=== PATIENT | female | born 1960 | race Caucasian/White ===

== ENCOUNTER 2019-10-16 06:01 | Inpatient (IN) | payer OTHER, BC ==
[2019-10-16] VITALS (15 sets, daily range): BP systolic 83–130; BP diastolic 44–88
[~2019-10-16] VITALS: Ht 162.6 cm; Wt 136.1 kg
--- OUTSIDE RECORDS SUMMARY | 2019-10-16 06:09 | XMS REPORT ---
[facility] Address Unknown Phone Unavailable Care Team Providers Care Cream Dumper Name Role Phone COLTON ROSS Unavailable Unavailable Corrie ROGEL Unavailable Unavailable Castillo JONES Unavailable Unavailable Payers Payer Name Policy Type Policy Number Effective Date Expiration Date Problems This patient has no known problems. Allergies, Adverse Reactions, Alerts Allergy Name Allergy Type Status Severity Reaction(s) Onset Date Inactive Date Treating Clinician Comments cyclosporine DA Active U 2018-04-14 00:00:00 fentanyl DA Active U 2018-01-25 00:00:00 gabapentin DA Active U 2018-01-25 00:00:00 mycophenolate mofetil DA Active U 2018-01-25 00:00:00 levofloxacin DA Active U 2018-01-25 00:00:00 Medications This patient has no known medications. Results Test Description Test Time Test Comments Text Results Atomic Results Result Comments GLUBED 2019-10-02 11:52:00 GLUBED (test code=GLUBED) 174 mg/dL 74-106 Performed by certified grinding machine operator portable at [facility] [id number] 11:52:00* Test Item Value Reference Range Comments GLUBED (test code=GLUBED) 218 mg/dL 74-106 Performed by certified grinding machine operator portable at [facility] [id number] 17:21:00 RUN DATE: 09/20/19 [facility] PAGE 1 RUN TIME: 1722 Specimen Inqui ry RUN USER: INTERFACE PATIENT: MARIZOL VARNER ACCT #: [id number] LOC: [facility] U #: [id number] AGE/SX: 59/F ROOM: [facility] RE09/14/19REG DR: Genaro Verma MD : 58 BED: A DIS: 09/18/19 STATUS: DIS IN TLOC: SPEC #: [id number] RECD: 09/18/19 STATUS: JERZY REQ #: [id number] OLIVER: 09/16/19- SUBM DR: Rohit Viveros MD ENTERED: 09/18/19 SP TYPE: SKIN OTHR DR: Shefali Claudia radha or Family Physician Johnie Hernández MD, David N MD Merszei, Justin David MD Nassif, George M MD Pham,Leilani Moreno MD, MDORDERED: GROSS COPIES TO: No Primary or Family Physician Johnie Stovall MD [address] [facility] [place] [address] Rohit Viveros MD [address] [place] [address] [place] [address] [facility], [address] [place] [address] Yahir Hunter MD [address] [facility] [address] [place] [address] Gemini Lerma MD [address] [place] [id number] Leilani Moran MD [address] [place] [address] MARKERS: INTRADEPARTMENTAL CONSULT CONTINUED ON NEXT PAGE RUN DATE: 09/20/19 [facility] PAGE 2 RUN TIME: 1722 Specimen Inquiry RUN USER: INTER FACE SPEC #: [id number] PATIENT: MARIZOL VARNER #[id number] (Con tinued) PROCEDURES: GROSS (09/20/19-1411) TISSUES: SKIN, N OS - LEFT FOREARM CLINICAL HISTORY COLLECTION DATE: 09/16/19 SEV ERE SEPSIS, INFECTED SKIN LESIONS COMMENT Multiple levels of the t issue are examined. These show a predominately superficial perivascular dermat itis. Focal erosion of the epidermal surface is noted. Discrete bulla/blister formation is not appreciated. Interpretation is somewhat limited as some deg enerative change has occurred. Necrotic keratinocytes typical of erythema mult iforme are not seen. No viral inclusions or granulomas are identified. The fi ndings are non-specific but a drug eruption is not excluded. Correlation is ne mayteary. Intradepartmental consultation: DMW. FINAL DIAGNOSIS Sk in, left forearm, excisional biopsy: SUPERFICIAL PERIVASCULAR DERMATITI S, see comment EPITHELIAL HYPERPLASIA, MILD HYPERKERATOSIS AND FOCAL EPID ERMAL EROSION NO VASCULITIS PRESENT NEGATIVE FOR MALIGNANCY RRB/rohini D [id number] MACROSCOPIC The specimen is received in mejia ine labeled with the patient's name, and medical record number. It consists o f an ellipse of light menon to menon-red skin measuring 2.0 x 1.0 x 0.3 cm. The s pecimen is not oriented. The surgical margin is inked black. The tissue is s ectioned and entirely submitted in a single cassette. GROSS PERFORMED AT [facility] [address] [place] [address] (P)[phone] CONTINUED ON NEXT PAGE RUN DATE: 09/20/19 [facility] PAGE 3 RUN TIME: 172 Specimen Inquiry RUN USER: INTERFACE SPEC #: [id number] PATIENT: MARIZOL VARNER #[id number] (Continued)------ ------ MICROSCOPIC The tissue was entirely submitted for histologi c evaluation. The specimen was received in saline, without fixation and degen erative type change is present. The sections show skin with an area of centra l surface erosion. Mild hyperkeratosis and hyperplasia are present around the eroded area. A mixed inflammatory infiltrate is present in the upper and mid dermis. The inflammatory infiltrate consists predominately of lymphocytes and scattered neutrophils with few plasma cells. Increased numbers of eosinophils are not identified. The inflammatory infiltrate is predominately perivascular in location. No true vasculitis is present. Large confluent areas of i nflammation and necrosis are not seen. Necrotic epithelial cells are not note d. All of the stains, including any controls performed, stain appropriately. MICROSCOPIC PERFORMED AT [facility] [address] [place] [address] [phone])[phone] PERFO ING SITE Diagnosis performed at: [facility] [address] [facility] [place], [place] [address] Signed SIGNATURE ON FILE Asif Scott MD 09/20/19 7381 END OF REPORT AB HEPATITIS B SURFACE 2019-09-19 09:10:00* Test Item Value Reference Range Comments AB HEPATITIS B SURFACE (test code=HBSAB) Non Reactive () Non Reactive: Inconsistent with immunity, less than 10 mIU/mL Reactive: Consistent with immunity, greater than 9.9 mIU/mLPerformed At: [facility] [id number] Blas MD Ph:[phone] HEPATITIS B CORE ANTIBODY,[id number] 07:13:00* Test Item Value Reference Range Comments HEPATITIS B CORE ANTIBODY,TOT (test code=HBCAB) Negative Negative Performed At: [facility] [id number] Blas MD Ph:[phone] [id number] 08:48:00* Test Item Value Reference Range Comments GLUBED (test code=GLUBED) 260 mg/dL 74-106 Performed by certified grinding machine operator portable at [facility] - XR CHEST 1 [id number] 05:28:00 FAX: Tom Castillo [phone] [place]: St: [facility] FAX: Genaro Vidal MD [phone] Name: MARIZOL VARNER [facility] : 1960 Age/S: 59/F [address] [facility] Unit #: [id number] Loc: [address] [place] [address] Phys: Tom Castillo Acct: [id number] Dis Date: Status: ADM IN PHONE #: [phone] Exam Date: 09/18/2019 0431 FAX #: [phone] Reason: updated pulm view. EXAMS: CPT CODE: [id number] XR CHEST 1 V 76796 EXAM: XR Chest 1 View INDICATION: updated pulm view. LOCATION CODE: R 16 COMPARISON: Chest radiograph dated 09/17/2019 TECHNIQUE: Frontal view of the chest was obtained. FINDINGS: Tracheostomy is in unchanged placement. Right basilar subsegmental atelectasis is increased from prior. There is unchanged pulmonary vascular congestion. There is no pleural effusion or pneumothorax. The cardiomediastinal silhouette is unchanged. No acute osseous abnormality is identified. IMPRESSION: Inc reased right basilar subsegmental atelectasis, otherwise unchanged radio graph. at 0528 Reported and signed by: Clara Ugalde M.D. CC: Tom Castillo; Genaro Verma MD Technologist: TAMARA ORTIZ, RT(R) Trnscrd Date/Time/By: 09/18/2019 (527) : By: [email or web address] Orig Print D/T: S: 09/18/2019 (0568) PAGE 1 Signed Report B-TYPE NATRIURETIC [id number] 04:36:00* Test Item Value Reference Range Comments B-TYPE NATRIURETIC PEPTIDE (test code=BNP) 696.61 pgram/mL 0-100 CBC W/MANUAL [id number] 04:33:00* Test Item Value Reference Range Comments WHITE BLOOD CELL (test code=WBC) 18.8 K/mm3 4.5-12.5 RED BLOOD CELL (test code=RBC) 3.27 mill/mm3 3.7-5.2 HEMOGLOBIN (test code=HGB) 9.3 gram/dL 11.5-15.5 HEMATOCRIT (test code=HCT) 31.3 % 36.0-46.0 MEAN CELL VOLUME (test code=MCV) 95.7 fL 80-98 MEAN CELL HGB (test code=MCH) 28.4 picogram 27.0-33.0 MEAN CELL HGB CONCETRATION (test code=MCHC) 29.7 gram/dL 33.0-36.0 RED CELL DISTRIBUTION WIDTH (test code=RDW) 16.3 % 11.6-16.2 RED CELL DISTRIBUTION WIDTH SD (test code=RDW-SD) 57.4 fL 37.0-51.0 PLATELET COUNT (test code=PLT) 276 K/mm3 150-450 MEAN PLATELET VOLUME (test code=MPV) 11.2 fL 6.7-11.0 IMMATURE GRANULOCYTE % (test code=IG%) 16.7 % 0.0-5.0 "The appearance of immature granulocytes (myelocytes,pro-myelocytes, meta-myelocytes) in the peripheral blood ofnon- individuals can indicate a response toinfection, inflammation, or other stimulus to the bonemarrow" NUCLEATED RBC % (test code=NRBC%) 0.2 % 0-0 NEUTROPHIL # (test code=NT#) 13.51 K/mm3 1.8-7.7 IMMATURE GRANULOCYTE # (test code=IG#) 3.13 x10 3/uL 0-0.03 LYMPHOCYTE # (test code=LY#) 1.02 K/mm3 1.0-5.0 MONOCYTE # (test code=MO#) 0.91 K/mm3 0-0.8 EOSINOPHIL # (test code=EO#) 0.06 K/mm3 0.0-0.5 BASOPHIL # (test code=BA#) 0.12 K/mm3 0.0-0.2 NUCLEATED RBC # (test code=NRBC#) 0.04 K/mm3 0.0-0.1 MANUAL DIFF REQUIRED (test code=MDIFF) YES STAIN ACCEPTABILITY (test code=STN ACCEPTABLE) STAIN ACCEPTABLE TOTAL CELLS COUNTED (test code=TCC) 115 #CELLS SEGMENTED NEUTROPHILS (test code=SEG) 81.7 % 39-69 BAND NEUTROPHIL (test code=BAND) 6.1 % 0-10 LYMPHOCYTE (test code=LYMPH) 6.1 % 25-55 REACTIVE LYMPH (test code=RELYMPH) 0 % MONOCYTE (test code=MON) 4.3 % 0-10 EOSINOPHIL (test code=EOS) 0 % 0.0-5.0 BASOPHIL (test code=BASO) 0.9 % 0-1.0 METAMYELOCYTE (test code=META) 0 % 0-0 MYELOCYTE (test code=MYELO) 0.9 % 0.0-0.0 PROMYELOCYTE (test code=PROM) 0 % 0-0 POLYCHROMASIA (test code=POLC) 1+ TOXIC GRANULATION (test code=TOX) 1+ PLATELET ESTIMATE (test code=PLTEST) ADEQUATE PLATELET MORPHOLOGY (test code=PLTMORPH) NORMAL IMMATURE FORMS (test code=IMMAT) 0 % 0-0 COMPREHENSIVE METABOLIC [id number] 04:30:00* Test Item Value Reference Range Comments SODIUM (test code=NA) 131 mmol/L 136-145 POTASSIUM (test code=K) 5.7 mmol/L 3.5-5.1 CHLORIDE (test code=CL) 93.0 mmol/L 98-107 CARBON DIOXIDE (test code=CO2) 21.0 mmol/L 21-32 ANION GAP (test code=GAP) 22.7 10-20 GLUCOSE (test code=GLU) 371 mg/dL 74-106 BLOOD UREA NITROGEN (test code=BUN) 103 mg/dL 7-18 GLOMERULAR FILTRATION RATE (test code=GFR) 4 mL/min >=60 Estimated GFR by using Modified MDRD formula.Chronic kidney disease is defined as either kidney damageor GFR <60 mL/min/1.73 m2 for >3 months. CREATININE (test code=CREAT) 9.30 mg/dL 0.55-1.02 Note change in reference range due to change in reagent. BUN/CREATININE RATIO (test code=BUN/CREA) 11.1 10-20 TOTAL PROTEIN (test code=PROT) 8.9 gram/dL 6.4-8.2 ALBUMIN (test code=ALB) 3.3 g/dL 3.4-5.0 GLOBULIN (test code=GLOB) 5.6 gram/dL 2.7-4.2 ALBUMIN/GLOBULIN RATIO (test code=A/G) 0.6 0.75-1.50 CALCIUM (test code=CA) 9.0 mg/dL 8.5-10.1 BILIRUBIN TOTAL (test code=BILT) 0.30 mg/dL 0.0-1.0 SGOT/AST (test code=AST) 17 IUnit/L 15-37 SGPT/ALT (test code=ALT) 48 IUnit/L 12-78 ALKALINE PHOSPHATASE TOTAL (test code=ALKP) 85 IUnit/L 45-117 Note change in reference range due to change in reagent. [id number] 04:30:00* Test Item Value Reference Range Comments MAGNESIUM (test code=MAG) 2.4 mg/dL 1.8-2.4 COMPREHENSIVE METABOLIC [id number] 04:15:00* Test Item Value Reference Range Comments SODIUM (test code=NA) 131 mmol/L 136-145 POTASSIUM (test code=K) 5.7 mmol/L 3.5-5.1 CHLORIDE (test code=CL) 93.0 mmol/L 98-107 CARBON DIOXIDE (test code=CO2) mmol/L 21-32 ANION GAP (test code=GAP) 10-20 GLUCOSE (test code=GLU) mg/dL 74-106 BLOOD UREA NITROGEN (test code=BUN) mg/dL 7-18 GLOMERULAR FILTRATION RATE (test code=GFR) mL/min >=60 CREATININE (test code=CREAT) mg/dL 0.55-1.02 BUN/CREATININE RATIO (test code=BUN/CREA) 10-20 TOTAL PROTEIN (test code=PROT) gram/dL 6.4-8.2 ALBUMIN (test code=ALB) g/dL 3.4-5.0 GLOBULIN (test code=GLOB) gram/dL 2.7-4.2 ALBUMIN/GLOBULIN RATIO (test code=A/G) 0.75-1.50 CALCIUM (test code=CA) mg/dL 8.5-10.1 BILIRUBIN TOTAL (test code=BILT) mg/dL 0.0-1.0 SGOT/AST (test code=AST) IUnit/L 15-37 SGPT/ALT (test code=ALT) IUnit/L 12-78 ALKALINE PHOSPHATASE TOTAL (test code=ALKP) IUnit/L 45-117 [id number] 04:15:00* Test Item Value Reference Range Comments MAGNESIUM (test code=MAG) mg/dL 1.8-2.4 CBC W/MANUAL [id number] 04:01:00* Test Item Value Reference Range Comments WHITE BLOOD CELL (test code=WBC) 18.8 K/mm3 4.5-12.5 RED BLOOD CELL (test code=RBC) 3.27 mill/mm3 3.7-5.2 HEMOGLOBIN (test code=HGB) 9.3 gram/dL 11.5-15.5 HEMATOCRIT (test code=HCT) 31.3 % 36.0-46.0 MEAN CELL VOLUME (test code=MCV) 95.7 fL 80-98 MEAN CELL HGB (test code=MCH) 28.4 picogram 27.0-33.0 MEAN CELL HGB CONCETRATION (test code=MCHC) 29.7 gram/dL 33.0-36.0 RED CELL DISTRIBUTION WIDTH (test code=RDW) 16.3 % 11.6-16.2 RED CELL DISTRIBUTION WIDTH SD (test code=RDW-SD) 57.4 fL 37.0-51.0 PLATELET COUNT (test code=PLT) 276 K/mm3 150-450 MEAN PLATELET VOLUME (test code=MPV) 11.2 fL 6.7-11.0 IMMATURE GRANULOCYTE % (test code=IG%) 16.7 % 0.0-5.0 "The appearance of immature granulocytes (myelocytes,pro-myelocytes, meta-myelocytes) in the peripheral blood ofnon- individuals can indicate a response toinfection, inflammation, or other stimulus to the bonemarrow" NUCLEATED RBC % (test code=NRBC%) 0.2 % 0-0 NEUTROPHIL # (test code=NT#) 13.51 K/mm3 1.8-7.7 IMMATURE GRANULOCYTE # (test code=IG#) 3.13 x10 3/uL 0-0.03 LYMPHOCYTE # (test code=LY#) 1.02 K/mm3 1.0-5.0 MONOCYTE # (test code=MO#) 0.91 K/mm3 0-0.8 EOSINOPHIL # (test code=EO#) 0.06 K/mm3 0.0-0.5 BASOPHIL # (test code=BA#) 0.12 K/mm3 0.0-0.2 NUCLEATED RBC # (test code=NRBC#) 0.04 K/mm3 0.0-0.1 MANUAL DIFF REQUIRED (test code=MDIFF) YES STAIN ACCEPTABILITY (test code=STN ACCEPTABLE) TOTAL CELLS COUNTED (test code=TCC) #CELLS SEGMENTED NEUTROPHILS (test code=SEG) % 39-69 LYMPHOCYTE (test code=LYMPH) % 25-55 MONOCYTE (test code=MON) % 0-10 MORPHOLOGY COMMENT (test code=MOC) PLATELET ESTIMATE (test code=PLTEST) PLATELET MORPHOLOGY (test code=PLTMORPH) CBC W/MANUAL [id number] 03:58:00* Test Item Value Reference Range Comments WHITE BLOOD CELL (test code=WBC) 18.8 K/mm3 4.5-12.5 RED BLOOD CELL (test code=RBC) 3.27 mill/mm3 3.7-5.2 HEMOGLOBIN (test code=HGB) 9.3 gram/dL 11.5-15.5 HEMATOCRIT (test code=HCT) 31.3 % 36.0-46.0 MEAN CELL VOLUME (test code=MCV) 95.7 fL 80-98 MEAN CELL HGB (test code=MCH) 28.4 picogram 27.0-33.0 MEAN CELL HGB CONCETRATION (test code=MCHC) 29.7 gram/dL 33.0-36.0 RED CELL DISTRIBUTION WIDTH (test code=RDW) 16.3 % 11.6-16.2 RED CELL DISTRIBUTION WIDTH SD (test code=RDW-SD) 57.4 fL 37.0-51.0 PLATELET COUNT (test code=PLT) 276 K/mm3 150-450 MEAN PLATELET VOLUME (test code=MPV) 11.2 fL 6.7-11.0 IMMATURE GRANULOCYTE % (test code=IG%) 16.7 % 0.0-5.0 "The appearance of immature granulocytes (myelocytes,pro-myelocytes, meta-myelocytes) in the peripheral blood ofnon- individuals can indicate a response toinfection, inflammation, or other stimulus to the bonemarrow" NUCLEATED RBC % (test code=NRBC%) 0.2 % 0-0 NEUTROPHIL # (test code=NT#) 13.51 K/mm3 1.8-7.7 IMMATURE GRANULOCYTE # (test code=IG#) 3.13 x10 3/uL 0-0.03 LYMPHOCYTE # (test code=LY#) 1.02 K/mm3 1.0-5.0 MONOCYTE # (test code=MO#) 0.91 K/mm3 0-0.8 EOSINOPHIL # (test code=EO#) 0.06 K/mm3 0.0-0.5 BASOPHIL # (test code=BA#) 0.12 K/mm3 0.0-0.2 NUCLEATED RBC # (test code=NRBC#) 0.04 K/mm3 0.0-0.1 MANUAL DIFF REQUIRED (test code=MDIFF) YES STAIN ACCEPTABILITY (test code=STN ACCEPTABLE) TOTAL CELLS COUNTED (test code=TCC) #CELLS SEGMENTED NEUTROPHILS (test code=SEG) % 39-69 LYMPHOCYTE (test code=LYMPH) % 25-55 MONOCYTE (test code=MON) % 0-10 EOSINOPHIL (test code=EOS) % 0.0-5.0 CABOT RINGS (test code=CAB) MORPHOLOGY COMMENT (test code=MOC) PLATELET ESTIMATE (test code=PLTEST) PLATELET MORPHOLOGY (test code=PLTMORPH) CBC W/MANUAL [id number] 03:58:00* Test Item Value Reference Range Comments WHITE BLOOD CELL (test code=WBC) 18.8 K/mm3 4.5-12.5 RED BLOOD CELL (test code=RBC) 3.27 mill/mm3 3.7-5.2 HEMOGLOBIN (test code=HGB) 9.3 gram/dL 11.5-15.5 HEMATOCRIT (test code=HCT) 31.3 % 36.0-46.0 MEAN CELL VOLUME (test code=MCV) 95.7 fL 80-98 MEAN CELL HGB (test code=MCH) 28.4 picogram 27.0-33.0 MEAN CELL HGB CONCETRATION (test code=MCHC) 29.7 gram/dL 33.0-36.0 RED CELL DISTRIBUTION WIDTH (test code=RDW) 16.3 % 11.6-16.2 RED CELL DISTRIBUTION WIDTH SD (test code=RDW-SD) 57.4 fL 37.0-51.0 PLATELET COUNT (test code=PLT) 276 K/mm3 150-450 MEAN PLATELET VOLUME (test code=MPV) 11.2 fL 6.7-11.0 IMMATURE GRANULOCYTE % (test code=IG%) 16.7 % 0.0-5.0 "The appearance of immature granulocytes (myelocytes,pro-myelocytes, meta-myelocytes) in the peripheral blood ofnon- individuals can indicate a response toinfection, inflammation, or other stimulus to the bonemarrow" NUCLEATED RBC % (test code=NRBC%) 0.2 % 0-0 NEUTROPHIL # (test code=NT#) 13.51 K/mm3 1.8-7.7 IMMATURE GRANULOCYTE # (test code=IG#) 3.13 x10 3/uL 0-0.03 LYMPHOCYTE # (test code=LY#) 1.02 K/mm3 1.0-5.0 MONOCYTE # (test code=MO#) 0.91 K/mm3 0-0.8 EOSINOPHIL # (test code=EO#) 0.06 K/mm3 0.0-0.5 BASOPHIL # (test code=BA#) 0.12 K/mm3 0.0-0.2 NUCLEATED RBC # (test code=NRBC#) 0.04 K/mm3 0.0-0.1 MANUAL DIFF REQUIRED (test code=MDIFF) YES STAIN ACCEPTABILITY (test code=STN ACCEPTABLE) TOTAL CELLS COUNTED (test code=TCC) #CELLS SEGMENTED NEUTROPHILS (test code=SEG) % 39-69 LYMPHOCYTE (test code=LYMPH) % 25-55 MONOCYTE (test code=MON) % 0-10 EOSINOPHIL (test code=EOS) % 0.0-5.0 CABOT RINGS (test code=CAB) MORPHOLOGY COMMENT (test code=MOC) PLATELET ESTIMATE (test code=PLTEST) PLATELET MORPHOLOGY (test code=PLTMORPH) CBC W/MANUAL [id number] 03:58:00* Test Item Value Reference Range Comments WHITE BLOOD CELL (test code=WBC) 18.8 K/mm3 4.5-12.5 RED BLOOD CELL (test code=RBC) 3.27 mill/mm3 3.7-5.2 HEMOGLOBIN (test code=HGB) 9.3 gram/dL 11.5-15.5 HEMATOCRIT (test code=HCT) 31.3 % 36.0-46.0 MEAN CELL VOLUME (test code=MCV) 95.7 fL 80-98 MEAN CELL HGB (test code=MCH) 28.4 picogram 27.0-33.0 MEAN CELL HGB CONCETRATION (test code=MCHC) 29.7 gram/dL 33.0-36.0 RED CELL DISTRIBUTION WIDTH (test code=RDW) 16.3 % 11.6-16.2 RED CELL DISTRIBUTION WIDTH SD (test code=RDW-SD) 57.4 fL 37.0-51.0 PLATELET COUNT (test code=PLT) 276 K/mm3 150-450 MEAN PLATELET VOLUME (test code=MPV) 11.2 fL 6.7-11.0 IMMATURE GRANULOCYTE % (test code=IG%) 16.7 % 0.0-5.0 "The appearance of immature granulocytes (myelocytes,pro-myelocytes, meta-myelocytes) in the peripheral blood ofnon- individuals can indicate a response toinfection, inflammation, or other stimulus to the bonemarrow" NUCLEATED RBC % (test code=NRBC%) 0.2 % 0-0 NEUTROPHIL # (test code=NT#) 13.51 K/mm3 1.8-7.7 IMMATURE GRANULOCYTE # (test code=IG#) 3.13 x10 3/uL 0-0.03 LYMPHOCYTE # (test code=LY#) 1.02 K/mm3 1.0-5.0 MONOCYTE # (test code=MO#) 0.91 K/mm3 0-0.8 EOSINOPHIL # (test code=EO#) 0.06 K/mm3 0.0-0.5 BASOPHIL # (test code=BA#) 0.12 K/mm3 0.0-0.2 NUCLEATED RBC # (test code=NRBC#) 0.04 K/mm3 0.0-0.1 MANUAL DIFF REQUIRED (test code=MDIFF) YES STAIN ACCEPTABILITY (test code=STN ACCEPTABLE) TOTAL CELLS COUNTED (test code=TCC) #CELLS SEGMENTED NEUTROPHILS (test code=SEG) % 39-69 LYMPHOCYTE (test code=LYMPH) % 25-55 MONOCYTE (test code=MON) % 0-10 EOSINOPHIL (test code=EOS) % 0.0-5.0 MORPHOLOGY COMMENT (test code=MOC) PLATELET ESTIMATE (test code=PLTEST) PLATELET MORPHOLOGY (test code=PLTMORPH) CBC W/MANUAL [id number] 03:58:00* Test Item Value Reference Range Comments WHITE BLOOD CELL (test code=WBC) 18.8 K/mm3 4.5-12.5 RED BLOOD CELL (test code=RBC) 3.27 mill/mm3 3.7-5.2 HEMOGLOBIN (test code=HGB) 9.3 gram/dL 11.5-15.5 HEMATOCRIT (test code=HCT) 31.3 % 36.0-46.0 MEAN CELL VOLUME (test code=MCV) 95.7 fL 80-98 MEAN CELL HGB (test code=MCH) 28.4 picogram 27.0-33.0 MEAN CELL HGB CONCETRATION (test code=MCHC) 29.7 gram/dL 33.0-36.0 RED CELL DISTRIBUTION WIDTH (test code=RDW) 16.3 % 11.6-16.2 RED CELL DISTRIBUTION WIDTH SD (test code=RDW-SD) 57.4 fL 37.0-51.0 PLATELET COUNT (test code=PLT) 276 K/mm3 150-450 MEAN PLATELET VOLUME (test code=MPV) 11.2 fL 6.7-11.0 IMMATURE GRANULOCYTE % (test code=IG%) 16.7 % 0.0-5.0 "The appearance of immature granulocytes (myelocytes,pro-myelocytes, meta-myelocytes) in the peripheral blood ofnon- individuals can indicate a response toinfection, inflammation, or other stimulus to the bonemarrow" NUCLEATED RBC % (test code=NRBC%) 0.2 % 0-0 NEUTROPHIL # (test code=NT#) 13.51 K/mm3 1.8-7.7 IMMATURE GRANULOCYTE # (test code=IG#) 3.13 x10 3/uL 0-0.03 LYMPHOCYTE # (test code=LY#) 1.02 K/mm3 1.0-5.0 MONOCYTE # (test code=MO#) 0.91 K/mm3 0-0.8 EOSINOPHIL # (test code=EO#) 0.06 K/mm3 0.0-0.5 BASOPHIL # (test code=BA#) 0.12 K/mm3 0.0-0.2 NUCLEATED RBC # (test code=NRBC#) 0.04 K/mm3 0.0-0.1 MANUAL DIFF REQUIRED (test code=MDIFF) YES STAIN ACCEPTABILITY (test code=STN ACCEPTABLE) TOTAL CELLS COUNTED (test code=TCC) #CELLS SEGMENTED NEUTROPHILS (test code=SEG) % 39-69 LYMPHOCYTE (test code=LYMPH) % 25-55 MONOCYTE (test code=MON) % 0-10 EOSINOPHIL (test code=EOS) % 0.0-5.0 CABOT RINGS (test code=CAB) MORPHOLOGY COMMENT (test code=MOC) PLATELET ESTIMATE (test code=PLTEST) PLATELET MORPHOLOGY (test code=PLTMORPH) [id number] 16:15:00* Test Item Value Reference Range Comments GLUBED (test code=GLUBED) 299 mg/dL 74-106 Performed by certified grinding machine operator portable at [facility] [id number] 11:33:00* Test Item Value Reference Range Comments GLUBED (test code=GLUBED) 228 mg/dL 74-106 Performed by certified grinding machine operator portable at [facility] [id number] 08:51:00* Test Item Value Reference Range Comments GLUBED (test code=GLUBED) 237 mg/dL 74-106 Performed by certified grinding machine operator portable at [facility] - XR CHEST 1 [id number] 04:55:00 FAX: Genaro Vidal MD [phone] [place]: St: [facility] FAX: Seun Maya MD [phone] Name: MARIZOL VARNER [facility] : 1960 Age/S: 59/F [address] [facility] Unit #: [id number] Loc: V.[address] [place] [id number] Phys: Seun Nunez MD Acct: [id number] Dis Date: Status: ADM IN PHONE #: [phone] Exam Date: 09/17/2019 0423 FAX #: [phone] Reason: bibasilar GNR pneumonia with tracheostomy EXAMS: CPT CODE: [id number] XR CHEST 1 V 37571 EXAM: XR Chest 1 View INDICATION: bibasilar GNR pneumonia with tracheostomy LOCATION CODE: R 16 COMPARISON: Chest radiograph dated 09/16/2019 TECHNIQUE: Frontal view of the chest was obtained. FINDINGS: Tracheostomy is in unchanged placement. Bibasilar lung opacities appear decreased from prior. There is no pleural effusion or pneumothorax. The cardiomediastinal silhouette is unchanged. No acute osseous abnormality is identified. IMPRESSION: Decrease in bibasilar lung opacities likely reflecting improving pneumonia. at 0455 Reported and signed by: Clara Ugalde M.D. CC: Genaro Verma MD; Seun Nunez MD Technologist: Mandeep Reina RT(R); ELSIE DA SILVA RT(R) Trnscrd Date/Time/By: 09/17/2019 (0455) : By: [email or web address] Orig Print D/T: S: 09/17/2019 (0458) PAGE 1 Signed Report B-TYPE NATRIURETIC [id number] 04:21:00* Test Item Value Reference Range Comments B-TYPE NATRIURETIC PEPTIDE (test code=BNP) 754.74 pgram/mL 0-100 CBC W/MANUAL [id number] 01:28:00* Test Item Value Reference Range Comments WHITE BLOOD CELL (test code=WBC) 21.2 K/mm3 4.5-12.5 RED BLOOD CELL (test code=RBC) 2.83 mill/mm3 3.7-5.2 HEMOGLOBIN (test code=HGB) 8.3 gram/dL 11.5-15.5 HEMATOCRIT (test code=HCT) 27.2 % 36.0-46.0 MEAN CELL VOLUME (test code=MCV) 96.1 fL 80-98 MEAN CELL HGB (test code=MCH) 29.3 picogram 27.0-33.0 MEAN CELL HGB CONCETRATION (test code=MCHC) 30.5 gram/dL 33.0-36.0 RED CELL DISTRIBUTION WIDTH (test code=RDW) 16.1 % 11.6-16.2 RED CELL DISTRIBUTION WIDTH SD (test code=RDW-SD) 56.4 fL 37.0-51.0 PLATELET COUNT (test code=PLT) 233 K/mm3 150-450 MEAN PLATELET VOLUME (test code=MPV) 11.2 fL 6.7-11.0 IMMATURE GRANULOCYTE % (test code=IG%) 9.1 % 0.0-5.0 "The appearance of immature granulocytes (myelocytes,pro-myelocytes, meta-myelocytes) in the peripheral blood ofnon- individuals can indicate a response toinfection, inflammation, or other stimulus to the bonemarrow" NUCLEATED RBC % (test code=NRBC%) 0.2 % 0-0 NEUTROPHIL # (test code=NT#) 16.38 K/mm3 1.8-7.7 IMMATURE GRANULOCYTE # (test code=IG#) 1.93 x10 3/uL 0-0.03 LYMPHOCYTE # (test code=LY#) 1.17 K/mm3 1.0-5.0 MONOCYTE # (test code=MO#) 1.50 K/mm3 0-0.8 EOSINOPHIL # (test code=EO#) 0.09 K/mm3 0.0-0.5 BASOPHIL # (test code=BA#) 0.12 K/mm3 0.0-0.2 NUCLEATED RBC # (test code=NRBC#) 0.04 K/mm3 0.0-0.1 MANUAL DIFF REQUIRED (test code=MDIFF) YES STAIN ACCEPTABILITY (test code=STN ACCEPTABLE) STAIN ACCEPTABLE TOTAL CELLS COUNTED (test code=TCC) 115 #CELLS SEGMENTED NEUTROPHILS (test code=SEG) 86.9 % 39-69 BAND NEUTROPHIL (test code=BAND) 1.7 % 0-10 LYMPHOCYTE (test code=LYMPH) 6.1 % 25-55 REACTIVE LYMPH (test code=RELYMPH) 0 % MONOCYTE (test code=MON) 3.5 % 0-10 EOSINOPHIL (test code=EOS) 0.9 % 0.0-5.0 BASOPHIL (test code=BASO) 0.9 % 0-1.0 METAMYELOCYTE (test code=META) 0 % 0-0 MYELOCYTE (test code=MYELO) 0 % 0.0-0.0 PROMYELOCYTE (test code=PROM) 0 % 0-0 POLYCHROMASIA (test code=POLC) 1+ ANISOCYTOSIS (test code=ANISO) 1+ MICROCYTOSIS (test code=MICR) 1+ PLATELET ESTIMATE (test code=PLTEST) ADEQUATE PLATELET MORPHOLOGY (test code=PLTMORPH) NORMAL IMMATURE FORMS (test code=IMMAT) 0 % 0-0 COMPREHENSIVE METABOLIC [id number] 01:20:00* Test Item Value Reference Range Comments SODIUM (test code=NA) 135 mmol/L 136-145 POTASSIUM (test code=K) 4.9 mmol/L 3.5-5.1 CHLORIDE (test code=CL) 97.0 mmol/L 98-107 CARBON DIOXIDE (test code=CO2) 24.0 mmol/L 21-32 ANION GAP (test code=GAP) 18.9 10-20 GLUCOSE (test code=GLU) 251 mg/dL 74-106 BLOOD UREA NITROGEN (test code=BUN) 68 mg/dL 7-18 RESULT VERIFIED BY REPEAT ANALYSIS GLOMERULAR FILTRATION RATE (test code=GFR) 6 mL/min >=60 Estimated GFR by using Modified MDRD formula.Chronic kidney disease is defined as either kidney damageor GFR <60 mL/min/1.73 m2 for >3 months. CREATININE (test code=CREAT) 7.30 mg/dL 0.55-1.02 Note change in reference range due to change in reagent. BUN/CREATININE RATIO (test code=BUN/CREA) 9.3 10-20 TOTAL PROTEIN (test code=PROT) 8.2 gram/dL 6.4-8.2 ALBUMIN (test code=ALB) 3.0 g/dL 3.4-5.0 GLOBULIN (test code=GLOB) 5.2 gram/dL 2.7-4.2 ALBUMIN/GLOBULIN RATIO (test code=A/G) 0.6 0.75-1.50 CALCIUM (test code=CA) 8.8 mg/dL 8.5-10.1 BILIRUBIN TOTAL (test code=BILT) 0.30 mg/dL 0.0-1.0 SGOT/AST (test code=AST) 24 IUnit/L 15-37 SGPT/ALT (test code=ALT) 51 IUnit/L 12-78 ALKALINE PHOSPHATASE TOTAL (test code=ALKP) 82 IUnit/L 45-117 Note change in reference range due to change in reagent. [id number] 01:20:00* Test Item Value Reference Range Comments MAGNESIUM (test code=MAG) 2.1 mg/dL 1.8-2.4 COMPREHENSIVE METABOLIC [id number] 01:05:00* Test Item Value Reference Range Comments SODIUM (test code=NA) 135 mmol/L 136-145 POTASSIUM (test code=K) 4.9 mmol/L 3.5-5.1 CHLORIDE (test code=CL) 97.0 mmol/L 98-107 CARBON DIOXIDE (test code=CO2) mmol/L 21-32 ANION GAP (test code=GAP) 10-20 GLUCOSE (test code=GLU) mg/dL 74-106 BLOOD UREA NITROGEN (test code=BUN) mg/dL 7-18 GLOMERULAR FILTRATION RATE (test code=GFR) mL/min >=60 CREATININE (test code=CREAT) mg/dL 0.55-1.02 BUN/CREATININE RATIO (test code=BUN/CREA) 10-20 TOTAL PROTEIN (test code=PROT) gram/dL 6.4-8.2 ALBUMIN (test code=ALB) g/dL 3.4-5.0 GLOBULIN (test code=GLOB) gram/dL 2.7-4.2 ALBUMIN/GLOBULIN RATIO (test code=A/G) 0.75-1.50 CALCIUM (test code=CA) mg/dL 8.5-10.1 BILIRUBIN TOTAL (test code=BILT) mg/dL 0.0-1.0 SGOT/AST (test code=AST) IUnit/L 15-37 SGPT/ALT (test code=ALT) IUnit/L 12-78 ALKALINE PHOSPHATASE TOTAL (test code=ALKP) IUnit/L 45-117 [id number] 01:05:00* Test Item Value Reference Range Comments MAGNESIUM (test code=MAG) mg/dL 1.8-2.4 CBC W/MANUAL [id number] 01:04:00* Test Item Value Reference Range Comments WHITE BLOOD CELL (test code=WBC) 21.2 K/mm3 4.5-12.5 RED BLOOD CELL (test code=RBC) 2.83 mill/mm3 3.7-5.2 HEMOGLOBIN (test code=HGB) 8.3 gram/dL 11.5-15.5 HEMATOCRIT (test code=HCT) 27.2 % 36.0-46.0 MEAN CELL VOLUME (test code=MCV) 96.1 fL 80-98 MEAN CELL HGB (test code=MCH) 29.3 picogram 27.0-33.0 MEAN CELL HGB CONCETRATION (test code=MCHC) 30.5 gram/dL 33.0-36.0 RED CELL DISTRIBUTION WIDTH (test code=RDW) 16.1 % 11.6-16.2 RED CELL DISTRIBUTION WIDTH SD (test code=RDW-SD) 56.4 fL 37.0-51.0 PLATELET COUNT (test code=PLT) 233 K/mm3 150-450 MEAN PLATELET VOLUME (test code=MPV) 11.2 fL 6.7-11.0 IMMATURE GRANULOCYTE % (test code=IG%) 9.1 % 0.0-5.0 "The appearance of immature granulocytes (myelocytes,pro-myelocytes, meta-myelocytes) in the peripheral blood ofnon- individuals can indicate a response toinfection, inflammation, or other stimulus to the bonemarrow" NUCLEATED RBC % (test code=NRBC%) 0.2 % 0-0 NEUTROPHIL # (test code=NT#) 16.38 K/mm3 1.8-7.7 IMMATURE GRANULOCYTE # (test code=IG#) 1.93 x10 3/uL 0-0.03 LYMPHOCYTE # (test code=LY#) 1.17 K/mm3 1.0-5.0 MONOCYTE # (test code=MO#) 1.50 K/mm3 0-0.8 EOSINOPHIL # (test code=EO#) 0.09 K/mm3 0.0-0.5 BASOPHIL # (test code=BA#) 0.12 K/mm3 0.0-0.2 NUCLEATED RBC # (test code=NRBC#) 0.04 K/mm3 0.0-0.1 MANUAL DIFF REQUIRED (test code=MDIFF) YES STAIN ACCEPTABILITY (test code=STN ACCEPTABLE) TOTAL CELLS COUNTED (test code=TCC) #CELLS SEGMENTED NEUTROPHILS (test code=SEG) % 39-69 LYMPHOCYTE (test code=LYMPH) % 25-55 MONOCYTE (test code=MON) % 0-10 EOSINOPHIL (test code=EOS) % 0.0-5.0 CABOT RINGS (test code=CAB) MORPHOLOGY COMMENT (test code=MOC) PLATELET ESTIMATE (test code=PLTEST) PLATELET MORPHOLOGY (test code=PLTMORPH) CBC W/MANUAL [id number] 01:04:00* Test Item Value Reference Range Comments WHITE BLOOD CELL (test code=WBC) 21.2 K/mm3 4.5-12.5 RED BLOOD CELL (test code=RBC) 2.83 mill/mm3 3.7-5.2 HEMOGLOBIN (test code=HGB) 8.3 gram/dL 11.5-15.5 HEMATOCRIT (test code=HCT) 27.2 % 36.0-46.0 MEAN CELL VOLUME (test code=MCV) 96.1 fL 80-98 MEAN CELL HGB (test code=MCH) 29.3 picogram 27.0-33.0 MEAN CELL HGB CONCETRATION (test code=MCHC) 30.5 gram/dL 33.0-36.0 RED CELL DISTRIBUTION WIDTH (test code=RDW) 16.1 % 11.6-16.2 RED CELL DISTRIBUTION WIDTH SD (test code=RDW-SD) 56.4 fL 37.0-51.0 PLATELET COUNT (test code=PLT) 233 K/mm3 150-450 MEAN PLATELET VOLUME (test code=MPV) 11.2 fL 6.7-11.0 IMMATURE GRANULOCYTE % (test code=IG%) 9.1 % 0.0-5.0 "The appearance of immature granulocytes (myelocytes,pro-myelocytes, meta-myelocytes) in the peripheral blood ofnon- individuals can indicate a response toinfection, inflammation, or other stimulus to the bonemarrow" NUCLEATED RBC % (test code=NRBC%) 0.2 % 0-0 NEUTROPHIL # (test code=NT#) 16.38 K/mm3 1.8-7.7 IMMATURE GRANULOCYTE # (test code=IG#) 1.93 x10 3/uL 0-0.03 LYMPHOCYTE # (test code=LY#) 1.17 K/mm3 1.0-5.0 MONOCYTE # (test code=MO#) 1.50 K/mm3 0-0.8 EOSINOPHIL # (test code=EO#) 0.09 K/mm3 0.0-0.5 BASOPHIL # (test code=BA#) 0.12 K/mm3 0.0-0.2 NUCLEATED RBC # (test code=NRBC#) 0.04 K/mm3 0.0-0.1 MANUAL DIFF REQUIRED (test code=MDIFF) YES STAIN ACCEPTABILITY (test code=STN ACCEPTABLE) TOTAL CELLS COUNTED (test code=TCC) #CELLS SEGMENTED NEUTROPHILS (test code=SEG) % 39-69 LYMPHOCYTE (test code=LYMPH) % 25-55 MONOCYTE (test code=MON) % 0-10 EOSINOPHIL (test code=EOS) % 0.0-5.0 MORPHOLOGY COMMENT (test code=MOC) PLATELET ESTIMATE (test code=PLTEST) PLATELET MORPHOLOGY (test code=PLTMORPH) CBC W/MANUAL [id number] 01:04:00* Test Item Value Reference Range Comments WHITE BLOOD CELL (test code=WBC) 21.2 K/mm3 4.5-12.5 RED BLOOD CELL (test code=RBC) 2.83 mill/mm3 3.7-5.2 HEMOGLOBIN (test code=HGB) 8.3 gram/dL 11.5-15.5 HEMATOCRIT (test code=HCT) 27.2 % 36.0-46.0 MEAN CELL VOLUME (test code=MCV) 96.1 fL 80-98 MEAN CELL HGB (test code=MCH) 29.3 picogram 27.0-33.0 MEAN CELL HGB CONCETRATION (test code=MCHC) 30.5 gram/dL 33.0-36.0 RED CELL DISTRIBUTION WIDTH (test code=RDW) 16.1 % 11.6-16.2 RED CELL DISTRIBUTION WIDTH SD (test code=RDW-SD) 56.4 fL 37.0-51.0 PLATELET COUNT (test code=PLT) 233 K/mm3 150-450 MEAN PLATELET VOLUME (test code=MPV) 11.2 fL 6.7-11.0 IMMATURE GRANULOCYTE % (test code=IG%) 9.1 % 0.0-5.0 "The appearance of immature granulocytes (myelocytes,pro-myelocytes, meta-myelocytes) in the peripheral blood ofnon- individuals can indicate a response toinfection, inflammation, or other stimulus to the bonemarrow" NUCLEATED RBC % (test code=NRBC%) 0.2 % 0-0 NEUTROPHIL # (test code=NT#) 16.38 K/mm3 1.8-7.7 IMMATURE GRANULOCYTE # (test code=IG#) 1.93 x10 3/uL 0-0.03 LYMPHOCYTE # (test code=LY#) 1.17 K/mm3 1.0-5.0 MONOCYTE # (test code=MO#) 1.50 K/mm3 0-0.8 EOSINOPHIL # (test code=EO#) 0.09 K/mm3 0.0-0.5 BASOPHIL # (test code=BA#) 0.12 K/mm3 0.0-0.2 NUCLEATED RBC # (test code=NRBC#) 0.04 K/mm3 0.0-0.1 MANUAL DIFF REQUIRED (test code=MDIFF) YES STAIN ACCEPTABILITY (test code=STN ACCEPTABLE) TOTAL CELLS COUNTED (test code=TCC) #CELLS SEGMENTED NEUTROPHILS (test code=SEG) % 39-69 LYMPHOCYTE (test code=LYMPH) % 25-55 MONOCYTE (test code=MON) % 0-10 MORPHOLOGY COMMENT (test code=MOC) PLATELET ESTIMATE (test code=PLTEST) PLATELET MORPHOLOGY (test code=PLTMORPH) CBC W/MANUAL [id number] 01:03:00* Test Item Value Reference Range Comments WHITE BLOOD CELL (test code=WBC) 21.2 K/mm3 4.5-12.5 RED BLOOD CELL (test code=RBC) 2.83 mill/mm3 3.7-5.2 HEMOGLOBIN (test code=HGB) 8.3 gram/dL 11.5-15.5 HEMATOCRIT (test code=HCT) 27.2 % 36.0-46.0 MEAN CELL VOLUME (test code=MCV) 96.1 fL 80-98 MEAN CELL HGB (test code=MCH) 29.3 picogram 27.0-33.0 MEAN CELL HGB CONCETRATION (test code=MCHC) 30.5 gram/dL 33.0-36.0 RED CELL DISTRIBUTION WIDTH (test code=RDW) 16.1 % 11.6-16.2 RED CELL DISTRIBUTION WIDTH SD (test code=RDW-SD) 56.4 fL 37.0-51.0 PLATELET COUNT (test code=PLT) 233 K/mm3 150-450 MEAN PLATELET VOLUME (test code=MPV) 11.2 fL 6.7-11.0 IMMATURE GRANULOCYTE % (test code=IG%) 9.1 % 0.0-5.0 "The appearance of immature granulocytes (myelocytes,pro-myelocytes, meta-myelocytes) in the peripheral blood ofnon- individuals can indicate a response toinfection, inflammation, or other stimulus to the bonemarrow" NUCLEATED RBC % (test code=NRBC%) 0.2 % 0-0 NEUTROPHIL # (test code=NT#) 16.38 K/mm3 1.8-7.7 IMMATURE GRANULOCYTE # (test code=IG#) 1.93 x10 3/uL 0-0.03 LYMPHOCYTE # (test code=LY#) 1.17 K/mm3 1.0-5.0 MONOCYTE # (test code=MO#) 1.50 K/mm3 0-0.8 EOSINOPHIL # (test code=EO#) 0.09 K/mm3 0.0-0.5 BASOPHIL # (test code=BA#) 0.12 K/mm3 0.0-0.2 NUCLEATED RBC # (test code=NRBC#) 0.04 K/mm3 0.0-0.1 MANUAL DIFF REQUIRED (test code=MDIFF) YES STAIN ACCEPTABILITY (test code=STN ACCEPTABLE) TOTAL CELLS COUNTED (test code=TCC) #CELLS SEGMENTED NEUTROPHILS (test code=SEG) % 39-69 LYMPHOCYTE (test code=LYMPH) % 25-55 MONOCYTE (test code=MON) % 0-10 EOSINOPHIL (test code=EOS) % 0.0-5.0 CABOT RINGS (test code=CAB) MORPHOLOGY COMMENT (test code=MOC) PLATELET ESTIMATE (test code=PLTEST) PLATELET MORPHOLOGY (test code=PLTMORPH) CBC W/MANUAL [id number] 01:03:00* Test Item Value Reference Range Comments WHITE BLOOD CELL (test code=WBC) 21.2 K/mm3 4.5-12.5 RED BLOOD CELL (test code=RBC) 2.83 mill/mm3 3.7-5.2 HEMOGLOBIN (test code=HGB) 8.3 gram/dL 11.5-15.5 HEMATOCRIT (test code=HCT) 27.2 % 36.0-46.0 MEAN CELL VOLUME (test code=MCV) 96.1 fL 80-98 MEAN CELL HGB (test code=MCH) 29.3 picogram 27.0-33.0 MEAN CELL HGB CONCETRATION (test code=MCHC) 30.5 gram/dL 33.0-36.0 RED CELL DISTRIBUTION WIDTH (test code=RDW) 16.1 % 11.6-16.2 RED CELL DISTRIBUTION WIDTH SD (test code=RDW-SD) 56.4 fL 37.0-51.0 PLATELET COUNT (test code=PLT) 233 K/mm3 150-450 MEAN PLATELET VOLUME (test code=MPV) 11.2 fL 6.7-11.0 IMMATURE GRANULOCYTE % (test code=IG%) 9.1 % 0.0-5.0 "The appearance of immature granulocytes (myelocytes,pro-myelocytes, meta-myelocytes) in the peripheral blood ofnon- individuals can indicate a response toinfection, inflammation, or other stimulus to the bonemarrow" NUCLEATED RBC % (test code=NRBC%) 0.2 % 0-0 NEUTROPHIL # (test code=NT#) 16.38 K/mm3 1.8-7.7 IMMATURE GRANULOCYTE # (test code=IG#) 1.93 x10 3/uL 0-0.03 LYMPHOCYTE # (test code=LY#) 1.17 K/mm3 1.0-5.0 MONOCYTE # (test code=MO#) 1.50 K/mm3 0-0.8 EOSINOPHIL # (test code=EO#) 0.09 K/mm3 0.0-0.5 BASOPHIL # (test code=BA#) 0.12 K/mm3 0.0-0.2 NUCLEATED RBC # (test code=NRBC#) 0.04 K/mm3 0.0-0.1 MANUAL DIFF REQUIRED (test code=MDIFF) YES STAIN ACCEPTABILITY (test code=STN ACCEPTABLE) TOTAL CELLS COUNTED (test code=TCC) #CELLS SEGMENTED NEUTROPHILS (test code=SEG) % 39-69 LYMPHOCYTE (test code=LYMPH) % 25-55 MONOCYTE (test code=MON) % 0-10 EOSINOPHIL (test code=EOS) % 0.0-5.0 CABOT RINGS (test code=CAB) MORPHOLOGY COMMENT (test code=MOC) PLATELET ESTIMATE (test code=PLTEST) PLATELET MORPHOLOGY (test code=PLTMORPH) [id number] 16:57:00* Test Item Value Reference Range Comments GLUBED (test code=GLUBED) 263 mg/dL 74-106 Performed by certified grinding machine operator portable at [facility] [id number] 13:22:00* Test Item Value Reference Range Comments GLUBED (test code=GLUBED) 204 mg/dL 74-106 Performed by certified grinding machine operator portable at [facility] [id number] 11:49:00* Test Item Value Reference Range Comments GLUBED (test code=GLUBED) 211 mg/dL 74-106 Performed by certified grinding machine operator portable at [facility] [id number] 08:54:00* Test Item Value Reference Range Comments GLUBED (test code=GLUBED) 231 mg/dL 74-106 Performed by certified grinding machine operator portable at [facility] AB THYROID [id number] 08:10:00* Test Item Value Reference Range Comments AB THYROID PEROXIDASE (test code=THYPAB) 12 IU/mL 0-34 Performed At: [facility] [id number] Roland Blas MD Ph:[phone] BASIC METABOLIC [id number] 03:05:00* Test Item Value Reference Range Comments SODIUM (test code=NA) 134 mmol/L 136-145 POTASSIUM (test code=K) 4.6 mmol/L 3.5-5.1 CHLORIDE (test code=CL) 97.0 mmol/L 98-107 CARBON DIOXIDE (test code=CO2) 26.0 mmol/L 21-32 ANION GAP (test code=GAP) 15.6 10-20 GLUCOSE (test code=GLU) 319 mg/dL 74-106 BLOOD UREA NITROGEN (test code=BUN) 38 mg/dL 7-18 RESULT VERIFIED BY REPEAT ANALYSIS GLOMERULAR FILTRATION RATE (test code=GFR) 7 mL/min >=60 Estimated GFR by using Modified MDRD formula.Chronic kidney disease is defined as either kidney damageor GFR <60 mL/min/1.73 m2 for >3 months. CREATININE (test code=CREAT) 5.80 mg/dL 0.55-1.02 Note change in reference range due to change in reagent. BUN/CREATININE RATIO (test code=BUN/CREA) 6.6 10-20 CALCIUM (test code=CA) 9.4 mg/dL 8.5-10.1 [id number] 02:56:00* Test Item Value Reference Range Comments MAGNESIUM (test code=MAG) 1.9 mg/dL 1.8-2.4 CBC W/O [id number] 02:37:00* Test Item Value Reference Range Comments WHITE BLOOD CELL (test code=WBC) 21.6 K/mm3 4.5-12.5 RED BLOOD CELL (test code=RBC) 2.76 mill/mm3 3.7-5.2 HEMOGLOBIN (test code=HGB) 8.1 gram/dL 11.5-15.5 HEMATOCRIT (test code=HCT) 27.0 % 36.0-46.0 MEAN CELL VOLUME (test code=MCV) 97.8 fL 80-98 MEAN CELL HGB (test code=MCH) 29.3 picogram 27.0-33.0 MEAN CELL HGB CONCETRATION (test code=MCHC) 30.0 gram/dL 33.0-36.0 RED CELL DISTRIBUTION WIDTH (test code=RDW) 16.2 % 11.6-16.2 PLATELET COUNT (test code=PLT) 239 K/mm3 150-450 MEAN PLATELET VOLUME (test code=MPV) 10.8 fL 6.7-11.0 - XR CHEST 1 [id number] 01:18:00 FAX: Tom Castillo [phone] [place]: St: ADM FAX: Genaro Vidal MD [phone] Name: GARDENIAMARIZOL Lisy [facility] : 1960 Age/S: 59/F [address] [facility] Unit #: [id number] Loc: V.[address] [address] Phys: Tom Castillo Acct: [id number] Dis Date: Status: ADM IN PHONE #: [phone] Exam Date: 09/16/201956 FAX #: [phone] Reason: updated pulm view. EXAMS: CPT CODE: [id number] XR CHEST 1 V 28239 LOCATION: Q15 HISTORY: 59-year-old female, history of severe sepsis, follow- up examination. COMMENT: A frontal chest radiograph was obtained at the bedside at 12:35 a.m., and compared to study of September 14, 2019, obtained at 9:19 a.m. Left ventricular cardiac enlargement is unchanged. Patchy bibasilar atelectasis is also unchanged. The upper lung zones are clear. The skeleton and soft tissues are unchanged. Again seen is a tracheostomy tube. cardiac monitor leads are present. Vascular stents are again seen in the left axilla. IMPRESSION: There is no significant change in the chest. Please see above for details. Electronically Signed by Joaquin Gomez M.D. on at 0118 Reported and signed by: Charlie Gomez M.D. CC: Tom Castillo; Genaro Verma MD Technologist: Mandeep Reina RT(R); ELSIE DA SILVA RT(R) Trnscrd Date/Time/By: 09/16/2019 (0118) : By: [email or web address] Orig Print D/T : S: 09/16/2019 (0121) PAGE 1 Sig nabeel Report [id number] 21:52:00* Test Item Value Reference Range Comments GLUBED (test code=GLUBED) 276 mg/dL 74-106 Performed by certified grinding machine operator portable at [facility] CBC W/MANUAL [id number] 21:02:00* Test Item Value Reference Range Comments WHITE BLOOD CELL (test code=WBC) 23.6 K/mm3 4.5-12.5 RED BLOOD CELL (test code=RBC) 3.03 mill/mm3 3.7-5.2 HEMOGLOBIN (test code=HGB) 8.8 gram/dL 11.5-15.5 HEMATOCRIT (test code=HCT) 29.1 % 36.0-46.0 MEAN CELL VOLUME (test code=MCV) 96.0 fL 80-98 MEAN CELL HGB (test code=MCH) 29.0 picogram 27.0-33.0 MEAN CELL HGB CONCETRATION (test code=MCHC) 30.2 gram/dL 33.0-36.0 RED CELL DISTRIBUTION WIDTH (test code=RDW) 16.2 % 11.6-16.2 RED CELL DISTRIBUTION WIDTH SD (test code=RDW-SD) 57.0 fL 37.0-51.0 PLATELET COUNT (test code=PLT) 219 K/mm3 150-450 RESULT VERIFIED BY REPEAT ANALYSIS MEAN PLATELET VOLUME (test code=MPV) 11.2 fL 6.7-11.0 IMMATURE GRANULOCYTE % (test code=IG%) 8.9 % 0.0-5.0 "The appearance of immature granulocytes (myelocytes,pro-myelocytes, meta-myelocytes) in the peripheral blood ofnon- individuals can indicate a response toinfection, inflammation, or other stimulus to the bonemarrow" NUCLEATED RBC % (test code=NRBC%) 0.1 % 0-0 NEUTROPHIL # (test code=NT#) 18.78 K/mm3 1.8-7.7 IMMATURE GRANULOCYTE # (test code=IG#) 2.11 x10 3/uL 0-0.03 LYMPHOCYTE # (test code=LY#) 0.82 K/mm3 1.0-5.0 MONOCYTE # (test code=MO#) 1.70 K/mm3 0-0.8 EOSINOPHIL # (test code=EO#) 0.03 K/mm3 0.0-0.5 BASOPHIL # (test code=BA#) 0.15 K/mm3 0.0-0.2 NUCLEATED RBC # (test code=NRBC#) 0.02 K/mm3 0.0-0.1 MANUAL DIFF REQUIRED (test code=MDIFF) YES STAIN ACCEPTABILITY (test code=STN ACCEPTABLE) STAIN ACCEPTABLE TOTAL CELLS COUNTED (test code=TCC) 114 #CELLS SEGMENTED NEUTROPHILS (test code=SEG) 84.2 % 39-69 BAND NEUTROPHIL (test code=BAND) 3.5 % 0-10 LYMPHOCYTE (test code=LYMPH) 1.7 % 25-55 REACTIVE LYMPH (test code=RELYMPH) 0 % MONOCYTE (test code=MON) 7.9 % 0-10 EOSINOPHIL (test code=EOS) 0 % 0.0-5.0 BASOPHIL (test code=BASO) 0 % 0-1.0 METAMYELOCYTE (test code=META) 0.9 % 0-0 MYELOCYTE (test code=MYELO) 1.8 % 0.0-0.0 PROMYELOCYTE (test code=PROM) 0 % 0-0 POLYCHROMASIA (test code=POLC) 1+ ANISOCYTOSIS (test code=ANISO) 1+ PLATELET ESTIMATE (test code=PLTEST) ADEQUATE PLATELET MORPHOLOGY (test code=PLTMORPH) NORMAL IMMATURE FORMS (test code=IMMAT) 0 % 0-0 BASIC METABOLIC [id number] 20:16:00* Test Item Value Reference Range Comments SODIUM (test code=NA) 135 mmol/L 136-145 POTASSIUM (test code=K) 3.8 mmol/L 3.5-5.1 CHLORIDE (test code=CL) 95.0 mmol/L 98-107 CARBON DIOXIDE (test code=CO2) 29.0 mmol/L 21-32 ANION GAP (test code=GAP) 14.8 10-20 GLUCOSE (test code=GLU) 275 mg/dL 74-106 BLOOD UREA NITROGEN (test code=BUN) 30 mg/dL 7-18 GLOMERULAR FILTRATION RATE (test code=GFR) 9 mL/min >=60 Estimated GFR by using Modified MDRD formula.Chronic kidney disease is defined as either kidney damageor GFR <60 mL/min/1.73 m2 for >3 months. CREATININE (test code=CREAT) 4.70 mg/dL 0.55-1.02 Note change in reference range due to change in reagent. BUN/CREATININE RATIO (test code=BUN/CREA) 6.4 10-20 CALCIUM (test code=CA) 9.9 mg/dL 8.5-10.1 [id number] 20:16:00* Test Item Value Reference Range Comments PHOSPHORUS (test code=PHOS) 2.4 mg/dL 2.5-4.9 [id number] 20:16:00* Test Item Value Reference Range Comments MAGNESIUM (test code=MAG) 1.8 mg/dL 1.8-2.4 CALCIUM [id number] 20:16:00* Test Item Value Reference Range Comments CALCIUM IONIZED (test code=MICHAEL) 1.30 mmol/L 1.12-1.32 BASIC METABOLIC [id number] 20:02:00* Test Item Value Reference Range Comments SODIUM (test code=NA) 135 mmol/L 136-145 POTASSIUM (test code=K) 3.8 mmol/L 3.5-5.1 CHLORIDE (test code=CL) 95.0 mmol/L 98-107 CARBON DIOXIDE (test code=CO2) 29.0 mmol/L 21-32 ANION GAP (test code=GAP) 14.8 10-20 GLUCOSE (test code=GLU) 275 mg/dL 74-106 BLOOD UREA NITROGEN (test code=BUN) 30 mg/dL 7-18 GLOMERULAR FILTRATION RATE (test code=GFR) 9 mL/min >=60 Estimated GFR by using Modified MDRD formula.Chronic kidney disease is defined as either kidney damageor GFR <60 mL/min/1.73 m2 for >3 months. CREATININE (test code=CREAT) 4.70 mg/dL 0.55-1.02 Note change in reference range due to change in reagent. BUN/CREATININE RATIO (test code=BUN/CREA) 6.4 10-20 CALCIUM (test code=CA) 9.9 mg/dL 8.5-10.1 [id number] 20:02:00* Test Item Value Reference Range Comments PHOSPHORUS (test code=PHOS) 2.4 mg/dL 2.5-4.9 [id number] 20:02:00* Test Item Value Reference Range Comments MAGNESIUM (test code=MAG) 1.8 mg/dL 1.8-2.4 CALCIUM [id number] 20:02:00* Test Item Value Reference Range Comments CALCIUM IONIZED (test code=MICHAEL) mmol/L 1.12-1.32 BASIC METABOLIC [id number] 20:01:00* Test Item Value Reference Range Comments SODIUM (test code=NA) 135 mmol/L 136-145 POTASSIUM (test code=K) 3.8 mmol/L 3.5-5.1 CHLORIDE (test code=CL) 95.0 mmol/L 98-107 CARBON DIOXIDE (test code=CO2) mmol/L 21-32 ANION GAP (test code=GAP) 10-20 GLUCOSE (test code=GLU) mg/dL 74-106 BLOOD UREA NITROGEN (test code=BUN) mg/dL 7-18 GLOMERULAR FILTRATION RATE (test code=GFR) mL/min >=60 CREATININE (test code=CREAT) mg/dL 0.55-1.02 BUN/CREATININE RATIO (test code=BUN/CREA) 10-20 CALCIUM (test code=CA) mg/dL 8.5-10.1 [id number] 20:01:00* Test Item Value Reference Range Comments PHOSPHORUS (test code=PHOS) mg/dL 2.5-4.9 [id number] 20:01:00* Test Item Value Reference Range Comments MAGNESIUM (test code=MAG) mg/dL 1.8-2.4 CALCIUM [id number] 20:01:00* Test Item Value Reference Range Comments CALCIUM IONIZED (test code=MICHAEL) mmol/L 1.12-1.32 CBC W/MANUAL [id number] 19:59:00* Test Item Value Reference Range Comments WHITE BLOOD CELL (test code=WBC) 23.6 K/mm3 4.5-12.5 RED BLOOD CELL (test code=RBC) 3.03 mill/mm3 3.7-5.2 HEMOGLOBIN (test code=HGB) 8.8 gram/dL 11.5-15.5 HEMATOCRIT (test code=HCT) 29.1 % 36.0-46.0 MEAN CELL VOLUME (test code=MCV) 96.0 fL 80-98 MEAN CELL HGB (test code=MCH) 29.0 picogram 27.0-33.0 MEAN CELL HGB CONCETRATION (test code=MCHC) 30.2 gram/dL 33.0-36.0 RED CELL DISTRIBUTION WIDTH (test code=RDW) 16.2 % 11.6-16.2 RED CELL DISTRIBUTION WIDTH SD (test code=RDW-SD) 57.0 fL 37.0-51.0 PLATELET COUNT (test code=PLT) 219 K/mm3 150-450 RESULT VERIFIED BY REPEAT ANALYSIS MEAN PLATELET VOLUME (test code=MPV) 11.2 fL 6.7-11.0 IMMATURE GRANULOCYTE % (test code=IG%) 8.9 % 0.0-5.0 "The appearance of immature granulocytes (myelocytes,pro-myelocytes, meta-myelocytes) in the peripheral blood ofnon- individuals can indicate a response toinfection, inflammation, or other stimulus to the bonemarrow" NUCLEATED RBC % (test code=NRBC%) 0.1 % 0-0 NEUTROPHIL # (test code=NT#) 18.78 K/mm3 1.8-7.7 IMMATURE GRANULOCYTE # (test code=IG#) 2.11 x10 3/uL 0-0.03 LYMPHOCYTE # (test code=LY#) 0.82 K/mm3 1.0-5.0 MONOCYTE # (test code=MO#) 1.70 K/mm3 0-0.8 EOSINOPHIL # (test code=EO#) 0.03 K/mm3 0.0-0.5 BASOPHIL # (test code=BA#) 0.15 K/mm3 0.0-0.2 NUCLEATED RBC # (test code=NRBC#) 0.02 K/mm3 0.0-0.1 MANUAL DIFF REQUIRED (test code=MDIFF) YES STAIN ACCEPTABILITY (test code=STN ACCEPTABLE) TOTAL CELLS COUNTED (test code=TCC) #CELLS SEGMENTED NEUTROPHILS (test code=SEG) % 39-69 LYMPHOCYTE (test code=LYMPH) % 25-55 MONOCYTE (test code=MON) % 0-10 EOSINOPHIL (test code=EOS) % 0.0-5.0 CABOT RINGS (test code=CAB) MORPHOLOGY COMMENT (test code=MOC) PLATELET ESTIMATE (test code=PLTEST) PLATELET MORPHOLOGY (test code=PLTMORPH) CBC W/MANUAL [id number] 19:59:00* Test Item Value Reference Range Comments WHITE BLOOD CELL (test code=WBC) 23.6 K/mm3 4.5-12.5 RED BLOOD CELL (test code=RBC) 3.03 mill/mm3 3.7-5.2 HEMOGLOBIN (test code=HGB) 8.8 gram/dL 11.5-15.5 HEMATOCRIT (test code=HCT) 29.1 % 36.0-46.0 MEAN CELL VOLUME (test code=MCV) 96.0 fL 80-98 MEAN CELL HGB (test code=MCH) 29.0 picogram 27.0-33.0 MEAN CELL HGB CONCETRATION (test code=MCHC) 30.2 gram/dL 33.0-36.0 RED CELL DISTRIBUTION WIDTH (test code=RDW) 16.2 % 11.6-16.2 RED CELL DISTRIBUTION WIDTH SD (test code=RDW-SD) 57.0 fL 37.0-51.0 PLATELET COUNT (test code=PLT) 219 K/mm3 150-450 RESULT VERIFIED BY REPEAT ANALYSIS MEAN PLATELET VOLUME (test code=MPV) 11.2 fL 6.7-11.0 IMMATURE GRANULOCYTE % (test code=IG%) 8.9 % 0.0-5.0 "The appearance of immature granulocytes (myelocytes,pro-myelocytes, meta-myelocytes) in the peripheral blood ofnon- individuals can indicate a response toinfection, inflammation, or other stimulus to the bonemarrow" NUCLEATED RBC % (test code=NRBC%) 0.1 % 0-0 NEUTROPHIL # (test code=NT#) 18.78 K/mm3 1.8-7.7 IMMATURE GRANULOCYTE # (test code=IG#) 2.11 x10 3/uL 0-0.03 LYMPHOCYTE # (test code=LY#) 0.82 K/mm3 1.0-5.0 MONOCYTE # (test code=MO#) 1.70 K/mm3 0-0.8 EOSINOPHIL # (test code=EO#) 0.03 K/mm3 0.0-0.5 BASOPHIL # (test code=BA#) 0.15 K/mm3 0.0-0.2 NUCLEATED RBC # (test code=NRBC#) 0.02 K/mm3 0.0-0.1 MANUAL DIFF REQUIRED (test code=MDIFF) YES STAIN ACCEPTABILITY (test code=STN ACCEPTABLE) TOTAL CELLS COUNTED (test code=TCC) #CELLS SEGMENTED NEUTROPHILS (test code=SEG) % 39-69 LYMPHOCYTE (test code=LYMPH) % 25-55 MONOCYTE (test code=MON) % 0-10 EOSINOPHIL (test code=EOS) % 0.0-5.0 MORPHOLOGY COMMENT (test code=MOC) PLATELET ESTIMATE (test code=PLTEST) PLATELET MORPHOLOGY (test code=PLTMORPH) CBC W/MANUAL [id number] 19:59:00* Test Item Value Reference Range Comments WHITE BLOOD CELL (test code=WBC) 23.6 K/mm3 4.5-12.5 RED BLOOD CELL (test code=RBC) 3.03 mill/mm3 3.7-5.2 HEMOGLOBIN (test code=HGB) 8.8 gram/dL 11.5-15.5 HEMATOCRIT (test code=HCT) 29.1 % 36.0-46.0 MEAN CELL VOLUME (test code=MCV) 96.0 fL 80-98 MEAN CELL HGB (test code=MCH) 29.0 picogram 27.0-33.0 MEAN CELL HGB CONCETRATION (test code=MCHC) 30.2 gram/dL 33.0-36.0 RED CELL DISTRIBUTION WIDTH (test code=RDW) 16.2 % 11.6-16.2 RED CELL DISTRIBUTION WIDTH SD (test code=RDW-SD) 57.0 fL 37.0-51.0 PLATELET COUNT (test code=PLT) 219 K/mm3 150-450 RESULT VERIFIED BY REPEAT ANALYSIS MEAN PLATELET VOLUME (test code=MPV) 11.2 fL 6.7-11.0 IMMATURE GRANULOCYTE % (test code=IG%) 8.9 % 0.0-5.0 "The appearance of immature granulocytes (myelocytes,pro-myelocytes, meta-myelocytes) in the peripheral blood ofnon- individuals can indicate a response toinfection, inflammation, or other stimulus to the bonemarrow" NUCLEATED RBC % (test code=NRBC%) 0.1 % 0-0 NEUTROPHIL # (test code=NT#) 18.78 K/mm3 1.8-7.7 IMMATURE GRANULOCYTE # (test code=IG#) 2.11 x10 3/uL 0-0.03 LYMPHOCYTE # (test code=LY#) 0.82 K/mm3 1.0-5.0 MONOCYTE # (test code=MO#) 1.70 K/mm3 0-0.8 EOSINOPHIL # (test code=EO#) 0.03 K/mm3 0.0-0.5 BASOPHIL # (test code=BA#) 0.15 K/mm3 0.0-0.2 NUCLEATED RBC # (test code=NRBC#) 0.02 K/mm3 0.0-0.1 MANUAL DIFF REQUIRED (test code=MDIFF) YES STAIN ACCEPTABILITY (test code=STN ACCEPTABLE) TOTAL CELLS COUNTED (test code=TCC) #CELLS SEGMENTED NEUTROPHILS (test code=SEG) % 39-69 LYMPHOCYTE (test code=LYMPH) % 25-55 MONOCYTE (test code=MON) % 0-10 MORPHOLOGY COMMENT (test code=MOC) PLATELET ESTIMATE (test code=PLTEST) PLATELET MORPHOLOGY (test code=PLTMORPH) CBC W/MANUAL [id number] 19:58:00* Test Item Value Reference Range Comments WHITE BLOOD CELL (test code=WBC) 23.6 K/mm3 4.5-12.5 RED BLOOD CELL (test code=RBC) 3.03 mill/mm3 3.7-5.2 HEMOGLOBIN (test code=HGB) 8.8 gram/dL 11.5-15.5 HEMATOCRIT (test code=HCT) 29.1 % 36.0-46.0 MEAN CELL VOLUME (test code=MCV) 96.0 fL 80-98 MEAN CELL HGB (test code=MCH) 29.0 picogram 27.0-33.0 MEAN CELL HGB CONCETRATION (test code=MCHC) 30.2 gram/dL 33.0-36.0 RED CELL DISTRIBUTION WIDTH (test code=RDW) 16.2 % 11.6-16.2 RED CELL DISTRIBUTION WIDTH SD (test code=RDW-SD) 57.0 fL 37.0-51.0 PLATELET COUNT (test code=PLT) 219 K/mm3 150-450 RESULT VERIFIED BY REPEAT ANALYSIS MEAN PLATELET VOLUME (test code=MPV) 11.2 fL 6.7-11.0 IMMATURE GRANULOCYTE % (test code=IG%) 8.9 % 0.0-5.0 "The appearance of immature granulocytes (myelocytes,pro-myelocytes, meta-myelocytes) in the peripheral blood ofnon- individuals can indicate a response toinfection, inflammation, or other stimulus to the bonemarrow" NUCLEATED RBC % (test code=NRBC%) 0.1 % 0-0 NEUTROPHIL # (test code=NT#) 18.78 K/mm3 1.8-7.7 IMMATURE GRANULOCYTE # (test code=IG#) 2.11 x10 3/uL 0-0.03 LYMPHOCYTE # (test code=LY#) 0.82 K/mm3 1.0-5.0 MONOCYTE # (test code=MO#) 1.70 K/mm3 0-0.8 EOSINOPHIL # (test code=EO#) 0.03 K/mm3 0.0-0.5 BASOPHIL # (test code=BA#) 0.15 K/mm3 0.0-0.2 NUCLEATED RBC # (test code=NRBC#) 0.02 K/mm3 0.0-0.1 MANUAL DIFF REQUIRED (test code=MDIFF) YES STAIN ACCEPTABILITY (test code=STN ACCEPTABLE) TOTAL CELLS COUNTED (test code=TCC) #CELLS SEGMENTED NEUTROPHILS (test code=SEG) % 39-69 LYMPHOCYTE (test code=LYMPH) % 25-55 MONOCYTE (test code=MON) % 0-10 EOSINOPHIL (test code=EOS) % 0.0-5.0 CABOT RINGS (test code=CAB) MORPHOLOGY COMMENT (test code=MOC) PLATELET ESTIMATE (test code=PLTEST) PLATELET MORPHOLOGY (test code=PLTMORPH) CBC W/MANUAL [id number] 19:58:00* Test Item Value Reference Range Comments WHITE BLOOD CELL (test code=WBC) 23.6 K/mm3 4.5-12.5 RED BLOOD CELL (test code=RBC) 3.03 mill/mm3 3.7-5.2 HEMOGLOBIN (test code=HGB) 8.8 gram/dL 11.5-15.5 HEMATOCRIT (test code=HCT) 29.1 % 36.0-46.0 MEAN CELL VOLUME (test code=MCV) 96.0 fL 80-98 MEAN CELL HGB (test code=MCH) 29.0 picogram 27.0-33.0 MEAN CELL HGB CONCETRATION (test code=MCHC) 30.2 gram/dL 33.0-36.0 RED CELL DISTRIBUTION WIDTH (test code=RDW) 16.2 % 11.6-16.2 RED CELL DISTRIBUTION WIDTH SD (test code=RDW-SD) 57.0 fL 37.0-51.0 PLATELET COUNT (test code=PLT) 219 K/mm3 150-450 RESULT VERIFIED BY REPEAT ANALYSIS MEAN PLATELET VOLUME (test code=MPV) 11.2 fL 6.7-11.0 IMMATURE GRANULOCYTE % (test code=IG%) 8.9 % 0.0-5.0 "The appearance of immature granulocytes (myelocytes,pro-myelocytes, meta-myelocytes) in the peripheral blood ofnon- individuals can indicate a response toinfection, inflammation, or other stimulus to the bonemarrow" NUCLEATED RBC % (test code=NRBC%) 0.1 % 0-0 NEUTROPHIL # (test code=NT#) 18.78 K/mm3 1.8-7.7 IMMATURE GRANULOCYTE # (test code=IG#) 2.11 x10 3/uL 0-0.03 LYMPHOCYTE # (test code=LY#) 0.82 K/mm3 1.0-5.0 MONOCYTE # (test code=MO#) 1.70 K/mm3 0-0.8 EOSINOPHIL # (test code=EO#) 0.03 K/mm3 0.0-0.5 BASOPHIL # (test code=BA#) 0.15 K/mm3 0.0-0.2 NUCLEATED RBC # (test code=NRBC#) 0.02 K/mm3 0.0-0.1 MANUAL DIFF REQUIRED (test code=MDIFF) YES STAIN ACCEPTABILITY (test code=STN ACCEPTABLE) TOTAL CELLS COUNTED (test code=TCC) #CELLS SEGMENTED NEUTROPHILS (test code=SEG) % 39-69 LYMPHOCYTE (test code=LYMPH) % 25-55 MONOCYTE (test code=MON) % 0-10 EOSINOPHIL (test code=EOS) % 0.0-5.0 CABOT RINGS (test code=CAB) MORPHOLOGY COMMENT (test code=MOC) PLATELET ESTIMATE (test code=PLTEST) PLATELET MORPHOLOGY (test code=PLTMORPH) [id number] 17:17:00* Test Item Value Reference Range Comments GLUBED (test code=GLUBED) 314 mg/dL 74-106 Performed by certified grinding machine operator portable at [facility] [id number] 17:15:00* Test Item Value Reference Range Comments GLUBED (test code=GLUBED) 258 mg/dL 74-106 Performed by certified grinding machine operator portable at [facility] AG HEPAT B [id number] 15:57:00* Test Item Value Reference Range Comments AG HEPAT B SURF (test code=HBSAG) Nonreactive Index Nonreactive PT WAS A HARD STICK NOTIFIED NURSE TROY [id number] V.LAB.09/15/19 0920 T4 [id number] 15:33:00* Test Item Value Reference Range Comments T4 FREE (test code=T4F) 0.62 ng/dL 0.76-1.46 THYROID STIMULATING [id number] 15:33:00* Test Item Value Reference Range Comments THYROID STIMULATING HORMONE (test code=TSH) 11.100 uIU/mL 0.36-3.74 TSH REFERENCE RANGES: EUTHYROID: 0.35 - 4.3 mIU/mL HYPO : > 5.5 mIU/mL HYPER : < 0.35 mIU/mL [id number] 15:13:00* Test Item Value Reference Range Comments GLYCOSYLATED HEMOGLOBIN (HA1C) (test code=GLYHGB) 7.8 % HbA1 SUGGESTED DIAGNOSIS: HbA1C (%) Diabetic >6.4Prediabetes 5.7 - 6.4Normal <5.7 ESTIMATED AVERAGE GLUCOSE (test code=EAG) 177 MG/DL [id number] 13:09:00* Test Item Value Reference Range Comments GLUBED (test code=GLUBED) 305 mg/dL 74-106 Performed by certified grinding machine operator portable at [facility] ARTERIAL BLOOD [id number] 10:42:00* Test Item Value Reference Range Comments ARTERIAL BLOOD GAS PH (test code=PHA) 7.28 7.35-7.45 ARTERIAL BLOOD GAS PCO2 (test code=PCO2A) 51.5 mm Hg 35-45 ARTERIAL BLOOD GAS PO2 (test code=PO2A) 88.9 mmHg 80-100 BICARBONATE TOTAL HCO3 (test code=HCO3) 23.8 mmol/L 23.0-27.0 BASE EXCESS (test code=CHAU) -3.0 mmol/L -3.0-5.0 Results called to and read back by Mika 10:41 - 09/15/2019; by Kaila ABG O2 SATURATION (test code=SATA) 95.8 % 90.0-98.0 ABG TYPE (test code=TYPEA) Arterial FIO2 (test code=FIO2A) 40.0 ABG L/M (test code=L/M) 10.00 L/MIN ABG SITE (test code=SITEA) Lt RADIAL ARTERY MODIFIED ALLENS (test code=MODALL) Yes CHECK PERFORMED HEMATOCRIT (test code=HCT/ABG) 27 % 35-47 TOTAL HGB (test code=THB) 9.3 gram/dL 11.5-15.5 HGB O2 SAT (test code=HBOSAT) 95.0 % 94.00-98.00 CARBOXYHEMOGLOBIN (test code=HOHGBT) 0.7 %totalHg 0.5-1.5 METHEMOGLOBIN (test code=METHGB) 0.1 % 0.0-1.50 O2 CONTENT (test code=O2CT) 12.6 % vol 18.0-22.0 [id number] 06:22:00* Test Item Value Reference Range Comments GLUBED (test code=GLUBED) 251 mg/dL 74-106 Performed by certified grinding machine operator portable at [facility] - CTA [id number] 05:59:00 Name: MARIZOL VARNER [facility] : 1960 Age/S: 59 / F [address] Unit #: [id number] Loc: [place] [address] Phys: Haider Garcia MD Acct: [id number] Dis Date: Status: ADM IN PHONE #: [phone] Exam Date: 09/15/2019514 FAX #: [phone] Reason: sob EXAMS: CPT CODE: [id number] CTA CHEST 51764 EXAM: CTA CHEST WITH CONTRAST - PULMONARY EMBOLISM STUDY INDICATION: sob LOCATION: R 16 COMPARISON: None available TECHNIQUE: Volumetric CT acquisition of the chest, during pulmonary arterial phase, after 100 mL Isovue intravenous contrast. Axial, sagittal, coronal, and oblique MIP reconstructions are created at the acquisition workstation. This exam was performed according to our departmental dose-optimization program, which includes automated exposure control, adjustment of the mA and/or kV according to patient size and/or use of iterative reconstruction technique. FINDINGS: Lines and Tubes: Tracheostomy is in place within the trachea. Lower Neck: Dense calcification is seen in the left thyroid lobe. Pulmonary Vasculature: Evaluation is limited due to quantum mottle artifact. No pulmonary embolism is identified to the lobar level. The pulmonary trunk measures 4.0 cm. Heart: Atherosclerotic calcifications are seen in the coronary arteries. The heart is normal in size. There is no pericardial effusion. Lymph Nodes: No hilar, mediastinal, axillary or internal mammary lymphadenopathy. Lungs: There are multifocal consolidation seen primarily through the lung bases. Lung apices are clear. Pleura: No pleural effusion or pneumothorax. Upper abdomen: Unremarkable. Bones and Soft Tissues: Unremarkable. IMPRESSION: Limited evaluation due to quantum mottle artifact. No pulmonary embolism identified to the lobar level. PAGE 1 Signed Report (CONTINUED) Name: MARIZOL VARNER [facility] : 1960 Age/S: 59 / F [address] [facility] Unit #: [id number] Loc: [place] [address] Phys: Haider Garcia MD Acct: [id number] Dis Date: Status: ADM IN PHONE #: [phone] Exam Date: 09/15/2019514 FAX #: [phone] Reason: sob EXAMS: CPT CODE: [id number] CTA CHEST 65354 <Continued> Multifocal consolidations seen in the lung bases concerning for multifocal pneumonia. at 0559 Reported and signed by: Clara Ugalde M.D. CC: Haider Garcia MD Technologist:DONNA ELKINS; [facility] CTDI: DLP: Trnscb Date/Time: 09/15/2019 (0559) [email or web address] Orig Print D/T: S: 09/15/2019 (0602) PAGE 2 Signed Report [id number] 20:30:00 * Test Item Value Reference Range Comments GLUBED (test code=GLUBED) 291 mg/dL 74-106 Performed by certified grinding machine operator portable at [facility] [id number] 16:16:00* Test Item Value Reference Range Comments GLUBED (test code=GLUBED) 200 mg/dL 74-106 Performed by certified grinding machine operator portable at [facility] LACTIC [id number] 12:49:00* Test Item Value Reference Range Comments LACTIC ACID (test code=LACT) 2.3 mmol/L 0.4-1.9 Results called to [id number] by TEODOROWJC 09/14/19 1248Critical results verified and read back by Nurse? Y PROTHROMBIN [id number] 11:12:00* Test Item Value Reference Range Comments PROTHROMBIN TIME PATIENT (test code=PTP) 13.0 seconds 9.0-14.0 INTERNATIONAL NORMAL RATIO (test code=INR) 1.1 0.8-1.2 The therapeutic range for oral anticoagulant therapy formost indications is an international normalized ratio (INR)of between 2.0 and 3.0. The recommended therapeutic INRrange for various clinical situations is listed below: Clinical Situation INR range Pulmonary e mbolism treatment (2.0-3.0)Venous thrombosis treatmentVenous thrombosis prophylaxis (high risk surgery)Prevention of systemic embolism from: Acute myocardial infarction Valvular heart disease Atrial fibrillation Mechanical prosthetic heart valves (2.5-3.5) REPLACES CG25 (CLOTTED); TEODOROCCD 09/14/19 1016THROMBOPLASTIN TIME PARTIAL 2019-09-14 11:12:00* Test Item Value Reference Range Comments THROMBOPLASTIN TIME PARTIAL (test code=PTT) 33.9 seconds 25.0-36.5 REPLACES CG25 (CLOTTED); V.LAB.CCD 09/14/19 [id number] 11:00:00* Test Item Value Reference Range Comments GLUBED (test code=GLUBED) 283 mg/dL 74-106 Performed by certified grinding machine operator portable at [facility] LACTIC [id number] 10:40:00* Test Item Value Reference Range Comments LACTIC ACID (test code=LACT) 2.0 mmol/L 0.4-1.[address] GARCIA by VYuniorLABYuniorKA 09/14/19 1039Critical results verified and read back by Nurse? Y TSH REFLEX TO [id number] 10:19:00* Test Item Value Reference Range Comments TSH REFLEX TO FT4 (test code=TSHREFLEX) 32.1 0.4-5.5 BASIC METABOLIC [id number] 10:06:00* Test Item Value Reference Range Comments SODIUM (test code=NA) 136 mmol/L 136-145 POTASSIUM (test code=K) 5.1 mmol/L 3.5-5.1 CHLORIDE (test code=CL) 99.0 mmol/L 98-107 CARBON DIOXIDE (test code=CO2) 27.0 mmol/L 21-32 ANION GAP (test code=GAP) 15.1 10-20 GLUCOSE (test code=GLU) 213 mg/dL 74-106 BLOOD UREA NITROGEN (test code=BUN) 33 mg/dL 7-18 GLOMERULAR FILTRATION RATE (test code=GFR) 7 mL/min >=60 Estimated GFR by using Modified MDRD formula.Chronic kidney disease is defined as either kidney damageor GFR <60 mL/min/1.73 m2 for >3 months. CREATININE (test code=CREAT) 6.50 mg/dL 0.55-1.02 Note change in reference range due to change in reagent. BUN/CREATININE RATIO (test code=BUN/CREA) 5.1 10-20 CALCIUM (test code=CA) 9.9 mg/dL 8.5-10.1 HEPATIC FUNCTION [id number] 10:06:00* Test Item Value Reference Range Comments TOTAL PROTEIN (test code=PROT) 7.8 gram/dL 6.4-8.2 ALBUMIN (test code=ALB) 3.5 g/dL 3.4-5.0 GLOBULIN (test code=GLOB) 4.3 gram/dL 2.7-4.2 ALBUMIN/GLOBULIN RATIO (test code=A/G) 0.8 0.75-1.50 BILIRUBIN TOTAL (test code=BILT) 0.50 mg/dL 0.0-1.0 BILIRUBIN DIRECT (test code=BILD) 0.10 mg/dL 0.0-0.20 SGOT/AST (test code=AST) 26 IUnit/L 15-37 SGPT/ALT (test code=ALT) 33 IUnit/L 12-78 ALKALINE PHOSPHATASE TOTAL (test code=ALKP) 94 IUnit/L 45-117 Note change in reference range due to change in reagent. - XR CHEST 1 [id number] 10:04:00 FAX: Haider Garcia MD [phone] [place]: B St: REG Name: MARIZOL HSIEH [facility] : [birth year] Age/S: 59/F [address] [facility] Unit #: [id number] Loc: [place] [address] Phys: Haider Garcia MD Acct: [id number] Dis Date: Status: REG ER PHONE #: [phone] Exam Date: 09/14/2019919 FAX #: [phone] Reason: Shortness of Breath EXAMS: CPT CODE: [id number] XR CHEST 1 V 12173 REASON FOR EXAM: Shortness of Breath Exam Order Date: 09/14/2019 9:00 AM Ordering M.DYunior: Haider Garcia MD PROCEDURE: - XR CHEST 1 V COMPARISON: None FINDINGS: Lung volumes are diminished and there are atelectatic changes in the bilateral lung bases. The upper lungs are clear. Tracheostomy appliance is in place. Cardiomedi astinal silhouette is normal in size for technique. The mediastinal contou rs are within normal limits. Skeletal structures appear to be with in normal limits. Incompletely visualized vascular stent graft is present in the left axilla. The visualized upper abdomen is within normal limits. IMPRESSION: Low lung volumes with bibasi lar subsegmental atelectasis. Location: [facility] Electr onically Signed by Farhad Jha MD on 09/14/2019 at 1004 Reported and signed by: Farhad Jha MD CC: Haider Garcia MD Technologist: RT JILLIAN([place]) Trnilrd Date/Time/By: 09/14/2019 (1004) : By: [email or web address] Orig Print D/T: S: 09/14/2019 (1007) PAGE 1 Signed Report - XR WRIST 3 + V LT 2019-09-14 10:03:00 FAX: Haider Garcia MD [phone] [place]: St: REG Name: MARIZOL HSIEH [facility] : [birth year] Age/S: 59/F [address] [facility] Unit #: [id number] Loc: [place] [address] Phys: Haider Garcia MD Acct: [id number] Dis Date: Status: REG ER PHONE #: [phone] Exam Date: 09/14/2019 09 FAX #: [phone] Reason: arm redness EXAMS: CPT CODE: [id number] XR WRIST 3 + V LT [id number] REASON FOR EXAM: arm rednes EXAM ORDER DATE: 09/14/2019 9:01 AM Ordering M.DYunior: Haider pritchett MD PROCEDURE: - XR FOREARM 2 VIEWS LT, - XR WRIST 3 + V L T Comparison:None FINDINGS: No evide nce of fracture. The joint spaces are maintained and the arcs of Gilula are intact. The carpal and metacarpal bones are unremarkable. Th ere is normal alignment of the radiocarpal joint space. Th e visualized bones of the hand are within normal limits. There is swelling of the soft tissues along the dorsal aspect of the forearm and wrist and hand. There are also vascular calcifications in the forearm. IMPRESSION: Soft tissue swelling in the visualized left upper extremi ty but no underlying bony abnormality. Location: [facility] at 1003 Reported and signed by: Farhad Jha MD CC: Haider Garcia MD Technologist: RT JILLIAN([place]) Trnscrd Date/Time/By: 09/14/2019 (1003) : By: Efrain .RR31 Orig Print D/T: S: 09/14/2019 (2597) PAGE 1 Signed Report - XR FOREARM 2 VIEWS [id number] 10:03:00 FAX: Haider Garcia MD [phone] [place]: St: REG Name: Bentley SULEMANMARIZOL Lisy [facility] : [birth year] Age/S: 59/F [address] [facility] Unit #: [id number] Loc: [place] [address] Phys: Haider Garcia MD Acct: [id number] Dis Date: Status: REG ER PHONE #: [phone] Exam Date: 09/14/2019929 FAX #: [phone] Reason: arm rednes EXAMS: CPT CODE: [id number] XR [place]EARM [address] [place] [address] REASON FOR EXAM: arm rednes EXAM ORDER DATE: 09/14/2019 9:01 AM Ordering M.Alia: Haider pritchett MD PROCEDURE: - XR FOREARM 2 VIEWS LT, - XR WRIST 3 + V L T Comparison:None FINDINGS: No evide nce of fracture. The joint spaces are maintained and the arcs of Gilula are intact. The carpal and metacarpal bones are unremarkable. Th ere is normal alignment of the radiocarpal joint space. Th e visualized bones of the hand are within normal limits. There is swelling of the soft tissues along the dorsal aspect of the forearm and wrist and hand. There are also vascular calcifications in the forearm. IMPRESSION: Soft tissue swelling in the visualized left upper extremi ty but no underlying bony abnormality. Location: [facility] at 1003 Reported and signed by: Farhad Jha MD CC: Haider Garcia MD Technologist: RT JILLIAN(R) Trnscrd Date/Time/By: 09/14/2019 (1003) : By: Efrain [email or web address] Orig Print D/T: S: 09/14/2019 (1006) PAGE 1 Signed Report B-TYPE NATRIURETIC [id number] 10:01:00* Test Item Value Reference Range Comments B-TYPE NATRIURETIC PEPTIDE (test code=BNP) 778.09 pgram/mL 0-100 LACTIC [id number] 10:00:00* Test Item Value Reference Range Comments LACTIC ACID (test code=LACT) 2.1 mmol/L 0.4-1.9 Results called to [id number] by JHON 09/14/19 1000Critical results verified and read back by Nurse? Y BASIC METABOLIC [id number] 09:58:00* Test Item Value Reference Range Comments SODIUM (test code=NA) 136 mmol/L 136-145 POTASSIUM (test code=K) 5.1 mmol/L 3.5-5.1 CHLORIDE (test code=CL) 99.0 mmol/L 98-107 CARBON DIOXIDE (test code=CO2) mmol/L 21-32 ANION GAP (test code=GAP) 10-20 GLUCOSE (test code=GLU) mg/dL 74-106 BLOOD UREA NITROGEN (test code=BUN) mg/dL 7-18 GLOMERULAR FILTRATION RATE (test code=GFR) mL/min >=60 CREATININE (test code=CREAT) mg/dL 0.55-1.02 BUN/CREATININE RATIO (test code=BUN/CREA) 10-20 CALCIUM (test code=CA) mg/dL 8.5-10.1 HEPATIC FUNCTION [id number] 09:58:00* Test Item Value Reference Range Comments TOTAL PROTEIN (test code=PROT) gram/dL 6.4-8.2 ALBUMIN (test code=ALB) g/dL 3.4-5.0 GLOBULIN (test code=GLOB) gram/dL 2.7-4.2 ALBUMIN/GLOBULIN RATIO (test code=A/G) 0.75-1.50 BILIRUBIN TOTAL (test code=BILT) mg/dL 0.0-1.0 BILIRUBIN DIRECT (test code=BILD) mg/dL 0.0-0.20 SGOT/AST (test code=AST) IUnit/L 15-37 SGPT/ALT (test code=ALT) IUnit/L 12-78 ALKALINE PHOSPHATASE TOTAL (test code=ALKP) IUnit/L 45-117 [id number] 09:57:00* Test Item Value Reference Range Comments TROPONIN-I (test code=TROPI) <0.015 ng/mL 0-0.045 CBC W/O [id number] 09:27:00* Test Item Value Reference Range Comments WHITE BLOOD CELL (test code=WBC) 15.2 K/mm3 4.5-12.5 RED BLOOD CELL (test code=RBC) 3.19 mill/mm3 3.7-5.2 HEMOGLOBIN (test code=HGB) 9.3 gram/dL 11.5-15.5 HEMATOCRIT (test code=HCT) 30.6 % 36.0-46.0 MEAN CELL VOLUME (test code=MCV) 95.9 fL 80-98 MEAN CELL HGB (test code=MCH) 29.2 picogram 27.0-33.0 MEAN CELL HGB CONCETRATION (test code=MCHC) 30.4 gram/dL 33.0-36.0 RED CELL DISTRIBUTION WIDTH (test code=RDW) 16.1 % 11.6-16.2 PLATELET COUNT (test code=PLT) 167 K/mm3 150-450 MEAN PLATELET VOLUME (test code=MPV) 11.7 fL 6.7-11.0 POCT-GLUCOSE [id number] 12:45:00* Test Item Value Reference Range Comments POC-GLUCOSE METER (BEAKER) (test mtwa=5970) 146 mg/dL 70-110 TESTED AT [address] [address] BASIC METABOLIC [id number] 07:27:00* Test Item Value Reference Range Comments SODIUM (BEAKER) (test fnqq=312) 132 meq/L 136-145 POTASSIUM (BEAKER) (test kydq=357) 4.4 meq/L 3.5-5.1 CHLORIDE (BEAKER) (test rcty=285) 96 meq/L 98-107 CO2 (BEAKER) (test dljk=819) 22 meq/L 22-29 BLOOD UREA NITROGEN (BEAKER) (test towr=875) 52 mg/dL 7-21 CREATININE (BEAKER) (test ttsu=052) 8.25 mg/dL 0.57-1.25 GLUCOSE RANDOM (BEAKER) (test yxct=381) 101 mg/dL 70-105 CALCIUM (BEAKER) (test rica=865) 8.8 mg/dL 8.4-10.2 EGFR (BEAKER) (test xkoz=8480) 5 mL/min/1.73 sq m ESTIMATED GFR IS NOT ACCURATE CREATININE CLEARANCE IN PREDICTING GLOMERULAR FILTRATION RATE. ESTIMATED GFR IS NOT APPLICABLE FOR DIALYSIS PATIENTS. POCT-GLUCOSE [id number] 20:56:00* Test Item Value Reference Range Comments POC-GLUCOSE METER (BEAKER) (test vguz=8533) 167 mg/dL 70-110 TESTED AT [address] [address] POCT-GLUCOSE [id number] 18:55:00* Test Item Value Reference Range Comments POC-GLUCOSE METER (BEAKER) (test sxkz=0205) 114 mg/dL 70-110 TESTED AT [address] [address] POCT-GLUCOSE [id number] 13:04:00* Test Item Value Reference Range Comments POC-GLUCOSE METER (BEAKER) (test zqfh=7181) 138 mg/dL 70-110 TESTED AT [address] [address] POCT-GLUCOSE [id number] 07:34:00* Test Item Value Reference Range Comments POC-GLUCOSE METER (BEAKER) (test wpko=9043) 126 mg/dL 70-110 TESTED AT [place] [address] [id number] 05:41:00* Test Item Value Reference Range Comments PHOSPHORUS (BEAKER) (test exjs=094) 5.1 mg/dL 2.3-4.7 POCT-GLUCOSE [id number] 21:37:00* Test Item Value Reference Range Comments POC-GLUCOSE METER (BEAKER) (test hfpv=5974) 145 mg/dL 70-110 TESTED AT [place] [id number] POCT-GLUCOSE [id number] 18:11:00* Test Item Value Reference Range Comments POC-GLUCOSE METER (BEAKER) (test jqwv=4930) 159 mg/dL 70-110 TESTED AT [place] [id number] POCT-GLUCOSE [id number] 16:15:00* Test Item Value Reference Range Comments POC-GLUCOSE METER (BEAKER) (test sjaq=8016) 229 mg/dL 70-110 TESTED AT [address] [address] POCT-GLUCOSE [id number] 12:13:00* Test Item Value Reference Range Comments POC-GLUCOSE METER (BEAKER) (test mgoc=8891) 144 mg/dL 70-110 TESTED AT [address] [address] POCT-GLUCOSE [id number] 08:55:00* Test Item Value Reference Range Comments POC-GLUCOSE METER (BEAKER) (test qgym=4676) 116 mg/dL 70-110 TESTED AT [place] [id number] BASIC METABOLIC [id number] 06:54:00* Test Item Value Reference Range Comments SODIUM (BEAKER) (test emfi=307) 122 meq/L 136-145 POTASSIUM (BEAKER) (test jidy=554) 5.1 meq/L 3.5-5.1 CHLORIDE (BEAKER) (test buht=912) 90 meq/L 98-107 CO2 (BEAKER) (test glbc=654) 18 meq/L 22-29 BLOOD UREA NITROGEN (BEAKER) (test uptp=992) 62 mg/dL 7-21 CREATININE (BEAKER) (test cgtx=586) 9.24 mg/dL 0.57-1.25 GLUCOSE RANDOM (BEAKER) (test nxkz=621) 84 mg/dL 70-105 CALCIUM (BEAKER) (test ucee=577) 8.9 mg/dL 8.4-10.2 EGFR (BEAKER) (test knyl=0226) 4 mL/min/1.73 sq m ESTIMATED GFR IS NOT ACCURATE CREATININE CLEARANCE IN PREDICTING GLOMERULAR FILTRATION RATE. ESTIMATED GFR IS NOT APPLICABLE FOR DIALYSIS PATIENTS. POCT-GLUCOSE [id number] 21:09:00* Test Item Value Reference Range Comments POC-GLUCOSE METER (BEAKER) (test peex=6294) 151 mg/dL 70-110 TESTED AT [address] [address] POCT-GLUCOSE [id number] 17:03:00* Test Item Value Reference Range Comments POC-GLUCOSE METER (BEAKER) (test mhss=1196) 139 mg/dL 70-110 TESTED AT [address] [address] POCT-GLUCOSE [id number] 12:18:00* Test Item Value Reference Range Comments POC-GLUCOSE METER (BEAKER) (test hmdj=9123) 134 mg/dL 70-110 TESTED AT [address] [address] POCT-GLUCOSE [id number] 07:29:00* Test Item Value Reference Range Comments POC-GLUCOSE METER (BEAKER) (test jnli=2686) 124 mg/dL 70-110 TESTED AT [address] [address] BASIC METABOLIC [id number] 05:59:00* Test Item Value Reference Range Comments SODIUM (BEAKER) (test tcet=053) 127 meq/L 136-145 POTASSIUM (BEAKER) (test txkt=660) 4.4 meq/L 3.5-5.1 CHLORIDE (BEAKER) (test vnls=421) 93 meq/L 98-107 CO2 (BEAKER) (test rwde=807) 23 meq/L 22-29 BLOOD UREA NITROGEN (BEAKER) (test cfwk=078) 41 mg/dL 7-21 CREATININE (BEAKER) (test dpod=602) 7.85 mg/dL 0.57-1.25 GLUCOSE RANDOM (BEAKER) (test fibx=816) 87 mg/dL 70-105 CALCIUM (BEAKER) (test wgvg=211) 8.9 mg/dL 8.4-10.2 EGFR (BEAKER) (test xfpu=4095) 5 mL/min/1.73 sq m ESTIMATED GFR IS NOT ACCURATE CREATININE CLEARANCE IN PREDICTING GLOMERULAR FILTRATION RATE. ESTIMATED GFR IS NOT APPLICABLE FOR DIALYSIS PATIENTS. CBC W/PLT COUNT & AUTO [id number] 05:57:00* Test Item Value Reference Range Comments WHITE BLOOD CELL COUNT (BEAKER) (test ibzg=819) 8.5 K/ L 4.0-10.0 RED BLOOD CELL COUNT (BEAKER) (test vwyj=359) 2.68 M/ L 4.00-5.00 HEMOGLOBIN (BEAKER) (test whgp=813) 8.7 GM/DL 12.0-15.0 HEMATOCRIT (BEAKER) (test bmfz=594) 26.3 % 36.0-45.0 MEAN CORPUSCULAR VOLUME (BEAKER) (test hvmc=328) 98.2 fL 82.0-99.0 MEAN CORPUSCULAR HEMOGLOBIN (BEAKER) (test zzsy=570) 32.3 pg 27.0-33.0 MEAN CORPUSCULAR HEMOGLOBIN CONC (BEAKER) (test uhsl=536) 32.9 GM/DL 32.0-36.0 RED CELL DISTRIBUTION WIDTH (BEAKER) (test tsyp=741) 15.5 % 10.3-14.2 PLATELET COUNT (BEAKER) (test jbvs=925) 254 K/CU MM 150-430 MEAN PLATELET VOLUME (BEAKER) (test qhgi=459) 7.5 fL 6.5-10.5 NUCLEATED RED BLOOD CELLS (BEAKER) (test hcyt=822) 0 /100 WBC 0-0 NEUTROPHILS RELATIVE PERCENT (BEAKER) (test lemb=091) 59 % LYMPHOCYTES RELATIVE PERCENT (BEAKER) (test ualx=287) 28 % MONOCYTES RELATIVE PERCENT (BEAKER) (test bbql=308) 10 % EOSINOPHILS RELATIVE PERCENT (BEAKER) (test hkmy=448) 3 % BASOPHILS RELATIVE PERCENT (BEAKER) (test ssdr=388) 1 % NEUTROPHILS ABSOLUTE COUNT (BEAKER) (test uvpd=434) 5.00 K/ L 1.80-8.00 LYMPHOCYTES ABSOLUTE COUNT (BEAKER) (test nspj=571) 2.38 K/ L 1.48-4.50 MONOCYTES ABSOLUTE COUNT (BEAKER) (test tbdh=303) 0.86 K/ L 0.00-1.30 EOSINOPHILS ABSOLUTE COUNT (BEAKER) (test zosr=242) 0.21 K/ L 0.00-0.50 BASOPHILS ABSOLUTE COUNT (BEAKER) (test mvug=758) 0.08 K/ L 0.00-0.20 0.00BLOOD [id number] 00:00:00* Test Item Value Reference Range Comments CULTURE (BEAKER) (test mzng=3655) No growth in 5 days POCT-GLUCOSE [id number] 21:22:00* Test Item Value Reference Range Comments POC-GLUCOSE METER (BEAKER) (test kifm=7160) 119 mg/dL 70-110 TESTED AT [place] [id number] POCT-GLUCOSE [id number] 17:14:00* Test Item Value Reference Range Comments POC-GLUCOSE METER (BEAKER) (test oitx=8016) 123 mg/dL 70-110 TESTED AT [place] [address] POCT-GLUCOSE [id number] 13:22:00* Test Item Value Reference Range Comments POC-GLUCOSE METER (BEAKER) (test qyqj=5109) 125 mg/dL 70-110 TESTED AT [place] [address] BLOOD [id number] 11:00:00* Test Item Value Reference Range Comments CULTURE (BEAKER) (test gpyc=3104) No growth in 5 days POCT-GLUCOSE [id number] 08:35:00* Test Item Value Reference Range Comments POC-GLUCOSE METER (BEAKER) (test pgrv=1225) 122 mg/dL 70-110 TESTED AT [address] [address] BASIC METABOLIC [id number] 06:49:00* Test Item Value Reference Range Comments SODIUM (BEAKER) (test vvdk=571) 128 meq/L 136-145 POTASSIUM (BEAKER) (test eygl=860) 4.2 meq/L 3.5-5.1 CHLORIDE (BEAKER) (test tnrq=080) 95 meq/L 98-107 CO2 (BEAKER) (test fnqy=969) 22 meq/L 22-29 BLOOD UREA NITROGEN (BEAKER) (test osmw=893) 27 mg/dL 7-21 CREATININE (BEAKER) (test rxtu=885) 6.21 mg/dL 0.57-1.25 GLUCOSE RANDOM (BEAKER) (test uwod=254) 103 mg/dL 70-105 CALCIUM (BEAKER) (test irij=684) 8.7 mg/dL 8.4-10.2 EGFR (BEAKER) (test gabj=0698) 7 mL/min/1.73 sq m ESTIMATED GFR IS NOT ACCURATE CREATININE CLEARANCE IN PREDICTING GLOMERULAR FILTRATION RATE. ESTIMATED GFR IS NOT APPLICABLE FOR DIALYSIS PATIENTS. CBC W/PLT COUNT & AUTO [id number] 06:27:00* Test Item Value Reference Range Comments WHITE BLOOD CELL COUNT (BEAKER) (test zchz=207) 8.4 K/ L 4.0-10.0 RED BLOOD CELL COUNT (BEAKER) (test pyiz=508) 2.62 M/ L 4.00-5.00 HEMOGLOBIN (BEAKER) (test nfza=512) 8.5 GM/DL 12.0-15.0 HEMATOCRIT (BEAKER) (test hzlb=702) 25.5 % 36.0-45.0 MEAN CORPUSCULAR VOLUME (BEAKER) (test qtlw=238) 97.5 fL 82.0-99.0 MEAN CORPUSCULAR HEMOGLOBIN (BEAKER) (test nars=215) 32.5 pg 27.0-33.0 MEAN CORPUSCULAR HEMOGLOBIN CONC (BEAKER) (test glgm=628) 33.3 GM/DL 32.0-36.0 RED CELL DISTRIBUTION WIDTH (BEAKER) (test puce=835) 15.7 % 10.3-14.2 PLATELET COUNT (BEAKER) (test pasm=031) 230 K/CU MM 150-430 MEAN PLATELET VOLUME (BEAKER) (test oirq=451) 7.3 fL 6.5-10.5 NUCLEATED RED BLOOD CELLS (BEAKER) (test asmo=409) 0 /100 WBC 0-0 NEUTROPHILS RELATIVE PERCENT (BEAKER) (test gggg=593) 64 % LYMPHOCYTES RELATIVE PERCENT (BEAKER) (test whek=041) 22 % MONOCYTES RELATIVE PERCENT (BEAKER) (test kven=249) 11 % EOSINOPHILS RELATIVE PERCENT (BEAKER) (test pchh=180) 3 % BASOPHILS RELATIVE PERCENT (BEAKER) (test wolp=597) 1 % NEUTROPHILS ABSOLUTE COUNT (BEAKER) (test huht=080) 5.36 K/ L 1.80-8.00 LYMPHOCYTES ABSOLUTE COUNT (BEAKER) (test fhts=762) 1.83 K/ L 1.48-4.50 MONOCYTES ABSOLUTE COUNT (BEAKER) (test adbi=954) 0.94 K/ L 0.00-1.30 EOSINOPHILS ABSOLUTE COUNT (BEAKER) (test yzgz=669) 0.22 K/ L 0.00-0.50 BASOPHILS ABSOLUTE COUNT (BEAKER) (test smhn=603) 0.10 K/ L 0.00-0.20 0.00POCT-GLUCOSE [id number] 21:25:00* Test Item Value Reference Range Comments POC-GLUCOSE METER (BEAKER) (test ywem=4654) 143 mg/dL 70-110 TESTED AT [place] [id number] POCT-GLUCOSE [id number] 17:39:00* Test Item Value Reference Range Comments POC-GLUCOSE METER (BEAKER) (test umeg=3513) 138 mg/dL 70-110 TESTED AT [address] [address] POCT-GLUCOSE [id number] 12:34:00* Test Item Value Reference Range Comments POC-GLUCOSE METER (BEAKER) (test oozo=7101) 155 mg/dL 70-110 TESTED AT [address] [address] POCT-GLUCOSE [id number] 08:41:00* Test Item Value Reference Range Comments POC-GLUCOSE METER (BEAKER) (test fgzs=7057) 128 mg/dL 70-110 TESTED AT [address] [address] BASIC METABOLIC [id number] 06:46:00* Test Item Value Reference Range Comments SODIUM (BEAKER) (test mfkx=030) 127 meq/L 136-145 POTASSIUM (BEAKER) (test jfao=040) 4.4 meq/L 3.5-5.1 CHLORIDE (BEAKER) (test muxv=485) 93 meq/L 98-107 CO2 (BEAKER) (test zpxh=934) 21 meq/L 22-29 BLOOD UREA NITROGEN (BEAKER) (test ndvo=384) 38 mg/dL 7-21 CREATININE (BEAKER) (test ndie=132) 8.17 mg/dL 0.57-1.25 GLUCOSE RANDOM (BEAKER) (test zftl=173) 103 mg/dL 70-105 CALCIUM (BEAKER) (test whty=822) 9.2 mg/dL 8.4-10.2 EGFR (BEAKER) (test cqkg=1172) 5 mL/min/1.73 sq m ESTIMATED GFR IS NOT ACCURATE CREATININE CLEARANCE IN PREDICTING GLOMERULAR FILTRATION RATE. ESTIMATED GFR IS NOT APPLICABLE FOR DIALYSIS PATIENTS. CBC W/PLT COUNT & AUTO [id number] 06:44:00* Test Item Value Reference Range Comments WHITE BLOOD CELL COUNT (BEAKER) (test xjem=246) 9.1 K/ L 4.0-10.0 RED BLOOD CELL COUNT (BEAKER) (test stwa=968) 2.73 M/ L 4.00-5.00 HEMOGLOBIN (BEAKER) (test uhsx=606) 8.9 GM/DL 12.0-15.0 HEMATOCRIT (BEAKER) (test opph=689) 26.6 % 36.0-45.0 MEAN CORPUSCULAR VOLUME (BEAKER) (test vykc=363) 97.6 fL 82.0-99.0 MEAN CORPUSCULAR HEMOGLOBIN (BEAKER) (test jkaq=051) 32.7 pg 27.0-33.0 MEAN CORPUSCULAR HEMOGLOBIN CONC (BEAKER) (test okvg=289) 33.5 GM/DL 32.0-36.0 RED CELL DISTRIBUTION WIDTH (BEAKER) (test ygsd=072) 15.7 % 10.3-14.2 PLATELET COUNT (BEAKER) (test wwpr=888) 241 K/CU MM 150-430 MEAN PLATELET VOLUME (BEAKER) (test befg=810) 7.2 fL 6.5-10.5 NUCLEATED RED BLOOD CELLS (BEAKER) (test exgc=129) 0 /100 WBC 0-0 NEUTROPHILS RELATIVE PERCENT (BEAKER) (test lsxj=785) 60 % LYMPHOCYTES RELATIVE PERCENT (BEAKER) (test vixb=266) 27 % MONOCYTES RELATIVE PERCENT (BEAKER) (test bily=190) 10 % EOSINOPHILS RELATIVE PERCENT (BEAKER) (test ieaj=376) 3 % BASOPHILS RELATIVE PERCENT (BEAKER) (test qbjt=212) 1 % NEUTROPHILS ABSOLUTE COUNT (BEAKER) (test pglo=524) 5.42 K/ L 1.80-8.00 LYMPHOCYTES ABSOLUTE COUNT (BEAKER) (test pztc=988) 2.41 K/ L 1.48-4.50 MONOCYTES ABSOLUTE COUNT (BEAKER) (test rqai=486) 0.93 K/ L 0.00-1.30 EOSINOPHILS ABSOLUTE COUNT (BEAKER) (test uzaf=789) 0.27 K/ L 0.00-0.50 BASOPHILS ABSOLUTE COUNT (BEAKER) (test omez=157) 0.08 K/ L 0.00-0.20 0.00POCT-GLUCOSE [id number] 20:32:00* Test Item Value Reference Range Comments POC-GLUCOSE METER (BEAKER) (test ithc=9680) 125 mg/dL 70-110 TESTED AT [address] [address] POCT-GLUCOSE [id number] 17:42:00* Test Item Value Reference Range Comments POC-GLUCOSE METER (AKER) (test bxtd=8308) 113 mg/dL 70-110 TESTED AT [address] [address] POCT-GLUCOSE [id number] 12:59:00* Test Item Value Reference Range Comments POC-GLUCOSE METER (AKER) (test svdz=1075) 121 mg/dL 70-110 TESTED AT [address] [address] SURGICALLY OBTAINED CULTURE + GRAM [id number] 12:16:00* Test Item Value Reference Range Comments CULTURE (BEAKER) (test gtzj=1513) ENTEROCOCCUS SPECIES <1+ Enterococcus species Ampicillin (test code=26) Ciprofloxacin (test code=7) Clindamycin (test code=10) Daptomycin (test code=59) Erythromycin (test code=4) Gentamicin (test code=18) Gentamicin High Level Synergy (test dhzs=182) Levofloxacin (test code=22) Linezolid (test code=40) Moxifloxacin (test code=36) Nitrofurantoin (test code=23) Oxacillin (test code=14) Rifampin (test code=43) Streptomycin High Level Synergy (test wuke=343) Tetracycline (test code=2) Tigecycline (test ptvz=651) Trimethoprim + Sulfamethoxazole (test code=47) Vancomycin (test code=13) CULTURE (BEAKER) (test mysb=2194) 1+ Diphtheroid CULTURE (BEAKER) (test yhbg=7232) COAGULASE NEGATIVE STAPHYLOCOCCUS <1+ Coagulase negative Staphylococcus Ampicillin (test code=26) Ciprofloxacin (test code=73) Clindamycin (test code=10) Daptomycin (test thil=406) Erythromycin (test code=4) Gentamicin (test njpt=717) Gentamicin High Level Synergy (test svhl=8180) Levofloxacin (test code=22) Linezolid (test code=40) Moxifloxacin (test fgay=716) Nitrofurantoin (test code=23) Oxacillin (test code=14) Rifampin (test code=43) Streptomycin High Level Synergy (test hyql=6023) Tetracycline (test code=2) Tigecycline (test oege=0711) Trimethoprim + Sulfamethoxazole (test code=47) Vancomycin (test code=13) GRAM STAIN RESULT (BEAKER) (test hvgk=3414) <1+ WBCs GRAM STAIN RESULT (BEAKER) (test pwqw=585740) No organisms seen [id number] 11:47:00* Test Item Value Reference Range Comments SODIUM (BEAKER) (test uxov=068) 127 meq/L 136-145 POCT-GLUCOSE [id number] 10:13:00* Test Item Value Reference Range Comments POC-GLUCOSE METER (BEAKER) (test pfyz=0692) 106 mg/dL 70-110 TESTED AT [facility] [address] [place] [address] BLOOD [id number] 09:49:00* Test Item Value Reference Range Comments CULTURE (BEAKER) (test yajq=6034) From Anaerobic Bottle Only Coagulase negative Staphylococcus GRAM STAIN RESULT (AKER) (test tjsw=3241) From anaerobic bottle only: gram positive cocci in clusters METHICILLIN-RESISTANT STAPH. SPECIES DETECTED(Coagulase Negative Staphylococcus species.)First line therapy: vancomycinStaphylococcus aureus NOT DETECTED MecA D ETECTEDPossible contamination.The likelihood of pathogenicity is increased if th e organism is observed in multiple blood cultures obtained from separate venipun ctures. Tested at [facility] using the [employer] BCID Panel ([employer] | [place], [place]). This test has been FDA Approved and verification was performed prior to clinical use. Reference Range: Not Detected BASIC METABOLIC [id number] 06:55:00* Test Item Value Reference Range Comments SODIUM (BEAKER) (test rzzj=026) 128 meq/L 136-145 POTASSIUM (BEAKER) (test zhdg=461) 4.4 meq/L 3.5-5.1 CHLORIDE (BEAKER) (test ujxd=688) 96 meq/L 98-107 CO2 (BEAKER) (test tpjt=586) 21 meq/L 22-29 BLOOD UREA NITROGEN (BEAKER) (test gwzb=773) 26 mg/dL 7-21 CREATININE (BEAKER) (test kvmm=666) 6.36 mg/dL 0.57-1.25 GLUCOSE RANDOM (BEAKER) (test iple=318) 89 mg/dL 70-105 CALCIUM (BEAKER) (test vakf=233) 8.9 mg/dL 8.4-10.2 EGFR (BEAKER) (test jzlt=5061) 7 mL/min/1.73 sq m ESTIMATED GFR IS NOT ACCURATE CREATININE CLEARANCE IN PREDICTING GLOMERULAR FILTRATION RATE. ESTIMATED GFR IS NOT APPLICABLE FOR DIALYSIS PATIENTS. CBC W/PLT COUNT & AUTO [id number] 06:28:00* Test Item Value Reference Range Comments WHITE BLOOD CELL COUNT (BEAKER) (test rxzx=687) 8.5 K/ L 4.0-10.0 RED BLOOD CELL COUNT (BEAKER) (test pdda=764) 3.03 M/ L 4.00-5.00 HEMOGLOBIN (BEAKER) (test gfku=448) 9.7 GM/DL 12.0-15.0 HEMATOCRIT (BEAKER) (test lhqx=867) 30.0 % 36.0-45.0 MEAN CORPUSCULAR VOLUME (BEAKER) (test ixnv=020) 99.0 fL 82.0-99.0 MEAN CORPUSCULAR HEMOGLOBIN (BEAKER) (test yxnw=536) 32.1 pg 27.0-33.0 MEAN CORPUSCULAR HEMOGLOBIN CONC (BEAKER) (test ukla=469) 32.4 GM/DL 32.0-36.0 RED CELL DISTRIBUTION WIDTH (BEAKER) (test udde=722) 15.8 % 10.3-14.2 PLATELET COUNT (BEAKER) (test wfht=236) 212 K/CU MM 150-430 MEAN PLATELET VOLUME (BEAKER) (test uuhd=000) 7.2 fL 6.5-10.5 NUCLEATED RED BLOOD CELLS (BEAKER) (test fuly=295) 0 /100 WBC 0-0 NEUTROPHILS RELATIVE PERCENT (BEAKER) (test ldme=635) 66 % LYMPHOCYTES RELATIVE PERCENT (BEAKER) (test lvti=192) 22 % MONOCYTES RELATIVE PERCENT (BEAKER) (test rqwa=585) 9 % EOSINOPHILS RELATIVE PERCENT (BEAKER) (test gees=970) 2 % BASOPHILS RELATIVE PERCENT (BEAKER) (test tmxg=827) 1 % NEUTROPHILS ABSOLUTE COUNT (BEAKER) (test abgs=861) 5.56 K/ L 1.80-8.00 LYMPHOCYTES ABSOLUTE COUNT (BEAKER) (test dthk=747) 1.90 K/ L 1.48-4.50 MONOCYTES ABSOLUTE COUNT (BEAKER) (test enlu=609) 0.73 K/ L 0.00-1.30 EOSINOPHILS ABSOLUTE COUNT (BEAKER) (test jqng=169) 0.19 K/ L 0.00-0.50 BASOPHILS ABSOLUTE COUNT (BEAKER) (test xutq=906) 0.10 K/ L 0.00-0.20 0.00BLOOD [id number] 06:00:00* Test Item Value Reference Range Comments CULTURE (BEAKER) (test aufc=5831) No growth in 5 days MISCELLANEOUS LAB [id number] 21:54:00* Test Item Value Reference Range Comments SCAN RESULT (test olpd=2795499) METHICILLIN-RESISTANT STAPH. SPECIES DETECTED (Coagulase Negative Staphylococcus species.) First line therapy: vancomycin Staphylococcus aureus NOT DETECTED MecA DETECTED Possible contamination.The likelihood of pathogenicity is increased if the organism is observed in multiple blood cultures obtained from separate selene ipunctures. Tested at [facility] using the [employer] BCID [employer] ([employer] | [place], [place]). This test has been FDA Approved and verification was performed prior to clinical use. Reference Range: Not Detec tedPOCT-GLUCOSE [id number] 20:29:00* Test Item Value Reference Range Comments POC-GLUCOSE METER (BEAKER) (test rela=8695) 137 mg/dL 70-110 TESTED AT [facility] [address] [facility] [address] POCT-GLUCOSE [id number] 17:06:00* Test Item Value Reference Range Comments POC-GLUCOSE METER (BEAKER) (test nrhs=5239) 130 mg/dL 70-110 TESTED AT [facility] [address] [facility] [address] POCT-GLUCOSE [id number] 11:38:00* Test Item Value Reference Range Comments POC-GLUCOSE METER (BEAKER) (test ifam=1588) 138 mg/dL 70-110 TESTED AT [facility] [address] [facility] [address] WOUND CULTURE + GRAM [id number] 10:08:00* Test Item Value Reference Range Comments CULTURE (BEAKER) (test tfwo=1449) PROTEUS MIRABILIS 2+ Proteus mirabilis Amikacin (test code=1) Ampicillin + Sulbactam (test code=6) Aztreonam (test code=32) Cefazolin (test code=9) Cefepime (test code=51) Cefoxitin (test code=68) Ceftazidime (test code=27) Ceftriaxone (test code=52) Ertapenem (test code=38) Gentamicin (test code=18) Levofloxacin (test code=22) Meropenem (test code=34) Nitrofurantoin (test code=23) Piperacillin + Tazobactam (test code=29) Tetracycline (test code=2) Tigecycline (test cgoe=886) Tobramycin (test code=25) Trimethoprim + Sulfamethoxazole (test code=47) CULTURE (BEAKER) (test aurn=5389) ENTEROCOCCUS SPECIES 4+ Enterococcus species Ampicillin (test code=26) Ciprofloxacin (test code=7) Clindamycin (test code=10) Daptomycin (test code=59) Erythromycin (test code=4) Gentamicin (test code=18) Gentamicin High Level Synergy (test mrqj=285) Levofloxacin (test code=22) Linezolid (test code=40) Moxifloxacin (test code=36) Nitrofurantoin (test hwfu=671) Oxacillin (test code=14) Rifampin (test code=43) Streptomycin High Level Synergy (test uede=043) Tetracycline (test code=2) Tigecycline (test ertv=5406) Trimethoprim + Sulfamethoxazole (test code=47) Vancomycin (test code=13) GRAM STAIN RESULT (BEAKER) (test vtqa=5529) 4+ WBCs GRAM STAIN RESULT (BEAKER) (test gbge=746275) <1+ gram negative rods GRAM STAIN RESULT (BEAKER) (test npxu=593247) 1+ gram positive rods GRAM STAIN RESULT (BEAKER) (test nmap=115319) 4+ gram positive cocci in pairs and clusters 4+ Skin gonzález<1+ Enteric organisms of greater than 2 types including Pseudomonas species No further workupPOCT-GLUCOSE [id number] 07:29:00* Test Item Value Reference Range Comments POC-GLUCOSE METER (BEAKER) (test apkz=2021) 108 mg/dL 70-110 TESTED AT [facility] [address] [facility] [address] [id number] 05:03:00* Test Item Value Reference Range Comments PHOSPHORUS (BEAKER) (test pmbe=912) 8.1 mg/dL 2.3-4.7 CBC W/PLT COUNT & AUTO [id number] 05:03:00* Test Item Value Reference Range Comments WHITE BLOOD CELL COUNT (BEAKER) (test mwhp=117) 10.0 K/ L 4.0-10.0 RED BLOOD CELL COUNT (BEAKER) (test mycr=709) 2.77 M/ L 4.00-5.00 HEMOGLOBIN (BEAKER) (test rxow=166) 9.1 GM/DL 12.0-15.0 HEMATOCRIT (BEAKER) (test ytvj=998) 27.5 % 36.0-45.0 MEAN CORPUSCULAR VOLUME (BEAKER) (test zqgl=973) 99.1 fL 82.0-99.0 MEAN CORPUSCULAR HEMOGLOBIN (BEAKER) (test ofkn=092) 32.8 pg 27.0-33.0 MEAN CORPUSCULAR HEMOGLOBIN CONC (BEAKER) (test htvn=904) 33.1 GM/DL 32.0-36.0 RED CELL DISTRIBUTION WIDTH (BEAKER) (test kkix=131) 15.9 % 10.3-14.2 PLATELET COUNT (BEAKER) (test jhbe=087) 226 K/CU MM 150-430 MEAN PLATELET VOLUME (BEAKER) (test zgmy=425) 7.0 fL 6.5-10.5 NUCLEATED RED BLOOD CELLS (BEAKER) (test oosd=332) 0 /100 WBC 0-0 NEUTROPHILS RELATIVE PERCENT (BEAKER) (test gumw=154) 60 % LYMPHOCYTES RELATIVE PERCENT (BEAKER) (test eiuh=001) 27 % MONOCYTES RELATIVE PERCENT (BEAKER) (test hnke=056) 10 % EOSINOPHILS RELATIVE PERCENT (BEAKER) (test hsal=241) 3 % BASOPHILS RELATIVE PERCENT (BEAKER) (test lvjv=417) 1 % NEUTROPHILS ABSOLUTE COUNT (BEAKER) (test qquo=729) 6.01 K/ L 1.80-8.00 LYMPHOCYTES ABSOLUTE COUNT (BEAKER) (test kxwi=362) 2.68 K/ L 1.48-4.50 MONOCYTES ABSOLUTE COUNT (BEAKER) (test ychp=738) 0.97 K/ L 0.00-1.30 EOSINOPHILS ABSOLUTE COUNT (BEAKER) (test malt=986) 0.27 K/ L 0.00-0.50 BASOPHILS ABSOLUTE COUNT (BEAKER) (test nxes=126) 0.08 K/ L 0.00-0.20 0.00BASIC METABOLIC [id number] 05:03:00* Test Item Value Reference Range Comments SODIUM (BEAKER) (test fxeo=099) 132 meq/L 136-145 POTASSIUM (BEAKER) (test layd=593) 4.3 meq/L 3.5-5.1 CHLORIDE (BEAKER) (test fbgl=515) 95 meq/L 98-107 CO2 (BEAKER) (test ribd=910) 23 meq/L 22-29 BLOOD UREA NITROGEN (BEAKER) (test cgxo=649) 37 mg/dL 7-21 CREATININE (BEAKER) (test axcm=981) 8.14 mg/dL 0.57-1.25 GLUCOSE RANDOM (BEAKER) (test ifhq=957) 102 mg/dL 70-105 CALCIUM (BEAKER) (test gipf=584) 8.9 mg/dL 8.4-10.2 EGFR (BEAKER) (test qhln=4183) 5 mL/min/1.73 sq m ESTIMATED GFR IS NOT ACCURATE CREATININE CLEARANCE IN PREDICTING GLOMERULAR FILTRATION RATE. ESTIMATED GFR IS NOT APPLICABLE FOR DIALYSIS PATIENTS. POCT-GLUCOSE [id number] 21:18:00* Test Item Value Reference Range Comments POC-GLUCOSE METER (BEAKER) (test blbu=9558) 161 mg/dL 70-110 TESTED AT [facility] [address] [facility] [id number] POCT-GLUCOSE [id number] 16:48:00* Test Item Value Reference Range Comments POC-GLUCOSE METER (BEAKER) (test imsw=6334) 138 mg/dL 70-110 TESTED AT [facility] [address] [facility] [address] POCT-GLUCOSE [id number] 11:45:00* Test Item Value Reference Range Comments POC-GLUCOSE METER (BEAKER) (test awro=3174) 153 mg/dL 70-110 TESTED AT [address] [address] POCT-GLUCOSE [id number] 07:34:00* Test Item Value Reference Range Comments POC-GLUCOSE METER (BEAKER) (test pxyn=3407) 133 mg/dL 70-110 TESTED AT [address] [address] CBC W/PLT COUNT & AUTO [id number] 06:16:00* Test Item Value Reference Range Comments WHITE BLOOD CELL COUNT (BEAKER) (test xxct=956) 10.0 K/ L 4.0-10.0 RED BLOOD CELL COUNT (BEAKER) (test tnnm=777) 2.92 M/ L 4.00-5.00 HEMOGLOBIN (BEAKER) (test sfvt=080) 9.3 GM/DL 12.0-15.0 HEMATOCRIT (BEAKER) (test pfbw=942) 28.8 % 36.0-45.0 MEAN CORPUSCULAR VOLUME (BEAKER) (test aoui=903) 98.7 fL 82.0-99.0 MEAN CORPUSCULAR HEMOGLOBIN (BEAKER) (test wdwj=650) 31.9 pg 27.0-33.0 MEAN CORPUSCULAR HEMOGLOBIN CONC (BEAKER) (test rrtz=729) 32.3 GM/DL 32.0-36.0 RED CELL DISTRIBUTION WIDTH (BEAKER) (test jmon=191) 16.3 % 10.3-14.2 PLATELET COUNT (BEAKER) (test lwys=381) 228 K/CU MM 150-430 MEAN PLATELET VOLUME (BEAKER) (test rejs=396) 7.0 fL 6.5-10.5 NUCLEATED RED BLOOD CELLS (BEAKER) (test pvks=686) 0 /100 WBC 0-0 NEUTROPHILS RELATIVE PERCENT (BEAKER) (test vwlc=229) 69 % LYMPHOCYTES RELATIVE PERCENT (BEAKER) (test aioq=973) 21 % MONOCYTES RELATIVE PERCENT (BEAKER) (test eisf=485) 9 % EOSINOPHILS RELATIVE PERCENT (BEAKER) (test nzmd=268) 1 % BASOPHILS RELATIVE PERCENT (BEAKER) (test mqqt=460) 1 % NEUTROPHILS ABSOLUTE COUNT (BEAKER) (test xvpt=358) 6.87 K/ L 1.80-8.00 LYMPHOCYTES ABSOLUTE COUNT (BEAKER) (test orju=327) 2.07 K/ L 1.48-4.50 MONOCYTES ABSOLUTE COUNT (BEAKER) (test qttk=198) 0.92 K/ L 0.00-1.30 EOSINOPHILS ABSOLUTE COUNT (BEAKER) (test itmr=582) 0.10 K/ L 0.00-0.50 BASOPHILS ABSOLUTE COUNT (BEAKER) (test dwmh=450) 0.06 K/ L 0.00-0.20 0.00BASIC METABOLIC [id number] 06:13:00* Test Item Value Reference Range Comments SODIUM (BEAKER) (test rqjh=048) 133 meq/L 136-145 POTASSIUM (BEAKER) (test hjsg=246) 3.9 meq/L 3.5-5.1 CHLORIDE (BEAKER) (test mvwl=989) 98 meq/L 98-107 CO2 (BEAKER) (test rmiw=195) 22 meq/L 22-29 BLOOD UREA NITROGEN (BEAKER) (test fset=123) 25 mg/dL 7-21 CREATININE (BEAKER) (test eapx=314) 6.36 mg/dL 0.57-1.25 GLUCOSE RANDOM (BEAKER) (test lpbg=961) 119 mg/dL 70-105 CALCIUM (BEAKER) (test shje=642) 8.9 mg/dL 8.4-10.2 EGFR (BEAKER) (test fydr=3667) 7 mL/min/1.73 sq m ESTIMATED GFR IS NOT ACCURATE CREATININE CLEARANCE IN PREDICTING GLOMERULAR FILTRATION RATE. ESTIMATED GFR IS NOT APPLICABLE FOR DIALYSIS PATIENTS. VANCOMYCIN LEVEL, [id number] 06:08:00* Test Item Value Reference Range Comments VANCOMYCIN RANDOM (BEAKER) (test axgz=574) 23.6 ug/mL Reference Range: No NormalsPOCT-GLUCOSE [id number] 23:24:00* Test Item Value Reference Range Comments POC-GLUCOSE METER (BEAKER) (test daxm=2927) 156 mg/dL 70-110 TESTED AT [facility] [address] [facility] [address] POCT-GLUCOSE [id number] 17:50:00* Test Item Value Reference Range Comments POC-GLUCOSE METER (AKER) (test flbz=1414) 137 mg/dL 70-110 TESTED AT [facility] [address] [facility] [address] SPUTUM CULTURE + GRAM [id number] 14:27:00* Test Item Value Reference Range Comments CULTURE (AKER) (test casm=9965) PSEUDOMONAS AERUGINOSA <1+ Pseudomonas aeruginosa Amikacin (test code=1) Susceptible 0-16 , Resistant <0 or >16 Ampicillin (test code=26) Ampicillin + Sulbactam (test code=6) Aztreonam (test code=32) Susceptible 0-8 , Resistant <0 or >8 Cefazolin (test code=9) Cefepime (test code=51) Susceptible 0-8 , Resistant <0 or >8 Ceftazidime (test code=27) Susceptible 0-8 , Resistant <0 or >8 Ceftriaxone (test code=52) Ciprofloxacin (test code=7) Susceptible 0-1 , Resistant <0 or >1 Doripenem (test jlub=315) Susceptible 0-2 , Resistant <0 or >2 Ertapenem (test code=38) Gentamicin (test code=18) Susceptible 0-4 , Resistant <0 or >4 Imipenem (test code=19) Susceptible 0-2 , Resistant <0 or >2 Levofloxacin (test code=22) Susceptible 0-2 , Resistant <0 or >2 Meropenem (test code=34) Susceptible 0-2 , Resistant <0 or >2 Minocycline (test code=35) Nitrofurantoin (test code=23) Piperacillin (test code=24) Susceptible 0-16 , Resistant <0 or >16 Piperacillin + Tazobactam (test code=29) Susceptible 0-16 , Resistant <0 or >16 Tetracycline (test code=2) Ticarcillin + Clavulanic Acid (test code=80) Tigecycline (test zvvv=850) Tobramycin (test code=25) Susceptible 0-4 , Resistant <0 or >4 Trimethoprim + Sulfamethoxazole (test code=47) GRAM STAIN RESULT (BEAKER) (test esbk=9521) 2+ WBCs GRAM STAIN RESULT (BEAKER) (test wzif=414980) 0-5 epithelial cells GRAM STAIN RESULT (BEAKER) (test dfhs=726530) <1+ gram negative rods <1+ Normal respiratory gonzález presentPOCT-GLUCOSE [id number] 12:25:00* Test Item Value Reference Range Comments POC-GLUCOSE METER (BEAKER) (test stjl=3590) 204 mg/dL 70-110 TESTED AT [facility] [address] [facility] [address] POCT-GLUCOSE [id number] 08:58:00* Test Item Value Reference Range Comments POC-GLUCOSE METER (BEAKER) (test pxiw=9037) 138 mg/dL 70-110 TESTED AT [facility] [address] [facility] [address] CBC W/PLT COUNT & AUTO [id number] 05:46:00* Test Item Value Reference Range Comments WHITE BLOOD CELL COUNT (BEAKER) (test rsbu=819) 13.0 K/ L 4.0-10.0 RED BLOOD CELL COUNT (BEAKER) (test schk=456) 3.06 M/ L 4.00-5.00 HEMOGLOBIN (BEAKER) (test zdbw=331) 9.8 GM/DL 12.0-15.0 HEMATOCRIT (BEAKER) (test vioo=037) 30.7 % 36.0-45.0 MEAN CORPUSCULAR VOLUME (BEAKER) (test nbcj=800) 100.0 fL 82.0-99.0 MEAN CORPUSCULAR HEMOGLOBIN (BEAKER) (test cryu=656) 32.0 pg 27.0-33.0 MEAN CORPUSCULAR HEMOGLOBIN CONC (BEAKER) (test mbac=070) 31.9 GM/DL 32.0-36.0 RED CELL DISTRIBUTION WIDTH (BEAKER) (test pkct=606) 16.4 % 10.3-14.2 PLATELET COUNT (BEAKER) (test mwhh=864) 267 K/CU MM 150-430 MEAN PLATELET VOLUME (BEAKER) (test vmjz=470) 6.7 fL 6.5-10.5 NUCLEATED RED BLOOD CELLS (BEAKER) (test qdtx=855) 0 /100 WBC 0-0 NEUTROPHILS RELATIVE PERCENT (BEAKER) (test rpkm=287) 66 % LYMPHOCYTES RELATIVE PERCENT (BEAKER) (test pdtt=219) 24 % MONOCYTES RELATIVE PERCENT (BEAKER) (test wgyk=573) 8 % EOSINOPHILS RELATIVE PERCENT (BEAKER) (test cxgj=081) 1 % BASOPHILS RELATIVE PERCENT (BEAKER) (test wdji=966) 1 % NEUTROPHILS ABSOLUTE COUNT (BEAKER) (test dkdr=996) 8.52 K/ L 1.80-8.00 LYMPHOCYTES ABSOLUTE COUNT (BEAKER) (test iezg=520) 3.14 K/ L 1.48-4.50 MONOCYTES ABSOLUTE COUNT (BEAKER) (test derk=766) 1.04 K/ L 0.00-1.30 EOSINOPHILS ABSOLUTE COUNT (BEAKER) (test vbkt=703) 0.16 K/ L 0.00-0.50 BASOPHILS ABSOLUTE COUNT (BEAKER) (test hlxw=013) 0.09 K/ L 0.00-0.20 [id number] 05:34:00* Test Item Value Reference Range Comments PHOSPHORUS (BEAKER) (test zrha=533) 8.0 mg/dL 2.3-4.7 BASIC METABOLIC [id number] 05:34:00* Test Item Value Reference Range Comments SODIUM (BEAKER) (test fuyd=760) 130 meq/L 136-145 POTASSIUM (BEAKER) (test quoa=604) 4.0 meq/L 3.5-5.1 CHLORIDE (BEAKER) (test wtvu=113) 98 meq/L 98-107 CO2 (BEAKER) (test lksx=295) 18 meq/L 22-29 BLOOD UREA NITROGEN (BEAKER) (test kokx=908) 40 mg/dL 7-21 CREATININE (BEAKER) (test ljbr=504) 7.86 mg/dL 0.57-1.25 GLUCOSE RANDOM (BEAKER) (test ihwb=840) 112 mg/dL 70-105 CALCIUM (BEAKER) (test hmtd=767) 8.9 mg/dL 8.4-10.2 EGFR (BEAKER) (test dvss=5662) 5 mL/min/1.73 sq m ESTIMATED GFR IS NOT ACCURATE CREATININE CLEARANCE IN PREDICTING GLOMERULAR FILTRATION RATE. ESTIMATED GFR IS NOT APPLICABLE FOR DIALYSIS PATIENTS. POCT-GLUCOSE [id number] 21:04:00* Test Item Value Reference Range Comments POC-GLUCOSE METER (BEAKER) (test wtyi=1614) 150 mg/dL 70-110 TESTED AT [facility] [address] [facility] [address] POCT-GLUCOSE [id number] 11:56:00* Test Item Value Reference Range Comments POC-GLUCOSE METER (BEAKER) (test waap=7536) 118 mg/dL 70-110 TESTED AT [facility] [address] [facility] [address] POCT-GLUCOSE [id number] 06:29:00* Test Item Value Reference Range Comments POC-GLUCOSE METER (BEAKER) (test fypq=1847) 109 mg/dL 70-110 TESTED AT [address] [address] BASIC METABOLIC [id number] 04:39:00* Test Item Value Reference Range Comments SODIUM (BEAKER) (test hajn=192) 135 meq/L 136-145 POTASSIUM (BEAKER) (test ckxl=890) 3.9 meq/L 3.5-5.1 CHLORIDE (BEAKER) (test xhrp=366) 102 meq/L 98-107 CO2 (BEAKER) (test yyqn=735) 21 meq/L 22-29 BLOOD UREA NITROGEN (BEAKER) (test ixkl=321) 29 mg/dL 7-21 CREATININE (BEAKER) (test ztig=338) 6.00 mg/dL 0.57-1.25 GLUCOSE RANDOM (BEAKER) (test qyjp=459) 106 mg/dL 70-105 CALCIUM (BEAKER) (test shoc=551) 8.5 mg/dL 8.4-10.2 EGFR (BEAKER) (test lzhj=8287) 7 mL/min/1.73 sq m ESTIMATED GFR IS NOT ACCURATE CREATININE CLEARANCE IN PREDICTING GLOMERULAR FILTRATION RATE. ESTIMATED GFR IS NOT APPLICABLE FOR DIALYSIS PATIENTS. CBC W/PLT COUNT & AUTO [id number] 04:36:00* Test Item Value Reference Range Comments WHITE BLOOD CELL COUNT (BEAKER) (test okql=315) 13.5 K/ L 4.0-10.0 RED BLOOD CELL COUNT (BEAKER) (test qsvr=223) 2.80 M/ L 4.00-5.00 HEMOGLOBIN (BEAKER) (test vzlw=486) 9.1 GM/DL 12.0-15.0 HEMATOCRIT (BEAKER) (test cisw=263) 28.2 % 36.0-45.0 MEAN CORPUSCULAR VOLUME (BEAKER) (test fkox=237) 100.0 fL 82.0-99.0 MEAN CORPUSCULAR HEMOGLOBIN (BEAKER) (test fgta=596) 32.4 pg 27.0-33.0 MEAN CORPUSCULAR HEMOGLOBIN CONC (BEAKER) (test wtmu=195) 32.3 GM/DL 32.0-36.0 RED CELL DISTRIBUTION WIDTH (BEAKER) (test ckdl=388) 16.4 % 10.3-14.2 PLATELET COUNT (BEAKER) (test xwka=971) 248 K/CU MM 150-430 MEAN PLATELET VOLUME (BEAKER) (test tcmw=473) 6.7 fL 6.5-10.5 NUCLEATED RED BLOOD CELLS (BEAKER) (test hyyu=189) 0 /100 WBC 0-0 NEUTROPHILS RELATIVE PERCENT (BEAKER) (test bibt=074) 73 % LYMPHOCYTES RELATIVE PERCENT (BEAKER) (test iwkn=388) 21 % MONOCYTES RELATIVE PERCENT (BEAKER) (test mgxz=085) 6 % EOSINOPHILS RELATIVE PERCENT (BEAKER) (test qgrr=466) 1 % BASOPHILS RELATIVE PERCENT (BEAKER) (test tnje=420) 1 % NEUTROPHILS ABSOLUTE COUNT (BEAKER) (test sfak=070) 9.83 K/ L 1.80-8.00 LYMPHOCYTES ABSOLUTE COUNT (BEAKER) (test opwx=617) 2.78 K/ L 1.48-4.50 MONOCYTES ABSOLUTE COUNT (BEAKER) (test fnrk=441) 0.79 K/ L 0.00-1.30 EOSINOPHILS ABSOLUTE COUNT (BEAKER) (test pwnq=544) 0.08 K/ L 0.00-0.50 BASOPHILS ABSOLUTE COUNT (BEAKER) (test qkge=501) 0.07 K/ L 0.00-0.20 0.00POCT-GLUCOSE [id number] 00:12:00* Test Item Value Reference Range Comments POC-GLUCOSE METER (BEAKER) (test vgfu=6871) 147 mg/dL 70-110 TESTED AT [address] [address] HEPATITIS B [id number] 20:48:00* Test Item Value Reference Range Comments HEPATITIS B CORE TOTAL ANTIBODY (BEAKER) (test sbyx=336) Nonreactive Nonreactive HEPATITIS B SURFACE ANTIBODY (BEAKER) (test tfnx=158) < mIU/mL <8.0 HEPATITIS B SURFACE ANTIGEN (2) (BEAKER) (test fjxl=3840) Nonreactive Nonreactive POCT-GLUCOSE [id number] 17:43:00* Test Item Value Reference Range Comments POC-GLUCOSE METER (BEAKER) (test evkx=8491) 136 mg/dL 70-110 TESTED AT [facility] [address] [facility] [address] CBC W/PLT COUNT & AUTO [id number] 14:37:00* Test Item Value Reference Range Comments WHITE BLOOD CELL COUNT (BEAKER) (test jegn=830) 23.1 K/ L 4.0-10.0 RED BLOOD CELL COUNT (BEAKER) (test besy=966) 3.02 M/ L 4.00-5.00 HEMOGLOBIN (BEAKER) (test irye=669) 9.8 GM/DL 12.0-15.0 HEMATOCRIT (BEAKER) (test tkbr=174) 30.6 % 36.0-45.0 MEAN CORPUSCULAR VOLUME (BEAKER) (test pcnk=879) 101.0 fL 82.0-99.0 MEAN CORPUSCULAR HEMOGLOBIN (BEAKER) (test hmyg=119) 32.4 pg 27.0-33.0 MEAN CORPUSCULAR HEMOGLOBIN CONC (BEAKER) (test irht=208) 32.1 GM/DL 32.0-36.0 RED CELL DISTRIBUTION WIDTH (BEAKER) (test zhma=969) 16.4 % 10.3-14.2 PLATELET COUNT (BEAKER) (test fsvn=256) 258 K/CU MM 150-430 MEAN PLATELET VOLUME (BEAKER) (test vski=207) 6.7 fL 6.5-10.5 NUCLEATED RED BLOOD CELLS (BEAKER) (test aeag=400) 1 /100 WBC 0-0 NEUTROPHILS RELATIVE PERCENT (BEAKER) (test odpe=465) 90 % LYMPHOCYTES RELATIVE PERCENT (BEAKER) (test iqfa=571) 8 % MONOCYTES RELATIVE PERCENT (BEAKER) (test wxbk=110) 1 % EOSINOPHILS RELATIVE PERCENT (BEAKER) (test xmax=569) 0 % BASOPHILS RELATIVE PERCENT (BEAKER) (test zeks=392) 0 % NEUTROPHILS ABSOLUTE COUNT (BEAKER) (test mvxx=612) 20.80 K/ L 1.80-8.00 LYMPHOCYTES ABSOLUTE COUNT (BEAKER) (test ijjy=441) 1.83 K/ L 1.48-4.50 MONOCYTES ABSOLUTE COUNT (BEAKER) (test ddpr=138) 0.30 K/ L 0.00-1.30 EOSINOPHILS ABSOLUTE COUNT (BEAKER) (test aeif=637) 0.06 K/ L 0.00-0.50 BASOPHILS ABSOLUTE COUNT (BEAKER) (test wzvc=254) 0.08 K/ L 0.00-0.20 0.000.560.000.000.630.000.000.000.00(MANUAL DIFFERENTIAL)2017-01-10 14:37:00* Test Item Value Reference Range Comments TOTAL COUNTED (BEAKER) (test rthg=2835) WBC MORPHOLOGY (BEAKER) (test ocoz=023) Normal PLT MORPHOLOGY (BEAKER) (test cnhj=057) Normal ANISOCYTOSIS (BEAKER) (test iieg=752) 2+ moderate POLYCHROMATOPHILLIC RBCS(BEAKER) (test qxlh=718) 2+ moderate BASIC METABOLIC [id number] 12:45:00* Test Item Value Reference Range Comments SODIUM (BEAKER) (test mrhb=596) 134 meq/L 136-145 POTASSIUM (BEAKER) (test iefz=688) 5.4 meq/L 3.5-5.1 Specimen moderately hemolyzed CHLORIDE (BEAKER) (test qmuj=294) 102 meq/L 98-107 CO2 (BEAKER) (test lczb=241) 18 meq/L 22-29 BLOOD UREA NITROGEN (BEAKER) (test epph=475) 37 mg/dL 7-21 CREATININE (BEAKER) (test totr=879) 6.70 mg/dL 0.57-1.25 Specimen moderately hemolyzed GLUCOSE RANDOM (BEAKER) (test seom=954) 132 mg/dL 70-105 CALCIUM (BEAKER) (test ffdj=744) 9.1 mg/dL 8.4-10.2 EGFR (BEAKER) (test ijdf=2083) 6 mL/min/1.73 sq m ESTIMATED GFR IS NOT ACCURATE CREATININE CLEARANCE IN PREDICTING GLOMERULAR FILTRATION RATE. ESTIMATED GFR IS NOT APPLICABLE FOR DIALYSIS PATIENTS. POCT-GLUCOSE [id number] 11:46:00* Test Item Value Reference Range Comments POC-GLUCOSE METER (BEAKER) (test gqub=5182) 166 mg/dL 70-110 TESTED AT [facility] [address] [facility] [address] CREATINE KINASE (CK), TOTAL AND [id number] 06:58:00* Test Item Value Reference Range Comments CREATINE KINASE TOTAL (BEAKER) (test cdly=582) 84 U/L 29-200 CREATINE KINASE-MB (BEAKER) (test xuyo=509) 3.2 ng/mL 0.0-6.6 CREATINE KINASE-MB INDEX (BEAKER) (test heoc=623) 3.8 % Effective 07/10/2014: CK-MB Reference Range ChangeNew: 0.0-6.6 Previous: 0.0- 4.9CK-MB Reference Range:<6.7 Normal6.7-10.0 Borderline>10.0 Abnormal TROPONIN [id number] 06:58:00* Test Item Value Reference Range Comments TROPONIN I (BEAKER) (test ikky=243) 0.01 ng/mL 0.00-0.03 Effective 07/10/2014: Reference Range ChangeNew: 0.00-0.03 Previous 0.00-0.15T roponin I (TnI) levels must be interpreted in the context of the presenting symp toms and the clinical findings. Elevated TnI levels indicate myocardial damage, but are not specific for ischemic heart disease. Elevated TnI levels are seen in patients with other cardiac conditions (including myocarditis and congestive he art failure), and slight TnI elevations occur in patients with other conditions, including sepsis, renal failure, acidosis, acute neurological disease, and pers istent tachyarrhythmia.POCT-GLUCOSE [id number] 06:12:00* Test Item Value Reference Range Comments POC-GLUCOSE METER (BEAKER) (test klxl=4675) 208 mg/dL 70-110 TESTED AT [facility] [address] [facility] [address] BASIC METABOLIC [id number] 04:53:00* Test Item Value Reference Range Comments SODIUM (BEAKER) (test babz=180) 129 meq/L 136-145 POTASSIUM (BEAKER) (test tmxd=062) 6.0 meq/L 3.5-5.1 Specimen slightly hemolyzed CHLORIDE (BEAKER) (test utiu=594) 99 meq/L 98-107 CO2 (BEAKER) (test vriz=578) 20 meq/L 22-29 BLOOD UREA NITROGEN (BEAKER) (test fsvv=737) 33 mg/dL 7-21 CREATININE (BEAKER) (test gztu=260) 6.21 mg/dL 0.57-1.25 Specimen slightly hemolyzed GLUCOSE RANDOM (BEAKER) (test hhrj=746) 160 mg/dL 70-105 CALCIUM (BEAKER) (test macu=394) 9.1 mg/dL 8.4-10.2 EGFR (BEAKER) (test idxh=6316) 7 mL/min/1.73 sq m ESTIMATED GFR IS NOT ACCURATE CREATININE CLEARANCE IN PREDICTING GLOMERULAR FILTRATION RATE. ESTIMATED GFR IS NOT APPLICABLE FOR DIALYSIS PATIENTS. POCT-GLUCOSE [id number] 00:47:00* Test Item Value Reference Range Comments POC-GLUCOSE METER (BEAKER) (test wyvc=1428) 179 mg/dL 70-110 TESTED AT [facility] [address] [facility] [address] CBC W/PLT COUNT & AUTO [id number] 21:26:00* Test Item Value Reference Range Comments WHITE BLOOD CELL COUNT (BEAKER) (test uspp=052) 26.2 K/ L 4.0-10.0 RED BLOOD CELL COUNT (BEAKER) (test tggp=201) 3.25 M/ L 4.00-5.00 HEMOGLOBIN (BEAKER) (test qhxn=265) 10.7 GM/DL 12.0-15.0 HEMATOCRIT (BEAKER) (test twjo=878) 33.0 % 36.0-45.0 MEAN CORPUSCULAR VOLUME (BEAKER) (test nkqu=915) 101.0 fL 82.0-99.0 MEAN CORPUSCULAR HEMOGLOBIN (BEAKER) (test czns=115) 32.8 pg 27.0-33.0 MEAN CORPUSCULAR HEMOGLOBIN CONC (BEAKER) (test llng=208) 32.4 GM/DL 32.0-36.0 RED CELL DISTRIBUTION WIDTH (BEAKER) (test hiom=880) 16.6 % 10.3-14.2 PLATELET COUNT (BEAKER) (test zxfe=697) 323 K/CU MM 150-430 MEAN PLATELET VOLUME (BEAKER) (test bxqh=864) 6.9 fL 6.5-10.5 NUCLEATED RED BLOOD CELLS (BEAKER) (test kiwd=267) 3 /100 WBC 0-0 0.000.550.000.000.600.000.000.000.00(MANUAL DIFFERENTIAL)2017-01-09 21:26:00* Test Item Value Reference Range Comments NEUTROPHILS - REL (DIFF) (BEAKER) (test pold=3368) 86 % LYMPHOCYTES - REL (DIFF) (BEAKER) (test heja=6517) 9 % MONOCYTES - REL (DIFF) (BEAKER) (test szxk=0947) 1 % EOSINOPHILS - REL (DIFF) (BEAKER) (test ktjc=9893) 1 % BASOPHILS - REL (DIFF) (BEAKER) (test zjvh=8325) 1 % MYELOCYTES-REL (DIFF) (BEAKER) (test odcd=2492) 1 % 0-0 BANDS - REL (DIFF) (BEAKER) (test ujil=6328) 1 % 0-10 NEUTROPHILS - ABS (DIFF) (BEAKER) (test qjxt=4959) 22.53 K/ L 1.80-8.00 LYMPHOCYTES - ABS (DIFF) (BEAKER) (test iqen=7939) 2.36 K/ L 1.48-4.50 MONOCYTES - ABS (DIFF) (BEAKER) (test ebqy=1754) 0.26 K/ L 0.00-1.30 EOSINOPHILS - ABS (DIFF) (BEAKER) (test sldw=5887) 0.26 K/ L 0.00-0.50 BASOPHILS - ABS (DIFF) (BEAKER) (test gqpn=9277) 0.26 K/ L 0.00-0.20 BANDS-ABS (DIFF) (BEAKER) (test detg=2257) 0.3 K/ L 0.0-0.8 MYELOCYTES-ABS (DIFF) (BEAKER) (test emgh=6847) 0.26 K/ L 0.00-0.00 TOTAL COUNTED (BEAKER) (test lrtw=0354) 100 BANDS + SEGMENTED NEUTROPHILS (BEAKER) (test jwyi=9104) 22.79 MANUAL NRBC PER 100 CELLS (BEAKER) (test aolr=9268) 1 /100 WBC 0-0 WBC MORPHOLOGY (BEAKER) (test jitf=064) Normal PLT MORPHOLOGY (BEAKER) (test nkes=440) Normal ANISOCYTOSIS (BEAKER) (test dhii=582) 1+ few POLYCHROMATOPHILLIC RBCS(BEAKER) (test fikb=085) 1+ few PROTHROMBIN TIME/[id number] 20:50:00* Test Item Value Reference Range Comments PROTIME (BEAKER) (test muyb=108) 16.8 seconds 11.7-14.7 INR (BEAKER) (test gcnp=312) 1.4 <=5.9 RECOMMENDED COUMADIN/WARFARIN INR THERAPY RANGESSTANDARD DOSE: 2.0 - 3.0 Inclu cassie: PROPHYLAXIS for venous thrombosis, systemic embolization; TREATMENT for selene ous thrombosis and/or pulmonary embolus.HIGH RISK: Target INR is 2.5-3.5 for pat ients with mechanical heart valves.BASIC METABOLIC [id number] 20:30:00* Test Item Value Reference Range Comments SODIUM (BEAKER) (test rsiz=376) 130 meq/L 136-145 POTASSIUM (BEAKER) (test fdoy=099) 5.5 meq/L 3.5-5.1 CHLORIDE (BEAKER) (test udvf=451) 98 meq/L 98-107 CO2 (BEAKER) (test vchl=150) 19 meq/L 22-29 BLOOD UREA NITROGEN (BEAKER) (test xqyl=360) 29 mg/dL 7-21 CREATININE (BEAKER) (test uusi=884) 5.58 mg/dL 0.57-1.25 GLUCOSE RANDOM (BEAKER) (test hzpf=036) 184 mg/dL 70-105 CALCIUM (BEAKER) (test yfkb=311) 9.4 mg/dL 8.4-10.2 EGFR (BEAKER) (test ytgs=2539) 8 mL/min/1.73 sq m ESTIMATED GFR IS NOT ACCURATE CREATININE CLEARANCE IN PREDICTING GLOMERULAR FILTRATION RATE. ESTIMATED GFR IS NOT APPLICABLE FOR DIALYSIS PATIENTS. HEPATIC FUNCTION [id number] 20:24:00* Test Item Value Reference Range Comments TOTAL PROTEIN (BEAKER) (test xgww=714) 7.9 gm/dL 6.0-8.3 ALBUMIN (BEAKER) (test tmrm=4716) 4.1 g/dL 3.5-5.0 BILIRUBIN TOTAL (BEAKER) (test extv=746) 0.4 mg/dL 0.2-1.2 BILIRUBIN DIRECT (BEAKER) (test wynx=548) 0.1 mg/dL 0.1-0.5 ALKALINE PHOSPHATASE (BEAKER) (test gjkv=787) 87 U/L 40-150 AST (SGOT) (BEAKER) (test pcdu=968) 11 U/L 5-34 ALT (SGPT) (BEAKER) (test hosi=001) 11 U/L 6-55 BLOOD GAS, [id number] 19:58:00* Test Item Value Reference Range Comments PH ARTERIAL (BEAKER) (test bvbg=456) 7.29 7.35-7.45 PCO2 ARTERIAL (BEAKER) (test xbkd=551) 50 mmHg 35-45 PO2 ARTERIAL (BEAKER) (test eztx=151) 99 mmHg 80-90 O2 SATURATION ARTERIAL (BEAKER) (test fmhb=968) 96.6 % 96.0-97.0 HCO3 ARTERIAL (BEAKER) (test tick=143) 24 mmol/L 21-29 BASE EXCESS ARTERIAL (BEAKER) (test fpai=512) -3.1 mmol/L -2.0-3.0 PATIENT TEMPERATURE (BEAKER) (test qmfy=2730) 37.5 C FIO2 (BEAKER) (test fxjc=9761) 50.0 % POCT-GLUCOSE [id number] 18:41:00* Test Item Value Reference Range Comments POC-GLUCOSE METER (BEAKER) (test dlcs=3994) 190 mg/dL 70-110 TESTED AT [facility] [address] [facility] [address] CBC WITH AUTO [id number] 12:35:00* Test Item Value Reference Range Comments WBC (test code=WBC) 22.1 k/ul 4.8-10.8 RBC (test code=RBC) 3.51 Millions/ul 4.20-5.40 Hemoglobin (test code=HGB) 10.7 gm/dl 12.0-14.0 Hematocrit (test code=HCT) 34.4 % 37.0-47.0 MCV (test code=MCV) 98.2 fL 81.0-99.0 MCH (test code=MCH) 30.5 pg 27.0-31.0 MCHC (test code=MCHC) 31.1 gm/dl 33.0-37.0 RDW (test code=RDWVC) 18.4 % 11.5-14.5 Platelet (test code=PLT) 288 10\\S\\3/ul 130-400 MPV (test code=MPV) 8.0 fL 7.4-10.4 NE% (test code=NE) 85.1 % 42.0-75.0 LY% (test code=LY) 10.1 % 13.0-42.0 MO% (test code=MO) 3.4 % 4.0-14.0 EO% (test code=EO) 1.2 % 1.0-3.0 BA% (test code=BA) 0.2 % 1.0-3.0 NRBC, Auto (test code=NRBC_AUTO) 0 Neutrophils (test code=NEUTR) 89 % 42-75 The value no value originally released by on ############### was changed to 89 by [id number] on 01/09/2017 12:35 Lymphocytes (test code=LYMPH) 8 % 13-42 The value no value originally released by on ############### was changed to 8 by [id number] on 01/09/2017 12:35 Monocytes (test code=MONOS) 2 % 4-14 The value no value originally released by on ############### was changed to 2 by [id number] on 01/09/2017 12:35 Eosinophils (test code=EOS) 1 % 1-3 The value no value originally released by on ############### was changed to 1 by [id number] on 01/09/2017 12:35 er [id number] 12:11:00* Test Item Value Reference Range Comments Glucose (test code=GLU) 153 mg/dl 75-110 BUN (test code=BUN) 23.0 mg/dl 6.0-17.0 Creatinine (test code=CREA) 4.4 mg/dl 0.4-1.2 Sodium (test code=NA) 140 mmol/l 137-145 Potassium (test code=K) 4.3 mmol/l 3.5-5.0 Chloride (test code=CL) 99 mmol/l 98-107 CO2 (test code=CO2) 24 mmol/l 22-30 Calcium (test code=CALC) 8.3 mg/dl 8.4-10.2 T Protein (test code=TP) 8.2 gm/dl 5.1-8.7 Albumin (test code=ALB) 4.5 gm/dl 3.5-4.6 A/G Ratio (test code=AGRAT) 1.2 % 1.1-2.2 AST (SGOT) (test code=AST) 27 U/L 11-36 ALT (SGPT) (test code=ALT) 21 U/L 11-40 Alkaline Phos (test code=ALKP) 107 U/L 47-114 Total Bilirubin (test code=TBIL) 0.5 mg/dl 0.2-1.2 Globulin (test code=GLOBU) 3.7 gm/dl 2.3-3.5 Calcium, Corrected (test code=CALCCORR) 7.9 mg/dl 8.4-10.2 Various formulas exist for corrected serum calcium results, each yielding different values. This corrected result was based on the formula: Corrected Calcium=SerumCalcium + [0.8 * ( 4 - SerumAlbumin)] EGFR if (test code=EGFRAA) 13 mL/min/1.73m\\S\\2 EGFR if Non- (test code=EGFRNA) 11 mL/min/1.73m\\S\\2 Estimated Glomerular Filtration Rate (eGFR) Reference Intervals Decision Points for 18 years and older and average body mass: >=60 Does not exclude kidney disease. 30 - 59 Suggests moderate chronic kidney disease and indicates the need for further investigation including assessment of proteinuria and cardiovascular factors. < 30 Usually indicates a need for referral for assessment and management of chronic kidney failure. er [id number] CULTURE, [id number] 07:42:00* Test Item Value Reference Range Comments AFB SPECIMEN PROCESSING (test [id number]=572883) Concentration ACID FAST SMEAR (test gvul=846710) Negative ACID FAST CULTURE (test iiqp=940409) Negative No acid fast bacilli isolated after 6 weeks. LEFT LUNG WASHINGCULTURE, [id number] 13:55:00 ONLY ORDER THIS CULTURE IF THIS IS A SURGICA L SPECIMEN Specimen: AbscessCollected: 12/08/2016 20:10 Status: Final Last Updated: 12/16/2016 13:55 (1) ONLY ORDER THIS CULTURE IF THIS IS A SURGICA L SPECIMEN Culture Result (Final) (Final) No Anaerobes Isolated [id number] 08:44:00 * Test Item Value Reference Range Comments Glucose (test code=GLU) 273 mg/dl 75-110 BUN (test code=BUN) 73.0 mg/dl 6.0-17.0 Creatinine (test code=CREA) 8.7 mg/dl 0.4-1.2 Sodium (test code=NA) 131 mmol/l 137-145 Potassium (test code=K) 4.5 mmol/l 3.5-5.0 Chloride (test code=CL) 91 mmol/l 98-107 CO2 (test code=CO2) 24 mmol/l 22-30 Calcium (test code=CALC) 8.9 mg/dl 8.4-10.2 EGFR if (test code=EGFRAA) 6 mL/min/1.73m\\S\\2 EGFR if Non- (test code=EGFRNA) 5 mL/min/1.73m\\S\\2 Estimated Glomerular Filtration Rate (eGFR) Reference Intervals Decision Points for 18 years and older and average body mass: >=60 Does not exclude kidney disease. 30 - 59 Suggests moderate chronic kidney disease and indicates the need for further investigation including assessment of proteinuria and cardiovascular factors. < 30 Usually indicates a need for referral for assessment and management of chronic kidney failure. with dialysisCBC WITH AUTO [id number] 08:41:00* Test Item Value Reference Range Comments WBC (test code=WBC) 16.5 k/ul 4.8-10.8 RBC (test code=RBC) 2.80 Millions/ul 4.20-5.40 Hemoglobin (test code=HGB) 8.9 gm/dl 12.0-14.0 Hematocrit (test code=HCT) 27.9 % 37.0-47.0 MCV (test code=MCV) 99.5 fL 81.0-99.0 MCH (test code=MCH) 31.5 pg 27.0-31.0 MCHC (test code=MCHC) 31.7 gm/dl 33.0-37.0 RDW (test code=RDWVC) 16.9 % 11.5-14.5 Platelet (test code=PLT) 428 10\\S\\3/ul 130-400 MPV (test code=MPV) 7.0 fL 7.4-10.4 NE% (test code=NE) 83.0 % 42.0-75.0 LY% (test code=LY) 14.2 % 13.0-42.0 MO% (test code=MO) 2.6 % 4.0-14.0 EO% (test code=EO) 0.1 % 1.0-3.0 BA% (test code=BA) 0.1 % 1.0-3.0 NRBC, Auto (test code=NRBC_AUTO) 0 with dialysisCULTURE, [id number] 07:07:00Specimen: BloodCollected: 12/08/2016 14:50 Status: Final Last Updated: 12/14/2016 07:06 Culture Result (Final) (Final) No Growth After 5 Days CULTURE, BLOOD 2016-12-14 07:07:00To start 15mins after 1st cultureSpecimen: BloodCollected: 12/08/2016 14:35 Status: Final Last Updated: 12/14/2016 07:06 (1) To start 15mins after 1st culture Culture Result (Final) (Final) No Growth After 5 Days [id number] 05:35:00* Test Item Value Reference Range Comments Glucose (test code=GLU) 240 mg/dl 75-110 BUN (test code=BUN) 54.0 mg/dl 6.0-17.0 Creatinine (test code=CREA) 6.8 mg/dl 0.4-1.2 Sodium (test code=NA) 133 mmol/l 137-145 Potassium (test code=K) 4.6 mmol/l 3.5-5.0 Chloride (test code=CL) 93 mmol/l 98-107 CO2 (test code=CO2) 26 mmol/l 22-30 Calcium (test code=CALC) 8.9 mg/dl 8.4-10.2 T Protein (test code=TP) 6.8 gm/dl 5.1-8.7 Albumin (test code=ALB) 3.6 gm/dl 3.5-4.6 A/G Ratio (test code=AGRAT) 1.1 % 1.1-2.2 AST (SGOT) (test code=AST) 63 U/L 11-36 ALT (SGPT) (test code=ALT) 31 U/L 11-40 Alkaline Phos (test code=ALKP) 56 U/L 47-114 Total Bilirubin (test code=TBIL) 0.5 mg/dl 0.2-1.2 Globulin (test code=GLOBU) 3.2 gm/dl 2.3-3.5 Calcium, Corrected (test code=CALCCORR) 9.2 mg/dl 8.4-10.2 Various formulas exist for corrected serum calcium results, each yielding different values. This corrected result was based on the formula: Corrected Calcium=SerumCalcium + [0.8 * ( 4 - SerumAlbumin)] EGFR if (test code=EGFRAA) 8 mL/min/1.73m\\S\\2 EGFR if Non- (test code=EGFRNA) 7 mL/min/1.73m\\S\\2 Estimated Glomerular Filtration Rate (eGFR) Reference Intervals Decision Points for 18 years and older and average body mass: >=60 Does not exclude kidney disease. 30 - 59 Suggests moderate chronic kidney disease and indicates the need for further investigation including assessment of proteinuria and cardiovascular factors. < 30 Usually indicates a need for referral for assessment and management of chronic kidney failure. CBC WITH AUTO [id number] 05:31:00* Test Item Value Reference Range Comments WBC (test code=WBC) 14.4 k/ul 4.8-10.8 RBC (test code=RBC) 2.72 Millions/ul 4.20-5.40 Hemoglobin (test code=HGB) 8.6 gm/dl 12.0-14.0 Hematocrit (test code=HCT) 27.0 % 37.0-47.0 MCV (test code=MCV) 99.2 fL 81.0-99.0 MCH (test code=MCH) 31.4 pg 27.0-31.0 MCHC (test code=MCHC) 31.7 gm/dl 33.0-37.0 RDW (test code=RDWVC) 16.9 % 11.5-14.5 Platelet (test code=PLT) 389 10\\S\\3/ul 130-400 MPV (test code=MPV) 7.2 fL 7.4-10.4 NE% (test code=NE) 85.9 % 42.0-75.0 LY% (test code=LY) 11.3 % 13.0-42.0 MO% (test code=MO) 2.0 % 4.0-14.0 EO% (test code=EO) 0.3 % 1.0-3.0 BA% (test code=BA) 0.5 % 1.0-3.0 NRBC, Auto (test code=NRBC_AUTO) 0 [id number] 05:32:00* Test Item Value Reference Range Comments Glucose (test code=GLU) 232 mg/dl 75-110 BUN (test code=BUN) 38.0 mg/dl 6.0-17.0 Creatinine (test code=CREA) 5.1 mg/dl 0.4-1.2 Sodium (test code=NA) 136 mmol/l 137-145 Potassium (test code=K) 3.9 mmol/l 3.5-5.0 Chloride (test code=CL) 98 mmol/l 98-107 CO2 (test code=CO2) 28 mmol/l 22-30 Calcium (test code=CALC) 9.1 mg/dl 8.4-10.2 EGFR if (test code=EGFRAA) 11 mL/min/1.73m\\S\\2 EGFR if Non- (test code=EGFRNA) 9 mL/min/1.73m\\S\\2 Estimated Glomerular Filtration Rate (eGFR) Reference Intervals Decision Points for 18 years and older and average body mass: >=60 Does not exclude kidney disease. 30 - 59 Suggests moderate chronic kidney disease and indicates the need for further investigation including assessment of proteinuria and cardiovascular factors. < 30 Usually indicates a need for referral for assessment and management of chronic kidney failure. CBC WITH AUTO [id number] 05:02:00* Test Item Value Reference Range Comments WBC (test code=WBC) 12.1 k/ul 4.8-10.8 RBC (test code=RBC) 2.62 Millions/ul 4.20-5.40 Hemoglobin (test code=HGB) 8.3 gm/dl 12.0-14.0 Hematocrit (test code=HCT) 25.9 % 37.0-47.0 MCV (test code=MCV) 98.8 fL 81.0-99.0 MCH (test code=MCH) 31.6 pg 27.0-31.0 MCHC (test code=MCHC) 32.0 gm/dl 33.0-37.0 RDW (test code=RDWVC) 16.6 % 11.5-14.5 Platelet (test code=PLT) 356 10\\S\\3/ul 130-400 MPV (test code=MPV) 7.2 fL 7.4-10.4 NE% (test code=NE) 83.9 % 42.0-75.0 LY% (test code=LY) 12.3 % 13.0-42.0 MO% (test code=MO) 2.8 % 4.0-14.0 EO% (test code=EO) 0.3 % 1.0-3.0 BA% (test code=BA) 0.7 % 1.0-3.0 NRBC, Auto (test code=NRBC_AUTO) 0 CBC WITH AUTO [id number] 07:05:00* Test Item Value Reference Range Comments WBC (test code=WBC) 16.3 k/ul 4.8-10.8 RBC (test code=RBC) 2.66 Millions/ul 4.20-5.40 Hemoglobin (test code=HGB) 8.5 gm/dl 12.0-14.0 Hematocrit (test code=HCT) 26.6 % 37.0-47.0 MCV (test code=MCV) 99.9 fL 81.0-99.0 MCH (test code=MCH) 31.9 pg 27.0-31.0 MCHC (test code=MCHC) 31.9 gm/dl 33.0-37.0 RDW (test code=RDWVC) 16.6 % 11.5-14.5 Platelet (test code=PLT) 348 10\\S\\3/ul 130-400 MPV (test code=MPV) 7.6 fL 7.4-10.4 NE% (test code=NE) 86.8 % 42.0-75.0 LY% (test code=LY) 10.1 % 13.0-42.0 MO% (test code=MO) 2.4 % 4.0-14.0 EO% (test code=EO) 0.5 % 1.0-3.0 BA% (test code=BA) 0.2 % 1.0-3.0 NRBC, Auto (test code=NRBC_AUTO) 0 Neutrophils (test code=NEUTR) 88 % 42-75 The value no value originally released by on ############### was changed to 88 by [id number] on 12/12/2016 07:05 Lymphocytes (test code=LYMPH) 10 % 13-42 The value no value originally released by on ############### was changed to 10 by [id number] on 12/12/2016 07:05 Monocytes (test code=MONOS) 2 % 4-14 The value no value originally released by on ############### was changed to 2 by [id number] on 12/12/2016 07:05 CBC AUTO diffCULTURE, [id number] 06:22:00right buttockSpecimen: AbscessCollected: 12/08/2016 20:10 Status: Final Last Updated: 12/12/2016 06:21 (1) right buttock Culture Result (Final) (Final) Many Staphylococcus aureus Isolate (Final) (C) (Final) Methicillin Resistant Staphylococcus aureus Ciprofloxacin >=8 R Clindamycin 0.25 S Erythromycin >=8 R Gentamicin <=0.5 S Levofloxacin >=8 R Linezolid 2 S Moxifloxacin 2 S Oxacillin >=4 R Rifampicin <=0.5 S Tetracycline <=1 S Tigecycline <=0.12 S Trimeth/Sulfa <=10 S Vancomycin <=0.5 S Cefoxitin Sc (+/-) Positive + D Test (+/-) Negative - [id number] 06:08:00* Test Item Value Reference Range Comments Glucose (test code=GLU) 200 mg/dl 75-110 BUN (test code=BUN) 50.0 mg/dl 6.0-17.0 Creatinine (test code=CREA) 7.1 mg/dl 0.4-1.2 Sodium (test code=NA) 138 mmol/l 137-145 Potassium (test code=K) 4.5 mmol/l 3.5-5.0 Chloride (test code=CL) 97 mmol/l 98-107 CO2 (test code=CO2) 24 mmol/l 22-30 Calcium (test code=CALC) 8.8 mg/dl 8.4-10.2 T Protein (test code=TP) 6.8 gm/dl 5.1-8.7 Albumin (test code=ALB) 3.7 gm/dl 3.5-4.6 A/G Ratio (test code=AGRAT) 1.2 % 1.1-2.2 AST (SGOT) (test code=AST) 69 U/L 11-36 ALT (SGPT) (test code=ALT) 30 U/L 11-40 Alkaline Phos (test code=ALKP) 66 U/L 47-114 Total Bilirubin (test code=TBIL) 0.6 mg/dl 0.2-1.2 Globulin (test code=GLOBU) 3.1 gm/dl 2.3-3.5 Calcium, Corrected (test code=CALCCORR) 9.0 mg/dl 8.4-10.2 Various formulas exist for corrected serum calcium results, each yielding different values. This corrected result was based on the formula: Corrected Calcium=SerumCalcium + [0.8 * ( 4 - SerumAlbumin)] EGFR if (test code=EGFRAA) 8 mL/min/1.73m\\S\\2 EGFR if Non- (test code=EGFRNA) 6 mL/min/1.73m\\S\\2 Estimated Glomerular Filtration Rate (eGFR) Reference Intervals Decision Points for 18 years and older and average body mass: >=60 Does not exclude kidney disease. 30 - 59 Suggests moderate chronic kidney disease and indicates the need for further investigation including assessment of proteinuria and cardiovascular factors. < 30 Usually indicates a need for referral for assessment and management of chronic kidney failure. [id number] 06:39:00* Test Item Value Reference Range Comments Glucose (test code=GLU) 162 mg/dl 75-110 BUN (test code=BUN) 33.0 mg/dl 6.0-17.0 Creatinine (test code=CREA) 5.5 mg/dl 0.4-1.2 Sodium (test code=NA) 141 mmol/l 137-145 Potassium (test code=K) 4.4 mmol/l 3.5-5.0 Chloride (test code=CL) 100 mmol/l 98-107 CO2 (test code=CO2) 26 mmol/l 22-30 Calcium (test code=CALC) 9.3 mg/dl 8.4-10.2 T Protein (test code=TP) 7.0 gm/dl 5.1-8.7 Albumin (test code=ALB) 3.7 gm/dl 3.5-4.6 A/G Ratio (test code=AGRAT) 1.1 % 1.1-2.2 AST (SGOT) (test code=AST) 29 U/L 11-36 ALT (SGPT) (test code=ALT) 34 U/L 11-40 Alkaline Phos (test code=ALKP) 67 U/L 47-114 Total Bilirubin (test code=TBIL) 0.5 mg/dl 0.2-1.2 Globulin (test code=GLOBU) 3.3 gm/dl 2.3-3.5 Calcium, Corrected (test code=CALCCORR) 9.5 mg/dl 8.4-10.2 Various formulas exist for corrected serum calcium results, each yielding different values. This corrected result was based on the formula: Corrected Calcium=SerumCalcium + [0.8 * ( 4 - SerumAlbumin)] EGFR if (test code=EGFRAA) 10 mL/min/1.73m\\S\\2 EGFR if Non- (test code=EGFRNA) 8 mL/min/1.73m\\S\\2 Estimated Glomerular Filtration Rate (eGFR) Reference Intervals Decision Points for 18 years and older and average body mass: >=60 Does not exclude kidney disease. 30 - 59 Suggests moderate chronic kidney disease and indicates the need for further investigation including assessment of proteinuria and cardiovascular factors. < 30 Usually indicates a need for referral for assessment and management of chronic kidney failure. CBC WITH AUTO [id number] 06:35:00* Test Item Value Reference Range Comments WBC (test code=WBC) 16.6 k/ul 4.8-10.8 RBC (test code=RBC) 2.61 Millions/ul 4.20-5.40 Hemoglobin (test code=HGB) 8.3 gm/dl 12.0-14.0 Hematocrit (test code=HCT) 26.2 % 37.0-47.0 MCV (test code=MCV) 100.4 fL 81.0-99.0 MCH (test code=MCH) 31.9 pg 27.0-31.0 MCHC (test code=MCHC) 31.8 gm/dl 33.0-37.0 RDW (test code=RDWVC) 15.0 % 11.5-14.5 Platelet (test code=PLT) 323 10\\S\\3/ul 130-400 MPV (test code=MPV) 7.7 fL 7.4-10.4 NE% (test code=NE) 84.3 % 42.0-75.0 LY% (test code=LY) 10.8 % 13.0-42.0 MO% (test code=MO) 4.4 % 4.0-14.0 EO% (test code=EO) 0.2 % 1.0-3.0 BA% (test code=BA) 0.3 % 1.0-3.0 CBC AUTO [id number] 06:36:00* Test Item Value Reference Range Comments Glucose (test code=GLU) 163 mg/dl 75-110 BUN (test code=BUN) 52.0 mg/dl 6.0-17.0 Creatinine (test code=CREA) 7.8 mg/dl 0.4-1.2 Sodium (test code=NA) 133 mmol/l 137-145 Potassium (test code=K) 6.2 mmol/l 3.5-5.0 Chloride (test code=CL) 96 mmol/l 98-107 CO2 (test code=CO2) 23 mmol/l 22-30 Calcium (test code=CALC) 8.8 mg/dl 8.4-10.2 T Protein (test code=TP) 6.9 gm/dl 5.1-8.7 Albumin (test code=ALB) 3.4 gm/dl 3.5-4.6 A/G Ratio (test code=AGRAT) 1.0 % 1.1-2.2 AST (SGOT) (test code=AST) 49 U/L 11-36 ALT (SGPT) (test code=ALT) 32 U/L 11-40 Alkaline Phos (test code=ALKP) 65 U/L 47-114 Total Bilirubin (test code=TBIL) 0.4 mg/dl 0.2-1.2 Globulin (test code=GLOBU) 3.5 gm/dl 2.3-3.5 Calcium, Corrected (test code=CALCCORR) 9.3 mg/dl 8.4-10.2 Various formulas exist for corrected serum calcium results, each yielding different values. This corrected result was based on the formula: Corrected Calcium=SerumCalcium + [0.8 * ( 4 - SerumAlbumin)] EGFR if (test code=EGFRAA) 7 mL/min/1.73m\\S\\2 EGFR if Non- (test code=EGFRNA) 6 mL/min/1.73m\\S\\2 Estimated Glomerular Filtration Rate (eGFR) Reference Intervals Decision Points for 18 years and older and average body mass: >=60 Does not exclude kidney disease. 30 - 59 Suggests moderate chronic kidney disease and indicates the need for further investigation including assessment of proteinuria and cardiovascular factors. < 30 Usually indicates a need for referral for assessment and management of chronic kidney failure. Critical [facility] by [id number] on 12/10/2016 06:36 AM. Re sults were read [facility]. CBC WITH AUTO [id number] 06:22:00* Test Item Value Reference Range Comments WBC (test code=WBC) 13.3 k/ul 4.8-10.8 RBC (test code=RBC) 2.55 Millions/ul 4.20-5.40 Hemoglobin (test code=HGB) 8.1 gm/dl 12.0-14.0 Hematocrit (test code=HCT) 25.2 % 37.0-47.0 MCV (test code=MCV) 98.6 fL 81.0-99.0 MCH (test code=MCH) 31.8 pg 27.0-31.0 MCHC (test code=MCHC) 32.3 gm/dl 33.0-37.0 RDW (test code=RDWVC) 15.6 % 11.5-14.5 Platelet (test code=PLT) 266 10\\S\\3/ul 130-400 MPV (test code=MPV) 7.1 fL 7.4-10.4 NE% (test code=NE) 85.3 % 42.0-75.0 LY% (test code=LY) 9.8 % 13.0-42.0 MO% (test code=MO) 4.5 % 4.0-14.0 EO% (test code=EO) 0.2 % 1.0-3.0 BA% (test code=BA) 0.2 % 1.0-3.0 CBC AUTO [id number] 17:54:00* Test Item Value Reference Range Comments Potassium (test code=K) 5.9 mmol/l 3.5-5.0 collect at 4 pm [id number] 12:56:00* Test Item Value Reference Range Comments pH (ABG) (test code=BGPH) 7.232 7.350-7.450 pCO2(T) (test code=BGPCO2(T)) 57.6 mm Hg 35.0-45.0 pO2(T) (test code=BGPO2(T)) 66.9 mm Hg 80.0-100.0 sO2 (test code=BGSO2) 90.6 % 90.0-99.0 Na+ (test code=BGCNA+) 133.2 mmol/l 135.0-148.0 K+ (test code=BGCK+) 4.77 mmol/l 3.50-4.50 Ca2+ (test code=BGCCA2+) 1.200 mmol/l 1.120-1.320 Cl- (test code=BGCCL-) 95 mmol/l 98-107 tHb (test code=BGCTHB) 8.6 gm/dl 11.5-17.4 O2Hb (test code=AXCX0XR) 88.7 % 95.0-99.0 COHb (test code=BGFCOHB) <2.8 % 0.5-2.5 MetHB (test code=BGMETHB) <1.3 % 0.4-1.5 Gluc (test code=BGCGLU) 158.0 mg/dl 60.0-110.0 Lac (test code=BGCLAC) <1.6 mmol/l 1.0-1.7 Barometric Pressure (test code=BGBARO) 762.0 mm Hg 450.0-1000.0 BE(act) (test code=BGBEACT) -4 mmol/l HCO3 (test code=BGHCO3) 21 meq/L 22-26 ctCO2(B) (test code=BGCTCO2(B)) 23 mmol/l Patient Temp C (test code=BGTEMP) 37 degrees C FIO2 (fO2(I) (test code=BGFIO2) 0.24 % Drawn By (test code=BGDRAWNBY) RAJ MIGUEL Collection Date (test code=BGDTCOL) 12/09/2016 Collection Time (test code=BGCTM) 12:50 Sample Site (test code=BGSAMPLESITE) R Radial Sample Type (test code=BGSAMPLETYPE) Arterial Allens Test (test code=BGALLEN) Acceptable Notified By (test code=BGNOTIFIEDBY) RAJ MIGUEL Notified Whom (test code=BGNOTIFIEDWHOM) NURSE Date Notified (test code=BGDTNOTIFIED) 12/09/2016 Time Notified (test code=BGTMNOTIFIED) 12:54 O2 Device (test code=[id number]) Nasal Cannula L/M (test code=BGL/M) 1.0 Instrument ID (test code=BGINSTRID) [id number] Comments (test code=BGCOMMENTS) PLACED BACK ON BIPAP, NO DISTRESS @ THIS TIME Reported By (test code=BGREPORTEDBY) RAJ MIGUEL CBC WITH AUTO [id number] 06:51:00* Test Item Value Reference Range Comments WBC (test code=WBC) 14.4 k/ul 4.8-10.8 RBC (test code=RBC) 2.73 Millions/ul 4.20-5.40 Hemoglobin (test code=HGB) 8.5 gm/dl 12.0-14.0 Hematocrit (test code=HCT) 26.9 % 37.0-47.0 MCV (test code=MCV) 98.4 fL 81.0-99.0 MCH (test code=MCH) 31.1 pg 27.0-31.0 MCHC (test code=MCHC) 31.6 gm/dl 33.0-37.0 RDW (test code=RDWVC) 15.2 % 11.5-14.5 Platelet (test code=PLT) 278 10\\S\\3/ul 130-400 MPV (test code=MPV) 7.8 fL 7.4-10.4 NE% (test code=NE) 63.9 % 42.0-75.0 LY% (test code=LY) 19.5 % 13.0-42.0 MO% (test code=MO) 10.7 % 4.0-14.0 EO% (test code=EO) 4.8 % 1.0-3.0 BA% (test code=BA) 1.1 % 1.0-3.0 [id number] 06:31:00* Test Item Value Reference Range Comments pH (ABG) (test code=BGPH) 7.274 7.350-7.450 pCO2(T) (test code=BGPCO2(T)) 55.7 mm Hg 35.0-45.0 pO2(T) (test code=BGPO2(T)) 81.5 mm Hg 80.0-100.0 sO2 (test code=BGSO2) 97.3 % 90.0-99.0 Na+ (test code=BGCNA+) 133.1 mmol/l 135.0-148.0 K+ (test code=BGCK+) 4.74 mmol/l 3.50-4.50 Ca2+ (test code=BGCCA2+) 1.200 mmol/l 1.120-1.320 Cl- (test code=BGCCL-) 95 mmol/l 98-107 tHb (test code=BGCTHB) 8.2 gm/dl 11.5-17.4 O2Hb (test code=MLLN1RY) >95.0 % 95.0-99.0 COHb (test code=BGFCOHB) <2.8 % 0.5-2.5 MetHB (test code=BGMETHB) <1.3 % 0.4-1.5 Gluc (test code=BGCGLU) 86.0 mg/dl 60.0-110.0 Lac (test code=BGCLAC) <1.6 mmol/l 1.0-1.7 Barometric Pressure (test code=BGBARO) 761.9 mm Hg 450.0-1000.0 BE(act) (test code=BGBEACT) -2 mmol/l HCO3 (test code=BGHCO3) 23 meq/L 22-26 ctCO2(B) (test code=BGCTCO2(B)) 25 mmol/l FIO2 (fO2(I) (test code=BGFIO2) 0.30 % Drawn By (test code=BGDRAWNBY) JAMAL PIMENTEL Collection Date (test code=BGDTCOL) 12/09/2016 Collection Time (test code=BGCTM) 06:30 Sample Site (test code=BGSAMPLESITE) R Radial Sample Type (test code=BGSAMPLETYPE) Arterial Allens Test (test code=BGALLEN) Acceptable Notified By (test code=BGNOTIFIEDBY) JAMAL PIMENTEL Notified Whom (test code=BGNOTIFIEDWHOM) QUINCY RN Date Notified (test code=BGDTNOTIFIED) 12/09/2016 Time Notified (test code=BGTMNOTIFIED) 06:30 O2 Device (test code=[id number]) BIPAP Set Rate (test code=BGSETRATE) 10 Instrument ID (test code=BGINSTRID) [id number] Reported By (test code=BGREPORTEDBY) JAMAL PIMENTEL [id number] 06:21:00* Test Item Value Reference Range Comments Glucose (test code=GLU) 77 mg/dl 75-110 BUN (test code=BUN) 38.0 mg/dl 6.0-17.0 Creatinine (test code=CREA) 5.7 mg/dl 0.4-1.2 Sodium (test code=NA) 138 mmol/l 137-145 Potassium (test code=K) 5.3 mmol/l 3.5-5.0 Chloride (test code=CL) 99 mmol/l 98-107 CO2 (test code=CO2) 26 mmol/l 22-30 Calcium (test code=CALC) 8.9 mg/dl 8.4-10.2 T Protein (test code=TP) 7.4 gm/dl 5.1-8.7 Albumin (test code=ALB) 3.9 gm/dl 3.5-4.6 A/G Ratio (test code=AGRAT) 1.1 % 1.1-2.2 AST (SGOT) (test code=AST) 64 U/L 11-36 ALT (SGPT) (test code=ALT) 30 U/L 11-40 Alkaline Phos (test code=ALKP) 87 U/L 47-114 Total Bilirubin (test code=TBIL) 0.5 mg/dl 0.2-1.2 Globulin (test code=GLOBU) 3.5 gm/dl 2.3-3.5 Calcium, Corrected (test code=CALCCORR) 9.0 mg/dl 8.4-10.2 Various formulas exist for corrected serum calcium results, each yielding different values. This corrected result was based on the formula: Corrected Calcium=SerumCalcium + [0.8 * ( 4 - SerumAlbumin)] EGFR if (test code=EGFRAA) 10 mL/min/1.73m\\S\\2 EGFR if Non- (test code=EGFRNA) 8 mL/min/1.73m\\S\\2 Estimated Glomerular Filtration Rate (eGFR) Reference Intervals Decision Points for 18 years and older and average body mass: >=60 Does not exclude kidney disease. 30 - 59 Suggests moderate chronic kidney disease and indicates the need for further investigation including assessment of proteinuria and cardiovascular factors. < 30 Usually indicates a need for referral for assessment and management of chronic kidney failure. [id number] 17:17:00* Test Item Value Reference Range Comments pH (ABG) (test code=BGPH) 7.332 7.350-7.450 pCO2(T) (test code=BGPCO2(T)) 49.6 mm Hg 35.0-45.0 pO2(T) (test code=BGPO2(T)) 89.7 mm Hg 80.0-100.0 sO2 (test code=BGSO2) 97.4 % 90.0-99.0 Na+ (test code=BGCNA+) 132.6 mmol/l 135.0-148.0 K+ (test code=BGCK+) 5.08 mmol/l 3.50-4.50 Ca2+ (test code=BGCCA2+) 1.160 mmol/l 1.120-1.320 Cl- (test code=BGCCL-) 94 mmol/l 98-107 tHb (test code=BGCTHB) 8.2 gm/dl 11.5-17.4 O2Hb (test code=KPUB8VF) >95.0 % 95.0-99.0 COHb (test code=BGFCOHB) <2.8 % 0.5-2.5 MetHB (test code=BGMETHB) <1.3 % 0.4-1.5 Gluc (test code=BGCGLU) 90.0 mg/dl 60.0-110.0 Lac (test code=BGCLAC) <1.6 mmol/l 1.0-1.7 Barometric Pressure (test code=BGBARO) 761.3 mm Hg 450.0-1000.0 BE(act) (test code=BGBEACT) 0 mmol/l HCO3 (test code=BGHCO3) 24 meq/L 22-26 ctCO2(B) (test code=BGCTCO2(B)) 25 mmol/l FIO2 (fO2(I) (test code=BGFIO2) 0.36 % Drawn By (test code=BGDRAWNBY) Marizol Yee Collection Date (test code=BGDTCOL) 12/08/2016 Collection Time (test code=BGCTM) 17:14 Sample Site (test code=BGSAMPLESITE) L Radial Sample Type (test code=BGSAMPLETYPE) Arterial Allens Test (test code=BGALLEN) Acceptable Notified By (test code=BGNOTIFIEDBY) Marizol Yee Date Notified (test code=BGDTNOTIFIED) 12/08/2016 Time Notified (test code=BGTMNOTIFIED) 17:16 O2 Device (test code=[id number]) Nasal Cannula L/M (test code=BGL/M) 4.0 Instrument ID (test code=BGINSTRID) [id number] Reported By (test code=BGREPORTEDBY) Marizol Yee URINALYSIS WITH [id number] 16:34:00* Test Item Value Reference Range Comments Color (test code=UCOLR) YELLOW Clarity (test code=UCLAR) CLEAR Glucose (test code=UGLUC) NEGATIVE NEGATIVE Bilirubin (test code=UBILI) NEGATIVE NEGATIVE Ketones (test code=UKET) NEGATIVE NEGATIVE Specific [place] (test code=USPGR) 1.015 1.005-1.030 Blood (test code=UBLD) NEGATIVE NEGATIVE PH (test code=UPH) 5.5 4.5-8.0 Protein (test code=UPROT) 30 NEGATIVE Urobilinogen (test code=U UROB) 0.2 >0.2 Nitrite (test code=UNITR) NEGATIVE NEGATIVE Leukocyte Esterase (test code=ULEUK) TRACE NEGATIVE WBC (test code=WBCUR) 5-10 0-5 RBC (test code=RBCUR) None Seen 0-5 Epithial Cells (test code=U EPI) 0-5 0-10 Mucous (test code=UMUC) None Seen None Seen Bacteria (test code=UBACT) Trace None Seen,Trace Crystals Urine (test code=URCRYS) None Seen None Seen Urine Casts (test code=UR CAST) None Seen None Seen Urine Misc (test code=UR MISC) None Seen None Seen ED RAPID [id number] 13:47:00* Test Item Value Reference Range Comments CKMB (BIOSITE) (test code=BIOCKMB) 3.0 ng/ml 0.0-2.5 TROPONIN-I (BIOSITE) (test code=BIOTROP) <0.050 ng/ml 0.000-0.050 MYOGLOBIN (BIOSITE) (test code=BIOMYO) 221.0 ng/ml 0.0-170.0 SERIAL INSTRUMENT NUMBER (test code=SERIAL) [id number] 12:49:00* Test Item Value Reference Range Comments Glucose (test code=GLU) 159 mg/dl 75-110 BUN (test code=BUN) 27.0 mg/dl 6.0-17.0 Creatinine (test code=CREA) 4.1 mg/dl 0.4-1.2 Sodium (test code=NA) 135 mmol/l 137-145 Potassium (test code=K) 4.8 mmol/l 3.5-5.0 Chloride (test code=CL) 98 mmol/l 98-107 CO2 (test code=CO2) 23 mmol/l 22-30 Calcium (test code=CALC) 9.1 mg/dl 8.4-10.2 EGFR if (test code=EGFRAA) 14 mL/min/1.73m\\S\\2 EGFR if Non- (test code=EGFRNA) 12 mL/min/1.73m\\S\\2 Estimated Glomerular Filtration Rate (eGFR) Reference Intervals Decision Points for 18 years and older and average body mass: >=60 Does not exclude kidney disease. 30 - 59 Suggests moderate chronic kidney disease and indicates the need for further investigation including assessment of proteinuria and cardiovascular factors. < 30 Usually indicates a need for referral for assessment and management of chronic kidney failure. [id number] 12:47:00* Test Item Value Reference Range Comments CPK (test code=CPK) 28 U/L 30-135 ED RAPID [id number] 12:36:00* Test Item Value Reference Range Comments B-PEPTIDE (BIOSITE) (test code=BIOBNP) 732.0 pg/ml 0.0-100.0 SERIAL INSTRUMENT NUMBER (test code=SERIAL) [id number] ED RAPID [id number] 12:34:00* Test Item Value Reference Range Comments CKMB (BIOSITE) (test code=BIOCKMB) 2.6 ng/ml 0.0-2.5 TROPONIN-I (BIOSITE) (test code=BIOTROP) <0.050 ng/ml 0.000-0.050 MYOGLOBIN (BIOSITE) (test code=BIOMYO) 186.0 ng/ml 0.0-170.0 SERIAL INSTRUMENT NUMBER (test code=SERIAL) [id number] PT AND [id number] 12:34:00* Test Item Value Reference Range Comments Protime (test code=PT) 9.9 seconds 9.0-11.9 INR (test code=INR) 1.0 0.9-1.1 INR results are intended ONLY to monitor Oral Anticoagulant therapy in stablized patients. The INR Therapeutic Range is 2.0 - 3.0 Patients with a mechanical heart, the INR Range is 2.5 - 3.5 CBC (HEMOGRAM ONLY)2016-12-08 12:23:00* Test Item Value Reference Range Comments WBC (test code=WBC) 16.5 k/ul 4.8-10.8 RBC (test code=RBC) 2.72 Millions/ul 4.20-5.40 Hemoglobin (test code=HGB) 8.6 gm/dl 12.0-14.0 Hematocrit (test code=HCT) 27.1 % 37.0-47.0 MCV (test code=MCV) 99.4 fL 81.0-99.0 MCH (test code=MCH) 31.5 pg 27.0-31.0 MCHC (test code=MCHC) 31.7 gm/dl 33.0-37.0 RDW (test code=RDWVC) 16.5 % 11.5-14.5 Platelet (test code=PLT) 256 10\\S\\3/ul 130-400 MPV (test code=MPV) 7.0 fL 7.4-10.4 THIS IS A HEMOGRAM ONLYFUNGAL CULTURE, [id number] 07:45:00* Test Item Value Reference Range Comments FUNGUS (MYCOLOGY) CULTURE (test otqu=954522) Final report RESULT 1 (test yidb=[id number]) Comment No yeast or mold isolated after 4 weeks. LEFT LUNG WASHING PERFORMED AT: [facility] [id number] [employer]ARLY CHILDHO[employer] WORKER: Lg Hatfield MD PHONE: [phone] DIFF MOLECULAR IN [id number] 14:41:00* Test Item Value Reference Range Comments C difficile Assay (test code=CDIFF) Negative Negative CBC (HEMOGRAM ONLY)2016-11-06 07:53:00* Test Item Value Reference Range Comments WBC (test code=WBC) 15.1 k/ul 4.8-10.8 RBC (test code=RBC) 2.56 Millions/ul 4.20-5.40 Hemoglobin (test code=HGB) 8.2 gm/dl 12.0-14.0 Hematocrit (test code=HCT) 25.8 % 37.0-47.0 MCV (test code=MCV) 100.9 fL 81.0-99.0 MCH (test code=MCH) 32.1 pg 27.0-31.0 MCHC (test code=MCHC) 31.8 gm/dl 33.0-37.0 RDW (test code=RDWVC) 15.4 % 11.5-14.5 Platelet (test code=PLT) 194 10\\S\\3/ul 130-400 MPV (test code=MPV) 9.5 fL 7.4-10.4 [id number] 07:42:00* Test Item Value Reference Range Comments Glucose (test code=GLU) 205 mg/dl 75-110 BUN (test code=BUN) 72.0 mg/dl 6.0-17.0 Creatinine (test code=CREA) 8.2 mg/dl 0.4-1.2 Sodium (test code=NA) 133 mmol/l 137-145 Potassium (test code=K) 4.1 mmol/l 3.5-5.0 Chloride (test code=CL) 94 mmol/l 98-107 CO2 (test code=CO2) 25 mmol/l 22-30 Calcium (test code=CALC) 9.0 mg/dl 8.4-10.2 EGFR if (test code=EGFRAA) 6 mL/min/1.73m\\S\\2 EGFR if Non- (test code=EGFRNA) 5 mL/min/1.73m\\S\\2 Estimated Glomerular Filtration Rate (eGFR) Reference Intervals Decision Points for 18 years and older and average body mass: >=60 Does not exclude kidney disease. 30 - 59 Suggests moderate chronic kidney disease and indicates the need for further investigation including assessment of proteinuria and cardiovascular factors. < 30 Usually indicates a need for referral for assessment and management of chronic kidney failure. [id number] 08:43:00* Test Item Value Reference Range Comments Glucose (test code=GLU) 302 mg/dl 75-110 BUN (test code=BUN) 106.0 mg/dl 6.0-17.0 Creatinine (test code=CREA) 9.3 mg/dl 0.4-1.2 Sodium (test code=NA) 133 mmol/l 137-145 Potassium (test code=K) 4.9 mmol/l 3.5-5.0 Chloride (test code=CL) 93 mmol/l 98-107 CO2 (test code=CO2) 23 mmol/l 22-30 Calcium (test code=CALC) 9.2 mg/dl 8.4-10.2 EGFR if (test code=EGFRAA) 6 mL/min/1.73m\\S\\2 EGFR if Non- (test code=EGFRNA) 5 mL/min/1.73m\\S\\2 Estimated Glomerular Filtration Rate (eGFR) Reference Intervals Decision Points for 18 years and older and average body mass: >=60 Does not exclude kidney disease. 30 - 59 Suggests moderate chronic kidney disease and indicates the need for further investigation including assessment of proteinuria and cardiovascular factors. < 30 Usually indicates a need for referral for assessment and management of chronic kidney failure. CBC WITH AUTO [id number] 08:36:00* Test Item Value Reference Range Comments WBC (test code=WBC) 17.6 k/ul 4.8-10.8 RBC (test code=RBC) 2.68 Millions/ul 4.20-5.40 Hemoglobin (test code=HGB) 8.6 gm/dl 12.0-14.0 Hematocrit (test code=HCT) 27.2 % 37.0-47.0 MCV (test code=MCV) 101.3 fL 81.0-99.0 MCH (test code=MCH) 32.2 pg 27.0-31.0 MCHC (test code=MCHC) 31.8 gm/dl 33.0-37.0 RDW (test code=RDWVC) 15.6 % 11.5-14.5 Platelet (test code=PLT) 194 10\\S\\3/ul 130-400 MPV (test code=MPV) 8.9 fL 7.4-10.4 NE% (test code=NE) 87.0 % 42.0-75.0 LY% (test code=LY) 7.4 % 13.0-42.0 MO% (test code=MO) 4.4 % 4.0-14.0 EO% (test code=EO) 1.0 % 1.0-3.0 BA% (test code=BA) 0.2 % 1.0-3.0 NRBC, Auto (test code=NRBC_AUTO) 0 with dialysisCBC WITH AUTO [id number] 10:20:00* Test Item Value Reference Range Comments WBC (test code=WBC) 19.6 k/ul 4.8-10.8 RBC (test code=RBC) 2.89 Millions/ul 4.20-5.40 Hemoglobin (test code=HGB) 9.4 gm/dl 12.0-14.0 Hematocrit (test code=HCT) 29.6 % 37.0-47.0 MCV (test code=MCV) 102.5 fL 81.0-99.0 MCH (test code=MCH) 32.5 pg 27.0-31.0 MCHC (test code=MCHC) 31.7 gm/dl 33.0-37.0 RDW (test code=RDWVC) 15.6 % 11.5-14.5 Platelet (test code=PLT) 195 10\\S\\3/ul 130-400 MPV (test code=MPV) 10.2 fL 7.4-10.4 NE% (test code=NE) 86.2 % 42.0-75.0 LY% (test code=LY) 8.7 % 13.0-42.0 MO% (test code=MO) 4.4 % 4.0-14.0 EO% (test code=EO) 0.6 % 1.0-3.0 BA% (test code=BA) 0.1 % 1.0-3.0 NRBC, Auto (test code=NRBC_AUTO) 0 TSH (Ultra Sensitive)2016-11-02 09:11:00* Test Item Value Reference Range Comments TSH (test code=TSH) 38.80 mIU/L 0.47-4.68 [id number] 08:40:00* Test Item Value Reference Range Comments Glucose (test code=GLU) 217 mg/dl 75-110 BUN (test code=BUN) 121.0 mg/dl 6.0-17.0 Creatinine (test code=CREA) 9.1 mg/dl 0.4-1.2 Sodium (test code=NA) 132 mmol/l 137-145 Potassium (test code=K) 5.4 mmol/l 3.5-5.0 Chloride (test code=CL) 77 mmol/l 98-107 CO2 (test code=CO2) 24 mmol/l 22-30 Calcium (test code=CALC) 9.3 mg/dl 8.4-10.2 T Protein (test code=TP) 7.2 gm/dl 5.1-8.7 Albumin (test code=ALB) 3.5 gm/dl 3.5-4.6 A/G Ratio (test code=AGRAT) 0.9 % 1.1-2.2 AST (SGOT) (test code=AST) 13 U/L 11-36 ALT (SGPT) (test code=ALT) 60 U/L 11-40 Alkaline Phos (test code=ALKP) 72 U/L 47-114 Total Bilirubin (test code=TBIL) 1.1 mg/dl 0.2-1.2 Globulin (test code=GLOBU) 3.7 gm/dl 2.3-3.5 Calcium, Corrected (test code=CALCCORR) 9.7 mg/dl 8.4-10.2 Various formulas exist for corrected serum calcium results, each yielding different values. This corrected result was based on the formula: Corrected Calcium=SerumCalcium + [0.8 * ( 4 - SerumAlbumin)] EGFR if (test code=EGFRAA) 6 mL/min/1.73m\\S\\2 EGFR if Non- (test code=EGFRNA) 5 mL/min/1.73m\\S\\2 Estimated Glomerular Filtration Rate (eGFR) Reference Intervals Decision Points for 18 years and older and average body mass: >=60 Does not exclude kidney disease. 30 - 59 Suggests moderate chronic kidney disease and indicates the need for further investigation including assessment of proteinuria and cardiovascular factors. < 30 Usually indicates a need for referral for assessment and management of chronic kidney failure. CBC WITH AUTO [id number] 08:04:00* Test Item Value Reference Range Comments WBC (test code=WBC) 16.3 k/ul 4.8-10.8 RBC (test code=RBC) 2.82 Millions/ul 4.20-5.40 Hemoglobin (test code=HGB) 9.2 gm/dl 12.0-14.0 Hematocrit (test code=HCT) 28.3 % 37.0-47.0 MCV (test code=MCV) 100.3 fL 81.0-99.0 MCH (test code=MCH) 32.6 pg 27.0-31.0 MCHC (test code=MCHC) 32.5 gm/dl 33.0-37.0 RDW (test code=RDWVC) 15.4 % 11.5-14.5 Platelet (test code=PLT) 227 10\\S\\3/ul 130-400 MPV (test code=MPV) 8.7 fL 7.4-10.4 NE% (test code=NE) 75.0 % 42.0-75.0 LY% (test code=LY) 16.3 % 13.0-42.0 MO% (test code=MO) 7.5 % 4.0-14.0 EO% (test code=EO) 0.4 % 1.0-3.0 BA% (test code=BA) 0.8 % 1.0-3.0 NRBC, Auto (test code=NRBC_AUTO) 0 CULTURE, [id number] 07:13:00Specimen: BloodCollected: 10/27/2016 13:14 Status: Final Last Updated: 11/02/2016 07:12 Culture Result (Final) (Final) No Growth After 5 Days CULTURE, [id number] 07:13:00To start 15mins after 1st cultureSpecimen: BloodCollected: 10/27/2016 13:14 Status: Final Last Updated: 11/02/2016 07:12 (1) To start 15mins after 1st culture Culture Result (Final) (Final) No Growth After 5 Days CKMB 2016-11-02 00:00:00* Test Item Value Reference Range Comments CKMB (test code=CKMB) 1.14 ng/ml 0.00-2.37 TROPONIN-I [id number] 00:00:00* Test Item Value Reference Range Comments Troponin-I (test code=TROP) <0.012 ng/ml 0.000-0.034 The 99th Percentile URL is 0.034 ng/mL. The Joint Society of Cardiology/[place] [employer] (ESC/ACC) and the National Academy of Clinical Biochemistry Standards of Laboratory Practices (NACB) recommends that the diagnosis of AMI includes the presence of clinical history suggestive of Acute Coronary Syndrome (ACS) and a maximum concentration of cardiac troponin exceeding the 99th percentile of a normal reference population [upper reference limit (URL)] on at least one occasion during the first 24 hours after the clinical event. MYOGLOBIN, [id number] 00:00:00* Test Item Value Reference Range Comments Myoglobin (test code=JEAN CLAUDE) 153.9 ng/ml 0.0-61.5 Critical values were called to Marizol lafleur by [id number] on 11/01/2016 23:59 PM. Result s were read back by Marizol lafleur. [id number] 19:10:00* Test Item Value Reference Range Comments Glucose (test code=GLU) 358 mg/dl 75-110 BUN (test code=BUN) 119.0 mg/dl 6.0-17.0 Creatinine (test code=CREA) 7.7 mg/dl 0.4-1.2 Sodium (test code=NA) 133 mmol/l 137-145 Potassium (test code=K) 5.3 mmol/l 3.5-5.0 Chloride (test code=CL) 75 mmol/l 98-107 CO2 (test code=CO2) 25 mmol/l 22-30 Calcium (test code=CALC) 9.5 mg/dl 8.4-10.2 EGFR if (test code=EGFRAA) 7 mL/min/1.73m\\S\\2 EGFR if Non- (test code=EGFRNA) 6 mL/min/1.73m\\S\\2 Estimated Glomerular Filtration Rate (eGFR) Reference Intervals Decision Points for 18 years and older and average body mass: >=60 Does not exclude kidney disease. 30 - 59 Suggests moderate chronic kidney disease and indicates the need for further investigation including assessment of proteinuria and cardiovascular factors. < 30 Usually indicates a need for referral for assessment and management of chronic kidney failure. TROPONIN-I [id number] 18:01:00* Test Item Value Reference Range Comments Troponin-I (test code=TROP) <0.012 ng/ml 0.000-0.034 The 99th Percentile URL is 0.034 ng/mL. The Joint Society of Cardiology/[place] [employer] (ESC/ACC) and the National Academy of Clinical Biochemistry Standards of Laboratory Practices (NACB) recommends that the diagnosis of AMI includes the presence of clinical history suggestive of Acute Coronary Syndrome (ACS) and a maximum concentration of cardiac troponin exceeding the 99th percentile of a normal reference population [upper reference limit (URL)] on at least one occasion during the first 24 hours after the clinical event. [id number] 18:01:00* Test Item Value Reference Range Comments CKMB (test code=CKMB) 1.11 ng/ml 0.00-2.37 MYOGLOBIN, [id number] 18:01:00* Test Item Value Reference Range Comments Myoglobin (test code=JEAN CLAUDE) 157.3 ng/ml 0.0-61.5 Critical values were called to LORI. Lafleur by [id number] on 11/01/2016 18:00 PM. Result s were read back by LORI. Lafleur. [id number] 17:38:00* Test Item Value Reference Range Comments CPK (test code=CPK) 26 U/L 30-135 [id number] 18:09:00* Test Item Value Reference Range Comments pH (ABG) (test code=BGPH) 7.369 7.350-7.450 pCO2(T) (test code=BGPCO2(T)) 54.4 mm Hg 35.0-45.0 pO2(T) (test code=BGPO2(T)) 74.1 mm Hg 80.0-100.0 sO2 (test code=BGSO2) 94.1 % 90.0-99.0 Na+ (test code=BGCNA+) 136.4 mmol/l 135.0-148.0 K+ (test code=BGCK+) 3.86 mmol/l 3.50-4.50 Ca2+ (test code=BGCCA2+) 1.190 mmol/l 1.120-1.320 Cl- (test code=BGCCL-) 93 mmol/l 98-107 tHb (test code=BGCTHB) 9.3 gm/dl 11.5-17.4 O2Hb (test code=MTCO3TB) 92.8 % 95.0-99.0 COHb (test code=BGFCOHB) <2.8 % 0.5-2.5 MetHB (test code=BGMETHB) <1.3 % 0.4-1.5 Gluc (test code=BGCGLU) 198.0 mg/dl 60.0-110.0 Lac (test code=BGCLAC) <1.6 mmol/l 1.0-1.7 Barometric Pressure (test code=BGBARO) 762.0 mm Hg 450.0-1000.0 BE(act) (test code=BGBEACT) 5 mmol/l HCO3 (test code=BGHCO3) 28 meq/L 22-26 ctCO2(B) (test code=BGCTCO2(B)) 29 mmol/l FIO2 (fO2(I) (test code=BGFIO2) 0.60 % Drawn By (test code=BGDRAWDAWSON) DAVID SOFIA Collection Date (test code=BGDTCOL) 10/30/2016 Collection Time (test code=BGCTM) 18:06 Sample Site (test code=BGSAMPLESITE) R Radial Sample Type (test code=BGSAMPLETYPE) Arterial Allens Test (test code=BGALLEN) Acceptable Notified By (test code=BGNOTIFIEDBY) DAVID SOFIA Notified Whom (test code=BGNOTIFIEDWHOM) DR GRANT Date Notified (test code=BGDTNOTIFIED) 10/30/2016 Time Notified (test code=BGTMNOTIFIED) 18:07 O2 Device (test code=[id number]) Aerosol Mask Instrument ID (test code=BGINSTRID) [id number] Reported By (test code=BGREPORTEDBY) DAVID SOFIA [id number] 15:19:00* Test Item Value Reference Range Comments pH (ABG) (test code=BGPH) 7.422 7.350-7.450 pCO2(T) (test code=BGPCO2(T)) 46.4 mm Hg 35.0-45.0 pO2(T) (test code=BGPO2(T)) 57.1 mm Hg 80.0-100.0 sO2 (test code=BGSO2) 88.1 % 90.0-99.0 Na+ (test code=BGCNA+) 136.1 mmol/l 135.0-148.0 K+ (test code=BGCK+) 3.86 mmol/l 3.50-4.50 Ca2+ (test code=BGCCA2+) 1.180 mmol/l 1.120-1.320 Cl- (test code=BGCCL-) 93 mmol/l 98-107 tHb (test code=BGCTHB) 9.6 gm/dl 11.5-17.4 O2Hb (test code=USYY3YS) 86.7 % 95.0-99.0 COHb (test code=BGFCOHB) <2.8 % 0.5-2.5 MetHB (test code=BGMETHB) <1.3 % 0.4-1.5 Gluc (test code=BGCGLU) 218.0 mg/dl 60.0-110.0 Lac (test code=BGCLAC) <1.6 mmol/l 1.0-1.7 Barometric Pressure (test code=BGBARO) 761.5 mm Hg 450.0-1000.0 BE(act) (test code=BGBEACT) 5 mmol/l HCO3 (test code=BGHCO3) 28 meq/L 22-26 ctCO2(B) (test code=BGCTCO2(B)) 28 mmol/l FIO2 (fO2(I) (test code=BGFIO2) 0.40 % Drawn By (test code=BGDRAWNBY) DAVID SOFIA Collection Date (test code=BGDTCOL) 10/30/2016 Collection Time (test code=BGCTM) 15:16 Sample Site (test code=BGSAMPLESITE) R Radial Sample Type (test code=BGSAMPLETYPE) Arterial Allens Test (test code=BGALLEN) Acceptable Notified By (test code=BGNOTIFIEDBY) DAVID SOFIA Notified Whom (test code=BGNOTIFIEDWHOM) DR BERGER Date Notified (test code=BGDTNOTIFIED) 10/30/2016 Time Notified (test code=BGTMNOTIFIED) 15:17 O2 Device (test code=[id number]) Ventilator VentMode (test code=BGVENT) CPAP PEEP (test code=BGPEEP/CPAP) 5.0 PS (Pressure Support) (test code=BGPS) 5.0 Instrument ID (test code=BGINSTRID) [id number] Reported By (test code=BGREPORTEDBY) DAVID SOFIA [id number] 13:59:00* Test Item Value Reference Range Comments pH (ABG) (test code=BGPH) 7.448 7.350-7.450 pCO2(T) (test code=BGPCO2(T)) 43.3 mm Hg 35.0-45.0 pO2(T) (test code=BGPO2(T)) 57.1 mm Hg 80.0-100.0 sO2 (test code=BGSO2) 89.0 % 90.0-99.0 Na+ (test code=BGCNA+) 136.8 mmol/l 135.0-148.0 K+ (test code=BGCK+) 3.77 mmol/l 3.50-4.50 Ca2+ (test code=BGCCA2+) 1.180 mmol/l 1.120-1.320 Cl- (test code=BGCCL-) 93 mmol/l 98-107 tHb (test code=BGCTHB) 9.6 gm/dl 11.5-17.4 O2Hb (test code=NWEI6YB) 87.7 % 95.0-99.0 COHb (test code=BGFCOHB) <2.8 % 0.5-2.5 MetHB (test code=BGMETHB) <1.3 % 0.4-1.5 Gluc (test code=BGCGLU) 213.0 mg/dl 60.0-110.0 Lac (test code=BGCLAC) <1.6 mmol/l 1.0-1.7 Barometric Pressure (test code=BGBARO) 762.3 mm Hg 450.0-1000.0 BE(act) (test code=BGBEACT) 5 mmol/l HCO3 (test code=BGHCO3) 28 meq/L 22-26 ctCO2(B) (test code=BGCTCO2(B)) 27 mmol/l FIO2 (fO2(I) (test code=BGFIO2) 0.40 % Drawn By (test code=BGDRAWNBY) DAVID SOFIA Collection Date (test code=BGDTCOL) 10/30/2016 Collection Time (test code=BGCTM) 13:57 Sample Site (test code=BGSAMPLESITE) R Radial Sample Type (test code=BGSAMPLETYPE) Arterial Allens Test (test code=BGALLEN) Acceptable Notified By (test code=BGNOTIFIEDBY) DAVID SOFIA Notified Whom (test code=BGNOTIFIEDWHOM) DR BERGER Date Notified (test code=BGDTNOTIFIED) 10/30/2016 Time Notified (test code=BGTMNOTIFIED) 13:58 O2 Device (test code=[id number]) Ventilator VentMode (test code=BGVENT) CPAP PEEP (test code=BGPEEP/CPAP) 5.0 PS (Pressure Support) (test code=BGPS) 10.0 Instrument ID (test code=BGINSTRID) [id number] Reported By (test code=BGREPORTEDBY) DAVID SOFIA CULTURE, [id number] 07:51:00LEFT LUNG WASHINGSpecimen: Bronchial WashingCollected: 10/28/2016 14:14 Status: Final Last Updated: 10/30/2016 07:51 (1) LEFT LUNG WASHING Culture Result (Final) (Final) Moderate Mixed Normal Oral González Isolated No Pathogens Isolated CBC WITH MANUAL DIFF 2016-10-30 07:07:00* Test Item Value Reference Range Comments WBC (test code=WBC) 22.4 k/ul 4.8-10.8 RBC (test code=RBC) 2.83 Millions/ul 4.20-5.40 Hemoglobin (test code=HGB) 9.4 gm/dl 12.0-14.0 Hematocrit (test code=HCT) 28.2 % 37.0-47.0 MCV (test code=MCV) 99.6 fL 81.0-99.0 MCH (test code=MCH) 33.0 pg 27.0-31.0 MCHC (test code=MCHC) 33.2 gm/dl 33.0-37.0 RDW (test code=RDWVC) 14.9 % 11.5-14.5 Platelet (test code=PLT) 215 10\\S\\3/ul 130-400 MPV (test code=MPV) 9.9 fL 7.4-10.4 Neutrophils (test code=NEUTR) 90 % 42-75 Bands (test code=BANDM) 3 % 0-2 Lymphocytes (test code=LYMPH) 2 % 13-42 Monocytes (test code=MONOS) 5 % 4-14 RBC Morphology (test code=RBCMOR) Anisocytosis WBC Morphology (test code=WBCMOR) Hypersegmented Neutrophils Platelet Morphology (test code=PLTMORPH) Giant platelets CBC MANUAL [id number] 05:26:00* Test Item Value Reference Range Comments Glucose (test code=GLU) 250 mg/dl 75-110 BUN (test code=BUN) 89.0 mg/dl 6.0-17.0 Creatinine (test code=CREA) 6.9 mg/dl 0.4-1.2 Sodium (test code=NA) 134 mmol/l 137-145 Potassium (test code=K) 5.6 mmol/l 3.5-5.0 Chloride (test code=CL) 81 mmol/l 98-107 CO2 (test code=CO2) 23 mmol/l 22-30 Calcium (test code=CALC) 9.6 mg/dl 8.4-10.2 EGFR if (test code=EGFRAA) 8 mL/min/1.73m\\S\\2 EGFR if Non- (test code=EGFRNA) 7 mL/min/1.73m\\S\\2 Estimated Glomerular Filtration Rate (eGFR) Reference Intervals Decision Points for 18 years and older and average body mass: >=60 Does not exclude kidney disease. 30 - 59 Suggests moderate chronic kidney disease and indicates the need for further investigation including assessment of proteinuria and cardiovascular factors. < 30 Usually indicates a need for referral for assessment and management of chronic kidney failure. [id number] 05:26:00* Test Item Value Reference Range Comments Magnesium (test code=MG) 2.6 mg/dl 1.6-2.3 GRAM [id number] 10:35:00LEFT LUNG WASHINGSpecimen: Bronchial WashingCollected: 10/28/2016 14:14 Status: Final Last Updated: 10/29/2016 10:35 (1) LEFT LUNG WASHING Gram Stain (Final) (Final) Many Polymorphonucleated leucocytes Very Few Mixed Bacterial González CBC WITH MANUAL [id number] 07:47:00* Test Item Value Reference Range Comments WBC (test code=WBC) 23.8 k/ul 4.8-10.8 RBC (test code=RBC) 3.00 Millions/ul 4.20-5.40 Hemoglobin (test code=HGB) 9.8 gm/dl 12.0-14.0 Hematocrit (test code=HCT) 30.2 % 37.0-47.0 MCV (test code=MCV) 100.4 fL 81.0-99.0 MCH (test code=MCH) 32.7 pg 27.0-31.0 MCHC (test code=MCHC) 32.6 gm/dl 33.0-37.0 RDW (test code=RDWVC) 15.0 % 11.5-14.5 Platelet (test code=PLT) 199 10\\S\\3/ul 130-400 MPV (test code=MPV) 9.5 fL 7.4-10.4 Neutrophils (test code=NEUTR) 83 % 42-75 Bands (test code=BANDM) 5 % 0-2 Metamyelocytes (test code=METAS) 3 % 0-0 Lymphocytes (test code=LYMPH) 7 % 13-42 Monocytes (test code=MONOS) 2 % 4-14 RBC Morphology (test code=RBCMOR) Anisocytosis WBC Morphology (test code=WBCMOR) Hypersegmented Neutrophils [id number] 06:13:00* Test Item Value Reference Range Comments pH (ABG) (test code=BGPH) 7.430 7.350-7.450 pCO2(T) (test code=BGPCO2(T)) 40.5 mm Hg 35.0-45.0 pO2(T) (test code=BGPO2(T)) 67.3 mm Hg 80.0-100.0 sO2 (test code=BGSO2) 94.0 % 90.0-99.0 Na+ (test code=BGCNA+) 134.3 mmol/l 135.0-148.0 K+ (test code=BGCK+) 4.18 mmol/l 3.50-4.50 Ca2+ (test code=BGCCA2+) 1.140 mmol/l 1.120-1.320 Cl- (test code=BGCCL-) 92 mmol/l 98-107 tHb (test code=BGCTHB) 9.1 gm/dl 11.5-17.4 O2Hb (test code=AOPP4YJ) 92.6 % 95.0-99.0 COHb (test code=BGFCOHB) <2.8 % 0.5-2.5 MetHB (test code=BGMETHB) <1.3 % 0.4-1.5 Gluc (test code=BGCGLU) 143.0 mg/dl 60.0-110.0 Lac (test code=BGCLAC) <1.6 mmol/l 1.0-1.7 Barometric Pressure (test code=BGBARO) 764.0 mm Hg 450.0-1000.0 BE(act) (test code=BGBEACT) 2 mmol/l HCO3 (test code=BGHCO3) 26 meq/L 22-26 ctCO2(B) (test code=BGCTCO2(B)) 25 mmol/l FIO2 (fO2(I) (test code=BGFIO2) 0.45 % Drawn By (test code=BGDRAWNBY) FAREED VERMA Collection Date (test code=BGDTCOL) 10/29/2016 Collection Time (test code=BGCTM) 06:10 Sample Site (test code=BGSAMPLESITE) R Radial Sample Type (test code=BGSAMPLETYPE) Arterial Allens Test (test code=BGALLEN) Acceptable Notified By (test code=BGNOTIFIEDBY) FAREED VERMA Notified Whom (test code=BGNOTIFIEDWHOM) RN Date Notified (test code=BGDTNOTIFIED) 10/29/2016 Time Notified (test code=BGTMNOTIFIED) 06:11 O2 Device (test code=[id number]) Ventilator VentMode (test code=BGVENT) CMV/AC Vt (ABG) (test code=BGVT) 550 Set Rate (test code=BGSETRATE) 14 PEEP (test code=BGPEEP/CPAP) 5.0 Instrument ID (test code=BGINSTRID) [id number] Reported By (test code=BGREPORTEDBY) FAREED VERMA [id number] 04:42:00* Test Item Value Reference Range Comments Glucose (test code=GLU) 137 mg/dl 75-110 BUN (test code=BUN) 53.0 mg/dl 6.0-17.0 Creatinine (test code=CREA) 5.8 mg/dl 0.4-1.2 Sodium (test code=NA) 135 mmol/l 137-145 Potassium (test code=K) 4.5 mmol/l 3.5-5.0 Chloride (test code=CL) 88 mmol/l 98-107 CO2 (test code=CO2) 26 mmol/l 22-30 Calcium (test code=CALC) 9.5 mg/dl 8.4-10.2 EGFR if (test code=EGFRAA) 10 mL/min/1.73m\\S\\2 EGFR if Non- (test code=EGFRNA) 8 mL/min/1.73m\\S\\2 Estimated Glomerular Filtration Rate (eGFR) Reference Intervals Decision Points for 18 years and older and average body mass: >=60 Does not exclude kidney disease. 30 - 59 Suggests moderate chronic kidney disease and indicates the need for further investigation including assessment of proteinuria and cardiovascular factors. < 30 Usually indicates a need for referral for assessment and management of chronic kidney failure. [id number] 04:42:00* Test Item Value Reference Range Comments Magnesium (test code=MG) 2.4 mg/dl 1.6-2.3 [id number] 11:53:00* Test Item Value Reference Range Comments Glucose (test code=GLU) 115 mg/dl 75-110 BUN (test code=BUN) 107.0 mg/dl 6.0-17.0 Creatinine (test code=CREA) 9.1 mg/dl 0.4-1.2 Sodium (test code=NA) 139 mmol/l 137-145 Potassium (test code=K) 5.4 mmol/l 3.5-5.0 Chloride (test code=CL) 90 mmol/l 98-107 CO2 (test code=CO2) 22 mmol/l 22-30 Calcium (test code=CALC) 9.6 mg/dl 8.4-10.2 T Protein (test code=TP) 7.9 gm/dl 5.1-8.7 Albumin (test code=ALB) 3.9 gm/dl 3.5-4.6 A/G Ratio (test code=AGRAT) 1.0 % 1.1-2.2 AST (SGOT) (test code=AST) 26 U/L 11-36 ALT (SGPT) (test code=ALT) 41 U/L 11-40 Alkaline Phos (test code=ALKP) 76 U/L 47-114 Total Bilirubin (test code=TBIL) 1.3 mg/dl 0.2-1.2 Globulin (test code=GLOBU) 4.0 gm/dl 2.3-3.5 Calcium, Corrected (test code=CALCCORR) 9.7 mg/dl 8.4-10.2 Various formulas exist for corrected serum calcium results, each yielding different values. This corrected result was based on the formula: Corrected Calcium=SerumCalcium + [0.8 * ( 4 - SerumAlbumin)] EGFR if (test code=EGFRAA) 6 mL/min/1.73m\\S\\2 EGFR if Non- (test code=EGFRNA) 5 mL/min/1.73m\\S\\2 Estimated Glomerular Filtration Rate (eGFR) Reference Intervals Decision Points for 18 years and older and average body mass: >=60 Does not exclude kidney disease. 30 - 59 Suggests moderate chronic kidney disease and indicates the need for further investigation including assessment of proteinuria and cardiovascular factors. < 30 Usually indicates a need for referral for assessment and management of chronic kidney failure. CBC (HEMOGRAM ONLY)2016-10-28 11:38:00* Test Item Value Reference Range Comments WBC (test code=WBC) 24.6 k/ul 4.8-10.8 RBC (test code=RBC) 2.91 Millions/ul 4.20-5.40 Hemoglobin (test code=HGB) 9.6 gm/dl 12.0-14.0 Hematocrit (test code=HCT) 29.4 % 37.0-47.0 MCV (test code=MCV) 101.0 fL 81.0-99.0 MCH (test code=MCH) 32.9 pg 27.0-31.0 MCHC (test code=MCHC) 32.6 gm/dl 33.0-37.0 RDW (test code=RDWVC) 14.9 % 11.5-14.5 Platelet (test code=PLT) 222 10\\S\\3/ul 130-400 MPV (test code=MPV) 8.8 fL 7.4-10.4 [id number] 11:24:00* Test Item Value Reference Range Comments pH (ABG) (test code=BGPH) 7.302 7.350-7.450 pCO2(T) (test code=BGPCO2(T)) 45.2 mm Hg 35.0-45.0 pO2(T) (test code=BGPO2(T)) 101.9 mm Hg 80.0-100.0 sO2 (test code=BGSO2) 97.6 % 90.0-99.0 Na+ (test code=BGCNA+) 134.1 mmol/l 135.0-148.0 K+ (test code=BGCK+) 5.02 mmol/l 3.50-4.50 Ca2+ (test code=BGCCA2+) 1.160 mmol/l 1.120-1.320 Cl- (test code=BGCCL-) 92 mmol/l 98-107 tHb (test code=BGCTHB) 6.8 gm/dl 11.5-17.4 O2Hb (test code=ZLTF7VX) >95.0 % 95.0-99.0 COHb (test code=BGFCOHB) <2.8 % 0.5-2.5 MetHB (test code=BGMETHB) <1.3 % 0.4-1.5 Gluc (test code=BGCGLU) 119.0 mg/dl 60.0-110.0 Lac (test code=BGCLAC) <1.6 mmol/l 1.0-1.7 Barometric Pressure (test code=BGBARO) 767.5 mm Hg 450.0-1000.0 BE(act) (test code=BGBEACT) -4 mmol/l HCO3 (test code=BGHCO3) 21 meq/L 22-26 ctCO2(B) (test code=BGCTCO2(B)) 22 mmol/l FIO2 (fO2(I) (test code=BGFIO2) 1.00 % Drawn By (test code=BGDRAWNBY) VANI KUMAR Collection Date (test code=BGDTCOL) 10/28/2016 Collection Time (test code=BGCTM) 11:18 Sample Site (test code=BGSAMPLESITE) L Radial Sample Type (test code=BGSAMPLETYPE) Arterial Allens Test (test code=BGALLEN) Acceptable Notified By (test code=BGNOTIFIEDBY) VANI KUMAR O2 Device (test code=[id number]) Ventilator Vt (ABG) (test code=BGVT) 550 Respiratory Rate (test code=BGRR) 16 Set Rate (test code=BGSETRATE) 16 PEEP (test code=BGPEEP/CPAP) 5.0 Instrument ID (test code=BGINSTRID) [id number] Reported By (test code=BGREPORTEDBY) VANI KUMAR [id number] 12:20:00* Test Item Value Reference Range Comments pH (ABG) (test code=BGPH) 7.231 7.350-7.450 pCO2(T) (test code=BGPCO2(T)) 64.4 mm Hg 35.0-45.0 pO2(T) (test code=BGPO2(T)) 70.3 mm Hg 80.0-100.0 Na+ (test code=BGCNA+) 133.5 mmol/l 135.0-148.0 K+ (test code=BGCK+) 5.22 mmol/l 3.50-4.50 Ca2+ (test code=BGCCA2+) 1.200 mmol/l 1.120-1.320 Cl- (test code=BGCCL-) 92 mmol/l 98-107 Gluc (test code=BGCGLU) 187.0 mg/dl 60.0-110.0 Lac (test code=BGCLAC) <1.6 mmol/l 1.0-1.7 Barometric Pressure (test code=BGBARO) 763.7 mm Hg 450.0-1000.0 BE(act) (test code=BGBEACT) -3 mmol/l HCO3 (test code=BGHCO3) 22 meq/L 22-26 ctCO2(B) (test code=BGCTCO2(B)) 24 mmol/l FIO2 (fO2(I) (test code=BGFIO2) 0.60 % Drawn By (test code=BGDRAWNBY) SEJAL OSMAN Collection Date (test code=BGDTCOL) 10/27/2016 Collection Time (test code=BGCTM) 12:13 [facility] R Radial Sample Type (test code=BGSAMPLETYPE) Arterial Allens Test (test code=BGALLEN) Acceptable Notified By (test code=BGNOTIFIEDBY) SEJAL OSMAN Time Notified (test code=BGTMNOTIFIED) 12:13 O2 Device (test code=[id number]) BIPAP Vt (ABG) (test code=BGVT) 556 Respiratory Rate (test code=BGRR) 19 Set Rate (test code=BGSETRATE) 16 Instrument ID (test code=BGINSTRID) [id number] Comments (test code=BGCOMMENTS) Bipap 17,16,60% Reported By (test code=BGREPORTEDBY) SEJAL OSMAN CBC WITH MANUAL [id number] 08:38:00* Test Item Value Reference Range Comments WBC (test code=WBC) 22.2 k/ul 4.8-10.8 RBC (test code=RBC) 3.07 Millions/ul 4.20-5.40 Hemoglobin (test code=HGB) 9.9 gm/dl 12.0-14.0 Hematocrit (test code=HCT) 31.3 % 37.0-47.0 MCV (test code=MCV) 102.1 fL 81.0-99.0 MCH (test code=MCH) 32.4 pg 27.0-31.0 MCHC (test code=MCHC) 31.8 gm/dl 33.0-37.0 RDW (test code=RDWVC) 15.5 % 11.5-14.5 Platelet (test code=PLT) 196 10\\S\\3/ul 130-400 MPV (test code=MPV) 9.3 fL 7.4-10.4 Neutrophils (test code=NEUTR) 91 % 42-75 Bands (test code=BANDM) 2 % 0-2 Lymphocytes (test code=LYMPH) 3 % 13-42 Monocytes (test code=MONOS) 3 % 4-14 Eosinophils (test code=EOS) 1 % 1-3 RBC Morphology (test code=RBCMOR) Anisocytosis [id number] 06:48:00* Test Item Value Reference Range Comments Magnesium (test code=MG) 2.6 mg/dl 1.6-2.3 [id number] 06:48:00* Test Item Value Reference Range Comments Glucose (test code=GLU) 189 mg/dl 75-110 BUN (test code=BUN) 73.0 mg/dl 6.0-17.0 Creatinine (test code=CREA) 7.5 mg/dl 0.4-1.2 Sodium (test code=NA) 137 mmol/l 137-145 Potassium (test code=K) 5.1 mmol/l 3.5-5.0 Chloride (test code=CL) 81 mmol/l 98-107 CO2 (test code=CO2) 29 mmol/l 22-30 Calcium (test code=CALC) 9.3 mg/dl 8.4-10.2 EGFR if (test code=EGFRAA) 7 mL/min/1.73m\\S\\2 EGFR if Non- (test code=EGFRNA) 6 mL/min/1.73m\\S\\2 Estimated Glomerular Filtration Rate (eGFR) Reference Intervals Decision Points for 18 years and older and average body mass: >=60 Does not exclude kidney disease. 30 - 59 Suggests moderate chronic kidney disease and indicates the need for further investigation including assessment of proteinuria and cardiovascular factors. < 30 Usually indicates a need for referral for assessment and management of chronic kidney failure. HEP B SURFACE [id number] 14:32:00* Test Item Value Reference Range Comments Hep B Surface Ag (Signal Value) (test code=HBSAG.SV) 0.07 mIU/mL 0.00-1.00 HBsAg Signal Cutoff Interpretation Guide: < 1.00 Negative Specimen is presumed to be negative for HBsAg. >=1.00 and < 5.00 Reactive Specimen is reactive for HBsAg. Suggest confirmation by supplemental testing. > 5.00 Positive Specimen is positive for HBsAg. FT (test code=HBSAG) Negative (qualifier value) Negative [id number] 13:44:00* Test Item Value Reference Range Comments Magnesium (test code=MG) 3.1 mg/dl 1.6-2.3 [id number] 13:44:00* Test Item Value Reference Range Comments Glucose (test code=GLU) 218 mg/dl 75-110 BUN (test code=BUN) 122.0 mg/dl 6.0-17.0 Creatinine (test code=CREA) 10.0 mg/dl 0.4-1.2 Sodium (test code=NA) 134 mmol/l 137-145 Potassium (test code=K) 5.5 mmol/l 3.5-5.0 Chloride (test code=CL) 85 mmol/l 98-107 CO2 (test code=CO2) 26 mmol/l 22-30 Calcium (test code=CALC) 9.4 mg/dl 8.4-10.2 EGFR if (test code=EGFRAA) 5 mL/min/1.73m\\S\\2 EGFR if Non- (test code=EGFRNA) 4 mL/min/1.73m\\S\\2 Estimated Glomerular Filtration Rate (eGFR) Reference Intervals Decision Points for 18 years and older and average body mass: >=60 Does not exclude kidney disease. 30 - 59 Suggests moderate chronic kidney disease and indicates the need for further investigation including assessment of proteinuria and cardiovascular factors. < 30 Usually indicates a need for referral for assessment and management of chronic kidney failure. CBC WITH MANUAL [id number] 13:17:00* Test Item Value Reference Range Comments WBC (test code=WBC) 20.8 k/ul 4.8-10.8 RBC (test code=RBC) 2.88 Millions/ul 4.20-5.40 Hemoglobin (test code=HGB) 9.6 gm/dl 12.0-14.0 Hematocrit (test code=HCT) 29.5 % 37.0-47.0 MCV (test code=MCV) 102.3 fL 81.0-99.0 MCH (test code=MCH) 33.1 pg 27.0-31.0 MCHC (test code=MCHC) 32.4 gm/dl 33.0-37.0 RDW (test code=RDWVC) 15.4 % 11.5-14.5 Platelet (test code=PLT) 232 10\\S\\3/ul 130-400 MPV (test code=MPV) 8.8 fL 7.4-10.4 Neutrophils (test code=NEUTR) 84 % 42-75 Bands (test code=BANDM) 2 % 0-2 Metamyelocytes (test code=METAS) 5 % 0-0 Lymphocytes (test code=LYMPH) 2 % 13-42 Monocytes (test code=MONOS) 6 % 4-14 Basophils (test code=BASO) 1 % 0-1 RBC Morphology (test code=RBCMOR) Macrocytic WBC Morphology (test code=WBCMOR) Hypersegmented Neutrophils CBC MANUAL DiffCBC WITH MANUAL [id number] 07:15:00* Test Item Value Reference Range Comments WBC (test code=WBC) 17.4 k/ul 4.8-10.8 RBC (test code=RBC) 3.02 Millions/ul 4.20-5.40 Hemoglobin (test code=HGB) 9.8 gm/dl 12.0-14.0 Hematocrit (test code=HCT) 31.1 % 37.0-47.0 MCV (test code=MCV) 103.1 fL 81.0-99.0 MCH (test code=MCH) 32.4 pg 27.0-31.0 MCHC (test code=MCHC) 31.4 gm/dl 33.0-37.0 RDW (test code=RDWVC) 15.6 % 11.5-14.5 Platelet (test code=PLT) 218 10\\S\\3/ul 130-400 MPV (test code=MPV) 8.6 fL 7.4-10.4 Neutrophils (test code=NEUTR) 73 % 42-75 Lymphocytes (test code=LYMPH) 12 % 13-42 Monocytes (test code=MONOS) 12 % 4-14 Eosinophils (test code=EOS) 3 % 1-3 CBC MANUAL [id number] 05:20:00* Test Item Value Reference Range Comments Glucose (test code=GLU) 131 mg/dl 75-110 BUN (test code=BUN) 92.0 mg/dl 6.0-17.0 Creatinine (test code=CREA) 8.3 mg/dl 0.4-1.2 Sodium (test code=NA) 137 mmol/l 137-145 Potassium (test code=K) 4.9 mmol/l 3.5-5.0 Chloride (test code=CL) 82 mmol/l 98-107 CO2 (test code=CO2) 26 mmol/l 22-30 Calcium (test code=CALC) 9.0 mg/dl 8.4-10.2 T Protein (test code=TP) 7.8 gm/dl 5.1-8.7 Albumin (test code=ALB) 4.1 gm/dl 3.5-4.6 A/G Ratio (test code=AGRAT) 1.1 % 1.1-2.2 AST (SGOT) (test code=AST) 52 U/L 11-36 ALT (SGPT) (test code=ALT) 45 U/L 11-40 Alkaline Phos (test code=ALKP) 70 U/L 47-114 Total Bilirubin (test code=TBIL) 0.5 mg/dl 0.2-1.2 Globulin (test code=GLOBU) 3.7 gm/dl 2.3-3.5 Calcium, Corrected (test code=CALCCORR) 8.9 mg/dl 8.4-10.2 Various formulas exist for corrected serum calcium results, each yielding different values. This corrected result was based on the formula: Corrected Calcium=SerumCalcium + [0.8 * ( 4 - SerumAlbumin)] EGFR if (test code=EGFRAA) 6 mL/min/1.73m\\S\\2 EGFR if Non- (test code=EGFRNA) 5 mL/min/1.73m\\S\\2 Estimated Glomerular Filtration Rate (eGFR) Reference Intervals Decision Points for 18 years and older and average body mass: >=60 Does not exclude kidney disease. 30 - 59 Suggests moderate chronic kidney disease and indicates the need for further investigation including assessment of proteinuria and cardiovascular factors. < 30 Usually indicates a need for referral for assessment and management of chronic kidney failure. [id number] 05:20:00* Test Item Value Reference Range Comments Magnesium (test code=MG) 2.7 mg/dl 1.6-2.3 [id number] 08:42:00* Test Item Value Reference Range Comments pH (ABG) (test code=BGPH) 7.229 7.350-7.450 pCO2(T) (test code=BGPCO2(T)) 69.5 mm Hg 35.0-45.0 pO2(T) (test code=BGPO2(T)) 62.0 mm Hg 80.0-100.0 sO2 (test code=BGSO2) 89.2 % 90.0-99.0 Na+ (test code=BGCNA+) 135.2 mmol/l 135.0-148.0 K+ (test code=BGCK+) 4.21 mmol/l 3.50-4.50 Ca2+ (test code=BGCCA2+) 1.210 mmol/l 1.120-1.320 Cl- (test code=BGCCL-) 92 mmol/l 98-107 tHb (test code=BGCTHB) 10.4 gm/dl 11.5-17.4 O2Hb (test code=VBQA0QB) 87.5 % 95.0-99.0 COHb (test code=BGFCOHB) <2.8 % 0.5-2.5 MetHB (test code=BGMETHB) <1.3 % 0.4-1.5 Gluc (test code=BGCGLU) 172.0 mg/dl 60.0-110.0 Lac (test code=BGCLAC) <1.6 mmol/l 1.0-1.7 Barometric Pressure (test code=BGBARO) 771.3 mm Hg 450.0-1000.0 BE(act) (test code=BGBEACT) -1 mmol/l HCO3 (test code=BGHCO3) 24 meq/L 22-26 ctCO2(B) (test code=BGCTCO2(B)) 27 mmol/l FIO2 (fO2(I) (test code=BGFIO2) 0.40 % Drawn By (test code=BGDRAWNBY) MATTHEW MARIN Collection Date (test code=BGDTCOL) 10/24/2016 Collection Time (test code=BGCTM) 08:41 Sample Site (test code=BGSAMPLESITE) R Radial Sample Type (test code=BGSAMPLETYPE) Arterial Allens Test (test code=BGALLEN) Acceptable Notified By (test code=BGNOTIFIEDBY) MATTHEW MARIN Notified Whom (test code=BGNOTIFIEDWHOM) NURSE Date Notified (test code=BGDTNOTIFIED) 10/24/2016 Time Notified (test code=BGTMNOTIFIED) 08:41 O2 Device (test code=[id number]) Nasal Cannula L/M (test code=BGL/M) 5.0 Instrument ID (test code=BGINSTRID) [id number] Reported By (test code=BGREPORTEDBY) MATTHEW MARIN CBC WITH MANUAL [id number] 06:28:00* Test Item Value Reference Range Comments WBC (test code=WBC) 14.3 k/ul 4.8-10.8 RBC (test code=RBC) 3.07 Millions/ul 4.20-5.40 Hemoglobin (test code=HGB) 10.0 gm/dl 12.0-14.0 Hematocrit (test code=HCT) 31.4 % 37.0-47.0 MCV (test code=MCV) 102.4 fL 81.0-99.0 MCH (test code=MCH) 32.5 pg 27.0-31.0 MCHC (test code=MCHC) 31.8 gm/dl 33.0-37.0 RDW (test code=RDWVC) 15.7 % 11.5-14.5 Platelet (test code=PLT) 209 10\\S\\3/ul 130-400 MPV (test code=MPV) 8.4 fL 7.4-10.4 Neutrophils (test code=NEUTR) 73 % 42-75 Bands (test code=BANDM) 5 % 0-2 Lymphocytes (test code=LYMPH) 11 % 13-42 Atypical Lymphocyte (test code=ATPLYM) 1 % Monocytes (test code=MONOS) 8 % 4-14 Eosinophils (test code=EOS) 2 % 1-3 RBC Morphology (test code=RBCMOR) Anisocytosis Basophilic stipling Stomatocytes CBC MANUAL [id number] 06:12:00* Test Item Value Reference Range Comments Glucose (test code=GLU) 115 mg/dl 75-110 BUN (test code=BUN) 55.0 mg/dl 6.0-17.0 Creatinine (test code=CREA) 6.2 mg/dl 0.4-1.2 Sodium (test code=NA) 139 mmol/l 137-145 Potassium (test code=K) 4.4 mmol/l 3.5-5.0 Chloride (test code=CL) 92 mmol/l 98-107 CO2 (test code=CO2) 27 mmol/l 22-30 Calcium (test code=CALC) 9.2 mg/dl 8.4-10.2 T Protein (test code=TP) 7.7 gm/dl 5.1-8.7 Albumin (test code=ALB) 3.9 gm/dl 3.5-4.6 A/G Ratio (test code=AGRAT) 1.0 % 1.1-2.2 AST (SGOT) (test code=AST) 35 U/L 11-36 ALT (SGPT) (test code=ALT) 40 U/L 11-40 Alkaline Phos (test code=ALKP) 69 U/L 47-114 Total Bilirubin (test code=TBIL) 0.5 mg/dl 0.2-1.2 Globulin (test code=GLOBU) 3.8 gm/dl 2.3-3.5 Calcium, Corrected (test code=CALCCORR) 9.3 mg/dl 8.4-10.2 Various formulas exist for corrected serum calcium results, each yielding different values. This corrected result was based on the formula: Corrected Calcium=SerumCalcium + [0.8 * ( 4 - SerumAlbumin)] EGFR if (test code=EGFRAA) 9 mL/min/1.73m\\S\\2 EGFR if Non- (test code=EGFRNA) 7 mL/min/1.73m\\S\\2 Estimated Glomerular Filtration Rate (eGFR) Reference Intervals Decision Points for 18 years and older and average body mass: >=60 Does not exclude kidney disease. 30 - 59 Suggests moderate chronic kidney disease and indicates the need for further investigation including assessment of proteinuria and cardiovascular factors. < 30 Usually indicates a need for referral for assessment and management of chronic kidney failure. [id number] 06:12:00* Test Item Value Reference Range Comments Magnesium (test code=MG) 2.5 mg/dl 1.6-2.3 [id number] 11:23:00* Test Item Value Reference Range Comments Glucose (test code=GLU) 156 mg/dl 75-110 BUN (test code=BUN) 86.0 mg/dl 6.0-17.0 Creatinine (test code=CREA) 8.4 mg/dl 0.4-1.2 Sodium (test code=NA) 137 mmol/l 137-145 Potassium (test code=K) 5.1 mmol/l 3.5-5.0 Chloride (test code=CL) 93 mmol/l 98-107 CO2 (test code=CO2) 27 mmol/l 22-30 Calcium (test code=CALC) 9.2 mg/dl 8.4-10.2 T Protein (test code=TP) 8.1 gm/dl 5.1-8.7 Albumin (test code=ALB) 4.0 gm/dl 3.5-4.6 A/G Ratio (test code=AGRAT) 1.0 % 1.1-2.2 AST (SGOT) (test code=AST) 43 U/L 11-36 ALT (SGPT) (test code=ALT) 45 U/L 11-40 Alkaline Phos (test code=ALKP) 73 U/L 47-114 Total Bilirubin (test code=TBIL) 0.4 mg/dl 0.2-1.2 Globulin (test code=GLOBU) 4.1 gm/dl 2.3-3.5 Calcium, Corrected (test code=CALCCORR) 9.2 mg/dl 8.4-10.2 Various formulas exist for corrected serum calcium results, each yielding different values. This corrected result was based on the formula: Corrected Calcium=SerumCalcium + [0.8 * ( 4 - SerumAlbumin)] EGFR if (test code=EGFRAA) 6 mL/min/1.73m\\S\\2 EGFR if Non- (test code=EGFRNA) 5 mL/min/1.73m\\S\\2 Estimated Glomerular Filtration Rate (eGFR) Reference Intervals Decision Points for 18 years and older and average body mass: >=60 Does not exclude kidney disease. 30 - 59 Suggests moderate chronic kidney disease and indicates the need for further investigation including assessment of proteinuria and cardiovascular factors. < 30 Usually indicates a need for referral for assessment and management of chronic kidney failure. at [facility] WITH AUTO [id number] 11:00:00* Test Item Value Reference Range Comments WBC (test code=WBC) 18.7 k/ul 4.8-10.8 RBC (test code=RBC) 3.20 Millions/ul 4.20-5.40 Hemoglobin (test code=HGB) 10.5 gm/dl 12.0-14.0 Hematocrit (test code=HCT) 33.2 % 37.0-47.0 MCV (test code=MCV) 103.6 fL 81.0-99.0 MCH (test code=MCH) 32.7 pg 27.0-31.0 MCHC (test code=MCHC) 31.5 gm/dl 33.0-37.0 RDW (test code=RDWVC) 15.7 % 11.5-14.5 Platelet (test code=PLT) 246 10\\S\\3/ul 130-400 MPV (test code=MPV) 8.8 fL 7.4-10.4 NE% (test code=NE) 86.2 % 42.0-75.0 LY% (test code=LY) 6.1 % 13.0-42.0 MO% (test code=MO) 6.7 % 4.0-14.0 EO% (test code=EO) 1.0 % 1.0-3.0 BA% (test code=BA) 0.0 % 1.0-3.0 NRBC, Auto (test code=NRBC_AUTO) 0 at [id number] 08:51:00* Test Item Value Reference Range Comments pH (ABG) (test code=BGPH) 7.131 7.350-7.450 pCO2(T) (test code=BGPCO2(T)) 79.9 mm Hg 35.0-45.0 pO2(T) (test code=BGPO2(T)) 78.3 mm Hg 80.0-100.0 sO2 (test code=BGSO2) 92.8 % 90.0-99.0 Na+ (test code=BGCNA+) 133.4 mmol/l 135.0-148.0 K+ (test code=BGCK+) 4.56 mmol/l 3.50-4.50 Ca2+ (test code=BGCCA2+) 1.250 mmol/l 1.120-1.320 Cl- (test code=BGCCL-) 91 mmol/l 98-107 tHb (test code=BGCTHB) 10.7 gm/dl 11.5-17.4 O2Hb (test code=JCLI9ZJ) 91.1 % 95.0-99.0 COHb (test code=BGFCOHB) <2.8 % 0.5-2.5 MetHB (test code=BGMETHB) <1.3 % 0.4-1.5 Gluc (test code=BGCGLU) 162.0 mg/dl 60.0-110.0 Lac (test code=BGCLAC) <1.6 mmol/l 1.0-1.7 Barometric Pressure (test code=BGBARO) 773.2 mm Hg 450.0-1000.0 BE(act) (test code=BGBEACT) -5 mmol/l HCO3 (test code=BGHCO3) 20 meq/L 22-26 ctCO2(B) (test code=BGCTCO2(B)) 26 mmol/l FIO2 (fO2(I) (test code=BGFIO2) 0.40 % Drawn By (test code=BGDRAWNBY) FAREED MELVIN Collection Date (test code=BGDTCOL) 10/23/2016 Collection Time (test code=BGCTM) 08:45 Sample Site (test code=BGSAMPLESITE) L Radial Sample Type (test code=BGSAMPLETYPE) Arterial Allens Test (test code=BGALLEN) Acceptable Notified By (test code=BGNOTIFIEDBY) FAREED MELVIN Notified Whom (test code=BGNOTIFIEDWHOM) DR KOVACS Date Notified (test code=BGDTNOTIFIED) 10/23/2016 Time Notified (test code=BGTMNOTIFIED) 08:50 O2 Device (test code=[id number]) Nasal Cannula Instrument ID (test code=BGINSTRID) [id number] Reported By (test code=BGREPORTEDBY) FAREED MELVIN CBC WITH MANUAL [id number] 07:03:00* Test Item Value Reference Range Comments WBC (test code=WBC) 19.0 k/ul 4.8-10.8 RBC (test code=RBC) 3.21 Millions/ul 4.20-5.40 Hemoglobin (test code=HGB) 10.9 gm/dl 12.0-14.0 Hematocrit (test code=HCT) 32.7 % 37.0-47.0 MCV (test code=MCV) 101.9 fL 81.0-99.0 MCH (test code=MCH) 33.8 pg 27.0-31.0 MCHC (test code=MCHC) 33.2 gm/dl 33.0-37.0 RDW (test code=RDWVC) 14.3 % 11.5-14.5 Platelet (test code=PLT) 237 10\\S\\3/ul 130-400 MPV (test code=MPV) 8.3 fL 7.4-10.4 Neutrophils (test code=NEUTR) 84 % 42-75 Lymphocytes (test code=LYMPH) 8 % 13-42 Atypical Lymphocyte (test code=ATPLYM) 2 % Monocytes (test code=MONOS) 6 % 4-14 RBC Morphology (test code=RBCMOR) Macrocytic Anisocytosis Stomatocytes WBC Morphology (test code=WBCMOR) Hypersegmented Neutrophils CBC MANUAL [id number] 06:16:00* Test Item Value Reference Range Comments Glucose (test code=GLU) 147 mg/dl 75-110 BUN (test code=BUN) 82.0 mg/dl 6.0-17.0 Creatinine (test code=CREA) 7.9 mg/dl 0.4-1.2 Sodium (test code=NA) 137 mmol/l 137-145 Potassium (test code=K) 5.0 mmol/l 3.5-5.0 Chloride (test code=CL) 94 mmol/l 98-107 CO2 (test code=CO2) 26 mmol/l 22-30 Calcium (test code=CALC) 9.6 mg/dl 8.4-10.2 T Protein (test code=TP) 8.1 gm/dl 5.1-8.7 Albumin (test code=ALB) 4.1 gm/dl 3.5-4.6 A/G Ratio (test code=AGRAT) 1.0 % 1.1-2.2 AST (SGOT) (test code=AST) 36 U/L 11-36 ALT (SGPT) (test code=ALT) 45 U/L 11-40 Alkaline Phos (test code=ALKP) 65 U/L 47-114 Total Bilirubin (test code=TBIL) 0.6 mg/dl 0.2-1.2 Globulin (test code=GLOBU) 4.0 gm/dl 2.3-3.5 Calcium, Corrected (test code=CALCCORR) 9.5 mg/dl 8.4-10.2 Various formulas exist for corrected serum calcium results, each yielding different values. This corrected result was based on the formula: Corrected Calcium=SerumCalcium + [0.8 * ( 4 - SerumAlbumin)] EGFR if (test code=EGFRAA) 7 mL/min/1.73m\\S\\2 EGFR if Non- (test code=EGFRNA) 6 mL/min/1.73m\\S\\2 Estimated Glomerular Filtration Rate (eGFR) Reference Intervals Decision Points for 18 years and older and average body mass: >=60 Does not exclude kidney disease. 30 - 59 Suggests moderate chronic kidney disease and indicates the need for further investigation including assessment of proteinuria and cardiovascular factors. < 30 Usually indicates a need for referral for assessment and management of chronic kidney failure. [id number] 06:16:00* Test Item Value Reference Range Comments Magnesium (test code=MG) 2.9 mg/dl 1.6-2.3 [id number] 13:30:00* Test Item Value Reference Range Comments pH (ABG) (test code=BGPH) 7.228 7.350-7.450 pCO2(T) (test code=BGPCO2(T)) 72.7 mm Hg 35.0-45.0 pO2(T) (test code=BGPO2(T)) 60.7 mm Hg 80.0-100.0 sO2 (test code=BGSO2) 89.6 % 90.0-99.0 Na+ (test code=BGCNA+) 134.3 mmol/l 135.0-148.0 K+ (test code=BGCK+) 4.26 mmol/l 3.50-4.50 Ca2+ (test code=BGCCA2+) 1.260 mmol/l 1.120-1.320 Cl- (test code=BGCCL-) 88 mmol/l 98-107 tHb (test code=BGCTHB) 11.2 gm/dl 11.5-17.4 O2Hb (test code=HSDW7WI) 88.1 % 95.0-99.0 COHb (test code=BGFCOHB) <2.8 % 0.5-2.5 MetHB (test code=BGMETHB) <1.3 % 0.4-1.5 Gluc (test code=BGCGLU) 244.0 mg/dl 60.0-110.0 Lac (test code=BGCLAC) <1.6 mmol/l 1.0-1.7 Barometric Pressure (test code=BGBARO) 769.6 mm Hg 450.0-1000.0 BE(act) (test code=BGBEACT) 0 mmol/l HCO3 (test code=BGHCO3) 24 meq/L 22-26 ctCO2(B) (test code=BGCTCO2(B)) 28 mmol/l FIO2 (fO2(I) (test code=BGFIO2) 0.40 % Drawn By (test code=BGDRAWNBY) SEJAL OSMAN Collection Date (test code=BGDTCOL) 10/22/2016 Collection Time (test code=BGCTM) 13:29 Sample Site (test code=BGSAMPLESITE) R Radial Sample Type (test code=BGSAMPLETYPE) Arterial Allens Test (test code=BGALLEN) Acceptable Notified By (test code=BGNOTIFIEDBY) SEJAL OMSAN Notified Whom (test code=BGNOTIFIEDWHOM) CASE, RN Date Notified (test code=BGDTNOTIFIED) 10/22/2016 Time Notified (test code=BGTMNOTIFIED) 13:29 O2 Device (test code=[id number]) Nasal Cannula L/M (test code=BGL/M) 5.0 Instrument ID (test code=BGELAINATRID) [id number] Reported By (test code=BGREPORTEDTANIA) SEJAL OSMAN [id number] 07:50:00* Test Item Value Reference Range Comments pH (ABG) (test code=BGPH) 7.175 7.350-7.450 pCO2(T) (test code=BGPCO2(T)) 81.3 mm Hg 35.0-45.0 pO2(T) (test code=BGPO2(T)) 88.0 mm Hg 80.0-100.0 sO2 (test code=BGSO2) 95.8 % 90.0-99.0 Na+ (test code=BGCNA+) 135.1 mmol/l 135.0-148.0 K+ (test code=BGCK+) 4.23 mmol/l 3.50-4.50 Ca2+ (test code=BGCCA2+) 1.260 mmol/l 1.120-1.320 Cl- (test code=BGCCL-) 90 mmol/l 98-107 tHb (test code=BGCTHB) 11.4 gm/dl 11.5-17.4 O2Hb (test code=JBPQ9RO) 94.1 % 95.0-99.0 COHb (test code=BGFCOHB) <2.8 % 0.5-2.5 MetHB (test code=BGMETHB) <1.3 % 0.4-1.5 Gluc (test code=BGCGLU) 183.0 mg/dl 60.0-110.0 Lac (test code=BGCLAC) <1.6 mmol/l 1.0-1.7 Barometric Pressure (test code=BGBARO) 768.8 mm Hg 450.0-1000.0 BE(act) (test code=BGBEACT) -1 mmol/l HCO3 (test code=BGHCO3) 23 meq/L 22-26 ctCO2(B) (test code=BGCTCO2(B)) 28 mmol/l FIO2 (fO2(I) (test code=BGFIO2) 0.40 % Drawn By (test code=BGDRAWNBY) SEJAL OSMAN Collection Date (test code=BGDTCOL) 10/22/2016 Collection Time (test code=BGCTM) 07:48 Sample Site (test code=BGSAMPLESITE) R Radial Sample Type (test code=BGSAMPLETYPE) Arterial Allens Test (test code=BGALLEN) Acceptable Notified By (test code=BGNOTIFIEDBY) SEJAL OSMAN Notified Whom (test code=BGNOTIFIEDWHOM) CASE, RN Date Notified (test code=BGDTNOTIFIED) 10/22/2016 Time Notified (test code=BGTMNOTIFIED) 07:49 O2 Device (test code=[id number]) Nasal Cannula L/M (test code=BGL/M) 5.0 Instrument ID (test code=BGINSTRID) [id number] Reported By (test code=BGREPORTEDBY) SEJAL OSMAN CBC WITH MANUAL [id number] 07:35:00* Test Item Value Reference Range Comments WBC (test code=WBC) 20.5 k/ul 4.8-10.8 RBC (test code=RBC) 3.39 Millions/ul 4.20-5.40 Hemoglobin (test code=HGB) 11.5 gm/dl 12.0-14.0 Hematocrit (test code=HCT) 35.0 % 37.0-47.0 MCV (test code=MCV) 103.4 fL 81.0-99.0 MCH (test code=MCH) 34.0 pg 27.0-31.0 MCHC (test code=MCHC) 32.9 gm/dl 33.0-37.0 RDW (test code=RDWVC) 14.9 % 11.5-14.5 Platelet (test code=PLT) 204 10\\S\\3/ul 130-400 MPV (test code=MPV) 8.3 fL 7.4-10.4 Neutrophils (test code=NEUTR) 81 % 42-75 Bands (test code=BANDM) 1 % 0-2 Lymphocytes (test code=LYMPH) 9 % 13-42 Atypical Lymphocyte (test code=ATPLYM) 1 % Monocytes (test code=MONOS) 7 % 4-14 Eosinophils (test code=EOS) 1 % 1-3 RBC Morphology (test code=RBCMOR) Anisocytosis Macrocytic CBC MANUAL [id number] 06:40:00* Test Item Value Reference Range Comments Glucose (test code=GLU) 135 mg/dl 75-110 BUN (test code=BUN) 51.0 mg/dl 6.0-17.0 Creatinine (test code=CREA) 6.3 mg/dl 0.4-1.2 Sodium (test code=NA) 137 mmol/l 137-145 Potassium (test code=K) 4.7 mmol/l 3.5-5.0 Chloride (test code=CL) 95 mmol/l 98-107 CO2 (test code=CO2) 28 mmol/l 22-30 Calcium (test code=CALC) 9.4 mg/dl 8.4-10.2 T Protein (test code=TP) 8.1 gm/dl 5.1-8.7 Albumin (test code=ALB) 4.1 gm/dl 3.5-4.6 A/G Ratio (test code=AGRAT) 1.0 % 1.1-2.2 AST (SGOT) (test code=AST) 34 U/L 11-36 ALT (SGPT) (test code=ALT) 47 U/L 11-40 Alkaline Phos (test code=ALKP) 75 U/L 47-114 Total Bilirubin (test code=TBIL) 0.4 mg/dl 0.2-1.2 Globulin (test code=GLOBU) 4.0 gm/dl 2.3-3.5 Calcium, Corrected (test code=CALCCORR) 9.3 mg/dl 8.4-10.2 Various formulas exist for corrected serum calcium results, each yielding different values. This corrected result was based on the formula: Corrected Calcium=SerumCalcium + [0.8 * ( 4 - SerumAlbumin)] EGFR if (test code=EGFRAA) 9 mL/min/1.73m\\S\\2 EGFR if Non- (test code=EGFRNA) 7 mL/min/1.73m\\S\\2 Estimated Glomerular Filtration Rate (eGFR) Reference Intervals Decision Points for 18 years and older and average body mass: >=60 Does not exclude kidney disease. 30 - 59 Suggests moderate chronic kidney disease and indicates the need for further investigation including assessment of proteinuria and cardiovascular factors. < 30 Usually indicates a need for referral for assessment and management of chronic kidney failure. [id number] 06:40:00* Test Item Value Reference Range Comments Magnesium (test code=MG) 2.5 mg/dl 1.6-2.3 CBC (HEMOGRAM ONLY)2016-10-21 19:00:00* Test Item Value Reference Range Comments WBC (test code=WBC) 30.8 k/ul 4.8-10.8 RBC (test code=RBC) 3.73 Millions/ul 4.20-5.40 Hemoglobin (test code=HGB) 12.1 gm/dl 12.0-14.0 Hematocrit (test code=HCT) 39.2 % 37.0-47.0 MCV (test code=MCV) 105.1 fL 81.0-99.0 MCH (test code=MCH) 32.5 pg 27.0-31.0 MCHC (test code=MCHC) 30.9 gm/dl 33.0-37.0 RDW (test code=RDWVC) 15.5 % 11.5-14.5 Platelet (test code=PLT) 150 10\\S\\3/ul 130-400 MPV (test code=MPV) 9.0 fL 7.4-10.4 [id number] 08:32:00* Test Item Value Reference Range Comments Magnesium (test code=MG) 2.7 mg/dl 1.6-2.3 [id number] 08:32:00* Test Item Value Reference Range Comments Glucose (test code=GLU) 151 mg/dl 75-110 BUN (test code=BUN) 76.0 mg/dl 6.0-17.0 Creatinine (test code=CREA) 9.1 mg/dl 0.4-1.2 Sodium (test code=NA) 137 mmol/l 137-145 Potassium (test code=K) 5.0 mmol/l 3.5-5.0 Chloride (test code=CL) 92 mmol/l 98-107 CO2 (test code=CO2) 29 mmol/l 22-30 Calcium (test code=CALC) 8.9 mg/dl 8.4-10.2 T Protein (test code=TP) 7.5 gm/dl 5.1-8.7 Albumin (test code=ALB) 3.9 gm/dl 3.5-4.6 A/G Ratio (test code=AGRAT) 1.1 % 1.1-2.2 AST (SGOT) (test code=AST) 48 U/L 11-36 ALT (SGPT) (test code=ALT) 28 U/L 11-40 Alkaline Phos (test code=ALKP) 59 U/L 47-114 Total Bilirubin (test code=TBIL) 0.3 mg/dl 0.2-1.2 Globulin (test code=GLOBU) 3.6 gm/dl 2.3-3.5 Calcium, Corrected (test code=CALCCORR) 9.0 mg/dl 8.4-10.2 Various formulas exist for corrected serum calcium results, each yielding different values. This corrected result was based on the formula: Corrected Calcium=SerumCalcium + [0.8 * ( 4 - SerumAlbumin)] EGFR if (test code=EGFRAA) 6 mL/min/1.73m\\S\\2 EGFR if Non- (test code=EGFRNA) 5 mL/min/1.73m\\S\\2 Estimated Glomerular Filtration Rate (eGFR) Reference Intervals Decision Points for 18 years and older and average body mass: >=60 Does not exclude kidney disease. 30 - 59 Suggests moderate chronic kidney disease and indicates the need for further investigation including assessment of proteinuria and cardiovascular factors. < 30 Usually indicates a need for referral for assessment and management of chronic kidney failure. CBC WITH AUTO [id number] 08:29:00* Test Item Value Reference Range Comments WBC (test code=WBC) 19.6 k/ul 4.8-10.8 RBC (test code=RBC) 3.37 Millions/ul 4.20-5.40 Hemoglobin (test code=HGB) 11.1 gm/dl 12.0-14.0 Hematocrit (test code=HCT) 35.3 % 37.0-47.0 MCV (test code=MCV) 104.8 fL 81.0-99.0 MCH (test code=MCH) 33.1 pg 27.0-31.0 MCHC (test code=MCHC) 31.6 gm/dl 33.0-37.0 RDW (test code=RDWVC) 16.0 % 11.5-14.5 Platelet (test code=PLT) 189 10\\S\\3/ul 130-400 MPV (test code=MPV) 8.5 fL 7.4-10.4 NE% (test code=NE) 86.5 % 42.0-75.0 LY% (test code=LY) 7.8 % 13.0-42.0 MO% (test code=MO) 4.4 % 4.0-14.0 EO% (test code=EO) 0.7 % 1.0-3.0 BA% (test code=BA) 0.6 % 1.0-3.0 NRBC, Auto (test code=NRBC_AUTO) 0 at dialysis hook upCBC WITH MANUAL [id number] 07:44:00* Test Item Value Reference Range Comments WBC (test code=WBC) 17.4 k/ul 4.8-10.8 RBC (test code=RBC) 3.41 Millions/ul 4.20-5.40 Hemoglobin (test code=HGB) 11.4 gm/dl 12.0-14.0 Hematocrit (test code=HCT) 35.9 % 37.0-47.0 MCV (test code=MCV) 105.3 fL 81.0-99.0 MCH (test code=MCH) 33.4 pg 27.0-31.0 MCHC (test code=MCHC) 31.7 gm/dl 33.0-37.0 RDW (test code=RDWVC) 16.2 % 11.5-14.5 Platelet (test code=PLT) 146 10\\S\\3/ul 130-400 MPV (test code=MPV) 9.4 fL 7.4-10.4 Neutrophils (test code=NEUTR) 82 % 42-75 Metamyelocytes (test code=METAS) 1 % 0-0 Lymphocytes (test code=LYMPH) 14 % 13-42 Monocytes (test code=MONOS) 3 % 4-14 RBC Morphology (test code=RBCMOR) Anisocytosis Macrocytic CBC MANUAL [id number] 06:52:00* Test Item Value Reference Range Comments Magnesium (test code=MG) 2.4 mg/dl 1.6-2.3 [id number] 06:52:00* Test Item Value Reference Range Comments Glucose (test code=GLU) 94 mg/dl 75-110 BUN (test code=BUN) 49.0 mg/dl 6.0-17.0 Creatinine (test code=CREA) 7.2 mg/dl 0.4-1.2 Sodium (test code=NA) 138 mmol/l 137-145 Potassium (test code=K) 4.5 mmol/l 3.5-5.0 Chloride (test code=CL) 94 mmol/l 98-107 CO2 (test code=CO2) 28 mmol/l 22-30 Calcium (test code=CALC) 9.1 mg/dl 8.4-10.2 T Protein (test code=TP) 7.9 gm/dl 5.1-8.7 Albumin (test code=ALB) 3.9 gm/dl 3.5-4.6 A/G Ratio (test code=AGRAT) 1.0 % 1.1-2.2 AST (SGOT) (test code=AST) 34 U/L 11-36 ALT (SGPT) (test code=ALT) 33 U/L 11-40 Alkaline Phos (test code=ALKP) 52 U/L 47-114 Total Bilirubin (test code=TBIL) 0.7 mg/dl 0.2-1.2 Globulin (test code=GLOBU) 4.0 gm/dl 2.3-3.5 Calcium, Corrected (test code=CALCCORR) 9.2 mg/dl 8.4-10.2 Various formulas exist for corrected serum calcium results, each yielding different values. This corrected result was based on the formula: Corrected Calcium=SerumCalcium + [0.8 * ( 4 - SerumAlbumin)] EGFR if (test code=EGFRAA) 8 mL/min/1.73m\\S\\2 EGFR if Non- (test code=EGFRNA) 6 mL/min/1.73m\\S\\2 Estimated Glomerular Filtration Rate (eGFR) Reference Intervals Decision Points for 18 years and older and average body mass: >=60 Does not exclude kidney disease. 30 - 59 Suggests moderate chronic kidney disease and indicates the need for further investigation including assessment of proteinuria and cardiovascular factors. < 30 Usually indicates a need for referral for assessment and management of chronic kidney failure. CULTURE, [id number] 20:15:00To start 15mins after 1st cultureSpecimen: BloodCollected: 10/14/2016 08:55 Status: Final Last Updated: 10/19/2016 20:15 (1) To start 15mins after 1st culture Culture Result (Final) (Final) No Growth After 5 Days CULTURE, [id number] 20:15:00Specimen: BloodCollected: 10/14/2016 08:45 Status: Final Last Updated: 10/19/2016 20:15 Culture Result (Final) (Final) No Growth After 5 Days CBC WITH MANUAL [id number] 07:22:00* Test Item Value Reference Range Comments WBC (test code=WBC) 17.1 k/ul 4.8-10.8 RBC (test code=RBC) 3.25 Millions/ul 4.20-5.40 Hemoglobin (test code=HGB) 10.7 gm/dl 12.0-14.0 Hematocrit (test code=HCT) 33.5 % 37.0-47.0 MCV (test code=MCV) 103.2 fL 81.0-99.0 MCH (test code=MCH) 33.0 pg 27.0-31.0 MCHC (test code=MCHC) 32.0 gm/dl 33.0-37.0 RDW (test code=RDWVC) 15.8 % 11.5-14.5 Platelet (test code=PLT) 154 10\\S\\3/ul 130-400 MPV (test code=MPV) 8.9 fL 7.4-10.4 Neutrophils (test code=NEUTR) 80 % 42-75 Metamyelocytes (test code=METAS) 1 % 0-0 Lymphocytes (test code=LYMPH) 14 % 13-42 Monocytes (test code=MONOS) 5 % 4-14 RBC Morphology (test code=RBCMOR) Anisocytosis Stomatocytes 1+Basophilic stipling CBC MANUAL [id number] 06:32:00* Test Item Value Reference Range Comments Magnesium (test code=MG) 2.4 mg/dl 1.6-2.3 [id number] 06:32:00* Test Item Value Reference Range Comments Glucose (test code=GLU) 104 mg/dl 75-110 BUN (test code=BUN) 77.0 mg/dl 6.0-17.0 Creatinine (test code=CREA) 10.6 mg/dl 0.4-1.2 Sodium (test code=NA) 137 mmol/l 137-145 Potassium (test code=K) 4.1 mmol/l 3.5-5.0 Chloride (test code=CL) 90 mmol/l 98-107 CO2 (test code=CO2) 27 mmol/l 22-30 Calcium (test code=CALC) 8.9 mg/dl 8.4-10.2 T Protein (test code=TP) 7.5 gm/dl 5.1-8.7 Albumin (test code=ALB) 3.9 gm/dl 3.5-4.6 A/G Ratio (test code=AGRAT) 1.1 % 1.1-2.2 AST (SGOT) (test code=AST) 27 U/L 11-36 ALT (SGPT) (test code=ALT) 31 U/L 11-40 Alkaline Phos (test code=ALKP) 53 U/L 47-114 Total Bilirubin (test code=TBIL) 0.7 mg/dl 0.2-1.2 Globulin (test code=GLOBU) 3.6 gm/dl 2.3-3.5 Calcium, Corrected (test code=CALCCORR) 9.0 mg/dl 8.4-10.2 Various formulas exist for corrected serum calcium results, each yielding different values. This corrected result was based on the formula: Corrected Calcium=SerumCalcium + [0.8 * ( 4 - SerumAlbumin)] EGFR if (test code=EGFRAA) 5 mL/min/1.73m\\S\\2 EGFR if Non- (test code=EGFRNA) 4 mL/min/1.73m\\S\\2 Estimated Glomerular Filtration Rate (eGFR) Reference Intervals Decision Points for 18 years and older and average body mass: >=60 Does not exclude kidney disease. 30 - 59 Suggests moderate chronic kidney disease and indicates the need for further investigation including assessment of proteinuria and cardiovascular factors. < 30 Usually indicates a need for referral for assessment and management of chronic kidney failure. CBC WITH MANUAL [id number] 07:18:00* Test Item Value Reference Range Comments WBC (test code=WBC) 15.8 k/ul 4.8-10.8 RBC (test code=RBC) 3.35 Millions/ul 4.20-5.40 Hemoglobin (test code=HGB) 11.1 gm/dl 12.0-14.0 Hematocrit (test code=HCT) 34.6 % 37.0-47.0 MCV (test code=MCV) 103.4 fL 81.0-99.0 MCH (test code=MCH) 33.2 pg 27.0-31.0 MCHC (test code=MCHC) 32.1 gm/dl 33.0-37.0 RDW (test code=RDWVC) 16.0 % 11.5-14.5 Platelet (test code=PLT) 142 10\\S\\3/ul 130-400 MPV (test code=MPV) 9.0 fL 7.4-10.4 Neutrophils (test code=NEUTR) 82 % 42-75 Lymphocytes (test code=LYMPH) 13 % 13-42 Monocytes (test code=MONOS) 4 % 4-14 Eosinophils (test code=EOS) 1 % 1-3 CBC MANUAL [id number] 07:11:00* Test Item Value Reference Range Comments Magnesium (test code=MG) 2.2 mg/dl 1.6-2.3 [id number] 07:11:00* Test Item Value Reference Range Comments Glucose (test code=GLU) 139 mg/dl 75-110 BUN (test code=BUN) 55.0 mg/dl 6.0-17.0 Creatinine (test code=CREA) 9.4 mg/dl 0.4-1.2 Sodium (test code=NA) 138 mmol/l 137-145 Potassium (test code=K) 3.7 mmol/l 3.5-5.0 Chloride (test code=CL) 90 mmol/l 98-107 CO2 (test code=CO2) 29 mmol/l 22-30 Calcium (test code=CALC) 9.1 mg/dl 8.4-10.2 T Protein (test code=TP) 8.1 gm/dl 5.1-8.7 Albumin (test code=ALB) 4.2 gm/dl 3.5-4.6 A/G Ratio (test code=AGRAT) 1.1 % 1.1-2.2 AST (SGOT) (test code=AST) 31 U/L 11-36 ALT (SGPT) (test code=ALT) 41 U/L 11-40 Alkaline Phos (test code=ALKP) 56 U/L 47-114 Total Bilirubin (test code=TBIL) 0.8 mg/dl 0.2-1.2 Globulin (test code=GLOBU) 3.9 gm/dl 2.3-3.5 Calcium, Corrected (test code=CALCCORR) 8.9 mg/dl 8.4-10.2 Various formulas exist for corrected serum calcium results, each yielding different values. This corrected result was based on the formula: Corrected Calcium=SerumCalcium + [0.8 * ( 4 - SerumAlbumin)] EGFR if (test code=EGFRAA) 6 mL/min/1.73m\\S\\2 EGFR if Non- (test code=EGFRNA) 5 mL/min/1.73m\\S\\2 Estimated Glomerular Filtration Rate (eGFR) Reference Intervals Decision Points for 18 years and older and average body mass: >=60 Does not exclude kidney disease. 30 - 59 Suggests moderate chronic kidney disease and indicates the need for further investigation including assessment of proteinuria and cardiovascular factors. < 30 Usually indicates a need for referral for assessment and management of chronic kidney failure. TSH (Ultra Sensitive)2016-10-17 13:05:00* Test Item Value Reference Range Comments TSH (test code=TSH) 66.80 mIU/L 0.47-4.68 please add onCBC WITH MANUAL [id number] 07:45:00* Test Item Value Reference Range Comments WBC (test code=WBC) 19.4 k/ul 4.8-10.8 RBC (test code=RBC) 3.31 Millions/ul 4.20-5.40 Hemoglobin (test code=HGB) 10.9 gm/dl 12.0-14.0 Hematocrit (test code=HCT) 34.0 % 37.0-47.0 MCV (test code=MCV) 102.8 fL 81.0-99.0 MCH (test code=MCH) 33.0 pg 27.0-31.0 MCHC (test code=MCHC) 32.1 gm/dl 33.0-37.0 RDW (test code=RDWVC) 16.0 % 11.5-14.5 Platelet (test code=PLT) 133 10\\S\\3/ul 130-400 MPV (test code=MPV) 8.7 fL 7.4-10.4 Neutrophils (test code=NEUTR) 92 % 42-75 Lymphocytes (test code=LYMPH) 5 % 13-42 Monocytes (test code=MONOS) 3 % 4-14 CBC MANUAL [id number] 06:42:00* Test Item Value Reference Range Comments Glucose (test code=GLU) 158 mg/dl 75-110 BUN (test code=BUN) 37.0 mg/dl 6.0-17.0 Creatinine (test code=CREA) 6.9 mg/dl 0.4-1.2 Sodium (test code=NA) 138 mmol/l 137-145 Potassium (test code=K) 4.3 mmol/l 3.5-5.0 Chloride (test code=CL) 92 mmol/l 98-107 CO2 (test code=CO2) 29 mmol/l 22-30 Calcium (test code=CALC) 8.9 mg/dl 8.4-10.2 T Protein (test code=TP) 8.1 gm/dl 5.1-8.7 Albumin (test code=ALB) 4.1 gm/dl 3.5-4.6 A/G Ratio (test code=AGRAT) 1.0 % 1.1-2.2 AST (SGOT) (test code=AST) 31 U/L 11-36 ALT (SGPT) (test code=ALT) 36 U/L 11-40 Alkaline Phos (test code=ALKP) 61 U/L 47-114 Total Bilirubin (test code=TBIL) 0.8 mg/dl 0.2-1.2 Globulin (test code=GLOBU) 4.0 gm/dl 2.3-3.5 Calcium, Corrected (test code=CALCCORR) 8.8 mg/dl 8.4-10.2 Various formulas exist for corrected serum calcium results, each yielding different values. This corrected result was based on the formula: Corrected Calcium=SerumCalcium + [0.8 * ( 4 - SerumAlbumin)] EGFR if (test code=EGFRAA) 8 mL/min/1.73m\\S\\2 EGFR if Non- (test code=EGFRNA) 7 mL/min/1.73m\\S\\2 Estimated Glomerular Filtration Rate (eGFR) Reference Intervals Decision Points for 18 years and older and average body mass: >=60 Does not exclude kidney disease. 30 - 59 Suggests moderate chronic kidney disease and indicates the need for further investigation including assessment of proteinuria and cardiovascular factors. < 30 Usually indicates a need for referral for assessment and management of chronic kidney failure. [id number] 06:42:00* Test Item Value Reference Range Comments Magnesium (test code=MG) 2.2 mg/dl 1.6-2.3 [id number] 14:16:00* Test Item Value Reference Range Comments pH (ABG) (test code=BGPH) 7.417 7.350-7.450 pCO2(T) (test code=BGPCO2(T)) 40.7 mm Hg 35.0-45.0 pO2(T) (test code=BGPO2(T)) 53.8 mm Hg 80.0-100.0 sO2 (test code=BGSO2) 88.3 % 90.0-99.0 Na+ (test code=BGCNA+) 136.5 mmol/l 135.0-148.0 K+ (test code=BGCK+) 3.54 mmol/l 3.50-4.50 Ca2+ (test code=BGCCA2+) 1.080 mmol/l 1.120-1.320 Cl- (test code=BGCCL-) 94 mmol/l 98-107 tHb (test code=BGCTHB) 11.0 gm/dl 11.5-17.4 O2Hb (test code=IMIS1FG) 87.0 % 95.0-99.0 COHb (test code=BGFCOHB) <2.8 % 0.5-2.5 MetHB (test code=BGMETHB) <1.3 % 0.4-1.5 Gluc (test code=BGCGLU) 139.0 mg/dl 60.0-110.0 Lac (test code=BGCLAC) <1.6 mmol/l 1.0-1.7 Barometric Pressure (test code=BGBARO) 752.9 mm Hg 450.0-1000.0 BE(act) (test code=BGBEACT) 1 mmol/l HCO3 (test code=BGHCO3) 25 meq/L 22-26 ctCO2(B) (test code=BGCTCO2(B)) 24 mmol/l Patient Temp C (test code=BGTEMP) 37 degrees C FIO2 (fO2(I) (test code=BGFIO2) 0.45 % Drawn By (test code=BGDRAWNBY) EUGENIE HOFF Collection Date (test code=BGDTCOL) 10/16/2016 Collection Time (test code=BGCTM) 14:10 Sample Site (test code=BGSAMPLESITE) L Radial Sample Type (test code=BGSAMPLETYPE) Arterial Allens Test (test code=BGALLEN) Acceptable Notified By (test code=BGNOTIFIEDBY) EUGENIE HOFF Notified Whom (test code=BGNOTIFIEDWHOM) [facility] Date Notified (test code=BGDTNOTIFIED) 10/16/2016 Time Notified (test code=BGTMNOTIFIED) 14:14 O2 Device (test code=[id number]) Ventilator VentMode (test code=BGVENT) CPAP Vt (ABG) (test code=BGVT) 780 Respiratory Rate (test code=BGRR) 20 PEEP (test code=BGPEEP/CPAP) 5.0 PIP (test code=BGPIP) 18.0 PS (Pressure Support) (test code=BGPS) 10.0 I/E Ratio (test code=BGIERATIO) 1:3.0 Instrument ID (test code=BGINSTRID) [id number] Comments (test code=BGCOMMENTS) Sat 90% on monitor Reported By (test code=BGREPORTEDBY) EUGENIE HOFF CBC WITH MANUAL [id number] 09:03:00* Test Item Value Reference Range Comments WBC (test code=WBC) 20.5 k/ul 4.8-10.8 RBC (test code=RBC) 3.20 Millions/ul 4.20-5.40 Hemoglobin (test code=HGB) 10.6 gm/dl 12.0-14.0 Hematocrit (test code=HCT) 32.8 % 37.0-47.0 MCV (test code=MCV) 102.7 fL 81.0-99.0 MCH (test code=MCH) 33.1 pg 27.0-31.0 MCHC (test code=MCHC) 32.2 gm/dl 33.0-37.0 RDW (test code=RDWVC) 15.9 % 11.5-14.5 Platelet (test code=PLT) 163 10\\S\\3/ul 130-400 MPV (test code=MPV) 8.3 fL 7.4-10.4 Neutrophils (test code=NEUTR) 93 % 42-75 Bands (test code=BANDM) 3 % 0-2 Lymphocytes (test code=LYMPH) 1 % 13-42 Monocytes (test code=MONOS) 3 % 4-14 RBC Morphology (test code=RBCMOR) Anisocytosis Poikilocytosis Macrocytic Polychromic Platelet Morphology (test code=PLTMORPH) Giant platelets CBC MANUAL [id number] 08:53:00* Test Item Value Reference Range Comments Glucose (test code=GLU) 138 mg/dl 75-110 BUN (test code=BUN) 52.0 mg/dl 6.0-17.0 Creatinine (test code=CREA) 10.4 mg/dl 0.4-1.2 Sodium (test code=NA) 135 mmol/l 137-145 Potassium (test code=K) 5.1 mmol/l 3.5-5.0 Chloride (test code=CL) 92 mmol/l 98-107 CO2 (test code=CO2) 22 mmol/l 22-30 Calcium (test code=CALC) 8.6 mg/dl 8.4-10.2 T Protein (test code=TP) 8.0 gm/dl 5.1-8.7 Albumin (test code=ALB) 4.0 gm/dl 3.5-4.6 A/G Ratio (test code=AGRAT) 1.0 % 1.1-2.2 AST (SGOT) (test code=AST) 39 U/L 11-36 ALT (SGPT) (test code=ALT) 32 U/L 11-40 Alkaline Phos (test code=ALKP) 67 U/L 47-114 Total Bilirubin (test code=TBIL) 0.8 mg/dl 0.2-1.2 Globulin (test code=GLOBU) 4.0 gm/dl 2.3-3.5 Calcium, Corrected (test code=CALCCORR) 8.6 mg/dl 8.4-10.2 Various formulas exist for corrected serum calcium results, each yielding different values. This corrected result was based on the formula: Corrected Calcium=SerumCalcium + [0.8 * ( 4 - SerumAlbumin)] EGFR if (test code=EGFRAA) 5 mL/min/1.73m\\S\\2 EGFR if Non- (test code=EGFRNA) 4 mL/min/1.73m\\S\\2 Estimated Glomerular Filtration Rate (eGFR) Reference Intervals Decision Points for 18 years and older and average body mass: >=60 Does not exclude kidney disease. 30 - 59 Suggests moderate chronic kidney disease and indicates the need for further investigation including assessment of proteinuria and cardiovascular factors. < 30 Usually indicates a need for referral for assessment and management of chronic kidney failure. [id number] 08:53:00* Test Item Value Reference Range Comments Magnesium (test code=MG) 2.2 mg/dl 1.6-2.3 CULTURE, [id number] 07:23:00Specimen: Bronchial Alveolar Lavage- CATHCollected: 10/13/2016 22:08 Status: Final Last Updated: 10/16/2016 07:23 Culture Result (Final) (Final) Moderate Mixed Normal Oral González Isolated No Pathogens Isolated [id number] 10:07:00* Test Item Value Reference Range Comments pH (ABG) (test code=BGPH) 7.336 7.350-7.450 pCO2(T) (test code=BGPCO2(T)) 44.8 mm Hg 35.0-45.0 pO2(T) (test code=BGPO2(T)) 51.0 mm Hg 80.0-100.0 sO2 (test code=BGSO2) 84.8 % 90.0-99.0 Na+ (test code=BGCNA+) 132.9 mmol/l 135.0-148.0 K+ (test code=BGCK+) 4.27 mmol/l 3.50-4.50 Ca2+ (test code=BGCCA2+) 1.060 mmol/l 1.120-1.320 Cl- (test code=BGCCL-) 94 mmol/l 98-107 tHb (test code=BGCTHB) 10.7 gm/dl 11.5-17.4 O2Hb (test code=SXTD7SE) 83.3 % 95.0-99.0 COHb (test code=BGFCOHB) <2.8 % 0.5-2.5 MetHB (test code=BGMETHB) <1.3 % 0.4-1.5 Gluc (test code=BGCGLU) 144.0 mg/dl 60.0-110.0 Lac (test code=BGCLAC) <1.6 mmol/l 1.0-1.7 Barometric Pressure (test code=BGBARO) 754.0 mm Hg 450.0-1000.0 BE(act) (test code=BGBEACT) -3 mmol/l HCO3 (test code=BGHCO3) 22 meq/L 22-26 ctCO2(B) (test code=BGCTCO2(B)) 22 mmol/l FIO2 (fO2(I) (test code=BGFIO2) 0.45 % Drawn By (test code=BGDRAWNBY) Marizol Yee Collection Date (test code=BGDTCOL) 10/15/2016 Collection Time (test code=BGCTM) 10:02 Sample Site (test code=BGSAMPLESITE) R Radial Sample Type (test code=BGSAMPLETYPE) Arterial Allens Test (test code=BGALLEN) Acceptable Notified By (test code=BGNOTIFIEDBY) Marizol Yee Date Notified (test code=BGDTNOTIFIED) 10/15/2016 Time Notified (test code=BGTMNOTIFIED) 10:05 O2 Device (test code=[id number]) Ventilator VentMode (test code=BGVENT) CPAP PEEP (test code=BGPEEP/CPAP) 5.0 PS (Pressure Support) (test code=BGPS) 10.0 Instrument ID (test code=BGINSTRID) [id number] Reported By (test code=BGREPORTEDBY) Marizol Yee CBC WITH MANUAL [id number] 08:41:00* Test Item Value Reference Range Comments WBC (test code=WBC) 15.1 k/ul 4.8-10.8 RBC (test code=RBC) 3.23 Millions/ul 4.20-5.40 Hemoglobin (test code=HGB) 11.0 gm/dl 12.0-14.0 Hematocrit (test code=HCT) 32.9 % 37.0-47.0 MCV (test code=MCV) 101.8 fL 81.0-99.0 MCH (test code=MCH) 34.1 pg 27.0-31.0 MCHC (test code=MCHC) 33.5 gm/dl 33.0-37.0 RDW (test code=RDWVC) 15.9 % 11.5-14.5 Platelet (test code=PLT) 173 10\\S\\3/ul 130-400 MPV (test code=MPV) 8.4 fL 7.4-10.4 Neutrophils (test code=NEUTR) 86 % 42-75 Bands (test code=BANDM) 3 % 0-2 Metamyelocytes (test code=METAS) 1 % 0-0 Myelocytes (test code=MYELO) 1 % 0-0 Lymphocytes (test code=LYMPH) 6 % 13-42 Monocytes (test code=MONOS) 3 % 4-14 Nucleated RBC (test code=NRBC) 4 /100WBC 0-0 RBC Morphology (test code=RBCMOR) Anisocytosis Polychromic CBC MANUAL [id number] 06:45:00* Test Item Value Reference Range Comments Magnesium (test code=MG) 2.1 mg/dl 1.6-2.3 [id number] 06:45:00* Test Item Value Reference Range Comments Glucose (test code=GLU) 136 mg/dl 75-110 BUN (test code=BUN) 33.0 mg/dl 6.0-17.0 Creatinine (test code=CREA) 8.0 mg/dl 0.4-1.2 Sodium (test code=NA) 136 mmol/l 137-145 Potassium (test code=K) 4.6 mmol/l 3.5-5.0 Chloride (test code=CL) 94 mmol/l 98-107 CO2 (test code=CO2) 25 mmol/l 22-30 Calcium (test code=CALC) 8.6 mg/dl 8.4-10.2 T Protein (test code=TP) 7.4 gm/dl 5.1-8.7 Albumin (test code=ALB) 3.8 gm/dl 3.5-4.6 A/G Ratio (test code=AGRAT) 1.1 % 1.1-2.2 AST (SGOT) (test code=AST) 57 U/L 11-36 ALT (SGPT) (test code=ALT) 31 U/L 11-40 Alkaline Phos (test code=ALKP) 76 U/L 47-114 Total Bilirubin (test code=TBIL) 0.6 mg/dl 0.2-1.2 Globulin (test code=GLOBU) 3.6 gm/dl 2.3-3.5 Calcium, Corrected (test code=CALCCORR) 8.8 mg/dl 8.4-10.2 Various formulas exist for corrected serum calcium results, each yielding different values. This corrected result was based on the formula: Corrected Calcium=SerumCalcium + [0.8 * ( 4 - SerumAlbumin)] EGFR if (test code=EGFRAA) 7 mL/min/1.73m\\S\\2 EGFR if Non- (test code=EGFRNA) 6 mL/min/1.73m\\S\\2 Estimated Glomerular Filtration Rate (eGFR) Reference Intervals Decision Points for 18 years and older and average body mass: >=60 Does not exclude kidney disease. 30 - 59 Suggests moderate chronic kidney disease and indicates the need for further investigation including assessment of proteinuria and cardiovascular factors. < 30 Usually indicates a need for referral for assessment and management of chronic kidney failure. [id number] 06:19:00* Test Item Value Reference Range Comments pH (ABG) (test code=BGPH) 7.338 7.350-7.450 pCO2(T) (test code=BGPCO2(T)) 45.0 mm Hg 35.0-45.0 pO2(T) (test code=BGPO2(T)) 62.2 mm Hg 80.0-100.0 sO2 (test code=BGSO2) 91.5 % 90.0-99.0 Na+ (test code=BGCNA+) 132.3 mmol/l 135.0-148.0 K+ (test code=BGCK+) 4.33 mmol/l 3.50-4.50 Ca2+ (test code=BGCCA2+) 1.040 mmol/l 1.120-1.320 Cl- (test code=BGCCL-) 94 mmol/l 98-107 tHb (test code=BGCTHB) 10.9 gm/dl 11.5-17.4 O2Hb (test code=XYJA4AF) 90.0 % 95.0-99.0 COHb (test code=BGFCOHB) <2.8 % 0.5-2.5 MetHB (test code=BGMETHB) <1.3 % 0.4-1.5 Gluc (test code=BGCGLU) 137.0 mg/dl 60.0-110.0 Lac (test code=BGCLAC) <1.6 mmol/l 1.0-1.7 Barometric Pressure (test code=BGBARO) 753.2 mm Hg 450.0-1000.0 BE(act) (test code=BGBEACT) -2 mmol/l HCO3 (test code=BGHCO3) 22 meq/L 22-26 ctCO2(B) (test code=BGCTCO2(B)) 22 mmol/l FIO2 (fO2(I) (test code=BGFIO2) 0.50 % Drawn By (test code=BGDRAWNBY) FAREED MELVIN Collection Date (test code=BGDTCOL) 10/15/2016 Collection Time (test code=BGCTM) 06:10 Sample Site (test code=BGSAMPLESITE) L Radial Sample Type (test code=BGSAMPLETYPE) Arterial Allens Test (test code=BGALLEN) Acceptable Notified By (test code=BGNOTIFIEDBY) FAREED MELVIN Notified Whom (test code=BGNOTIFIEDWHOM) DR THOMPSON Date Notified (test code=BGDTNOTIFIED) 10/15/2016 Time Notified (test code=BGTMNOTIFIED) 06:17 O2 Device (test code=[id number]) Ventilator VentMode (test code=BGVENT) CMV/AC Vt (ABG) (test code=BGVT) 550 Respiratory Rate (test code=BGRR) 20 Set Rate (test code=BGSETRATE) 20 PEEP (test code=BGPEEP/CPAP) 5.0 Instrument ID (test code=BGINSTRID) [id number] Reported By (test code=BGREPORTEDBY) FAREED MELVIN [id number] 16:48:00* Test Item Value Reference Range Comments Glucose (test code=GLU) 112 mg/dl 75-110 BUN (test code=BUN) 25.0 mg/dl 6.0-17.0 Creatinine (test code=CREA) 6.5 mg/dl 0.4-1.2 Sodium (test code=NA) 134 mmol/l 137-145 Potassium (test code=K) 4.4 mmol/l 3.5-5.0 Chloride (test code=CL) 96 mmol/l 98-107 CO2 (test code=CO2) 25 mmol/l 22-30 Calcium (test code=CALC) 8.5 mg/dl 8.4-10.2 T Protein (test code=TP) 7.6 gm/dl 5.1-8.7 Albumin (test code=ALB) 4.0 gm/dl 3.5-4.6 A/G Ratio (test code=AGRAT) 1.1 % 1.1-2.2 AST (SGOT) (test code=AST) 42 U/L 11-36 ALT (SGPT) (test code=ALT) 36 U/L 11-40 Alkaline Phos (test code=ALKP) 81 U/L 47-114 Total Bilirubin (test code=TBIL) 0.7 mg/dl 0.2-1.2 Globulin (test code=GLOBU) 3.6 gm/dl 2.3-3.5 Calcium, Corrected (test code=CALCCORR) 8.5 mg/dl 8.4-10.2 Various formulas exist for corrected serum calcium results, each yielding different values. This corrected result was based on the formula: Corrected Calcium=SerumCalcium + [0.8 * ( 4 - SerumAlbumin)] EGFR if (test code=EGFRAA) 8 mL/min/1.73m\\S\\2 EGFR if Non- (test code=EGFRNA) 7 mL/min/1.73m\\S\\2 Estimated Glomerular Filtration Rate (eGFR) Reference Intervals Decision Points for 18 years and older and average body mass: >=60 Does not exclude kidney disease. 30 - 59 Suggests moderate chronic kidney disease and indicates the need for further investigation including assessment of proteinuria and cardiovascular factors. < 30 Usually indicates a need for referral for assessment and management of chronic kidney failure. TSH (Ultra Sensitive)2016-10-14 08:59:00* Test Item Value Reference Range Comments TSH (test code=TSH) 202.00 mIU/L 0.47-4.68 GLYCOSALATED [id number] 08:32:00* Test Item Value Reference Range Comments Hemoglobin A1C (test code=GLYCO) 5.45 % 4.3-6.0 Mean Plasma Glucose (test code=MPG) 117 mg/dl 90-180 WHEN TEST RESULTS FOR A1C EXCEED 14.0, THE LINEAR LIMIT OF THE INSTRUMENT, THE CALCULATED RESULT FOR THE MEAN GLUCOSE IS NOT RELIABLE. PATH COMMENT (CBC)2016-10-14 07:40:00Macrocytosis with polychromasia, fine basophilic stippling and manyNRBCs. Dr. ALVA 10/14/[id number] 07:32:00* Test Item Value Reference Range Comments Magnesium (test code=MG) 2.5 mg/dl 1.6-2.3 [id number] 07:32:00* Test Item Value Reference Range Comments Glucose (test code=GLU) 96 mg/dl 75-110 BUN (test code=BUN) 57.0 mg/dl 6.0-17.0 Creatinine (test code=CREA) 11.8 mg/dl 0.4-1.2 Sodium (test code=NA) 133 mmol/l 137-145 Potassium (test code=K) 6.8 mmol/l 3.5-5.0 Chloride (test code=CL) 95 mmol/l 98-107 CO2 (test code=CO2) 23 mmol/l 22-30 Calcium (test code=CALC) 8.2 mg/dl 8.4-10.2 EGFR if (test code=EGFRAA) 4 mL/min/1.73m\\S\\2 EGFR if Non- (test code=EGFRNA) 4 mL/min/1.73m\\S\\2 Estimated Glomerular Filtration Rate (eGFR) Reference Intervals Decision Points for 18 years and older and average body mass: >=60 Does not exclude kidney disease. 30 - 59 Suggests moderate chronic kidney disease and indicates the need for further investigation including assessment of proteinuria and cardiovascular factors. < 30 Usually indicates a need for referral for assessment and management of chronic kidney failure. Critical values were called to CRISTINO Taylor by [id number] on 10/14/2016 07:32 AM. Resul ts were read back by CRISTINO Taylor. CBC WITH AUTO [id number] 07:27:00* Test Item Value Reference Range Comments WBC (test code=WBC) 11.3 k/ul 4.8-10.8 RBC (test code=RBC) 3.25 Millions/ul 4.20-5.40 Hemoglobin (test code=HGB) 11.0 gm/dl 12.0-14.0 Hematocrit (test code=HCT) 33.8 % 37.0-47.0 MCV (test code=MCV) 103.9 fL 81.0-99.0 MCH (test code=MCH) 33.9 pg 27.0-31.0 MCHC (test code=MCHC) 32.6 gm/dl 33.0-37.0 RDW (test code=RDWVC) 15.9 % 11.5-14.5 Platelet (test code=PLT) 196 10\\S\\3/ul 130-400 MPV (test code=MPV) 8.1 fL 7.4-10.4 NE% (test code=NE) 88.3 % 42.0-75.0 LY% (test code=LY) 8.1 % 13.0-42.0 MO% (test code=MO) 3.5 % 4.0-14.0 EO% (test code=EO) 0.1 % 1.0-3.0 BA% (test code=BA) 0.0 % 1.0-3.0 NRBC, Auto (test code=NRBC_AUTO) 2 [id number] 06:55:00* Test Item Value Reference Range Comments pH (ABG) (test code=BGPH) 7.250 7.350-7.450 pCO2(T) (test code=BGPCO2(T)) 50.1 mm Hg 35.0-45.0 pO2(T) (test code=BGPO2(T)) 113.1 mm Hg 80.0-100.0 sO2 (test code=BGSO2) 97.9 % 90.0-99.0 Na+ (test code=BGCNA+) 129.7 mmol/l 135.0-148.0 K+ (test code=BGCK+) 6.39 mmol/l 3.50-4.50 Ca2+ (test code=BGCCA2+) 1.060 mmol/l 1.120-1.320 Cl- (test code=BGCCL-) 94 mmol/l 98-107 tHb (test code=BGCTHB) 11.2 gm/dl 11.5-17.4 O2Hb (test code=TKIK1NQ) >95.0 % 95.0-99.0 COHb (test code=BGFCOHB) <2.8 % 0.5-2.5 MetHB (test code=BGMETHB) <1.3 % 0.4-1.5 Gluc (test code=BGCGLU) 103.0 mg/dl 60.0-110.0 Lac (test code=BGCLAC) <1.6 mmol/l 1.0-1.7 Barometric Pressure (test code=BGBARO) 756.8 mm Hg 450.0-1000.0 BE(act) (test code=BGBEACT) -6 mmol/l HCO3 (test code=BGHCO3) 20 meq/L 22-26 ctCO2(B) (test code=BGCTCO2(B)) 20 mmol/l FIO2 (fO2(I) (test code=BGFIO2) 0.70 % Drawn By (test code=BGDRAWNBY) Geneva Jensen Collection Date (test code=BGDTCOL) 10/14/2016 Collection Time (test code=BGCTM) 06:52 Sample Site (test code=BGSAMPLESITE) L Radial Sample Type (test code=BGSAMPLETYPE) Arterial Allens Test (test code=BGALLEN) Acceptable Notified By (test code=BGNOTIFIEDBY) Geneva Jensen Notified Whom (test code=BGNOTIFIEDWHOM) doctor Date Notified (test code=BGDTNOTIFIED) 10/14/2016 Time Notified (test code=BGTMNOTIFIED) 06:52 O2 Device (test code=[id number]) Ventilator VentMode (test code=BGVENT) CMV/AC Vt (ABG) (test code=BGVT) 500 Respiratory Rate (test code=BGRR) 20 PEEP (test code=BGPEEP/CPAP) 5.0 Instrument ID (test code=BGINSTRID) [id number] Reported By (test code=BGREPORTEDBY) Geneva Jensen [id number] 21:26:00* Test Item Value Reference Range Comments pH (ABG) (test code=BGPH) 7.204 7.350-7.450 pCO2(T) (test code=BGPCO2(T)) 55.3 mm Hg 35.0-45.0 pO2(T) (test code=BGPO2(T)) 90.9 mm Hg 80.0-100.0 sO2 (test code=BGSO2) 97.0 % 90.0-99.0 Na+ (test code=BGCNA+) 129.9 mmol/l 135.0-148.0 K+ (test code=BGCK+) 5.54 mmol/l 3.50-4.50 Ca2+ (test code=BGCCA2+) 1.110 mmol/l 1.120-1.320 Cl- (test code=BGCCL-) 92 mmol/l 98-107 tHb (test code=BGCTHB) 12.7 gm/dl 11.5-17.4 O2Hb (test code=NQPN1BJ) 92.9 % 95.0-99.0 COHb (test code=BGFCOHB) 3.7 % 0.5-2.5 MetHB (test code=BGMETHB) <1.3 % 0.4-1.5 Gluc (test code=BGCGLU) 184.0 mg/dl 60.0-110.0 Lac (test code=BGCLAC) <1.6 mmol/l 1.0-1.7 Barometric Pressure (test code=BGBARO) 758.0 mm Hg 450.0-1000.0 BE(act) (test code=BGBEACT) -7 mmol/l HCO3 (test code=BGHCO3) 19 meq/L 22-26 ctCO2(B) (test code=BGCTCO2(B)) 20 mmol/l FIO2 (fO2(I) (test code=BGFIO2) 0.50 % Drawn By (test code=BGMANUEL) PETRA CHEEK Collection Date (test code=BGDTCOL) 10/13/2016 Collection Time (test code=BGCTM) 21:24 Sample Site (test code=BGSAMPLESITE) L Radial Sample Type (test code=BGSAMPLETYPE) Arterial Allens Test (test code=BGALLEN) Acceptable Notified By (test code=BGNOTIFIEDBY) PETRA CHEEK Notified Whom (test code=BGNOTIFIEDWHOM) ERP Date Notified (test code=BGDTNOTIFIED) 10/13/2016 Time Notified (test code=BGTMNOTIFIED) 21:24 O2 Device (test code=[id number]) Ventilator Vt (ABG) (test code=BGVT) 500 Set Rate (test code=BGSETRATE) 18 PEEP (test code=BGPEEP/CPAP) 5.0 Instrument ID (test code=BGINSTRID) [id number] Reported By (test code=BGREPORTEDBY) PETRA CHEEK [id number] 19:55:00* Test Item Value Reference Range Comments pH (ABG) (test code=BGPH) 6.999 7.350-7.450 pCO2(T) (test code=BGPCO2(T)) 105.7 mm Hg 35.0-45.0 pO2(T) (test code=BGPO2(T)) 73.2 mm Hg 80.0-100.0 sO2 (test code=BGSO2) 90.2 % 90.0-99.0 Na+ (test code=BGCNA+) 132.8 mmol/l 135.0-148.0 K+ (test code=BGCK+) 5.70 mmol/l 3.50-4.50 Ca2+ (test code=BGCCA2+) 1.180 mmol/l 1.120-1.320 Cl- (test code=BGCCL-) 93 mmol/l 98-107 tHb (test code=BGCTHB) 12.7 gm/dl 11.5-17.4 O2Hb (test code=NVNI6DN) 85.5 % 95.0-99.0 COHb (test code=BGFCOHB) 4.7 % 0.5-2.5 MetHB (test code=BGMETHB) <1.3 % 0.4-1.5 Gluc (test code=BGCGLU) 119.0 mg/dl 60.0-110.0 Lac (test code=BGCLAC) <1.6 mmol/l 1.0-1.7 Barometric Pressure (test code=BGBARO) 757.9 mm Hg 450.0-1000.0 BE(act) (test code=BGBEACT) -9 mmol/l HCO3 (test code=BGHCO3) 17 meq/L 22-26 ctCO2(B) (test code=BGCTCO2(B)) 25 mmol/l FIO2 (fO2(I) (test code=BGFIO2) 0.50 % Drawn By (test code=BGDRAWNBY) PETRA CHEEK Collection Date (test code=BGDTCOL) 10/13/2016 Collection Time (test code=BGCTM) 19:53 Sample Site (test code=BGSAMPLESITE) L Radial Sample Type (test code=BGSAMPLETYPE) Arterial Allens Test (test code=BGALLEN) Acceptable Notified By (test code=BGNOTIFIEDBY) PETRA CHEEK Notified Whom (test code=BGNOTIFIEDWHOM) ERP Date Notified (test code=BGDTNOTIFIED) 10/13/2016 Time Notified (test code=BGTMNOTIFIED) 19:53 O2 Device (test code=[id number]) BIPAP Instrument ID (test code=BGINSTRID) [id number] Comments (test code=BGCOMMENTS) 20,18,50% Reported By (test code=BGREPORTEDBY) PETRA CHEEK [id number] 19:46:00* Test Item Value Reference Range Comments Magnesium (test code=MG) 2.8 mg/dl 1.6-2.3 er [id number] 19:46:00* Test Item Value Reference Range Comments Glucose (test code=GLU) 133 mg/dl 75-110 BUN (test code=BUN) 50.0 mg/dl 6.0-17.0 Creatinine (test code=CREA) 11.7 mg/dl 0.4-1.2 Sodium (test code=NA) 136 mmol/l 137-145 Potassium (test code=K) 6.3 mmol/l 3.5-5.0 Chloride (test code=CL) 94 mmol/l 98-107 CO2 (test code=CO2) 24 mmol/l 22-30 Calcium (test code=CALC) 8.9 mg/dl 8.4-10.2 T Protein (test code=TP) 8.1 gm/dl 5.1-8.7 Albumin (test code=ALB) 4.4 gm/dl 3.5-4.6 A/G Ratio (test code=AGRAT) 1.2 % 1.1-2.2 AST (SGOT) (test code=AST) 38 U/L 11-36 ALT (SGPT) (test code=ALT) 38 U/L 11-40 Alkaline Phos (test code=ALKP) 81 U/L 47-114 Total Bilirubin (test code=TBIL) 0.8 mg/dl 0.2-1.2 Globulin (test code=GLOBU) 3.7 gm/dl 2.3-3.5 Calcium, Corrected (test code=CALCCORR) 8.6 mg/dl 8.4-10.2 Various formulas exist for corrected serum calcium results, each yielding different values. This corrected result was based on the formula: Corrected Calcium=SerumCalcium + [0.8 * ( 4 - SerumAlbumin)] EGFR if (test code=EGFRAA) 4 mL/min/1.73m\\S\\2 EGFR if Non- (test code=EGFRNA) 4 mL/min/1.73m\\S\\2 Estimated Glomerular Filtration Rate (eGFR) Reference Intervals Decision Points for 18 years and older and average body mass: >=60 Does not exclude kidney disease. 30 - 59 Suggests moderate chronic kidney disease and indicates the need for further investigation including assessment of proteinuria and cardiovascular factors. < 30 Usually indicates a need for referral for assessment and management of chronic kidney failure. er t-2 Critical values were called to Ramon in ER by [id number] on 10/13/2016 19:4 6 PM. Results were read back by Ramon in ER. TROPONIN-I [id number] 19:25:00* Test Item Value Reference Range Comments Troponin-I (test code=TROP) 0.015 ng/ml 0.000-0.034 The 99th Percentile URL is 0.034 ng/mL. The Joint Society of Cardiology/[place] [employer] (ESC/ACC) and the National Academy of Clinical Biochemistry Standards of Laboratory Practices (NACB) recommends that the diagnosis of AMI includes the presence of clinical history suggestive of Acute Coronary Syndrome (ACS) and a maximum concentration of cardiac troponin exceeding the 99th percentile of a normal reference population [upper reference limit (URL)] on at least one occasion during the first 24 hours after the clinical event. er t-2CBC WITH AUTO [id number] 19:23:00* Test Item Value Reference Range Comments WBC (test code=WBC) 13.5 k/ul 4.8-10.8 RBC (test code=RBC) 3.81 Millions/ul 4.20-5.40 Hemoglobin (test code=HGB) 12.8 gm/dl 12.0-14.0 Hematocrit (test code=HCT) 40.5 % 37.0-47.0 MCV (test code=MCV) 106.4 fL 81.0-99.0 MCH (test code=MCH) 33.5 pg 27.0-31.0 MCHC (test code=MCHC) 31.5 gm/dl 33.0-37.0 RDW (test code=RDWVC) 16.1 % 11.5-14.5 Platelet (test code=PLT) 196 10\\S\\3/ul 130-400 MPV (test code=MPV) 7.8 fL 7.4-10.4 NE% (test code=NE) 84.8 % 42.0-75.0 LY% (test code=LY) 10.1 % 13.0-42.0 MO% (test code=MO) 4.3 % 4.0-14.0 EO% (test code=EO) 0.7 % 1.0-3.0 BA% (test code=BA) 0.1 % 1.0-3.0 NRBC, Auto (test code=NRBC_AUTO) 4 Neutrophils (test code=NEUTR) 81 % 42-75 The value no value originally released by on ############### was changed to 81 by [id number] on 10/13/2016 19:23 Metamyelocytes (test code=METAS) 1 % 0-0 The value no value originally released by on ############### was changed to 1 by [id number] on 10/13/2016 19:23 Lymphocytes (test code=LYMPH) 8 % 13-42 The value no value originally released by on ############### was changed to 8 by [id number] on 10/13/2016 19:23 Atypical Lymphocyte (test code=ATPLYM) 4 % The value no value originally released by on ############### was changed to 4 by [id number] on 10/13/2016 19:23 Monocytes (test code=MONOS) 6 % 4-14 The value no value originally released by on ############### was changed to 6 by [id number] on 10/13/2016 19:23 Nucleated RBC (test code=NRBC) 5 /100WBC 0-0 The value no value originally released by on ############### was changed to 5 by [id number] on 10/13/2016 19:23 er [id number] 18:28:00* Test Item Value Reference Range Comments pH (ABG) (test code=BGPH) 7.051 7.350-7.450 pCO2(T) (test code=BGPCO2(T)) 91.8 mm Hg 35.0-45.0 pO2(T) (test code=BGPO2(T)) 50.3 mm Hg 80.0-100.0 sO2 (test code=BGSO2) 81.5 % 90.0-99.0 Na+ (test code=BGCNA+) 132.3 mmol/l 135.0-148.0 K+ (test code=BGCK+) 6.00 mmol/l 3.50-4.50 Ca2+ (test code=BGCCA2+) 1.210 mmol/l 1.120-1.320 Cl- (test code=BGCCL-) 93 mmol/l 98-107 tHb (test code=BGCTHB) 12.8 gm/dl 11.5-17.4 O2Hb (test code=IPYY5XH) 76.8 % 95.0-99.0 COHb (test code=BGFCOHB) 5.1 % 0.5-2.5 MetHB (test code=BGMETHB) <1.3 % 0.4-1.5 Gluc (test code=BGCGLU) 131.0 mg/dl 60.0-110.0 Lac (test code=BGCLAC) <1.6 mmol/l 1.0-1.7 Barometric Pressure (test code=BGBARO) 757.5 mm Hg 450.0-1000.0 BE(act) (test code=BGBEACT) -9 mmol/l HCO3 (test code=BGHCO3) 18 meq/L 22-26 ctCO2(B) (test code=BGCTCO2(B)) 25 mmol/l FIO2 (fO2(I) (test code=BGFIO2) 0.36 % Drawn By (test code=BGDRAWNBY) PETRA CHEEK Collection Date (test code=BGDTCOL) 10/13/2016 Collection Time (test code=BGCTM) 18:26 Sample Site (test code=BGSAMPLESITE) L Radial Sample Type (test code=BGSAMPLETYPE) Arterial Allens Test (test code=BGALLEN) Acceptable Notified By (test code=BGNOTIFIEDBY) PETRA CHEEK Notified Whom (test code=BGNOTIFIEDWHOM) ERP Date Notified (test code=BGDTNOTIFIED) 10/13/2016 Time Notified (test code=BGTMNOTIFIED) 18:26 O2 Device (test code=[id number]) Nasal Cannula Set Rate (test code=BGSETRATE) 4 Instrument ID (test code=BGINSTRID) [id number] Reported By (test code=BGREPORTEDBY) PETRA CHEEK
[2019-10-16] MEDS ORDERED: ALBUTEROL SULF 0.083% NEB SOLN 3 ML NEB ONE (06:25)
[2019-10-16] MEDS ORDERED: ALBUTEROL SULF 0.083% NEB SOLN 3 ML NEB NEB STA (06:27)
[2019-10-16 06:37] LABS: BASOPHILS # (AUTO) 0.1 (0.0-0.1); BASOPHILS % 0.5 % (0.0-1.0); EOSINOPHILS # (AUTO) 0.5 (0.0-0.4); EOSINOPHILS % 2.1 % (0.0-6.0); HEMATOCRIT 28.5 % (34.2-44.1); HEMOGLOBIN 8.5 g/dL (12.0-16.0); LYMPHOCYTES # (AUTO) 1.8 (1.0-3.2); LYMPHOCYTES % 7.9 % (18.0-39.1); MEAN CORPUSCULAR HEMOGLOBIN 29.8 pg (28-32); MEAN CORPUSCULAR HGB CONC 29.8 g/dL (31-35); MONOCYTES # (AUTO) 1.3 (0.2-0.8); MONOCYTES % 5.5 % (4.4-11.3); NEUTROPHILS # (AUTO) 18.8 (2.1-6.9); NEUTROPHILS % 80.6 % (38.7-80.0); PLATELET COUNT 190 x10e3/uL (140-360); RED BLOOD COUNT 2.85 x10e6/uL (3.6-5.1); RED CELL DISTRIBUTION WIDTH 17.3 % (11.7-14.4)
--- NOTE | 2019-10-16 06:50 | NUR ---
ER MD AND PRIMARY RN NOTIFIED AND AWARE OF CRITICAL LAB VALUE, LACTIC ACID 3.5.
[2019-10-16 06:51] LABS: INR 0.88; PARTIAL THROMBOPLASTIN TIME 34.3 seconds (23.8-35.5); PROTHROMBIN TIME 12.5 seconds (11.9-14.5)
[2019-10-16] MEDS ORDERED: CEFEPIME 2 GM/NS 0.9% 100 ML 100 ML IV STA (06:53)
[2019-10-16 06:56] LABS: ALBUMIN 3.6 g/dL (3.5-5.0); ALBUMIN/GLOBULIN RATIO 0.9 (0.8-2.0); ANION GAP 23.3 mmol/L (8-16); CALCIUM 9.7 mg/dL (8.4-10.2); CREATININE, SERUM 9.17 mg/dL (0.57-1.11)
[2019-10-16 06:58] LABS: POTASSIUM 6.3 mmol/L (3.5-5.1)
[2019-10-16] MEDS ORDERED: CALCIUM CHLORIDE 10% 1.36 MEQ/ML 10ML SYR IV STA (06:59)
[2019-10-16] MEDS ORDERED: SODIUM BICARBONATE 8.4% INJ 50 ML SYR IV STA (06:59)
[2019-10-16] MEDS ORDERED: DEXTROSE 50% SYRINGE 50 ML IV STA (06:59)
[2019-10-16] MEDS ORDERED: AZITHROMYCIN 500MG/NS 250 ML 250 ML IV STA (06:59)
[2019-10-16] MEDS ORDERED: INSULIN REGULAR, HUMAN 100 UNIT/1 ML 3ML VIAL IV ONE (07:00)
[2019-10-16] MEDS ORDERED: SODIUM CHLORIDE 0.9% 1000ML 1,000 ML IV ONE ×2 (07:00→07:15)
[2019-10-16 07:02] LABS: CREATINE KINASE MB 4.9 ng/mL (0-5.0)
[2019-10-16] MEDS ORDERED: CALCIUM GLUCONATE 10% INJ 0.465 MEQ/ML VIAL ONE (07:07)
[2019-10-16] MEDS ORDERED: DEXTROSE 50% SYRINGE 50 ML IV ONE (07:07)
[2019-10-16] MEDS ORDERED: SODIUM BICARBONATE 8.4% SYRING 50 ML ONE (07:07)
--- NOTE | 2019-10-16 07:07 | Diagnostic Imaging Report ---
EXAMINATION: CHEST SINGLE (PORTABLE) COMPARISON: None INDICATION: Tracheostomy ^SOB ^[id number] ^0625 ^Y DISCUSSION: Frontal view of the chest obtained at 0628 hours. HEART AND MEDIASTINUM: The heart is enlarged. There are calcifications of the aortic arch. Pulmonary vascular markings are prominent LINES: Tracheostomy is midline LUNGS: Diffuse hyperinflation. Retrocardiac airspace opacity. Discoid opacity in the right lung base. PLEURA: No large effusions. No pneumothorax BONES AND SOFT TISSUES: No focal osseous lesion. The soft tissues are normal. IMPRESSION: Cardiomegaly and vascular congestion. Retrocardiac airspace opacity may represent atelectasis or infiltrate. Discoid atelectasis in the right lung base. Signed by: Dr. Juan Ellis MD on 10/16/2019 7:05 AM
[2019-10-16] MEDS ORDERED: SODIUM CHLORIDE 0.9% 1000ML 1,000 ML ONE (07:08)
[2019-10-16] MEDS ORDERED: SODIUM CHLORIDE 0.9% 100 ML ONE (07:11)
[2019-10-16] MEDS ORDERED: DEXTROSE 50% SYRINGE 50 ML IV PRN (07:15)
[2019-10-16] MEDS ORDERED: AZITHROMYCIN 500MG/SOD CHL 0.9% 250ML BAG IV SCH (07:15)
[2019-10-16] MEDS: INSULIN REGULAR, HUMAN 100 UNIT/1 ML 3ML VIAL SQ SCH ×4 (07:20→21:32)
--- NOTE | 2019-10-16 07:34 | NUR ---
[facility] called to arrange dialysis for this am per md request.
[2019-10-16] MEDS ORDERED: CALCIUM CHLORIDE 13.6 MEQ in SODIUM CHLORIDE 0.9% 100 ML 100 ML IV ONE (07:35)
--- NOTE | 2019-10-16 07:47 | NUR ---
called [facility] for stat dialysis.
[2019-10-16] MEDS ORDERED: VANCOMYCIN 1GM/NS 250 ML 250 ML IV ONE ×2 (08:00→11:00)
[2019-10-16 08:04] LABS: LYMPHOCYTES % (MANUAL) 5 % (19-48); MONOCYTES % (MANUAL) 5 % (3.4-9.0); NEUTROPHILS % (MANUAL) 91 % (40-74)
[2019-10-16] MEDS ORDERED: AZITHROMYCIN 500MG/NS 250 ML 250 ML IV ONE (09:00)
--- NOTE | 2019-10-16 09:15 | NUR ---
Rec'd patient via stretcher to Room 196. Patient insists on standing and ambulating to transfer into bed. Patient ambulates well with standby assist, but saturations to low 80s and tachypneic breathing pattern, labored and distress noted.
--- NOTE | 2019-10-16 10:12 | NUR ---
Patient on hemodialysis, eyes closed, resting.
--- NOTE | 2019-10-16 10:38 | NUR ---
Dr. Ana Verma rounding in ICU made aware patient's lactic acid 2.5
[2019-10-16] MEDS ORDERED: ACETAMINOPHEN 325 MG SUPP PR PRN (11:00)
[2019-10-16] MEDS: IPRATROPIUM BROMIDE 0.02% 2.5 ML NEB NEB SCH ×2 (11:20→20:45)
[2019-10-16] MEDS: ALBUTEROL SULF 0.083% NEB SOLN 3 ML NEB NEB SCH ×3 (11:20→20:45)
--- NOTE | 2019-10-16 12:29 | Consultation ---
DATE OF CONSULTATION: Pulmonary Critical Care Consultation CHIEF COMPLAINT: Respiratory failure, leukocytosis, and end-stage renal disease. HISTORY OF PRESENT ILLNESS: The patient is a 59-year-old woman. She has a history of end-stage renal disease. She was recently at [facility] in [facility] and had respiratory failure that required a tracheostomy. She has been at [facility]. She uses a ventilator at night. She also has dialysis. Yesterday, she came to the emergency department with worsening dyspnea. She also noted some swelling in her extremities. She denied fevers. She denied chest pain or diarrhea. In the emergency department, she was found to have a leukocytosis of 23 with a BUN to creatinine ratio 43 to 9.17. The potassium was 6.3. Her lactic acid was elevated at 3.5. The patient was sent to the ICU and is on a mechanical ventilator. She also is receiving dialysis at this time. PAST SURGICAL HISTORY: 1. Status post AV graft placement. 2. Status post tracheostomy. PAST MEDICAL HISTORY: 1. Chronic respiratory failure. 2. End-stage renal disease. 3. COPD. SOCIAL HISTORY: The patient is not actively smoking. She is not actively drinking. ALLERGIES: THE PATIENT IS ALLERGIC TO LEVAQUIN AND GABAPENTIN. SHE ALSO REPORTS AN ALLERGY TO CYCLOSPORINE AND FENTANYL. FAMILY HISTORY: Family history is noncontributory. REVIEW OF SYSTEMS: There was no headache or fevers. She did not complain of phlegm production. She noted shortness of breath. She had no chest pain. She had no abdominal pain. She had no nausea or vomiting. She did have some leg edema. PHYSICAL EXAMINATION: VITAL SIGNS: The patient is afebrile. The blood pressure is 130/64 and the saturation is 95%. She is on an assist-control mode of ventilation at this time. HEENT: Shows no facial swelling or erythema. There is a tracheostomy site that looks clean. There is no drainage. CARDIAC: Reveals regular rate and rhythm with normal S1 and S2. LUNGS: Auscultation of lungs reveals clear breath sounds bilaterally. There is no wheezing. ABDOMEN: Soft and nontender. There is no rebound or guarding. EXTREMITIES: Shows no leg edema or calf tenderness. There is no cyanosis or clubbing. SKIN: Shows no rashes. NEUROLOGICAL: Shows no focal abnormalities. LABORATORY DATA: The BUN to creatinine ratio is 43 to 9.17. The potassium is 6.3 and the BUN to creatinine ratio is elevated with a creatinine of 9.17. The white blood cell count is 23.2 and the hemoglobin is 8.5. The platelet count is 190. RADIOGRAPHIC DATA: Chest x-ray shows cardiomegaly. There is a retrocardiac airspace opacity. IMPRESSION: 1. Leukocytosis and severe sepsis with unclear source. 2. Svvtf-hp-ilxbxoz respiratory failure. 3. Ckztx-lr-nsbeitm renal failure with uremia. 4. Hyperkalemia. 5. Chronic obstructive pulmonary disease. 6. Chronic anemia, unspecified. PLAN: 1. Complete dialysis. 2. Begin broad-spectrum antibiotics to cover for healthcare-acquired organisms. 3. Await culture results and repeat chest x-ray tomorrow. 4. Echocardiogram. 5. Sedation and pain control as needed. 6. SCDs for DVT prophylaxis. MD BEENA Mayes/YECENIA /[id number]
[2019-10-16] MEDS ORDERED: CEFEPIME 2 GM/NS 0.9% 100 ML 100 ML IV SCH (14:00)
[2019-10-16] MEDS ORDERED: CEFEPIME HCL 2 GM/SOD CHL 0.9% 100 ML BAG IV SCH (14:00)
[2019-10-16] MEDS: EPOETIN ALFA-EPBX 10,000 UNIT/ML VIAL SC SCH (15:28)
[2019-10-16] MEDS: VANCOMYCIN 500MG/NS 0.9% 100ML 100 ML IV SCH (15:38)
[2019-10-16 15:57] LABS: ANION GAP 19.4 mmol/L (8-16); CALCIUM 8.9 mg/dL (8.4-10.2); CREATININE, SERUM 5.17 mg/dL (0.57-1.11)
[2019-10-16 15:59] LABS: POTASSIUM 5.4 mmol/L (3.5-5.1)
[2019-10-16] MEDS: LORAZEPAM INJ 2 MG/ML VIAL IV PRN (16:18)
--- NOTE | 2019-10-16 18:20 | Diagnostic Imaging Report ---
EXAMINATION: CT scan of the chest without contrast. TECHNIQUE: Spiral CT images of the chest were performed from the lung apices to the level of the adrenal glands. No intravenous contrast was administered due to elevated creatinine. Coronal and sagittal reformatted images were obtained. COMPARISON: None. CLINICAL HISTORY:End-stage renal disease, hyperkalemia, suspect infection DISCUSSION: ABSENCE OF INTRAVENOUS CONTRAST DECREASES SENSITIVITY FOR DETECTION OF FOCAL LESIONS AND VASCULAR PATHOLOGY. Exam limited due to patient's large body habitus. LINES/TUBES: Tracheostomy tube in place.. LUNGS AND AIRWAYS: Consolidation with air bronchograms in the superior segment and posterior basal segment of the left lower lobe (series 4, image [id number]). Atelectatic changes in the right middle lobe and anterior aspect of the right lower lobe secondary to eventration of the right hemidiaphragm. Nodular groundglass opacities are noted in the posterior right lower lobe (for example series 4, image 71). Airways are clear, without endobronchial lesions. PLEURA: No pneumothorax or pleural effusions. HEART AND MEDIASTINUM: 1.3 cm calcification, which may be located in the left thyroid lobe. Mild cardiomegaly. Atherosclerotic calcification of the aortic valves, coronary arteries and mitral annulus. Aorta is nonaneurysmal. Main pulmonary artery is enlarged, measuring 4.0 cm. LYMPH NODES: Mildly enlarged right lower paratracheal lymph node which measures 1.1 cm in short axis (series 2, image 22). Mildly enlarged subcarinal lymph node which measures 1.3 cm in short axis (series 2, image 27). No axillary adenopathy. Difficult to assess for hilar adenopathy given the lack of intravenous contrast. ABDOMEN: Please see CT abdomen performed same day for further detail. BONES AND SOFT TISSUES: No aggressive lytic lesions. Soft tissues are grossly unremarkable. IMPRESSION: 1. Findings likely represent pneumonia involving the left lower lobe superior and posterior basal segments. 2. Atelectasis in the right middle lobe and anterior right lower lobe secondary to eventration of the right hemidiaphragm. 3. Nodular groundglass opacities in the posterior right lower lobe, which may reflect aspiration pneumonitis or additional pneumonia. 4. Mildly enlarged right lower paratracheal and subcarinal lymph nodes, likely reactive. 5. Enlarged main pulmonary artery, suggesting pulmonary hypertension. Signed by: Dr. Jean Pierre Hayes M.D. on 10/16/2019 6:18 PM
--- NOTE | 2019-10-16 18:35 | Diagnostic Imaging Report ---
EXAMINATION: CT of the abdomen and pelvis without contrast. TECHNIQUE: Spiral CT images of the abdomen and pelvis were performed from the lung bases to the lesser trochanters. No intravenous contrast was given due to decreased GFR. Coronal and sagittal reformatted images were obtained. COMPARISON: None. CLINICAL HISTORY:End-stage renal disease, hyperkalemia, suspect infection DISCUSSION: ABSENCE OF INTRAVENOUS CONTRAST DECREASES SENSITIVITY FOR DETECTION OF FOCAL LESIONS AND VASCULAR PATHOLOGY. Exam limited by patient's large body habitus. ABDOMEN/PELVIS: LOWER THORAX: Please see CT chest performed same day for further detail HEPATOBILIARY: Liver is enlarged, measuring approximately 22 cm in the right midclavicular line. Projection of the right hepatic lobe to the level of the pelvis may represent a Rosalinda's lobe. No focal lesions. No intra or extrahepatic biliary ductal dilation. GALLBLADDER: Cholecystectomy clips SPLEEN: No splenomegaly. PANCREAS: No focal masses or ductal dilatation. ADRENALS: 1.5 x 1.7 cm and 2.0 x 1.9 cm nodular lesions in the right adrenal gland (2, images 57 and 62). These lesions measure approximately 43-56 HU in this noncontrast exam KIDNEYS/URETERS: Bilateral atrophic kidneys with marked cortical thinning. No hydronephrosis or evidence of obstruction. 2.7 x 2.7 x 2.5 cm contour abnormality in the left inferior pole (coronal image 85). Vascular calcifications in bilateral kidneys, left greater than right. PELVIC ORGANS/BLADDER: Bladder is decompressed and grossly unremarkable. No adnexal masses. PERITONEUM/RETROPERITONEUM: No free air or fluid. LYMPH NODES: No intra-abdominal,retroperitoneal, pelvic or inguinal lymphadenopathy. VESSELS: Atherosclerotic calcification of the abdominal aorta and iliac vessels. GI TRACT: No bowel dilation or evidence of obstruction. Colonic diverticulosis, without surrounding inflammatory changes to suggest diverticulitis. BONES AND SOFT TISSUES: No aggressive lytic lesions. Small fat-containing umbilical hernia. 7.4 cm left and 5.6 cm right oval-shaped hyperdense areas in the subcutaneous tissues posterior to the sacrum (series 2, image 94), which may represent hematomas IMPRESSION: 1. Exam limited bilateral intravenous contrast and patient's body habitus. 2. No definite fluid collections are identified to suspect abscess, however, this evaluation is limited by the lack of contrast. 3. Indeterminate nodular lesions in the right adrenal gland. Density measurements speak against lipid rich adrenal adenomas. These may represent adrenal hematomas/hemorrhage. 4. Hepatomegaly. 5. Indeterminate contour abnormality in the renal left inferior pole, which may represent a renal mass. Recommend further assessment with renal ultrasound. Signed by: Dr. Jean Pierre Hayes M.D. on 10/16/2019 6:32 PM
--- NOTE | 2019-10-16 18:52 | Consultation ---
DATE OF CONSULTATION: REASON FOR CONSULTATION: ESRD and volume overload. HISTORY OF PRESENT ILLNESS: The patient is a 59-year-old female with past medical history of ESRD, on hemodialysis Wednesday, Wednesday, Wednesday; diabetes type 2, COPD, asthma, hypothyroidism, anxiety, depression, hyperlipidemia, chronic respiratory failure, status post trach, was admitted from [facility] facility with shortness of breath. The patient was found to have leukocytosis with white cell count 23,000 and chest x-ray with bilateral infiltrate and left retrocardiac opacity. The patient was started on antibiotics. The patient is currently on the vent. Also currently getting dialysis as found to have hyperkalemia with potassium of 6.3. PAST MEDICAL HISTORY: As above. PAST SURGICAL HISTORY: Trach. FAMILY HISTORY: Unknown. SOCIAL HISTORY: Lives in a retirement. No history of smoking, alcohol, or intravenous drug abuse. ALLERGIES: CYCLOSPORINE, FENTANYL, GABAPENTIN, AND LEVOFLOXACIN. MEDICATIONS: Currently on: 1. Insulin. 2. Lorazepam. 3. Vancomycin. 4. Cefepime. 5. Azithromycin. REVIEW OF SYSTEMS: Complaints of shortness of breath. PHYSICAL EXAMINATION: VITAL SIGNS: Blood pressure 130/64, pulse of 93, respirations 16, temperature 100.3, and 95% on vent. GENERAL: Awake and alert, increased respiratory rate. HEART: S1 and S2, tachycardic. LUNGS: Coarse breath sounds bilaterally. ABDOMEN: Soft and obese. EXTREMITIES: Positive edema. NEUROLOGIC: No focal deficit. LABORATORY DATA: Sodium 139, potassium 6.3, chloride 100, CO2 of 22, BUN 43, creatinine 9.17, glucose is 288, lactic acid is 3.5, and BNP 978. LFTs within normal range. White count 23.2, hemoglobin 8.5, and platelet count is 190. INR 0.88. Blood culture pending. Chest x-ray, cardiomegaly and vascular congestion, retrocardiac opacity. ASSESSMENT AND PLAN: 1. End-stage renal disease with volume overload, on hemodialysis and continue with Wednesday, Wednesday, Wednesday, and ultrafiltration as the blood pressure tolerates. May need a session of ultrafiltration again tomorrow. 2. Acute respiratory failure, currently on the vent. Ultrafiltration with dialysis. Continue with antibiotic. 3. Sepsis, pneumonia, on antibiotic. Follow up on the cultures. 4. Diabetes type 2 per primary team. 5. Anemia of chronic kidney disease. Start the patient on MARIE. Thank you, Dr. Verma for the consult. MD TE Thao/MODL /[id number]
--- NOTE | 2019-10-16 18:56 | NUR ---
Dr Roopa Alcaraz aware of most recent lactic acid.
--- NOTE | 2019-10-16 19:12 | Consultation ---
DATE OF CONSULTATION: REASON FOR CONSULTATION: Sepsis. HISTORY OF PRESENT ILLNESS: This patient who is a 59-year-old white female history of obesity, end-stage disease on hemodialysis, tracheostomy. She was recently in [facility], had respiratory failure, had tracheostomy. She was transferred to the [facility]. While she was there, she became sick, less responsive; transferred here, [place] [id number], lactic acid elevated. The patient has currently had to be intubated. The patient was lethargic. History was taken mainly from the chart. The patient has a history of end-stage renal disease, hemodialysis, AV graft placement, tracheostomy, respiratory failure, COPD, obesity. LABORATORY DATA: White count 23.2, hemoglobin 8.5, hematocrit 28, and platelets 190. Sodium 139, potassium 6.3 with creatinine of 9.17. Liver enzyme within normal limit. Her chest x-ray showed cardiomegaly with possibility of infiltrate. PHYSICAL EXAMINATION: GENERAL: She is currently noncommunicative. VITAL SIGNS: Her temperature is 100.3. Her heart rate 95, respirations 16. HEENT: She is normocephalic. NECK: Supple. No JVD. No lymphadenopathy. No thyromegaly. CHEST: A few crackles bilateral. COR: S1 and S2. No S3, S4, or murmur. ABDOMEN: Soft. Bowel sounds present. EXTREMITIES: No edema. IMPRESSION: 1. Sepsis, source could be pneumonia, however, concern if there is intra-abdominal pathology because she is quite sick and the finding on x-ray not too impressive. 2. End-stage renal disease, on hemodialysis from a chronic respiratory failure. 3. Concern about aspiration. 4. Pneumonia healthcare-associated. RECOMMENDATIONS: We will put her on vanc and cefepime, but we will put her at renal dose, cefepime should be 1 g daily, vanc 500 after each hemodialysis. Blood cultures are pending. I would also order abdomen CT and pelvis. Check amylase and lipase also. Septic shock, I agree with supportive care. Further recommendations to follow. MD MARCELA Thorne/YECENIA /[id number]
[2019-10-16] MEDS ORDERED: ALBUMIN 25% 25GM 100ML 0.25 GM/ML BTL IV ONE (19:45)
[2019-10-16] MEDS ORDERED: LORAZEPAM INJ 2 MG/ML VIAL IV ONE (19:45)
[2019-10-16] MEDS ORDERED: ALBUMIN 25% 25GM 100ML 100 ML IV ONE (20:15)
[2019-10-17] VITALS (26 sets, daily range): BP systolic 81–172; BP diastolic 46–98
[2019-10-17] MEDS: ALBUTEROL SULF 0.083% NEB SOLN 3 ML NEB NEB SCH ×6 (03:45→20:00)
[2019-10-17 05:19] LABS: BASOPHILS # (AUTO) 0.1 (0.0-0.1); BASOPHILS % 0.4 % (0.0-1.0); EOSINOPHILS # (AUTO) 0.1 (0.0-0.4); EOSINOPHILS % 0.4 % (0.0-6.0); LYMPHOCYTES # (AUTO) 1.4 (1.0-3.2); LYMPHOCYTES % 7.6 % (18.0-39.1); MEAN CORPUSCULAR HEMOGLOBIN 28.9 pg (28-32); MEAN CORPUSCULAR VOLUME 99.6 fL (81-99); MONOCYTES # (AUTO) 1.1 (0.2-0.8); MONOCYTES % 5.8 % (4.4-11.3); NEUTROPHILS # (AUTO) 15.7 (2.1-6.9); NEUTROPHILS % 83.3 % (38.7-80.0); PLATELET COUNT 119 x10e3/uL (140-360); RED BLOOD COUNT 2.25 x10e6/uL (3.6-5.1); RED CELL DISTRIBUTION WIDTH 17.8 % (11.7-14.4)
[2019-10-17 05:24] LABS: HEMATOCRIT 22.4 % (34.2-44.1); HEMOGLOBIN 6.5 g/dL (12.0-16.0)
[2019-10-17 05:46] LABS: ALBUMIN 3.2 g/dL (3.5-5.0); ALBUMIN/GLOBULIN RATIO 0.9 (0.8-2.0); ANION GAP 16.2 mmol/L (8-16); CALCIUM 9.4 mg/dL (8.4-10.2); CREATININE, SERUM 6.55 mg/dL (0.57-1.11)
--- NOTE | 2019-10-17 05:46 | Diagnostic Imaging Report ---
Examination: Single AP view of the chest. COMPARISON: CT chest 10/16/2019, chest radiograph 10/16/2019 INDICATION: Respiratory failure DISCUSSION: See impression IMPRESSION: 1. Tracheostomy tube is unchanged in position. 2. Unchanged retrocardiac consolidation, concerning for pneumonia as discussed on CT chest. Stable platelike atelectasis in the right lower lobe. Lung apices remain well aerated. 3. Stable cardiomediastinal contour. No overt pulmonary edema. 4. No acute osseous abnormality. Left upper extremity/axillary venous stents. Signed by: Dr. Rohit Kurtz M.D. on 10/17/2019 5:43 AM
[2019-10-17 05:49] LABS: POTASSIUM 6.2 mmol/L (3.5-5.1)
[2019-10-17] MEDS: IPRATROPIUM BROMIDE 0.02% 2.5 ML NEB NEB SCH ×4 (06:54→20:00)
[2019-10-17] MEDS ORDERED: FAMOTIDINE 20 MG/2 ML VIAL IV PRN (08:30)
[2019-10-17] MEDS: CEFEPIME 1GM/NS 0.9% 50 ML 50 ML IV SCH (08:40)
[2019-10-17] MEDS ORDERED: ACETAMINOPHEN 325 MG TAB PO PRN (08:40)
[2019-10-17] MEDS: INSULIN REGULAR, HUMAN 100 UNIT/1 ML 3ML VIAL SQ SCH ×4 (08:40→21:00)
[2019-10-17] MEDS ORDERED: AZITHROMYCIN 500MG/NS 250 ML 250 ML IV SCH (09:00)
[2019-10-17] MEDS ORDERED: SODIUM CHLORIDE 0.9% 250ML 250 ML IV ONE ×2 (09:00→09:30)
--- NOTE | 2019-10-17 10:25 | Progress Note ---
DATE: Pulmonary Critical Care Progress Note SUBJECTIVE: The patient has remained on mechanical ventilation overnight. She received some Ativan for sedation. This morning, she is receiving dialysis again. Her hemoglobin was 6.5 and she is scheduled to receive another unit of packed red blood cells. PHYSICAL EXAMINATION: VITAL SIGNS: The blood pressure is 148/80 and the saturation is 100%. She is on assist-control mode of ventilation. Her pulse is 99 and her respiratory rate is 18. HEENT: Shows no facial swelling or erythema. The tracheostomy site in good position. CARDIAC: Reveals a regular rate and rhythm with normal S1 and S2. LUNGS: Auscultation of lungs reveals crackles at the bases. There is no wheezing. ABDOMEN: Soft, nontender. There is no rebound or guarding. EXTREMITIES: Show no leg edema or calf tenderness. There is no cyanosis or clubbing. SKIN: Shows no rashes. LABORATORY DATA: Potassium is 6.2 and the BUN to creatinine ratio is 27 to 6.65. The albumin is 3.2. Hemoglobin is 6.5 with an MCV of 99. White blood cell count is decreased to 18.8. RADIOGRAPHIC DATA: CT scan of the abdomen and pelvis is limited due to lack of intravenous contrast, but there is no evidence of abscesses or obvious pathology. The radiologist did recommend an ultrasound of the kidney for a possible renal mass. CT scan of the chest shows left lower lobe infiltrate consistent with pneumonia. IMPRESSION: 1. Healthcare associated pneumonia with severe sepsis, present on admission. 2. Szmmq-lx-geaagbt respiratory failure. 3. Rrdho-ji-tfsedke renal failure with uremia. 4. Hyperkalemia. 5. Anemia secondary to chronic blood loss. 6. Chronic obstructive pulmonary disease. 7. Abnormal appearing kidney on CT scan. PLAN: 1. Repeat dialysis again today. 2. Packed red blood cells. 3. Continue current antibiotics and adjust according to culture results. 4. Begin weaning the patient after dialysis. The patient was previously on the ventilator only at night. 5. Renal ultrasound. 6. Case discussed with nursing, the patient's Nephrology, and dialysis nurse. Greater than 35 minutes in direct critical care time. Jean Alcaraz MD LM/YECENIA /[id number]
--- NOTE | 2019-10-17 11:34 | NUR ---
Patient receiving one unit PRBCs with dialysis per Dr Roopa Alcaraz's order.
--- NOTE | 2019-10-17 12:18 | NUR ---
Nutrition Intervention Note RD Recommendation(s) for Physician: - If pt remains on continuous ventilation, recommend DHT placement and being TF of Nepro at 10 ml/hr. Advance as tolerated to goal rate of 40 ml/hr (to provide 1728 kcal and 78 gm protein). Water flushes per MD. - If able to wean to nocturnal vent support, recommend ADAT to goal of 1800 ADA, Renal - Please check Phos with next lab draw Plan of Care: RD following, monitoring for tolerance and adequacy. Diet and EN rec's. Nutrition reason for involvement: Nutrition Risk Trigger, Dx of ESRD on admit, pt on vent RD Assessment 10/17: 59 YOF admitted from [facility] for hyperkalemia and volume overload associated with ESRD. Pt with trach on admit, previously requiring nocturnal vent support and now on continuous ventilation via trach. Pt receiving HD at time of visit, intubated, and no family present- unable to obtain hx at this time. Per RN during MDR, pt previously eating well at [facility]. Chart reviewed. Will continue to monitor. Principal Problems/Diagnoses: ESRD, hyperkalemia, leukocytosis, PNA PMH: ESRD on HD, DM2, POSTIE, hypothyroidism, HLD, +trach GI: WDL, no BM recorded Skin: skin intact Labs: 10/17: Na 138, K 6.2, Cl 102, CO2 26, BUN 27, Cr 6.55, Gluc 176 Meds: abx, insulin, pepcid Ht: 64 in Wt: 300 lb BMI: 51.5 kg/m2 IBW: 120 lb Malnutrition Evaluation (10/17/19) The patient does not meet criteria for a specified degree of malnutrition at this time. Will re-evaluate at follow-up as appropriate. Energy intake: Eating well MEDICAL RECORD CLERK per RN during MDR Weight loss: CINDY Fat loss: none, ample skinfold thickness Muscle loss: none, shoulder round Supporting Evidence: Fluid accumulation: none Functional Status: CINDY Nutrition Prescription (Diet Order): NPO Estimated Nutritional Needs: 1313-7071 calories/day (11-14 kcal/kg CBW)- morbid obesity 82-109 g protein/day (1.5-2 g pro/kg IBW) Diet Adequacy: Not meeting calorie needs, Not meeting protein needs Diet Tolerance: tolerance pending Diet Education Needs Assessment: Diet education not indicated, patient on temporary/transition diet. Nutrition Care Level: Mod Nutrition Diagnosis: Inadequate energy and protein intake related to Goal: Patient will meet 75-100% of estimated needs by follow up Progress: N/A Interventions: - Mineral, CHO modified diet, Composition, Rate, Route, Recommended Modifications, Collaboration with other providers Monitoring/Evaluation: - Total energy intake, Total protein intake, Formula/Solution, Prescription medication, Modified diet Signed: Adrianne Ulrich RD, LD, [facility]
[2019-10-17] MEDS: LORAZEPAM INJ 2 MG/ML VIAL IV PRN ×2 (14:32→23:45)
[2019-10-17 18:55] LABS: HEMATOCRIT 24.6 % (34.2-44.1); HEMOGLOBIN 7.3 g/dL (12.0-16.0)
[2019-10-18] VITALS (27 sets, daily range): BP systolic 99–168; BP diastolic 45–93
[2019-10-18] MEDS: ALBUTEROL SULF 0.083% NEB SOLN 3 ML NEB NEB SCH ×7 (03:30→23:40)
[2019-10-18 05:23] LABS: BASOPHILS # (AUTO) 0.1 (0.0-0.1); BASOPHILS % 0.5 % (0.0-1.0); EOSINOPHILS # (AUTO) 0.3 (0.0-0.4); EOSINOPHILS % 1.7 % (0.0-6.0); HEMATOCRIT 23.7 % (34.2-44.1); HEMOGLOBIN 7.1 g/dL (12.0-16.0); LYMPHOCYTES % 6.9 % (18.0-39.1); MEAN CORPUSCULAR VOLUME 96.7 fL (81-99); MONOCYTES % 6.6 % (4.4-11.3); NEUTROPHILS # (AUTO) 11.9 (2.1-6.9); PLATELET COUNT 129 x10e3/uL (140-360); RED BLOOD COUNT 2.45 x10e6/uL (3.6-5.1); RED CELL DISTRIBUTION WIDTH 18.4 % (11.7-14.4)
[2019-10-18 05:54] LABS: ALBUMIN 3.2 g/dL (3.5-5.0); ALBUMIN/GLOBULIN RATIO 0.9 (0.8-2.0); ANION GAP 13.5 mmol/L (8-16); CALCIUM 9.7 mg/dL (8.4-10.2); CREATININE, SERUM 5.3 mg/dL (0.57-1.11); POTASSIUM 4.5 mmol/L (3.5-5.1)
--- NOTE | 2019-10-18 06:20 | Diagnostic Imaging Report ---
Examination: Single AP view of the chest. COMPARISON: 10/17/2019 INDICATION: Pneumonia DISCUSSION: See impression IMPRESSION: 1. Unchanged position of tracheostomy tube. 2. When accounting for differences in patient positioning, no appreciable interval change in retrocardiac airspace consolidation concerning for pneumonia. Stable bandlike atelectasis in the right lower lobe. No new consolidations. 3. Stable cardiomediastinal contour without overt pulmonary edema. 4. No acute osseous abnormalities. Left axillary venous stents unchanged. Signed by: Dr. Rohit Kurtz M.D. on 10/18/2019 6:17 AM
[2019-10-18] MEDS: IPRATROPIUM BROMIDE 0.02% 2.5 ML NEB NEB SCH ×5 (07:10→19:40)
[2019-10-18] MEDS: INSULIN REGULAR, HUMAN 100 UNIT/1 ML 3ML VIAL SQ SCH ×4 (07:30→21:43)
[2019-10-18] MEDS: LORAZEPAM INJ 2 MG/ML VIAL IV PRN ×2 (08:31→19:32)
[2019-10-18] MEDS ORDERED: SODIUM CHLORIDE 0.9% 1000ML 2,000 ML ONE (10:58)
[2019-10-18] MEDS: CEFEPIME 1GM/NS 0.9% 50 ML 50 ML IV SCH (12:04)
[2019-10-18] MEDS: EPOETIN ALFA-EPBX 10,000 UNIT/ML VIAL SC SCH (13:08)
[2019-10-18] MEDS: VANCOMYCIN 500MG/NS 0.9% 100ML 100 ML IV SCH (13:36)
--- NOTE | 2019-10-18 15:23 | Diagnostic Imaging Report ---
EXAM: MODIFIED BA. SWALLOW DATE: 10/18/2019 1:18 PM INDICATION: Aspiration COMPARISON: None Fluoroscopy Time: 1.8 min. Reference Air Kerma (Ka, r): 12.3 mGy. FINDINGS/IMPRESSION: Modified barium swallow was performed by the speech pathologist. The radiologist was not present for the examination. Provided images demonstrate no evidence for subglottic tracheal aspiration. Please refer to speech pathology report for further details. Signed by: Dr. Oniel Duque MD on 10/18/2019 3:20 PM
--- NOTE | 2019-10-18 16:07 | Progress Note ---
DATE: SUBJECTIVE: The patient had dialysis and 2 L removed this morning. She is more comfortable and is sitting upright in a chair. She is on a trach collar. PHYSICAL EXAMINATION: VITAL SIGNS: The blood pressure is 153/70 and the saturation is 100% on trach collar. HEENT: Shows no facial swelling or erythema. CARDIAC: Reveals regular rate and rhythm with normal S1 and S2. There are no murmurs or rubs. LUNGS: Auscultation of lungs reveals clear breath sounds bilaterally. There is no wheezing. ABDOMEN: Soft and nontender. There is no rebound or guarding. EXTREMITIES: Show no leg edema or calf tenderness. There is no cyanosis or clubbing. SKIN: Shows no rashes. NEUROLOGICAL: Shows no focal abnormalities. IMPRESSION: 1. Healthcare-associated pneumonia with severe sepsis, present on admission. 2. Acute on chronic respiratory failure. 3. Acute on chronic renal failure. 4. Anemia secondary to chronic blood loss. 5. Chronic obstructive pulmonary disease. PLAN: 1. Continue trach collar with ventilator at night as tolerated. 2. Continue IV antibiotics. Discuss length of therapy with Infectious Disease. 3. Continue to monitor renal function and electrolytes. Jean Alcaraz MD [facility]/MODL /[id number]
--- NOTE | 2019-10-18 18:39 | NUR ---
Pt had dialysis today, 2L removed. Per dr. Roopa Alcaraz pt to be weaned off trach vent once dialysis is done. Respiratory called after dialysis finished. Pt on 10L trach collar. Speech therapy recommends modified barium swallow to rule out aspiration. Dr. Roopa alcaraz notified and gave orders. MBS done. Speech therapist made recommendation for normal diet with thin liquids, Dr. Roopa Alcaraz informed, orders given for renal diet with thin liquids. Pt frequently suctioned throughout the shift.
[2019-10-19] VITALS (16 sets, daily range): BP systolic 127–156; BP diastolic 21–89
[2019-10-19] MEDS: IPRATROPIUM BROMIDE 0.02% 2.5 ML NEB NEB SCH ×3 (02:55→14:20)
[2019-10-19] MEDS: ALBUTEROL SULF 0.083% NEB SOLN 3 ML NEB NEB SCH ×4 (02:55→14:20)
[2019-10-19 05:38] LABS: BASOPHILS # (AUTO) 0.1 (0.0-0.1); BASOPHILS % 0.7 % (0.0-1.0); EOSINOPHILS # (AUTO) 0.2 (0.0-0.4); EOSINOPHILS % 1.9 % (0.0-6.0); HEMATOCRIT 24.5 % (34.2-44.1); HEMOGLOBIN 7.4 g/dL (12.0-16.0); LYMPHOCYTES # (AUTO) 1.1 (1.0-3.2); LYMPHOCYTES % 8.7 % (18.0-39.1); MEAN CORPUSCULAR HEMOGLOBIN 29.2 pg (28-32); MEAN CORPUSCULAR HGB CONC 30.2 g/dL (31-35); MEAN CORPUSCULAR VOLUME 96.8 fL (81-99); MONOCYTES # (AUTO) 0.9 (0.2-0.8); MONOCYTES % 7.3 % (4.4-11.3); NEUTROPHILS # (AUTO) 9.8 (2.1-6.9); NEUTROPHILS % 77.2 % (38.7-80.0); PLATELET COUNT 163 x10e3/uL (140-360); RED BLOOD COUNT 2.53 x10e6/uL (3.6-5.1); RED CELL DISTRIBUTION WIDTH 17.9 % (11.7-14.4)
[2019-10-19 05:59] LABS: ANION GAP 13.8 mmol/L (8-16); CALCIUM 9.6 mg/dL (8.4-10.2); CREATININE, SERUM 5.06 mg/dL (0.57-1.11); MAGNESIUM 1.8 MG/DL (1.3-2.1); PHOSPHORUS 3.7 MG/DL (2.3-4.7); POTASSIUM 3.8 mmol/L (3.5-5.1)
[2019-10-19] MEDS: INSULIN REGULAR, HUMAN 100 UNIT/1 ML 3ML VIAL SQ SCH ×2 (07:57→12:08)
[2019-10-19] MEDS: CEFEPIME 1GM/NS 0.9% 50 ML 50 ML IV SCH (08:18)
[2019-10-19] MEDS: LORAZEPAM INJ 2 MG/ML VIAL IV PRN (09:40)
--- NOTE | 2019-10-19 09:40 | NUR ---
[facility] FACILITY DISCHARGE INFORMATION PATIENT HAS BEEN ACCEPTED TO: NAME: [facility] ADDRESS:[id number] MD: HOLLI ROOM:[id number] NURSE CALL REPORT TO: [phone] IMM SIGNED AND OBTAINED (if applicable): THE FOLLOWING DOCUMENTS MUST ACCOMPANY PATIENT FOR TRANSFER: COPIED CHART:
--- NOTE | 2019-10-19 12:23 | Progress Note ---
DATE: SUBJECTIVE: The patient feels better. She is eager to go back to [facility]. She does not have fever or congestion. PHYSICAL EXAMINATION: VITAL SIGNS: The patient is afebrile. The blood pressure is 142/73 and saturation is 99%. HEENT: Shows no facial swelling or erythema. CARDIAC: Reveals regular rate and rhythm with normal S1 and S2. LUNGS: Auscultation of lungs reveals clear breath sounds bilaterally. There is no wheezing. ABDOMEN: Soft and nontender. There is no rebound or guarding. EXTREMITIES: Shows no leg edema or calf tenderness. SKIN: Shows no rashes. NEUROLOGICAL: Shows no focal abnormalities. LABORATORY DATA: White blood cell count is 12.6 and the hemoglobin is 7.4. The platelet count is 163. IMPRESSION: 1. Healthcare-associated pneumonia with severe sepsis, present on admission. 2. Ctyce-io-ilykjtc respiratory failure. 3. Kscmb-ra-vxhzbhy renal failure. 4. Anemia secondary to chronic blood loss. 5. Chronic obstructive pulmonary disease. PLAN: 1. Transfer back to [facility]. 2. Discuss duration of antibiotic therapy with Infectious Disease. 3. Continue trach care. 4. Physical therapy. Jean Alcaraz MD LM/YECENIA /[id number]
--- NOTE | 2019-10-19 13:02 | NUR ---
Discontinuing PT services due to patient refusal.Thank you. Addendum: 10/19/19 at 1303 by Rah curtis PT Amended: Links added.
--- NOTE | 2019-10-19 13:04 | NUR ---
Discontinuing PT services due to patient refusal. Thank you. Addendum: 10/19/19 at 1304 by Rah curtis PT Amended: Links added.
--- NOTE | 2019-10-19 15:10 | NUR ---
Pt appears very anxious and is wanting to go back home. Pt refused HD and PT today, pt wants to [facility]. Lisy Verma put in case management consult to have pt return to prior facility. Dr. Roopa charles aware of transfer back to [facility] and would like infectious disease's input before transfer. Per Dr. Moran pt can go back to [facility] but must continue IV abx cefepime for [address] Moran aware of pt's loose yellow stools. L shoulder 20g left in place for IV abx at [facility]. Dr. Lisy Verma informed bed was given at [facility]. gave discharge orders. Report given to Keshia at [facility]. Pt transported by [facility], pt transported at 1500.
--- NOTE | 2019-10-19 17:09 | Progress Note ---
DATE: SUBJECTIVE: Ms. Clarke is doing better. Remains in Intensive Care Unit, but she is up in a chair comfortable. She would like to go back to her Skilled Care Facility. REVIEW OF SYSTEMS: HEENT: Negative. PULMONARY: Negative. CARDIAC: Negative. : Negative. GI: Negative. PHYSICAL EXAMINATION: GENERAL: She is currently alert, oriented, does not seem to be in acute distress. VITAL SIGNS: Stable, currently afebrile. HEENT: Normocephalic, not icteric. NECK: Supple. No JVD. No lymphadenopathy. No thyromegaly. CHEST: Clear bilateral. HEART: S1, S2. No S3, S4, or murmur. ABDOMEN: Soft and obese. No tenderness. No hepatosplenomegaly. EXTREMITIES: No edema. SKIN: There is no rash. LABORATORY DATA: Her cultures oral negative. Her white count is 12.67, hemoglobin of 7. Sodium 133, potassium 3.8. IMPRESSION: 1. Healthcare associated pneumonia to finish 8 days of antibiotic. Total eight days of cefepime 1 g daily. 2. End stage renal disease. 3. Obesity. Discussed with the patient. Could be discharged back to Skilled Care Facility with cefepime 1 g daily for three more days. MD MARCELA Thorne/YECENIA /[id number]
[2019-10-19] MEDS ORDERED: TRAZODONE HCL 50 MG TAB PO SCH (21:00)
== END 2019-10-19 15:33 | disposition home or self-care (01) | DRG 871 ==
LOC: ER 06:01 → ERHOLD 07:03 → ICU 08:47
PROC: 5A1945Z Respiratory Ventilation, 24-96 Consecutive Hours (ICD-10-PCS; principal; 2019-10-16)
PROC: 5A1D70Z Performance of Urinary Filtration, Intermittent, Less than 6 Hours Per Day (ICD-10-PCS; 2019-10-16)
PROC: 30243N1 Transfusion of Nonautologous Red Blood Cells into Central Vein, Percutaneous Approach (ICD-10-PCS; 2019-10-17)
DX: A41.9 Sepsis, unspecified organism (principal); R65.21 Severe sepsis with septic shock; N18.6 End stage renal disease; J96.20 Acute and chronic respiratory failure, unspecified whether with hypoxia or hypercapnia; J18.9 Pneumonia, unspecified organism; N17.9 Acute kidney failure, unspecified; Z68.43 Body mass index [BMI] 50.0-59.9, adult; I12.0 Hypertensive chronic kidney disease with stage 5 chronic kidney disease or end stage renal disease; Z99.2 Dependence on renal dialysis; J44.9 Chronic obstructive pulmonary disease, unspecified; E78.5 Hyperlipidemia, unspecified; E11.22 Type 2 diabetes mellitus with diabetic chronic kidney disease; D63.8 Anemia in other chronic diseases classified elsewhere; E66.9 Obesity, unspecified; D50.0 Iron deficiency anemia secondary to blood loss (chronic)
CPT/HCPCS: 36415; 71045; 71250; 74176; 74230; 80048; 80053; 82270; 82550; 82553; 82948; 83605; 83735; 83880; 84100; 84484; 85014; 85018; 85025; 85610; 85730; 86704; 86705; 86706; 86850; 86900; 86920; 87040; 87070; 87186; 87205; 87340; 90962; 93005; 93306; 94002; 94003; 94640; 94664; 97139; 99285; J0456; J0610; J0692; J1817; J2060; J3370; J7030; J7050; J7799; P9016; P9047

== ENCOUNTER 2019-12-04 19:30 | Inpatient (IN) | payer MEDICARE, OTHER, BC ==
[~2019-12-04] VITALS: Ht 167.6 cm; Wt 130.2 kg
[2019-12-04] MEDS: MEROPENEM 1GRAM 1 GM in SODIUM CHLORIDE 0.9% 100 ML 100 ML IV SCH (01:30)
[2019-12-04 20:01] LABS: BASOPHILS # (AUTO) 0.3 (0.0-0.1); BASOPHILS % 0.7 % (0.0-1.0); EOSINOPHILS % 2.9 % (0.0-6.0); HEMATOCRIT 24.7 % (34.2-44.1); HEMOGLOBIN 7.5 g/dL (12.0-16.0); LYMPHOCYTES # (AUTO) 4.4 (1.0-3.2); LYMPHOCYTES % 12.6 % (18.0-39.1); MEAN CORPUSCULAR HGB CONC 30.4 g/dL (31-35); MEAN CORPUSCULAR VOLUME 98.8 fL (81-99); MONOCYTES # (AUTO) 2.6 (0.2-0.8); MONOCYTES % 7.3 % (4.4-11.3); PLATELET COUNT 133 x10e3/uL (140-360); RED CELL DISTRIBUTION WIDTH 17.7 % (11.7-14.4)
--- OUTSIDE RECORDS SUMMARY | 2019-12-04 20:14 | XMS REPORT ---
Author Author [facility] Address Unknown Phone Unavailable Care Team Providers Care Manager Language Name Role Phone KALI VERMA Unavailable Unavailable COLTON ROSS Unavailable Unavailable Corrie ROGEL Unavailable [...] Comments Text Results Atomic Results Result Comments MODIFIED BA. SWALLOW 2019-10-18 15:18:00 [place] [address] Patient Name: MARIZOL VARNER MR #: [id number] : 1960 Age/Sex: 59/F Req #: [id number] Adm Physician: KALI VERMA MD Ordered by: TIERRA PRECIADO MD Report #: [id number] Location: ICU Room/Bed: ICU 196 Procedure: [id number] DX/MODIFIED BA. SWALLOW Exam Date: 10/18/19 Exam Time: 1353 REPORT STATUS: Signed EXAM: MODIFIED BA. SWALLOW DATE: 10/18/2019 1:18 P M INDICATION: Aspiration COMPARISON: None Fluoroscopy Time: 1.8 min. Reference Air Kerma (Ka, r): 12.3 mGy. FINDINGS/IMPRESSION: Modified barium swallow was performed by the speech pathologist. The radiologist was not present for the examination. Provided images demonstrate no evidence for subglottic tracheal aspiration. Please refer to speech pathology report for further details. Signed by: Dr. Oniel Duque MD on 10/18/2019 3:20 PM Dictated By: ONIEL DUQUE MD 1520 Transcribed By: ELSA on 10/18/19 1520 COPY TO: TIERRA PRECIADO MD CHEST SINGLE (PORTABLE) 2019-10-18 06:15:00 [place] [address] Patient Name: MARIZOL VARNER MR #: [id number] : 1960 Age/Sex: 59/F Req #: [id number] Adm Physician: KALI VERMA MD Ordered by: TIERRA PRECIADO MD Report #: [id number] Location: ICU Room/Bed: ICU [facility] Procedure: DX/CHEST SINGLE (PORTABLE) Exam Date: 10/18/19 Exam Time: 519 REPORT STATUS: Signed Examination: Single AP view of the chest. COMPARI SON: 10/17/2019 INDICATION: Pneumonia DISCUSSION: See impression IMPRESSION: 1. Unchanged position of tracheostomy tube. 2. When accounting for differences in patient positioning, no appreciable interval change in retrocardiac airspace consolidation concerning for pneumonia. Stable bandlike atelectasis in the right lower lobe. No new consolidations. 3. Stable cardiomediastinal contour without overt pulmonary edema. 4. No acute osseous abnormalities. Left axillary venous stents unchanged. Signed by: Dr. Haylie Kurtz M.D. on 10/18/2019 6:17 AM Dictated By: HAYLIE KURTZ MD 6 Transcribed By: ELSA on 10/18/19616 COPY TO: TIERRA PRECIADO MD CHEST SINGLE (PORTABLE) 2019-10-17 05:41:00 [place] [address] Patient Name: MARIZOL VARNER MR #: [id number] : 1960 Age/Sex: 59/F Req #: [id number] Adm Physician: KALI VERMA MD Ordered by: TIERRA PRECIADO MD Report #: [id number] Location: ICU Room/Bed: ICU [facility] Procedure: DX/CHEST SINGLE (PORTABLE) Exam Date: Exam Time: REPORT STATUS: Signed Examination: Single AP view of the chest. COMPARISON: CT chest 10/16/2019, chest radiograph 10/16/2019 INDICATION: Respiratory failure DISCUSSION: See impression IMPRESSION: 1. Tracheostomy tube is unchanged in position. 2. Unchanged retrocardiac consolidation, concerning for pneumonia as discussed on CT chest. Stable platelike atelectasis in the right lower lobe. Lung apices remain well aerated. 3. Stable cardiomediastinal contour. No overt pulmonary edema. 4. No acute osseous abnormality. Left upper extremity/axillary venous stents. Signed by: Dr. Haylie Kurtz M.D. on 10/17/2019 5:43 AM Di ctated By: HAYLIE KURTZ MD 2 Transcribed By: ELSA on 10/17/19542 COPY TO: TIERRA PRECIADO MD CT ABDOMEN/PELVIS WO 2019-10-16 18:22:00 [place] [address] Patient Name: MARIZOL VARNER MR #: [id number] : 1960 Age/Sex: 59/F Req #: [id number] Adm Physician: KALI VERMA MD Ordered by: LEILANI RIVERA MD Report #: [id number] Location: ICU Room/Bed: ICU [facility] Procedure: [id number] CT/CT ABDOMEN/PELVIS WO Exam Date: 10/16/19 Exam Time: 1730 REPORT STATUS: Signed EXAMINATION: CT of the abdomen and pelvis without cont rast. TECHNIQUE: Spiral CT images of the abdomen and pelvis were performed from the lung bases to the lesser trochanters. No intravenous contrast was given due to decreased GFR. Coronal and sagittal reformatted images were obtained. COMPARISON: None. CLINICAL HISTORY:End-stage renal disease, hyperkalemia, suspect infection DISCUSSION: ABSENCE OF INTRAVENOUS CONTRAST DECREASES SENSITIVITY FOR DETECTION OF FOCAL LESIONS AND VASCULAR PATHOLOGY. Exam limited by patient's large body habitus. ABDOMEN/PELVIS: LOWER THORAX: Please see CT chest performed same day for further detail HEPATOBILIARY: Liver is enlarged, measuring approximately 22 cm in the right midclavicular line. Projection of the right hepatic lobe to the level of the pelvis may represent a Rosalinda's lobe. No focal lesions. No intra or extrahepatic biliary ductal dilation. GALLBLADDER: Cholecystectomy clips SPLEEN: No splenomegaly. PANCREAS: No focal masses or ductal dilatation. ADRENALS: 1.5 x 1.7 cm and 2.0 x 1.9 cm nodular lesions in the right adrenal gland (2, images 57 and 62). These lesions measure approximately 43-56 HU in this noncontrast exam KIDNEYS/URETERS: Bilateral atrophic kidneys with marked cortical thinning. No hydronephrosis or evidence of obstruction. 2.7 x 2.7 x 2.5 cm contour abnormality in the left inferior pole (coronal image 85). Vascular calcifications in bilateral kidneys, left greater than right. PELVIC ORGANS/BLADDER: Bladder is decompressed and grossly unremarkable. No adnexal masses. PERITONEUM/RETROPERITONEUM: No free air or fluid. LYMPH NODES: No intra-abdominal,retroperitoneal, pelvic or inguinal lymphadenopathy. VESSELS: Atherosclerotic calcification of the abdominal aorta and iliac vessels. GI TRACT: No bowel dilation or evidence of obstruction. Colonic diverticulosis, without surrounding inflammatory changes to suggest diverticulitis. BONES AND SOFT TISSUES: No aggressive lytic lesions. Small fat-containing umbilical hernia. 7.4 cm left and 5.6 cm right oval-shaped hyperdense areas in the subcutaneous tissues posterior to the sacrum (series 2, image 94), which may represent hematomas IMPRESSION: 1. Exam limited bilateral intravenous contrast and patient's body habitus. 2. No definite fluid collections are identified to suspect abscess, however, this evaluation is limited by the lack of contrast. 3. Indeterminate nodular lesions in the right adrenal gland. Density measurements speak against lipid rich adrenal adenomas. These may represent adrenal hematomas/hemorrhage. 4. Hepatomegaly. 5. Indeterminate contour abnormality in the renal left inferior pole, which may represent a renal mass. Recommend further assessment with renal ultrasound. Signed by: Dr. Jean Pierre Salvador M.D. on 10/16/2019 6:32 PM Dictated By: JEAN PIERRE SALVADOR MD 31 Transcribed By: ELSA on 10/16/191831 COPY TO: LEILANI RIVERA MD CT CHEST WO 2019-10-16 18:06:00 [place] [address] Patient Name: MARIZOL VARNER MR #: [id number] : 1960 Age/Sex: 59/F Req #: [id number] Adm Physician: KALI VERMA MD Ordered by: TIERRA PRECIADO MD Report #: [id number] Location: ICU Room/Bed: ICU [facility] Procedure: [id number] CT/CT CHEST WO Exam Date: 10/16/19 Exam Time: 1730 REPORT STATUS: Signed EXAMINATION: CT scan of the chest without contrast. TECHNIQUE: Spiral CT images of the chest were performed from the lung apices to the level of the adrenal glands. No intravenous contrast was administered due to elevated creatinine. Coronal and sagittal reformatted images were obtained. COMPARISON: None. CLINICAL HISTORY:End-stage renal disease, hyperkalemia, suspect infection DISCUSSION: ABSENCE OF INTRAVENOUS CONTRAST DECREASES SENSITIVITY FOR DETECTION OF FOCAL LESIONS AND VASCULAR PATHOLOGY. Exam limited due to patient's large body habitus. LINES/TUBES: Tracheostomy tube in place.. LUNGS AND AIRWAYS: Consolidatio n with air bronchograms in the superior segment and posterior basal segment of the left lower lobe (series 4, image 51-72). Atelectatic changes in the right middle lobe and anterior aspect of the right lower lobe secondary to eventration of the right hemidiaphragm. Nodular groundglass opacities are noted in the posterior right lower lobe (for example series 4, image 71). Airways are clear, without endobronchial lesions. PLEURA: No pneumothorax or pleural effusions. HEART AND MEDIASTINUM: 1.3 cm calcification, which may be located in the left thyroid lobe. Mild cardi omegaly. Atherosclerotic calcification of the aortic valves, coronary arteries and mitral annulus. Aorta is nonaneurysmal. Main pulmonary artery is enlarged, measuring 4.0 cm. LYMPH NODES: Mildly enlarged right lower paratracheal lymph node which measures 1.1 cm in short axis (series 2, image 22). Mildly enlarged subcarinal lymph node which measures 1.3 cm in short axis (series 2, image 27). No axillary adenopathy. Difficult to assess for hilar adenopathy given the lack of intravenous contrast. ABDOMEN: Please see CT abdomen performed same day for further detail. BONES AND SOFT TISSUES: No aggressive lytic lesions. Soft tissues are grossly unremarkable. IMPRESSION: 1. Findings likely represent pneumonia involving the left lower lobe superior and posterior basal segments. 2. Atelectasis in the right middle lobe and anterior right lower lobe secondary to eventration of the right hemidiaphragm. 3. Nodular groundglass opacities in the posterior right l ower lobe, which may reflect aspiration pneumonitis or additional pneumonia. 4. Mildly enlarged right lower paratracheal and subcarinal lymph nodes, likely reactive. 5. Enlarged main pulmonary artery, suggesting pulmonary hypertension. Signed by: Dr. Jean Pierre Salvador M.D. on 10/16/2019 6:18 PM Dictated By: JEAN PIERRE SALVADOR MD 17 Transcribed By: ELSA on 10/16/191817 COPY TO: TIERRA PRECIADO MD CHEST SINGLE (PORTABLE) 2019-10-16 07:03:00 [place] [address] Patient Name: MARIZOL VARNER MR #: [id number] : 1960 Age/Sex: 59/F Req #: [id number] Adm Physician: Ordered by: MO DAHL MD Report #: [id number] Location: Room/Bed: Procedure: [id number] DX/CHEST SINGLE (PORTABLE) Exam Date: 10/16/19 Exam Time: 624 REPORT STATUS: Signed EXAMINATION: CHEST SINGLE (PORTABLE) C OMPARISON: None INDICATION: Tracheostomy SOB [id number] DISCUSSION: Frontal view of the chest obtained at 0628 hours. HEART AND MEDIASTINUM: The heart is enlarged. There are calcifications of the aortic arch. Pulmonary vascular markings are prominent LINES: Tracheostomy is midline LUNGS: Diffuse hyperinflation. Retrocardiac airspace opacity. Discoid opacity in the right lung base. PLEURA: No large effusions. No pneumothorax BONES AND SOFT TISSUES: No focal osseous lesion. The soft tissues are normal. IMPRESSION: Cardiomegaly and vascular congestion. Retrocardiac airspace opacity may represent atelectasis or infiltrate. Discoid atelectasis in the right lung base. Signed by: Dr. Juan Nelson MD on 10/16/2019 7:05 AM Dictated By: JUAN NELSON MD 4 Transcribed By: ELSA on 10/16/19704 COPY TO: MO DAHL MD GLUBED 2019-10-02 11:52:00 GLUBED (test code=GLUBED) 174 mg/dL 74-106 Performed by certified equalizer operator at [facility] [id number] 11:52:00* Test Item Value Reference Range Comments GLUBED (test code=GLUBED) 218 mg/dL 74-106 Performed by certified equalizer operator at [facility] [id number] 17:21:00 RUN DATE: 09/20/19 [facility] PAGE 1 RUN TIME: 1722 Specimen Inqui ry RUN USER: INTERFACE PATIENT: MARIZOL VARNER ACCT #: [id number] [facility] #: [id number] AGE/SX: 59/F ROOM: [facility] RE09/14/19REG DR: Kali Verma MD : 58 BED: A DIS: 09/18/19 STATUS: DIS IN TLOC: SPEC #: [id number] RECD: 09/18/19 STATUS: JERZY REQ #: [id number] OLIVER: 09/16/19- SUBM DR: Haylie Viveros MD ENTERED: 09/18/19 SP TYPE: SKIN OTHR DR: No Claudia radha or Family Physician Johnie Hernández MD, David N MD Merszei, Justin David MD Nassif, George M MD Pham,Leilani Moreno MD, MDORDERED: GROSS COPIES TO: No Primary or Family Physician Johnie Stovall MD [address] [facility] [address] [place] [address] Haylie Viveros MD [address] [place], [place] [address] [place] [address] [facility] [address] [place] [id number] [phone] ElsaYahir acosta MD [address] [facility] [address] [place] [address] Gemini Lerma MD [address] [place] [address] Leilani Rivera MD [address] [place] [address] MARKERS: INTRADEPARTMENTAL CONSULT CONTINUED ON NEXT PAGE RUN DATE: 09/20/19 [facility] PAGE 2 RUN TIME: 1722 Specimen Inquiry RUN USER: INTER FACE SPEC #: [id number] PATIENT: GARDENIAMARIZOL #[id number] (Con tinued) PROCEDURES: GROSS (09/20/19-1411) TISSUES: SKIN, [...] drug eruption is not excluded. Correlation is dominic bautista. Intradepartmental consultation: DMW. FINAL DIAGNOSIS Sk in, left forearm, excisional biopsy: SUPERFICIAL PERIVASCULAR DERMATITI S, see comment EPITHELIAL HYPERPLASIA, MILD HYPERKERATOSIS AND FOCAL EPID ERMAL EROSION NO VASCULITIS PRESENT NEGATIVE FOR MALIGNANCY RRB/rohini D 89852 MACROSCOPIC The specimen is received in mejia ine labeled with the patient's name, and medical record number. It consists o f an ellipse of light menon to menon-red skin measuring 2.0 x 1.0 x 0.3 cm. The s pecimen is not oriented. The surgical margin is inked black. The tissue is s ectioned and entirely submitted in a single cassette. GROSS PERFORMED AT [facility] [address] [place] [address] [phone])[phone] CONTINUED ON NEXT PAGE RUN DATE: 09/20/19 [facility] PAGE 3 RUN TIME: 172 Specimen Inquiry RUN USER: INTERFACE SPEC #: [id number] PATIENT: MARIZOL VARNER #[id number] (Continued)------ ------ MICROSCOPIC The tissue was entirely [...] controls performed, stain appropriately. MICROSCOPIC PERFORMED AT [facility] [address] [place] [address] [phone])[phone] PERFO RMING SITE Diagnosis performed at: [facility] [address] [facility] [place] [address] Signed SIGNATURE ON FILE Asif Scott MD 09/20/19 1721 END OF REPORT AB HEPATITIS B SURFACE 2019-09-19 09:10:00* Test Item Value Reference Range Comments AB HEPATITIS B SURFACE (test code=HBSAB) Non Reactive () Non Reactive: Inconsistent with immunity, less than 10 mIU/mL Reactive: Consistent with immunity, greater than 9.9 mIU/mLPerformed At: [facility] [id number] Blas MD Ph:[phone] HEPATITIS B CORE ANTIBODY,[id number] 07:13:00* Test Item Value Reference Range Comments HEPATITIS B CORE ANTIBODY,TOT (test code=HBCAB) Negative Negative Performed At: [facility] [facility] [id number] Blas MD Ph:[phone] [id number] 08:48:00* Test Item Value Reference Range Comments GLUBED (test code=GLUBED) 260 mg/dL 74-106 Performed by certified equalizer operator at [facility] - XR CHEST 1 [id number] 05:28:00 FAX: Tom Castillo [phone] [place]: B St: ADM FAX: Kali Vidal MD [phone] Name: MARIZOL VARNER [facility] : 1960 Age/S: 59/F [address] [facility] Unit #: [id number] Loc: [facility]ondraS[address] [place] [address] Phys: Tom Castillo Acct: [id number] Dis Date: Status: ADM IN PHONE #: [phone] Exam Date: 09/18/2019 0431 FAX #: [phone] Reason: updated pulm view. EXAMS: CPT CODE: [id number] XR CHEST 1 V 49807 EXAM: XR Chest 1 View INDICATION: updated [...] by: Clara Ugalde M.D. CC: Tom Castillo; Kali Verma MD Technologist: TAMARA ORTIZ, RT(R) Trnscrd Date/Time/By: 09/18/2019 (0528) : By: [email or web address] [facility] Print D/T: S: 09/18/2019 (0505) PAGE 1 Signed Report B-TYPE NATRIURETIC [id number] 04:36:00* Test Item Value Reference Range Comments B-TYPE NATRIURETIC PEPTIDE (test code=BNP) 696.61 pgram/mL 0-100 CBC W/MANUAL [id number] 04:33:00* Test Item Value Reference Range Comments [...] (test code=IMMAT) 0 % 0-0 COMPREHENSIVE METABOLIC [id number] 04:30:00* Test Item Value Reference Range Comments [...] reference range due to change in reagent. [id number] 04:30:00* Test Item Value Reference Range Comments MAGNESIUM (test code=MAG) 2.4 mg/dL 1.8-2.4 COMPREHENSIVE METABOLIC [id number] 04:15:00* Test Item Value Reference Range Comments [...] ALKALINE PHOSPHATASE TOTAL (test code=ALKP) IUnit/L 45-117 [id number] 04:15:00* Test Item Value Reference Range Comments MAGNESIUM (test code=MAG) mg/dL 1.8-2.4 CBC W/MANUAL [id number] 04:01:00* Test Item Value Reference Range Comments [...] code=PLTEST) PLATELET MORPHOLOGY (test code=PLTMORPH) CBC W/MANUAL [id number] 03:58:00* Test Item Value Reference Range Comments [...] code=PLTEST) PLATELET MORPHOLOGY (test code=PLTMORPH) CBC W/MANUAL [id number] 03:58:00* Test Item Value Reference Range Comments [...] code=PLTEST) PLATELET MORPHOLOGY (test code=PLTMORPH) CBC W/MANUAL [id number] 03:58:00* Test Item Value Reference Range Comments [...] code=PLTEST) PLATELET MORPHOLOGY (test code=PLTMORPH) CBC W/MANUAL [id number] 03:58:00* Test Item Value Reference Range Comments [...] ESTIMATE (test code=PLTEST) PLATELET MORPHOLOGY (test code=PLTMORPH) [id number] 16:15:00* Test Item Value Reference Range Comments GLUBED (test code=GLUBED) 299 mg/dL 74-106 Performed by certified equalizer operator at [facility] [id number] 11:33:00* Test Item Value Reference Range Comments GLUBED (test code=GLUBED) 228 mg/dL 74-106 Performed by certified equalizer operator at [facility] [id number] 08:51:00* Test Item Value Reference Range Comments GLUBED (test code=GLUBED) 237 mg/dL 74-106 Performed by certified equalizer operator at [facility] - XR CHEST 1 [id number] 04:55:00 FAX: Kali Vidal MD [phone] [place]: St: ADM FAX: Seun Maya MD [phone] Name: MARIZOL VARNER [facility] : 1960 Age/S: 59/F [address] [facility] Unit #: [id number] Loc: [address] [address] Phys: Seun Nunez MD Acct: [id number] Dis Date: Status: ADM IN PHONE #: [phone] Exam Date: 09/17/2019 0423 FAX #: [phone] Reason: bibasilar GNR pneumonia with tracheostomy EXAMS: CPT CODE: [id number] XR CHEST 1 V 70292 EXAM: XR Chest 1 View INDICATION: bibasilar [...] and signed by: Clara Ugalde M.D. CC: Kali Verma MD; Seun Nunez MD Technologist: Mandeep Reina RT(R); ELSIE DA SILVA RT(R) Trnscrd Date/Time/By: 09/17/2019 (0455) : By: [email or web address] Orig Print D/T: S: 09/17/2019 (0458) PAGE 1 Signed Report B-TYPE NATRIURETIC [id number] 04:21:00* Test Item Value Reference Range Comments B-TYPE NATRIURETIC PEPTIDE (test code=BNP) 754.74 pgram/mL 0-100 CBC W/MANUAL [id number] 01:28:00* Test Item Value Reference Range Comments [...] (test code=IMMAT) 0 % 0-0 COMPREHENSIVE METABOLIC [id number] 01:20:00* Test Item Value Reference Range Comments [...] reference range due to change in reagent. [id number] 01:20:00* Test Item Value Reference Range Comments MAGNESIUM (test code=MAG) 2.1 mg/dL 1.8-2.4 COMPREHENSIVE METABOLIC [id number] 01:05:00* Test Item Value Reference Range Comments [...] ALKALINE PHOSPHATASE TOTAL (test code=ALKP) IUnit/L 45-117 [id number] 01:05:00* Test Item Value Reference Range Comments MAGNESIUM (test code=MAG) mg/dL 1.8-2.4 CBC W/MANUAL [id number] 01:04:00* Test Item Value Reference Range Comments [...] code=PLTEST) PLATELET MORPHOLOGY (test code=PLTMORPH) CBC W/MANUAL [id number] 01:04:00* Test Item Value Reference Range Comments [...] code=PLTEST) PLATELET MORPHOLOGY (test code=PLTMORPH) CBC W/MANUAL [id number] 01:04:00* Test Item Value Reference Range Comments [...] code=PLTEST) PLATELET MORPHOLOGY (test code=PLTMORPH) CBC W/MANUAL [id number] 01:03:00* Test Item Value Reference Range Comments [...] code=PLTEST) PLATELET MORPHOLOGY (test code=PLTMORPH) CBC W/MANUAL [id number] 01:03:00* Test Item Value Reference Range Comments [...] ESTIMATE (test code=PLTEST) PLATELET MORPHOLOGY (test code=PLTMORPH) [id number] 16:57:00* Test Item Value Reference Range Comments GLUBED (test code=GLUBED) 263 mg/dL 74-106 Performed by certified equalizer operator at [facility] [id number] 13:22:00* Test Item Value Reference Range Comments GLUBED (test code=GLUBED) 204 mg/dL 74-106 Performed by certified equalizer operator at [facility] [id number] 11:49:00* Test Item Value Reference Range Comments GLUBED (test code=GLUBED) 211 mg/dL 74-106 Performed by certified equalizer operator at [facility] [id number] 08:54:00* Test Item Value Reference Range Comments GLUBED (test code=GLUBED) 231 mg/dL 74-106 Performed by certified equalizer operator at [facility] AB THYROID [id number] 08:10:00* Test Item Value Reference Range Comments AB THYROID PEROXIDASE (test code=THYPAB) 12 IU/mL 0-34 Performed At: [facility] [address] [place], [place] [id number] Kyle L MD Ph:[phone] BASIC METABOLIC [id number] 03:05:00* Test Item Value Reference Range Comments [...] 10-20 CALCIUM (test code=CA) 9.4 mg/dL 8.5-10.1 [id number] 02:56:00* Test Item Value Reference Range Comments MAGNESIUM (test code=MAG) 1.9 mg/dL 1.8-2.4 CBC W/O [id number] 02:37:00* Test Item Value Reference Range Comments [...] 10.8 fL 6.7-11.0 - XR CHEST 1 [id number] 01:18:00 FAX: Tom Castillo [phone] [place]: St: ADM FAX: Kali Vidal MD [phone] Name: MRAIZOL VARNER [facility] : 1960 Age/S: 59/F [address] [facility] Unit #: [id number] Loc: V.S[address] [place] [address] Phys: Tom Castillo Acct: [id number] Dis Date: Status: ADM IN PHONE #: [phone] Exam Date: 09/16/201956 FAX #: [phone] Reason: updated pulm view. EXAMS: CPT CODE: [id number] XR CHEST 1 V 05889 LOCATION: Q15 HISTORY: 59-year-old female, history of [...] unchanged. Again seen is a tracheostomy tube. quality assurance monitor chassis leads are present. Vascular stents are again seen in the left axilla. IMPRESSION: There is no significant change in the chest. Please see above for details. Electronically Signed by Joaquin Gomez M.D. on at 0118 Reported and signed by: Charlie Gomez M.D. CC: Tom Castillo; Kali Verma MD Technologist: Mandeep Reina RT(R); ELSIE DA SILVA RT(R) Trnscrd Date/Time/By: 09/16/2019 (0118) : By: [email or web address] Orig Print D/T : S: 09/16/2019 (0121) PAGE 1 Sig nabeel Report [id number] 21:52:00* Test Item Value Reference Range Comments GLUBED (test code=GLUBED) 276 mg/dL 74-106 Performed by certified equalizer operator at [facility] CBC W/MANUAL [id number] 21:02:00* Test Item Value Reference Range Comments [...] (test code=IMMAT) 0 % 0-0 BASIC METABOLIC [id number] 20:16:00* Test Item Value Reference Range Comments [...] 10-20 CALCIUM (test code=CA) 9.9 mg/dL 8.5-10.1 [id number] 20:16:00* Test Item Value Reference Range Comments PHOSPHORUS (test code=PHOS) 2.4 mg/dL 2.5-4.9 [id number] 20:16:00* Test Item Value Reference Range Comments MAGNESIUM (test code=MAG) 1.8 mg/dL 1.8-2.4 CALCIUM [id number] 20:16:00* Test Item Value Reference Range Comments CALCIUM IONIZED (test code=MICHAEL) 1.30 mmol/L 1.12-1.32 BASIC METABOLIC [id number] 20:02:00* Test Item Value Reference Range Comments [...] 10-20 CALCIUM (test code=CA) 9.9 mg/dL 8.5-10.1 [id number] 20:02:00* Test Item Value Reference Range Comments PHOSPHORUS (test code=PHOS) 2.4 mg/dL 2.5-4.9 [id number] 20:02:00* Test Item Value Reference Range Comments MAGNESIUM (test code=MAG) 1.8 mg/dL 1.8-2.4 CALCIUM [id number] 20:02:00* Test Item Value Reference Range Comments CALCIUM IONIZED (test code=MICHAEL) mmol/L 1.12-1.32 BASIC METABOLIC [id number] 20:01:00* Test Item Value Reference Range Comments [...] code=BUN/CREA) 10-20 CALCIUM (test code=CA) mg/dL 8.5-10.1 [id number] 20:01:00* Test Item Value Reference Range Comments PHOSPHORUS (test code=PHOS) mg/dL 2.5-4.9 [id number] 20:01:00* Test Item Value Reference Range Comments MAGNESIUM (test code=MAG) mg/dL 1.8-2.4 CALCIUM [id number] 20:01:00* Test Item Value Reference Range Comments CALCIUM IONIZED (test code=MICHAEL) mmol/L 1.12-1.32 CBC W/MANUAL [id number] 19:59:00* Test Item Value Reference Range Comments [...] code=PLTEST) PLATELET MORPHOLOGY (test code=PLTMORPH) CBC W/MANUAL [id number] 19:59:00* Test Item Value Reference Range Comments [...] code=PLTEST) PLATELET MORPHOLOGY (test code=PLTMORPH) CBC W/MANUAL [id number] 19:59:00* Test Item Value Reference Range Comments [...] code=PLTEST) PLATELET MORPHOLOGY (test code=PLTMORPH) CBC W/MANUAL [id number] 19:58:00* Test Item Value Reference Range Comments [...] code=PLTEST) PLATELET MORPHOLOGY (test code=PLTMORPH) CBC W/MANUAL [id number] 19:58:00* Test Item Value Reference Range Comments [...] ESTIMATE (test code=PLTEST) PLATELET MORPHOLOGY (test code=PLTMORPH) [id number] 17:17:00* Test Item Value Reference Range Comments GLUBED (test code=GLUBED) 314 mg/dL 74-106 Performed by certified equalizer operator at [facility] [id number] 17:15:00* Test Item Value Reference Range Comments GLUBED (test code=GLUBED) 258 mg/dL 74-106 Performed by certified equalizer operator at [facility] AG HEPAT B [id number] 15:57:00* Test Item Value Reference Range Comments AG HEPAT B SURF (test code=HBSAG) Nonreactive Index Nonreactive PT WAS A HARD STICK NOTIFIED NURSE TROY [id number] V.LAB.09/15/19 09 T4 [id number] 15:33:00* Test Item Value Reference Range Comments T4 FREE (test code=T4F) 0.62 ng/dL 0.76-1.46 THYROID STIMULATING [id number] 15:33:00* Test Item Value Reference Range Comments THYROID STIMULATING HORMONE (test code=TSH) 11.100 uIU/mL 0.36-3.74 TSH REFERENCE RANGES: EUTHYROID: 0.35 - 4.3 mIU/mL HYPO : > 5.5 mIU/mL HYPER : < 0.35 mIU/mL [id number] 15:13:00* Test Item Value Reference Range Comments GLYCOSYLATED HEMOGLOBIN (HA1C) (test code=GLYHGB) 7.8 % HbA1 SUGGESTED DIAGNOSIS: HbA1C (%) Diabetic >6.4Prediabetes 5.7 - 6.4Normal <5.7 ESTIMATED AVERAGE GLUCOSE (test code=EAG) 177 MG/DL [id number] 13:09:00* Test Item Value Reference Range Comments GLUBED (test code=GLUBED) 305 mg/dL 74-106 Performed by certified equalizer operator at [facility] ARTERIAL BLOOD [id number] 10:42:00* Test Item Value Reference Range Comments [...] CONTENT (test code=O2CT) 12.6 % vol 18.0-22.0 [id number] 06:22:00* Test Item Value Reference Range Comments GLUBED (test code=GLUBED) 251 mg/dL 74-106 Performed by certified equalizer operator at [facility] - CTA [id number] 05:59:00 Name: GARDENIAMARIZOL [facility] : 1960 Age/S: 59 / F [address] [facility] Unit #: [id number] Loc: [place] [address] Phys: Haider Garcia MD Acct: [id number] Dis Date: Status: ADM IN PHONE #: [phone] Exam Date: 09/15/2019514 FAX #: [phone] Reason: sob EXAMS: CPT CODE: [id number] CTA CHEST 30794 EXAM: CTA CHEST WITH CONTRAST - PULMONARY [...] 1 Signed Report (CONTINUED) Name: MARIZOL VARNER [facility] : 1960 Age/S: 59 / F [address] [facility] Unit #: [id number] Loc: [place] [address] Phys: Haider Garcia MD Acct: [id number] Dis Date: Status: ADM IN PHONE #: [phone] Exam Date: 09/15/2019514 FAX #: [phone] Reason: sob EXAMS: CPT CODE: [id number] CTA CHEST 25146 <Continued> Multifocal consolidations seen in the lung bases concerning for multifocal pneumonia. at 0559 Reported and signed by: Clara Ugalde M.D. CC: Haider Garcia MD Technologist:DONNA Boatengha CTDI: DLP: Trnscb Date/Time: 09/15/2019 (0559) t.SDR.EB14 Orig Print D/T: S: 09/15/2019 (0602) PAGE 2 Signed Report [id number] 20:30:00 * Test Item Value Reference Range Comments GLUBED (test code=GLUBED) 291 mg/dL 74-106 Performed by certified equalizer operator at [facility] [id number] 16:16:00* Test Item Value Reference Range Comments GLUBED (test code=GLUBED) 200 mg/dL 74-106 Performed by certified equalizer operator at [facility] LACTIC [id number] 12:49:00* Test Item Value Reference Range Comments LACTIC ACID (test code=LACT) 2.3 mmol/L 0.4-1.9 Results called to [id number] by SOLANGE 09/14/19 1248Critical results verified and read back by Nurse? Y PROTHROMBIN [id number] 11:12:00* Test Item Value Reference Range Comments [...] prosthetic heart valves (2.5-3.5) REPLACES CG25 (CLOTTED); PHIL 09/14/19 1016THROMBOPLASTIN TIME PARTIAL 2019-09-14 11:12:00* Test Item Value Reference Range Comments THROMBOPLASTIN TIME PARTIAL (test code=PTT) 33.9 seconds 25.0-36.5 REPLACES CG25 (CLOTTED); V.LAB.CCD 09/14/19 [id number] 11:00:00* Test Item Value Reference Range Comments GLUBED (test code=GLUBED) 283 mg/dL 74-106 Performed by certified equalizer operator at [facility] LACTIC [id number] 10:40:00* Test Item Value Reference Range Comments LACTIC ACID (test code=LACT) 2.0 mmol/L 0.4-1.[address] GARCIA by V.LABYuniorKA 09/14/19 1039Critical results verified and read back by Nurse? Y TSH REFLEX TO [id number] 10:19:00* Test Item Value Reference Range Comments TSH REFLEX TO FT4 (test code=TSHREFLEX) 32.1 0.4-5.5 BASIC METABOLIC [id number] 10:06:00* Test Item Value Reference Range Comments [...] (test code=CA) 9.9 mg/dL 8.5-10.1 HEPATIC FUNCTION [id number] 10:06:00* Test Item Value Reference Range Comments [...] change in reagent. - XR CHEST 1 [id number] 10:04:00 FAX: Haider Garcia MD [phone] [place]: B St: REG Name: Bentley SULEMANMARIZOL [facility] : [birth year] Age/S: 59/F [address] [facility] Unit #: [id number] Loc: [place] [address] Phys: Haider Garcia MD Acct: [id number] Dis Date: Status: REG ER PHONE #: [phone] Exam Date: 09/14/2019919 FAX #: [phone] Reason: Shortness of Breath EXAMS: CPT CODE: [id number] XR CHEST 1 V 74915 REASON FOR EXAM: Shortness of Breath Exam Order Date: 09/14/2019 9:00 AM Ordering MEvelina: Haider Garcia MD PROCEDURE: - XR CHEST [...] volumes with bibasi lar subsegmental atelectasis. Location: [facility] Electr onically Signed by Farhad Jha MD on 09/14/2019 at 1004 Reported and signed by: Farhad Jha MD CC: Haider Garcia MD Technologist: RT JILLIAN(R) Trnscrd Date/Time/By: 09/14/2019 (1004) : By: [email or web address] Orig Print D/T: S: 09/14/2019 (1007) PAGE 1 Signed Report - XR WRIST 3 + V LT 2019-09-14 10:03:00 FAX: Haider Garcia MD [phone] [facility]: St: REG Name: MARIZOL HSIEH [facility] : [birth year] Age/S: 59/F [address] [facility] Unit #: [id number] Loc: [place] [address] Phys: Haider Garcia MD Acct: [id number] Dis Date: Status: REG ER PHONE #: [phone] Exam Date: 09/14/2019 0933 FAX #: [phone] Reason: arm redness EXAMS: CPT CODE: [id number] XR WRIST 3 + V LT [address] REASON FOR EXAM: arm rednes EXAM ORDER DATE: 09/14/2019 9:01 AM Ordering M.D.: Haider pritchett MD PROCEDURE: - XR FOREARM [...] ty but no underlying bony abnormality. Location: [facility] at 1003 Reported and signed by: Farhad Jha MD CC: Haider Garcia MD Technologist: RT JILLIAN([place]) [facility] Date/Time/By: 09/14/2019 (1003) : By: Efrain .RR31 Orig Print D/T: S: 09/14/2019 (1009) PAGE 1 Signed Report - XR FOREARM 2 VIEWS [id number] 10:03:00 FAX: Haider Garcia MD [phone] [place]: St: REG Name: Bentley SHELLMARIZOL Lisy [facility] : [birth year] Age/S: 59/F [address] [facility] Unit #: [id number] Loc: [place] [address] Phys: Haider Garcia MD Acct: [id number] Dis Date: Status: REG ER PHONE #: [phone] Exam Date: 09/14/2019929 FAX #: [phone] Reason: arm rednes EXAMS: CPT CODE: [id number] XR FOREARM [address] [place] [address] REASON FOR EXAM: arm rednes EXAM ORDER [...] but no underlying bony abnormality. Location: [facility] at 1003 Reported and signed by: Farhad Jha MD CC: Haider Garcia MD Technologist: RT JILLIAN(R) Trnscrd Date/Time/By: 09/14/2019 (1003) : By: Efrain .RR31 Orig Print D/T: S: 09/14/2019 (1006) PAGE 1 Signed Report B-TYPE NATRIURETIC [id number] 10:01:00* Test Item Value Reference Range Comments B-TYPE NATRIURETIC PEPTIDE (test code=BNP) 778.09 pgram/mL 0-100 LACTIC [id number] 10:00:00* Test Item Value Reference Range Comments LACTIC ACID (test code=LACT) 2.1 mmol/L 0.4-1.9 Results called to [id number] by JHON 09/14/19 1000Critical results verified and read back by Nurse? Y BASIC METABOLIC [id number] 09:58:00* Test Item Value Reference Range Comments [...] CALCIUM (test code=CA) mg/dL 8.5-10.1 HEPATIC FUNCTION [id number] 09:58:00* Test Item Value Reference Range Comments TOTAL PROTEIN (test code=PROT) gram/dL 6.4-8.2 ALBUMIN (test code=ALB) g/dL 3.4-5.0 GLOBULIN (test code=GLOB) gram/dL 2.7-4.2 ALBUMIN/GLOBULIN RATIO (test code=A/G) 0.75-1.50 BILIRUBIN TOTAL (test code=BILT) mg/dL 0.0-1.0 BILIRUBIN DIRECT (test code=BILD) mg/dL 0.0-0.20 SGOT/AST (test code=AST) IUnit/L 15-37 SGPT/ALT (test code=ALT) IUnit/L 12-78 ALKALINE PHOSPHATASE TOTAL (test code=ALKP) IUnit/L 45-117 [id number] 09:57:00* Test Item Value Reference Range Comments TROPONIN-I (test code=TROPI) <0.015 ng/mL 0-0.045 CBC W/O [id number] 09:27:00* Test Item Value Reference Range Comments [...] VOLUME (test code=MPV) 11.7 fL 6.7-11.0 POCT-GLUCOSE [id number] 12:45:00* Test Item Value Reference Range Comments POC-GLUCOSE METER (BEAKER) (test grrm=0364) 146 mg/dL 70-110 TESTED AT [address] [address] BASIC METABOLIC [id number] 07:27:00* Test Item Value Reference Range Comments SODIUM (BEAKER) (test hwny=876) 132 meq/L 136-145 POTASSIUM (BEAKER) (test nfkn=389) 4.4 meq/L 3.5-5.1 CHLORIDE (BEAKER) (test cpry=554) 96 meq/L 98-107 CO2 (BEAKER) (test glax=220) 22 meq/L 22-29 BLOOD UREA NITROGEN (BEAKER) (test ybga=205) 52 mg/dL 7-21 CREATININE (BEAKER) (test vcpd=272) 8.25 mg/dL 0.57-1.25 GLUCOSE RANDOM (BEAKER) (test rkvz=412) 101 mg/dL 70-105 CALCIUM (BEAKER) (test mqqj=847) 8.8 mg/dL 8.4-10.2 EGFR (BEAKER) (test olwb=2299) 5 mL/min/1.73 sq m ESTIMATED GFR IS NOT ACCURATE CREATININE CLEARANCE IN PREDICTING GLOMERULAR FILTRATION RATE. ESTIMATED GFR IS NOT APPLICABLE FOR DIALYSIS PATIENTS. POCT-GLUCOSE [id number] 20:56:00* Test Item Value Reference Range Comments POC-GLUCOSE METER (BEAKER) (test bavf=0155) 167 mg/dL 70-110 TESTED AT [address] [address] POCT-GLUCOSE [id number] 18:55:00* Test Item Value Reference Range Comments POC-GLUCOSE METER (BEAKER) (test whov=9432) 114 mg/dL 70-110 TESTED AT [address] [address] POCT-GLUCOSE [id number] 13:04:00* Test Item Value Reference Range Comments POC-GLUCOSE METER (BEAKER) (test dkvf=8306) 138 mg/dL 70-110 TESTED AT [address] [address] POCT-GLUCOSE [id number] 07:34:00* Test Item Value Reference Range Comments POC-GLUCOSE METER (BEAKER) (test plwj=8104) 126 mg/dL 70-110 TESTED AT [address] [address] [id number] 05:41:00* Test Item Value Reference Range Comments PHOSPHORUS (BEAKER) (test uiej=824) 5.1 mg/dL 2.3-4.7 POCT-GLUCOSE [id number] 21:37:00* Test Item Value Reference Range Comments POC-GLUCOSE METER (BEAKER) (test rfgi=5690) 145 mg/dL 70-110 TESTED AT [address] [address] POCT-GLUCOSE [id number] 18:11:00* Test Item Value Reference Range Comments POC-GLUCOSE METER (BEAKER) (test wezx=3547) 159 mg/dL 70-110 TESTED AT [address] [address] POCT-GLUCOSE [id number] 16:15:00* Test Item Value Reference Range Comments POC-GLUCOSE METER (BEAKER) (test csjf=0860) 229 mg/dL 70-110 TESTED AT [address] [address] POCT-GLUCOSE [id number] 12:13:00* Test Item Value Reference Range Comments POC-GLUCOSE METER (BEAKER) (test clza=3879) 144 mg/dL 70-110 TESTED AT [address] [address] POCT-GLUCOSE [id number] 08:55:00* Test Item Value Reference Range Comments POC-GLUCOSE METER (BEAKER) (test tcnb=7435) 116 mg/dL 70-110 TESTED AT [place] [address] BASIC METABOLIC [id number] 06:54:00* Test Item Value Reference Range Comments SODIUM (BEAKER) (test qubi=477) 122 meq/L 136-145 POTASSIUM (BEAKER) (test musq=399) 5.1 meq/L 3.5-5.1 CHLORIDE (BEAKER) (test tdjj=519) 90 meq/L 98-107 CO2 (BEAKER) (test xktb=273) 18 meq/L 22-29 BLOOD UREA NITROGEN (BEAKER) (test gpaq=513) 62 mg/dL 7-21 CREATININE (BEAKER) (test njum=461) 9.24 mg/dL 0.57-1.25 GLUCOSE RANDOM (BEAKER) (test rgfh=732) 84 mg/dL 70-105 CALCIUM (BEAKER) (test nceq=995) 8.9 mg/dL 8.4-10.2 EGFR (BEAKER) (test qlzn=3966) 4 mL/min/1.73 sq m ESTIMATED GFR IS NOT ACCURATE CREATININE CLEARANCE IN PREDICTING GLOMERULAR FILTRATION RATE. ESTIMATED GFR IS NOT APPLICABLE FOR DIALYSIS PATIENTS. POCT-GLUCOSE [id number] 21:09:00* Test Item Value Reference Range Comments POC-GLUCOSE METER (BEAKER) (test dbwm=7070) 151 mg/dL 70-110 TESTED AT [address] [address] POCT-GLUCOSE [id number] 17:03:00* Test Item Value Reference Range Comments POC-GLUCOSE METER (BEAKER) (test fska=0409) 139 mg/dL 70-110 TESTED AT [address] [address] POCT-GLUCOSE [id number] 12:18:00* Test Item Value Reference Range Comments POC-GLUCOSE METER (BEAKER) (test atwx=4276) 134 mg/dL 70-110 TESTED AT [address] [address] POCT-GLUCOSE [id number] 07:29:00* Test Item Value Reference Range Comments POC-GLUCOSE METER (BEAKER) (test qfah=8360) 124 mg/dL 70-110 TESTED AT [address] [address] BASIC METABOLIC [id number] 05:59:00* Test Item Value Reference Range Comments SODIUM (BEAKER) (test powp=158) 127 meq/L 136-145 POTASSIUM (BEAKER) (test dcjl=707) 4.4 meq/L 3.5-5.1 CHLORIDE (BEAKER) (test mazq=992) 93 meq/L 98-107 CO2 (BEAKER) (test kaoc=809) 23 meq/L 22-29 BLOOD UREA NITROGEN (BEAKER) (test xpnl=808) 41 mg/dL 7-21 CREATININE (BEAKER) (test ainn=846) 7.85 mg/dL 0.57-1.25 GLUCOSE RANDOM (BEAKER) (test flcd=356) 87 mg/dL 70-105 CALCIUM (BEAKER) (test oszu=196) 8.9 mg/dL 8.4-10.2 EGFR (BEAKER) (test azew=3084) 5 mL/min/1.73 sq m ESTIMATED GFR IS NOT ACCURATE CREATININE CLEARANCE IN PREDICTING GLOMERULAR FILTRATION RATE. ESTIMATED GFR IS NOT APPLICABLE FOR DIALYSIS PATIENTS. CBC W/PLT COUNT & AUTO [id number] 05:57:00* Test Item Value Reference Range Comments WHITE BLOOD CELL COUNT (BEAKER) (test ddeg=148) 8.5 K/ L 4.0-10.0 RED BLOOD CELL COUNT (BEAKER) (test earm=554) 2.68 M/ L 4.00-5.00 HEMOGLOBIN (BEAKER) (test dnam=337) 8.7 GM/DL 12.0-15.0 HEMATOCRIT (BEAKER) (test huqp=146) 26.3 % 36.0-45.0 MEAN CORPUSCULAR VOLUME (BEAKER) (test ifjn=657) 98.2 fL 82.0-99.0 MEAN CORPUSCULAR HEMOGLOBIN (BEAKER) (test cebk=057) 32.3 pg 27.0-33.0 MEAN CORPUSCULAR HEMOGLOBIN CONC (BEAKER) (test mvec=244) 32.9 GM/DL 32.0-36.0 RED CELL DISTRIBUTION WIDTH (BEAKER) (test sxar=255) 15.5 % 10.3-14.2 PLATELET COUNT (BEAKER) (test qitl=271) 254 K/CU MM 150-430 MEAN PLATELET VOLUME (BEAKER) (test dedd=785) 7.5 fL 6.5-10.5 NUCLEATED RED BLOOD CELLS (BEAKER) (test pdva=710) 0 /100 WBC 0-0 NEUTROPHILS RELATIVE PERCENT (BEAKER) (test wuhb=624) 59 % LYMPHOCYTES RELATIVE PERCENT (BEAKER) (test uwiv=591) 28 % MONOCYTES RELATIVE PERCENT (BEAKER) (test mnvt=404) 10 % EOSINOPHILS RELATIVE PERCENT (BEAKER) (test eleu=118) 3 % BASOPHILS RELATIVE PERCENT (BEAKER) (test vhcd=088) 1 % NEUTROPHILS ABSOLUTE COUNT (BEAKER) (test fgia=013) 5.00 K/ L 1.80-8.00 LYMPHOCYTES ABSOLUTE COUNT (BEAKER) (test uruh=643) 2.38 K/ L 1.48-4.50 MONOCYTES ABSOLUTE COUNT (BEAKER) (test uvmj=481) 0.86 K/ L 0.00-1.30 EOSINOPHILS ABSOLUTE COUNT (BEAKER) (test cbfb=963) 0.21 K/ L 0.00-0.50 BASOPHILS ABSOLUTE COUNT (BEAKER) (test gdhd=752) 0.08 K/ L 0.00-0.20 0.00BLOOD [id number] 00:00:00* Test Item Value Reference Range Comments CULTURE (BEAKER) (test ppel=9076) No growth in 5 days POCT-GLUCOSE [id number] 21:22:00* Test Item Value Reference Range Comments POC-GLUCOSE METER (BEAKER) (test qpkc=4417) 119 mg/dL 70-110 TESTED AT [place] [address] POCT-GLUCOSE [id number] 17:14:00* Test Item Value Reference Range Comments POC-GLUCOSE METER (BEAKER) (test jswp=9268) 123 mg/dL 70-110 TESTED AT [place] [address] POCT-GLUCOSE [id number] 13:22:00* Test Item Value Reference Range Comments POC-GLUCOSE METER (BEAKER) (test xsvl=7300) 125 mg/dL 70-110 TESTED AT [place] [address] BLOOD [id number] 11:00:00* Test Item Value Reference Range Comments CULTURE (BEAKER) (test vgpj=1757) No growth in 5 days POCT-GLUCOSE [id number] 08:35:00* Test Item Value Reference Range Comments POC-GLUCOSE METER (BEAKER) (test acad=1510) 122 mg/dL 70-110 TESTED AT [place] [address] BASIC METABOLIC [id number] 06:49:00* Test Item Value Reference Range Comments SODIUM (BEAKER) (test zmno=175) 128 meq/L 136-145 POTASSIUM (BEAKER) (test crec=615) 4.2 meq/L 3.5-5.1 CHLORIDE (BEAKER) (test jxym=117) 95 meq/L 98-107 CO2 (BEAKER) (test rtrt=975) 22 meq/L 22-29 BLOOD UREA NITROGEN (BEAKER) (test rwdf=448) 27 mg/dL 7-21 CREATININE (BEAKER) (test dhmz=241) 6.21 mg/dL 0.57-1.25 GLUCOSE RANDOM (BEAKER) (test xtnp=555) 103 mg/dL 70-105 CALCIUM (BEAKER) (test xzlz=871) 8.7 mg/dL 8.4-10.2 EGFR (BEAKER) (test uwhp=5694) 7 mL/min/1.73 sq m ESTIMATED GFR IS NOT ACCURATE CREATININE CLEARANCE IN PREDICTING GLOMERULAR FILTRATION RATE. ESTIMATED GFR IS NOT APPLICABLE FOR DIALYSIS PATIENTS. CBC W/PLT COUNT & AUTO [id number] 06:27:00* Test Item Value Reference Range Comments WHITE BLOOD CELL COUNT (BEAKER) (test vpaf=668) 8.4 K/ L 4.0-10.0 RED BLOOD CELL COUNT (BEAKER) (test ylmw=804) 2.62 M/ L 4.00-5.00 HEMOGLOBIN (BEAKER) (test ixsz=101) 8.5 GM/DL 12.0-15.0 HEMATOCRIT (BEAKER) (test mmnc=899) 25.5 % 36.0-45.0 MEAN CORPUSCULAR VOLUME (BEAKER) (test xxtr=432) 97.5 fL 82.0-99.0 MEAN CORPUSCULAR HEMOGLOBIN (BEAKER) (test cwpk=105) 32.5 pg 27.0-33.0 MEAN CORPUSCULAR HEMOGLOBIN CONC (BEAKER) (test glxj=003) 33.3 GM/DL 32.0-36.0 RED CELL DISTRIBUTION WIDTH (BEAKER) (test pdyw=445) 15.7 % 10.3-14.2 PLATELET COUNT (BEAKER) (test swxx=565) 230 K/CU MM 150-430 MEAN PLATELET VOLUME (BEAKER) (test hisn=703) 7.3 fL 6.5-10.5 NUCLEATED RED BLOOD CELLS (BEAKER) (test jypq=204) 0 /100 WBC 0-0 NEUTROPHILS RELATIVE PERCENT (BEAKER) (test njsm=609) 64 % LYMPHOCYTES RELATIVE PERCENT (BEAKER) (test cclb=509) 22 % MONOCYTES RELATIVE PERCENT (BEAKER) (test hlgf=797) 11 % EOSINOPHILS RELATIVE PERCENT (BEAKER) (test hztd=083) 3 % BASOPHILS RELATIVE PERCENT (BEAKER) (test lsds=479) 1 % NEUTROPHILS ABSOLUTE COUNT (BEAKER) (test gyar=511) 5.36 K/ L 1.80-8.00 LYMPHOCYTES ABSOLUTE COUNT (BEAKER) (test umuv=573) 1.83 K/ L 1.48-4.50 MONOCYTES ABSOLUTE COUNT (BEAKER) (test fbmr=110) 0.94 K/ L 0.00-1.30 EOSINOPHILS ABSOLUTE COUNT (BEAKER) (test cwhj=181) 0.22 K/ L 0.00-0.50 BASOPHILS ABSOLUTE COUNT (BEAKER) (test ztov=127) 0.10 K/ L 0.00-0.20 0.00POCT-GLUCOSE [id number] 21:25:00* Test Item Value Reference Range Comments POC-GLUCOSE METER (BEAKER) (test syor=7867) 143 mg/dL 70-110 TESTED AT [place] [address] POCT-GLUCOSE [id number] 17:39:00* Test Item Value Reference Range Comments POC-GLUCOSE METER (BEAKER) (test dzxg=4884) 138 mg/dL 70-110 TESTED AT [address] [address] POCT-GLUCOSE [id number] 12:34:00* Test Item Value Reference Range Comments POC-GLUCOSE METER (BEAKER) (test elih=2689) 155 mg/dL 70-110 TESTED AT [address] [address] POCT-GLUCOSE [id number] 08:41:00* Test Item Value Reference Range Comments POC-GLUCOSE METER (BEAKER) (test fotu=5273) 128 mg/dL 70-110 TESTED AT [address] [address] BASIC METABOLIC [id number] 06:46:00* Test Item Value Reference Range Comments SODIUM (BEAKER) (test mpzn=198) 127 meq/L 136-145 POTASSIUM (BEAKER) (test hdqv=011) 4.4 meq/L 3.5-5.1 CHLORIDE (BEAKER) (test sise=396) 93 meq/L 98-107 CO2 (BEAKER) (test qmoc=499) 21 meq/L 22-29 BLOOD UREA NITROGEN (BEAKER) (test qfwu=994) 38 mg/dL 7-21 CREATININE (BEAKER) (test ptvk=116) 8.17 mg/dL 0.57-1.25 GLUCOSE RANDOM (BEAKER) (test qcbx=329) 103 mg/dL 70-105 CALCIUM (BEAKER) (test zqrj=979) 9.2 mg/dL 8.4-10.2 EGFR (BEAKER) (test dsta=9380) 5 mL/min/1.73 sq m ESTIMATED GFR IS NOT ACCURATE CREATININE CLEARANCE IN PREDICTING GLOMERULAR FILTRATION RATE. ESTIMATED GFR IS NOT APPLICABLE FOR DIALYSIS PATIENTS. CBC W/PLT COUNT & AUTO [id number] 06:44:00* Test Item Value Reference Range Comments WHITE BLOOD CELL COUNT (BEAKER) (test vwgv=011) 9.1 K/ L 4.0-10.0 RED BLOOD CELL COUNT (BEAKER) (test quqk=966) 2.73 M/ L 4.00-5.00 HEMOGLOBIN (BEAKER) (test wqpr=523) 8.9 GM/DL 12.0-15.0 HEMATOCRIT (BEAKER) (test ajyc=195) 26.6 % 36.0-45.0 MEAN CORPUSCULAR VOLUME (BEAKER) (test dpkk=906) 97.6 fL 82.0-99.0 MEAN CORPUSCULAR HEMOGLOBIN (BEAKER) (test dbbx=947) 32.7 pg 27.0-33.0 MEAN CORPUSCULAR HEMOGLOBIN CONC (BEAKER) (test qttc=277) 33.5 GM/DL 32.0-36.0 RED CELL DISTRIBUTION WIDTH (BEAKER) (test stuv=218) 15.7 % 10.3-14.2 PLATELET COUNT (BEAKER) (test zqsy=395) 241 K/CU MM 150-430 MEAN PLATELET VOLUME (BEAKER) (test fyku=823) 7.2 fL 6.5-10.5 NUCLEATED RED BLOOD CELLS (BEAKER) (test morz=178) 0 /100 WBC 0-0 NEUTROPHILS RELATIVE PERCENT (BEAKER) (test vonu=371) 60 % LYMPHOCYTES RELATIVE PERCENT (BEAKER) (test fzez=237) 27 % MONOCYTES RELATIVE PERCENT (BEAKER) (test aeto=473) 10 % EOSINOPHILS RELATIVE PERCENT (BEAKER) (test beuo=679) 3 % BASOPHILS RELATIVE PERCENT (BEAKER) (test qzhp=814) 1 % NEUTROPHILS ABSOLUTE COUNT (BEAKER) (test ltap=563) 5.42 K/ L 1.80-8.00 LYMPHOCYTES ABSOLUTE COUNT (BEAKER) (test zohy=951) 2.41 K/ L 1.48-4.50 MONOCYTES ABSOLUTE COUNT (BEAKER) (test nyvi=160) 0.93 K/ L 0.00-1.30 EOSINOPHILS ABSOLUTE COUNT (BEAKER) (test hhxw=055) 0.27 K/ L 0.00-0.50 BASOPHILS ABSOLUTE COUNT (BEAKER) (test mwmo=231) 0.08 K/ L 0.00-0.20 0.00POCT-GLUCOSE [id number] 20:32:00* Test Item Value Reference Range Comments POC-GLUCOSE METER (BEAKER) (test iboa=9003) 125 mg/dL 70-110 TESTED AT [place] [id number] [facility] [address] POCT-GLUCOSE [id number] 17:42:00* Test Item Value Reference Range Comments POC-GLUCOSE METER (BEAKER) (test muqe=6654) 113 mg/dL 70-110 TESTED AT [place] [id number] [facility] [address] POCT-GLUCOSE [id number] 12:59:00* Test Item Value Reference Range Comments POC-GLUCOSE METER (BEAKER) (test uvng=2992) 121 mg/dL 70-110 TESTED AT [place] [id number] [facility] [address] SURGICALLY OBTAINED CULTURE + GRAM [id number] 12:16:00* Test Item Value Reference Range Comments CULTURE (BEAKER) (test iiuw=7803) ENTEROCOCCUS SPECIES <1+ Enterococcus species Ampicillin (test code=26) Ciprofloxacin (test code=7) Clindamycin (test code=10) Daptomycin (test code=59) Erythromycin (test code=4) Gentamicin (test code=18) Gentamicin High Level Synergy (test oyzy=694) Levofloxacin (test code=22) Linezolid (test code=40) Moxifloxacin (test code=36) Nitrofurantoin (test code=23) Oxacillin (test code=14) Rifampin (test code=43) Streptomycin High Level Synergy (test euce=002) Tetracycline (test code=2) Tigecycline (test vzjw=667) Trimethoprim + Sulfamethoxazole (test code=47) Vancomycin (test code=13) CULTURE (BEAKER) (test pqjq=2448) 1+ Diphtheroid CULTURE (BEAKER) (test htlu=0396) COAGULASE NEGATIVE STAPHYLOCOCCUS <1+ Coagulase negative Staphylococcus Ampicillin (test code=26) Ciprofloxacin (test code=73) Clindamycin (test code=10) Daptomycin (test kpky=354) Erythromycin (test code=4) Gentamicin (test mprq=057) Gentamicin High Level Synergy (test ljun=5467) Levofloxacin (test code=22) Linezolid (test code=40) Moxifloxacin (test zbho=761) Nitrofurantoin (test code=23) Oxacillin (test code=14) Rifampin (test code=43) Streptomycin High Level Synergy (test swom=3023) Tetracycline (test code=2) Tigecycline (test xcuy=2110) Trimethoprim + Sulfamethoxazole (test code=47) Vancomycin (test code=13) GRAM STAIN RESULT (BEAKER) (test ykcn=6670) <1+ WBCs GRAM STAIN RESULT (BEAKER) (test rrzo=316525) No organisms seen [id number] 11:47:00* Test Item Value Reference Range Comments SODIUM (BEAKER) (test qeln=571) 127 meq/L 136-145 POCT-GLUCOSE [id number] 10:13:00* Test Item Value Reference Range Comments POC-GLUCOSE METER (BEAKER) (test kfsx=4458) 106 mg/dL 70-110 TESTED AT [address] [address] BLOOD [id number] 09:49:00* Test Item Value Reference Range Comments CULTURE (BEAKER) (test quzt=4871) From Anaerobic Bottle Only Coagulase negative Staphylococcus GRAM STAIN RESULT (BEAKER) (test raal=4790) From anaerobic bottle only: gram positive cocci in clusters METHICILLIN-RESISTANT STAPH. SPECIES DETECTED(Coagulase Negative Staphylococcus species.)First line therapy: vancomycinStaphylococcus aureus NOT DETECTED MecA D ETECTEDPossible contamination.The likelihood of pathogenicity is increased if th e organism is observed in multiple blood cultures obtained from separate venipun ctures. Tested at [facility] Microbiology Lab using the [employer] BCID Panel ([employer] | [place], [place]). This test has been FDA Approved and verification was performed prior to clinical use. Reference Range: Not Detected BASIC METABOLIC [id number] 06:55:00* Test Item Value Reference Range Comments SODIUM (BEAKER) (test ckvv=786) 128 meq/L 136-145 POTASSIUM (BEAKER) (test tnpn=682) 4.4 meq/L 3.5-5.1 CHLORIDE (BEAKER) (test zzno=109) 96 meq/L 98-107 CO2 (BEAKER) (test uytv=632) 21 meq/L 22-29 BLOOD UREA NITROGEN (BEAKER) (test eycs=093) 26 mg/dL 7-21 CREATININE (BEAKER) (test qria=493) 6.36 mg/dL 0.57-1.25 GLUCOSE RANDOM (BEAKER) (test cwfl=832) 89 mg/dL 70-105 CALCIUM (BEAKER) (test hshl=629) 8.9 mg/dL 8.4-10.2 EGFR (BEAKER) (test ifyv=8001) 7 mL/min/1.73 sq m ESTIMATED GFR IS NOT ACCURATE CREATININE CLEARANCE IN PREDICTING GLOMERULAR FILTRATION RATE. ESTIMATED GFR IS NOT APPLICABLE FOR DIALYSIS PATIENTS. CBC W/PLT COUNT & AUTO [id number] 06:28:00* Test Item Value Reference Range Comments WHITE BLOOD CELL COUNT (BEAKER) (test bjko=371) 8.5 K/ L 4.0-10.0 RED BLOOD CELL COUNT (BEAKER) (test oeus=181) 3.03 M/ L 4.00-5.00 HEMOGLOBIN (BEAKER) (test ccxa=119) 9.7 GM/DL 12.0-15.0 HEMATOCRIT (BEAKER) (test fkjc=153) 30.0 % 36.0-45.0 MEAN CORPUSCULAR VOLUME (BEAKER) (test lcey=474) 99.0 fL 82.0-99.0 MEAN CORPUSCULAR HEMOGLOBIN (BEAKER) (test nixc=516) 32.1 pg 27.0-33.0 MEAN CORPUSCULAR HEMOGLOBIN CONC (BEAKER) (test uuct=016) 32.4 GM/DL 32.0-36.0 RED CELL DISTRIBUTION WIDTH (BEAKER) (test oorc=562) 15.8 % 10.3-14.2 PLATELET COUNT (BEAKER) (test udpc=016) 212 K/CU MM 150-430 MEAN PLATELET VOLUME (BEAKER) (test btya=792) 7.2 fL 6.5-10.5 NUCLEATED RED BLOOD CELLS (BEAKER) (test xgqj=117) 0 /100 WBC 0-0 NEUTROPHILS RELATIVE PERCENT (BEAKER) (test mfzm=754) 66 % LYMPHOCYTES RELATIVE PERCENT (BEAKER) (test ithv=559) 22 % MONOCYTES RELATIVE PERCENT (BEAKER) (test gpui=995) 9 % EOSINOPHILS RELATIVE PERCENT (BEAKER) (test ekvn=932) 2 % BASOPHILS RELATIVE PERCENT (BEAKER) (test vtts=487) 1 % NEUTROPHILS ABSOLUTE COUNT (BEAKER) (test mlst=818) 5.56 K/ L 1.80-8.00 LYMPHOCYTES ABSOLUTE COUNT (BEAKER) (test mzwk=864) 1.90 K/ L 1.48-4.50 MONOCYTES ABSOLUTE COUNT (BEAKER) (test pgax=518) 0.73 K/ L 0.00-1.30 EOSINOPHILS ABSOLUTE COUNT (BEAKER) (test uszc=005) 0.19 K/ L 0.00-0.50 BASOPHILS ABSOLUTE COUNT (BEAKER) (test rsea=764) 0.10 K/ L 0.00-0.20 0.00BLOOD [id number] 06:00:00* Test Item Value Reference Range Comments CULTURE (BEAKER) (test kpdb=8028) No growth in 5 days MISCELLANEOUS LAB [id number] 21:54:00* Test Item Value Reference Range Comments SCAN RESULT (test orkx=1906231) METHICILLIN-RESISTANT STAPH. SPECIES DETECTED (Coagulase Negative Staphylococcus species.) First line therapy: vancomycin Staphylococcus aureus NOT DETECTED MecA DETECTED Possible contamination.The likelihood of pathogenicity is increased if the organism is observed in multiple blood cultures obtained from separate selene ipunctures. Tested at [facility] Microbiology Lab using the [employer] BCID [employer] ([employer] | [place], [place]). This test has been FDA Approved and verification was performed prior to clinical use. Reference Range: Not Detec tedPOCT-GLUCOSE [id number] 20:29:00* Test Item Value Reference Range Comments POC-GLUCOSE METER (BEAKER) (test bxab=8437) 137 mg/dL 70-[address] [facility] [address] [facility] [address] POCT-GLUCOSE [id number] 17:06:00* Test Item Value Reference Range Comments POC-GLUCOSE METER (BEAKER) (test aosm=2094) 130 mg/dL 70-[address] [facility] [address] [facility] [address] POCT-GLUCOSE [id number] 11:38:00* Test Item Value Reference Range Comments POC-GLUCOSE METER (AKER) (test wpto=5280) 138 mg/dL 70-[address] [facility] [address] [facility] [address] WOUND CULTURE + GRAM [id number] 10:08:00* Test Item Value Reference Range Comments CULTURE (BEAKER) (test stjj=4788) PROTEUS MIRABILIS 2+ Proteus mirabilis Amikacin (test code=1) Ampicillin + Sulbactam (test code=6) Aztreonam (test code=32) Cefazolin (test code=9) Cefepime (test code=51) Cefoxitin (test code=68) Ceftazidime (test code=27) Ceftriaxone (test code=52) Ertapenem (test code=38) Gentamicin (test code=18) Levofloxacin (test code=22) Meropenem (test code=34) Nitrofurantoin (test code=23) Piperacillin + Tazobactam (test code=29) Tetracycline (test code=2) Tigecycline (test btqv=514) Tobramycin (test code=25) Trimethoprim + Sulfamethoxazole (test code=47) CULTURE (BEAKER) (test mlnp=8897) ENTEROCOCCUS SPECIES 4+ Enterococcus species Ampicillin (test code=26) Ciprofloxacin (test code=7) Clindamycin (test code=10) Daptomycin (test code=59) Erythromycin (test code=4) Gentamicin (test code=18) Gentamicin High Level Synergy (test faaz=051) Levofloxacin (test code=22) Linezolid (test code=40) Moxifloxacin (test code=36) Nitrofurantoin (test xupr=780) Oxacillin (test code=14) Rifampin (test code=43) Streptomycin High Level Synergy (test zjju=525) Tetracycline (test code=2) Tigecycline (test tomu=1804) Trimethoprim + Sulfamethoxazole (test code=47) Vancomycin (test code=13) GRAM STAIN RESULT (BEAKER) (test djsa=6997) 4+ WBCs GRAM STAIN RESULT (BEAKER) (test cdel=280827) <1+ gram negative rods GRAM STAIN RESULT (BEAKER) (test uueg=810743) 1+ gram positive rods GRAM STAIN RESULT (BEAKER) (test bcpw=843283) 4+ gram positive cocci in pairs and clusters 4+ Skin gonzález<1+ Enteric organisms of greater than 2 types including Pseudomonas species No further workupPOCT-GLUCOSE [id number] 07:29:00* Test Item Value Reference Range Comments POC-GLUCOSE METER (BEAKER) (test wyvd=6655) 108 mg/dL 70-[address] [facility] [address] [facility] [address] [id number] 05:03:00* Test Item Value Reference Range Comments PHOSPHORUS (BEAKER) (test ropn=996) 8.1 mg/dL 2.3-4.7 CBC W/PLT COUNT & AUTO [id number] 05:03:00* Test Item Value Reference Range Comments WHITE BLOOD CELL COUNT (BEAKER) (test khep=923) 10.0 K/ L 4.0-10.0 RED BLOOD CELL COUNT (BEAKER) (test rwjw=980) 2.77 M/ L 4.00-5.00 HEMOGLOBIN (BEAKER) (test mmjn=663) 9.1 GM/DL 12.0-15.0 HEMATOCRIT (BEAKER) (test sqob=557) 27.5 % 36.0-45.0 MEAN CORPUSCULAR VOLUME (BEAKER) (test nuyb=507) 99.1 fL 82.0-99.0 MEAN CORPUSCULAR HEMOGLOBIN (BEAKER) (test nqpl=467) 32.8 pg 27.0-33.0 MEAN CORPUSCULAR HEMOGLOBIN CONC (BEAKER) (test loug=317) 33.1 GM/DL 32.0-36.0 RED CELL DISTRIBUTION WIDTH (BEAKER) (test vjlb=728) 15.9 % 10.3-14.2 PLATELET COUNT (BEAKER) (test trwg=124) 226 K/CU MM 150-430 MEAN PLATELET VOLUME (BEAKER) (test kfzx=777) 7.0 fL 6.5-10.5 NUCLEATED RED BLOOD CELLS (BEAKER) (test gabm=334) 0 /100 WBC 0-0 NEUTROPHILS RELATIVE PERCENT (BEAKER) (test qfqa=943) 60 % LYMPHOCYTES RELATIVE PERCENT (BEAKER) (test bykn=391) 27 % MONOCYTES RELATIVE PERCENT (BEAKER) (test dxsx=151) 10 % EOSINOPHILS RELATIVE PERCENT (BEAKER) (test mbsh=525) 3 % BASOPHILS RELATIVE PERCENT (BEAKER) (test cypl=446) 1 % NEUTROPHILS ABSOLUTE COUNT (BEAKER) (test ubqe=311) 6.01 K/ L 1.80-8.00 LYMPHOCYTES ABSOLUTE COUNT (BEAKER) (test ilbj=793) 2.68 K/ L 1.48-4.50 MONOCYTES ABSOLUTE COUNT (BEAKER) (test rdid=715) 0.97 K/ L 0.00-1.30 EOSINOPHILS ABSOLUTE COUNT (BEAKER) (test ontd=343) 0.27 K/ L 0.00-0.50 BASOPHILS ABSOLUTE COUNT (BEAKER) (test tmfq=327) 0.08 K/ L 0.00-0.20 0.00BASIC METABOLIC [id number] 05:03:00* Test Item Value Reference Range Comments SODIUM (BEAKER) (test oaih=658) 132 meq/L 136-145 POTASSIUM (BEAKER) (test eocl=445) 4.3 meq/L 3.5-5.1 CHLORIDE (BEAKER) (test wydc=351) 95 meq/L 98-107 CO2 (BEAKER) (test febi=242) 23 meq/L 22-29 BLOOD UREA NITROGEN (BEAKER) (test xeex=804) 37 mg/dL 7-21 CREATININE (BEAKER) (test vtwn=878) 8.14 mg/dL 0.57-1.25 GLUCOSE RANDOM (BEAKER) (test sret=570) 102 mg/dL 70-105 CALCIUM (BEAKER) (test kzjq=207) 8.9 mg/dL 8.4-10.2 EGFR (BEAKER) (test xhax=9686) 5 mL/min/1.73 sq m ESTIMATED GFR IS NOT ACCURATE CREATININE CLEARANCE IN PREDICTING GLOMERULAR FILTRATION RATE. ESTIMATED GFR IS NOT APPLICABLE FOR DIALYSIS PATIENTS. POCT-GLUCOSE [id number] 21:18:00* Test Item Value Reference Range Comments POC-GLUCOSE METER (BEAKER) (test uqeo=9574) 161 mg/dL 70-[address] [facility] [address] [facility] [address] POCT-GLUCOSE [id number] 16:48:00* Test Item Value Reference Range Comments POC-GLUCOSE METER (BEAKER) (test rmsk=2649) 138 mg/dL 70-[address] [facility] [address] [facility] [address] POCT-GLUCOSE [id number] 11:45:00* Test Item Value Reference Range Comments POC-GLUCOSE METER (BEAKER) (test cnzd=3461) 153 mg/dL 70-110 TESTED AT [place] [id number] [facility] [address] POCT-GLUCOSE [id number] 07:34:00* Test Item Value Reference Range Comments POC-GLUCOSE METER (BEAKER) (test sumi=1729) 133 mg/dL 70-[address] [facility] [address] [facility] [address] CBC W/PLT COUNT & AUTO [id number] 06:16:00* Test Item Value Reference Range Comments WHITE BLOOD CELL COUNT (BEAKER) (test ohrt=527) 10.0 K/ L 4.0-10.0 RED BLOOD CELL COUNT (BEAKER) (test qzld=260) 2.92 M/ L 4.00-5.00 HEMOGLOBIN (BEAKER) (test ljpp=575) 9.3 GM/DL 12.0-15.0 HEMATOCRIT (BEAKER) (test jeyi=708) 28.8 % 36.0-45.0 MEAN CORPUSCULAR VOLUME (BEAKER) (test hcmr=578) 98.7 fL 82.0-99.0 MEAN CORPUSCULAR HEMOGLOBIN (BEAKER) (test iyto=819) 31.9 pg 27.0-33.0 MEAN CORPUSCULAR HEMOGLOBIN CONC (BEAKER) (test skyt=535) 32.3 GM/DL 32.0-36.0 RED CELL DISTRIBUTION WIDTH (BEAKER) (test pwsx=011) 16.3 % 10.3-14.2 PLATELET COUNT (BEAKER) (test ttdk=183) 228 K/CU MM 150-430 MEAN PLATELET VOLUME (BEAKER) (test oclj=258) 7.0 fL 6.5-10.5 NUCLEATED RED BLOOD CELLS (BEAKER) (test xurs=346) 0 /100 WBC 0-0 NEUTROPHILS RELATIVE PERCENT (BEAKER) (test yyvw=984) 69 % LYMPHOCYTES RELATIVE PERCENT (BEAKER) (test fkio=675) 21 % MONOCYTES RELATIVE PERCENT (BEAKER) (test wzdn=372) 9 % EOSINOPHILS RELATIVE PERCENT (BEAKER) (test kpxo=238) 1 % BASOPHILS RELATIVE PERCENT (BEAKER) (test gfhb=055) 1 % NEUTROPHILS ABSOLUTE COUNT (BEAKER) (test qtff=027) 6.87 K/ L 1.80-8.00 LYMPHOCYTES ABSOLUTE COUNT (BEAKER) (test qucw=707) 2.07 K/ L 1.48-4.50 MONOCYTES ABSOLUTE COUNT (BEAKER) (test xsrp=764) 0.92 K/ L 0.00-1.30 EOSINOPHILS ABSOLUTE COUNT (BEAKER) (test fugw=621) 0.10 K/ L 0.00-0.50 BASOPHILS ABSOLUTE COUNT (BEAKER) (test lvcy=733) 0.06 K/ L 0.00-0.20 0.00BASIC METABOLIC [id number] 06:13:00* Test Item Value Reference Range Comments SODIUM (BEAKER) (test ffnd=751) 133 meq/L 136-145 POTASSIUM (BEAKER) (test adud=867) 3.9 meq/L 3.5-5.1 CHLORIDE (BEAKER) (test vyqu=397) 98 meq/L 98-107 CO2 (BEAKER) (test rmuh=133) 22 meq/L 22-29 BLOOD UREA NITROGEN (BEAKER) (test rdxd=042) 25 mg/dL 7-21 CREATININE (BEAKER) (test jrmw=669) 6.36 mg/dL 0.57-1.25 GLUCOSE RANDOM (BEAKER) (test udli=942) 119 mg/dL 70-105 CALCIUM (BEAKER) (test leqy=016) 8.9 mg/dL 8.4-10.2 EGFR (BEAKER) (test lmfv=7143) 7 mL/min/1.73 sq m ESTIMATED GFR IS NOT ACCURATE CREATININE CLEARANCE IN PREDICTING GLOMERULAR FILTRATION RATE. ESTIMATED GFR IS NOT APPLICABLE FOR DIALYSIS PATIENTS. VANCOMYCIN LEVEL, [id number] 06:08:00* Test Item Value Reference Range Comments VANCOMYCIN RANDOM (BEAKER) (test ngty=621) 23.6 ug/mL Reference Range: No NormalsPOCT-GLUCOSE [id number] 23:24:00* Test Item Value Reference Range Comments POC-GLUCOSE METER (BEAKER) (test hmue=9525) 156 mg/dL 70-110 TESTED AT [address] [place] [address] POCT-GLUCOSE [id number] 17:50:00* Test Item Value Reference Range Comments POC-GLUCOSE METER ([employer]) (test wjry=9520) 137 mg/dL 70-[address] [facility] [address] [facility] [address] SPUTUM CULTURE + GRAM [id number] 14:27:00* Test Item Value Reference Range Comments CULTURE ([employer]) (test bgot=1978) PSEUDOMONAS AERUGINOSA <1+ Pseudomonas aeruginosa Amikacin (test [...] , Resistant <0 or >1 Doripenem (test ofqp=021) Susceptible 0-2 , Resistant <0 or >2 [...] + Clavulanic Acid (test code=80) Tigecycline (test iefg=500) Tobramycin (test code=25) Susceptible 0-4 , Resistant <0 or >4 Trimethoprim + Sulfamethoxazole (test code=47) GRAM STAIN RESULT ([employer]) (test ljgc=4679) 2+ WBCs GRAM STAIN RESULT ([employer]) (test viml=681781) 0-5 epithelial cells GRAM STAIN RESULT (BEAKER) (test bqvx=546590) <1+ gram negative rods <1+ Normal respiratory gonzález presentPOCT-GLUCOSE [id number] 12:25:00* Test Item Value Reference Range Comments POC-GLUCOSE METER (BEAKER) (test togd=5275) 204 mg/dL 70-[address] [facility] [address] [facility] [address] POCT-GLUCOSE [id number] 08:58:00* Test Item Value Reference Range Comments POC-GLUCOSE METER (BEAKER) (test eups=0566) 138 mg/dL 70-[address] [facility] [address] [facility] [address] CBC W/PLT COUNT & AUTO [id number] 05:46:00* Test Item Value Reference Range Comments WHITE BLOOD CELL COUNT (BEAKER) (test jwnp=338) 13.0 K/ L 4.0-10.0 RED BLOOD CELL COUNT (BEAKER) (test ubiy=170) 3.06 M/ L 4.00-5.00 HEMOGLOBIN (BEAKER) (test yhqy=049) 9.8 GM/DL 12.0-15.0 HEMATOCRIT (BEAKER) (test dbbb=171) 30.7 % 36.0-45.0 MEAN CORPUSCULAR VOLUME (BEAKER) (test oudk=825) 100.0 fL 82.0-99.0 MEAN CORPUSCULAR HEMOGLOBIN (BEAKER) (test mjti=358) 32.0 pg 27.0-33.0 MEAN CORPUSCULAR HEMOGLOBIN CONC (BEAKER) (test yytw=311) 31.9 GM/DL 32.0-36.0 RED CELL DISTRIBUTION WIDTH (BEAKER) (test fiky=604) 16.4 % 10.3-14.2 PLATELET COUNT (BEAKER) (test aimk=557) 267 K/CU MM 150-430 MEAN PLATELET VOLUME (BEAKER) (test aezi=599) 6.7 fL 6.5-10.5 NUCLEATED RED BLOOD CELLS (BEAKER) (test hepl=658) 0 /100 WBC 0-0 NEUTROPHILS RELATIVE PERCENT (BEAKER) (test kcrg=504) 66 % LYMPHOCYTES RELATIVE PERCENT (BEAKER) (test ewbb=314) 24 % MONOCYTES RELATIVE PERCENT (BEAKER) (test htan=614) 8 % EOSINOPHILS RELATIVE PERCENT (BEAKER) (test jqqh=881) 1 % BASOPHILS RELATIVE PERCENT (BEAKER) (test tcxt=256) 1 % NEUTROPHILS ABSOLUTE COUNT (BEAKER) (test suer=517) 8.52 K/ L 1.80-8.00 LYMPHOCYTES ABSOLUTE COUNT (BEAKER) (test bilx=136) 3.14 K/ L 1.48-4.50 MONOCYTES ABSOLUTE COUNT (BEAKER) (test dnow=642) 1.04 K/ L 0.00-1.30 EOSINOPHILS ABSOLUTE COUNT (BEAKER) (test xdlb=844) 0.16 K/ L 0.00-0.50 BASOPHILS ABSOLUTE COUNT (BEAKER) (test pfpa=477) 0.09 K/ L 0.00-0.20 [id number] 05:34:00* Test Item Value Reference Range Comments PHOSPHORUS (BEAKER) (test psjj=343) 8.0 mg/dL 2.3-4.7 BASIC METABOLIC [id number] 05:34:00* Test Item Value Reference Range Comments SODIUM (BEAKER) (test amzk=352) 130 meq/L 136-145 POTASSIUM (BEAKER) (test pmnd=089) 4.0 meq/L 3.5-5.1 CHLORIDE (BEAKER) (test mqbd=489) 98 meq/L 98-107 CO2 (BEAKER) (test nhlh=938) 18 meq/L 22-29 BLOOD UREA NITROGEN (BEAKER) (test fgec=225) 40 mg/dL 7-21 CREATININE (BEAKER) (test tvny=867) 7.86 mg/dL 0.57-1.25 GLUCOSE RANDOM (BEAKER) (test nlfq=901) 112 mg/dL 70-105 CALCIUM (BEAKER) (test imix=039) 8.9 mg/dL 8.4-10.2 EGFR (BEAKER) (test dkxu=9266) 5 mL/min/1.73 sq m ESTIMATED GFR IS NOT ACCURATE CREATININE CLEARANCE IN PREDICTING GLOMERULAR FILTRATION RATE. ESTIMATED GFR IS NOT APPLICABLE FOR DIALYSIS PATIENTS. POCT-GLUCOSE [id number] 21:04:00* Test Item Value Reference Range Comments POC-GLUCOSE METER (BEAKER) (test qtwt=5567) 150 mg/dL 70-[address] [facility] [address] [facility] [address] POCT-GLUCOSE [id number] 11:56:00* Test Item Value Reference Range Comments POC-GLUCOSE METER (BEAKER) (test bwto=4265) 118 mg/dL 70-[address] [facility] [address] [facility] [address] POCT-GLUCOSE [id number] 06:29:00* Test Item Value Reference Range Comments POC-GLUCOSE METER (BEAKER) (test qaug=1699) 109 mg/dL 70-110 TESTED AT [place] [id number] [facility] [address] BASIC METABOLIC [id number] 04:39:00* Test Item Value Reference Range Comments SODIUM (BEAKER) (test ngyn=590) 135 meq/L 136-145 POTASSIUM (BEAKER) (test gqcn=453) 3.9 meq/L 3.5-5.1 CHLORIDE (BEAKER) (test iunz=085) 102 meq/L 98-107 CO2 (BEAKER) (test jcut=819) 21 meq/L 22-29 BLOOD UREA NITROGEN (BEAKER) (test yyyg=829) 29 mg/dL 7-21 CREATININE (BEAKER) (test fgwp=833) 6.00 mg/dL 0.57-1.25 GLUCOSE RANDOM (BEAKER) (test wqtw=202) 106 mg/dL 70-105 CALCIUM (BEAKER) (test ugqy=356) 8.5 mg/dL 8.4-10.2 EGFR (BEAKER) (test dnog=0933) 7 mL/min/1.73 sq m ESTIMATED GFR IS NOT ACCURATE CREATININE CLEARANCE IN PREDICTING GLOMERULAR FILTRATION RATE. ESTIMATED GFR IS NOT APPLICABLE FOR DIALYSIS PATIENTS. CBC W/PLT COUNT & AUTO [id number] 04:36:00* Test Item Value Reference Range Comments WHITE BLOOD CELL COUNT (BEAKER) (test wykj=894) 13.5 K/ L 4.0-10.0 RED BLOOD CELL COUNT (BEAKER) (test mtte=445) 2.80 M/ L 4.00-5.00 HEMOGLOBIN (BEAKER) (test qyra=953) 9.1 GM/DL 12.0-15.0 HEMATOCRIT (BEAKER) (test iltp=805) 28.2 % 36.0-45.0 MEAN CORPUSCULAR VOLUME (BEAKER) (test wsqz=972) 100.0 fL 82.0-99.0 MEAN CORPUSCULAR HEMOGLOBIN (BEAKER) (test tokn=091) 32.4 pg 27.0-33.0 MEAN CORPUSCULAR HEMOGLOBIN CONC (BEAKER) (test eoty=598) 32.3 GM/DL 32.0-36.0 RED CELL DISTRIBUTION WIDTH (BEAKER) (test binr=304) 16.4 % 10.3-14.2 PLATELET COUNT (BEAKER) (test spmv=345) 248 K/CU MM 150-430 MEAN PLATELET VOLUME (BEAKER) (test segt=282) 6.7 fL 6.5-10.5 NUCLEATED RED BLOOD CELLS (BEAKER) (test syvw=429) 0 /100 WBC 0-0 NEUTROPHILS RELATIVE PERCENT (BEAKER) (test vvct=102) 73 % LYMPHOCYTES RELATIVE PERCENT (BEAKER) (test xcqv=702) 21 % MONOCYTES RELATIVE PERCENT (BEAKER) (test ndul=050) 6 % EOSINOPHILS RELATIVE PERCENT (BEAKER) (test sgdk=667) 1 % BASOPHILS RELATIVE PERCENT (BEAKER) (test upky=164) 1 % NEUTROPHILS ABSOLUTE COUNT (BEAKER) (test utiw=157) 9.83 K/ L 1.80-8.00 LYMPHOCYTES ABSOLUTE COUNT (BEAKER) (test qgsv=636) 2.78 K/ L 1.48-4.50 MONOCYTES ABSOLUTE COUNT (BEAKER) (test dzug=881) 0.79 K/ L 0.00-1.30 EOSINOPHILS ABSOLUTE COUNT (BEAKER) (test yvcg=390) 0.08 K/ L 0.00-0.50 BASOPHILS ABSOLUTE COUNT (BEAKER) (test qwjc=789) 0.07 K/ L 0.00-0.20 0.00POCT-GLUCOSE [id number] 00:12:00* Test Item Value Reference Range Comments POC-GLUCOSE METER (BEAKER) (test ziue=2530) 147 mg/dL 70-[address] [facility] [address] [facility] [address] HEPATITIS B [id number] 20:48:00* Test Item Value Reference Range Comments HEPATITIS B CORE TOTAL ANTIBODY (BEAKER) (test pfsg=919) Nonreactive Nonreactive HEPATITIS B SURFACE ANTIBODY (BEAKER) (test xnee=348) < mIU/mL <8.0 HEPATITIS B SURFACE ANTIGEN (2) (BEAKER) (test wgva=3733) Nonreactive Nonreactive POCT-GLUCOSE [id number] 17:43:00* Test Item Value Reference Range Comments POC-GLUCOSE METER (BEAKER) (test ffeq=3055) 136 mg/dL 70-[address] [facility] [address] [facility] [address] CBC W/PLT COUNT & AUTO [id number] 14:37:00* Test Item Value Reference Range Comments WHITE BLOOD CELL COUNT (BEAKER) (test wlmt=617) 23.1 K/ L 4.0-10.0 RED BLOOD CELL COUNT (BEAKER) (test hygx=975) 3.02 M/ L 4.00-5.00 HEMOGLOBIN (BEAKER) (test cfqn=207) 9.8 GM/DL 12.0-15.0 HEMATOCRIT (BEAKER) (test sqpb=159) 30.6 % 36.0-45.0 MEAN CORPUSCULAR VOLUME (BEAKER) (test polj=307) 101.0 fL 82.0-99.0 MEAN CORPUSCULAR HEMOGLOBIN (BEAKER) (test itpr=665) 32.4 pg 27.0-33.0 MEAN CORPUSCULAR HEMOGLOBIN CONC (BEAKER) (test nphi=924) 32.1 GM/DL 32.0-36.0 RED CELL DISTRIBUTION WIDTH (BEAKER) (test cwnd=250) 16.4 % 10.3-14.2 PLATELET COUNT (BEAKER) (test lcjk=626) 258 K/CU MM 150-430 MEAN PLATELET VOLUME (BEAKER) (test kmhd=275) 6.7 fL 6.5-10.5 NUCLEATED RED BLOOD CELLS (BEAKER) (test jvuj=282) 1 /100 WBC 0-0 NEUTROPHILS RELATIVE PERCENT (BEAKER) (test mkfp=973) 90 % LYMPHOCYTES RELATIVE PERCENT (BEAKER) (test vjqt=658) 8 % MONOCYTES RELATIVE PERCENT (BEAKER) (test llzs=917) 1 % EOSINOPHILS RELATIVE PERCENT (BEAKER) (test pnrt=319) 0 % BASOPHILS RELATIVE PERCENT (BEAKER) (test kcwt=057) 0 % NEUTROPHILS ABSOLUTE COUNT (BEAKER) (test ixft=643) 20.80 K/ L 1.80-8.00 LYMPHOCYTES ABSOLUTE COUNT (BEAKER) (test wwro=623) 1.83 K/ L 1.48-4.50 MONOCYTES ABSOLUTE COUNT (BEAKER) (test kzlm=475) 0.30 K/ L 0.00-1.30 EOSINOPHILS ABSOLUTE COUNT (BEAKER) (test gxfe=214) 0.06 K/ L 0.00-0.50 BASOPHILS ABSOLUTE COUNT (BEAKER) (test kbyh=502) 0.08 K/ L 0.00-0.20 0.000.560.000.000.630.000.000.000.00(MANUAL DIFFERENTIAL)2017-01-10 14:37:00* Test Item Value Reference Range Comments TOTAL COUNTED (BEAKER) (test hzre=6492) WBC MORPHOLOGY (BEAKER) (test nzpd=107) Normal PLT MORPHOLOGY (BEAKER) (test pxtd=792) Normal ANISOCYTOSIS (BEAKER) (test nrll=601) 2+ moderate POLYCHROMATOPHILLIC RBCS(BEAKER) (test xsdj=862) 2+ moderate BASIC METABOLIC [id number] 12:45:00* Test Item Value Reference Range Comments SODIUM (BEAKER) (test liwb=258) 134 meq/L 136-145 POTASSIUM (BEAKER) (test zkrl=108) 5.4 meq/L 3.5-5.1 Specimen moderately hemolyzed CHLORIDE (BEAKER) (test hubc=956) 102 meq/L 98-107 CO2 (BEAKER) (test qxho=701) 18 meq/L 22-29 BLOOD UREA NITROGEN (BEAKER) (test cksf=854) 37 mg/dL 7-21 CREATININE (BEAKER) (test pbkn=379) 6.70 mg/dL 0.57-1.25 Specimen moderately hemolyzed GLUCOSE RANDOM (BEAKER) (test oudi=337) 132 mg/dL 70-105 CALCIUM (BEAKER) (test uskp=767) 9.1 mg/dL 8.4-10.2 EGFR (BEAKER) (test ddnn=1447) 6 mL/min/1.73 sq m ESTIMATED GFR IS NOT ACCURATE CREATININE CLEARANCE IN PREDICTING GLOMERULAR FILTRATION RATE. ESTIMATED GFR IS NOT APPLICABLE FOR DIALYSIS PATIENTS. POCT-GLUCOSE [id number] 11:46:00* Test Item Value Reference Range Comments POC-GLUCOSE METER (BEAKER) (test xkio=6754) 166 mg/dL 70-110 TESTED AT [address] [address] CREATINE KINASE (CK), TOTAL AND [id number] 06:58:00* Test Item Value Reference Range Comments CREATINE KINASE TOTAL (BEAKER) (test gspg=769) 84 U/L 29-200 CREATINE KINASE-MB (BEAKER) (test ulkd=984) 3.2 ng/mL 0.0-6.6 CREATINE KINASE-MB INDEX (BEAKER) (test bfqn=678) 3.8 % Effective 07/10/2014: CK-MB Reference Range ChangeNew: 0.0-6.6 Previous: 0.0- 4.9CK-MB Reference Range:<6.7 Normal6.7-10.0 Borderline>10.0 Abnormal TROPONIN [id number] 06:58:00* Test Item Value Reference Range Comments TROPONIN I (BEAKER) (test iyox=787) 0.01 ng/mL 0.00-0.03 Effective 07/10/2014: Reference Range [...] acute neurological disease, and pers istent tachyarrhythmia.POCT-GLUCOSE [id number] 06:12:00* Test Item Value Reference Range Comments POC-GLUCOSE METER (BEAKER) (test vlni=9290) 208 mg/dL 70-[address] [facility] [address] [place] [address] BASIC METABOLIC [id number] 04:53:00* Test Item Value Reference Range Comments SODIUM (BEAKER) (test twbm=863) 129 meq/L 136-145 POTASSIUM (BEAKER) (test nmog=166) 6.0 meq/L 3.5-5.1 Specimen slightly hemolyzed CHLORIDE (BEAKER) (test bnti=747) 99 meq/L 98-107 CO2 (BEAKER) (test kdjy=851) 20 meq/L 22-29 BLOOD UREA NITROGEN (BEAKER) (test lktz=377) 33 mg/dL 7-21 CREATININE (BEAKER) (test pkbw=801) 6.21 mg/dL 0.57-1.25 Specimen slightly hemolyzed GLUCOSE RANDOM (BEAKER) (test ntnp=010) 160 mg/dL 70-105 CALCIUM (BEAKER) (test ucin=123) 9.1 mg/dL 8.4-10.2 EGFR (BEAKER) (test tuww=9533) 7 mL/min/1.73 sq m ESTIMATED GFR IS NOT ACCURATE CREATININE CLEARANCE IN PREDICTING GLOMERULAR FILTRATION RATE. ESTIMATED GFR IS NOT APPLICABLE FOR DIALYSIS PATIENTS. POCT-GLUCOSE [id number] 00:47:00* Test Item Value Reference Range Comments POC-GLUCOSE METER (BEAKER) (test jjdk=6447) 179 mg/dL 70-[address] [facility] [address] [facility] [address] CBC W/PLT COUNT & AUTO [id number] 21:26:00* Test Item Value Reference Range Comments WHITE BLOOD CELL COUNT (BEAKER) (test grrf=771) 26.2 K/ L 4.0-10.0 RED BLOOD CELL COUNT (BEAKER) (test bkeh=629) 3.25 M/ L 4.00-5.00 HEMOGLOBIN (BEAKER) (test qeyh=068) 10.7 GM/DL 12.0-15.0 HEMATOCRIT (BEAKER) (test fefe=679) 33.0 % 36.0-45.0 MEAN CORPUSCULAR VOLUME (BEAKER) (test vrul=879) 101.0 fL 82.0-99.0 MEAN CORPUSCULAR HEMOGLOBIN (BEAKER) (test pdto=777) 32.8 pg 27.0-33.0 MEAN CORPUSCULAR HEMOGLOBIN CONC (BEAKER) (test eiyt=150) 32.4 GM/DL 32.0-36.0 RED CELL DISTRIBUTION WIDTH (BEAKER) (test msqp=643) 16.6 % 10.3-14.2 PLATELET COUNT (BEAKER) (test beub=491) 323 K/CU MM 150-430 MEAN PLATELET VOLUME (BEAKER) (test vlpc=717) 6.9 fL 6.5-10.5 NUCLEATED RED BLOOD CELLS (BEAKER) (test gooj=809) 3 /100 WBC 0-0 0.000.550.000.000.600.000.000.000.00(MANUAL DIFFERENTIAL)2017-01-09 21:26:00* Test Item Value Reference Range Comments NEUTROPHILS - REL (DIFF) (BEAKER) (test cwxg=0513) 86 % LYMPHOCYTES - REL (DIFF) (BEAKER) (test clnq=3114) 9 % MONOCYTES - REL (DIFF) (BEAKER) (test hyan=1424) 1 % EOSINOPHILS - REL (DIFF) (BEAKER) (test vkan=3965) 1 % BASOPHILS - REL (DIFF) (BEAKER) (test lfzj=8037) 1 % MYELOCYTES-REL (DIFF) (BEAKER) (test yjce=6275) 1 % 0-0 BANDS - REL (DIFF) (BEAKER) (test qgdq=8898) 1 % 0-10 NEUTROPHILS - ABS (DIFF) (BEAKER) (test kiwp=7503) 22.53 K/ L 1.80-8.00 LYMPHOCYTES - ABS (DIFF) (BEAKER) (test dnzv=0542) 2.36 K/ L 1.48-4.50 MONOCYTES - ABS (DIFF) (BEAKER) (test bjwg=2049) 0.26 K/ L 0.00-1.30 EOSINOPHILS - ABS (DIFF) (BEAKER) (test pvok=3689) 0.26 K/ L 0.00-0.50 BASOPHILS - ABS (DIFF) (BEAKER) (test axve=0529) 0.26 K/ L 0.00-0.20 BANDS-ABS (DIFF) (BEAKER) (test zmtx=5549) 0.3 K/ L 0.0-0.8 MYELOCYTES-ABS (DIFF) (BEAKER) (test zeaq=6510) 0.26 K/ L 0.00-0.00 TOTAL COUNTED (BEAKER) (test zxub=1588) 100 BANDS + SEGMENTED NEUTROPHILS (BEAKER) (test suwn=8775) 22.79 MANUAL NRBC PER 100 CELLS (BEAKER) (test ohfn=9299) 1 /100 WBC 0-0 WBC MORPHOLOGY (BEAKER) (test mzut=195) Normal PLT MORPHOLOGY (BEAKER) (test mfxh=659) Normal ANISOCYTOSIS (BEAKER) (test gpvp=571) 1+ few POLYCHROMATOPHILLIC RBCS(BEAKER) (test srny=299) 1+ few PROTHROMBIN TIME/[id number] 20:50:00* Test Item Value Reference Range Comments PROTIME (BEAKER) (test ikxy=481) 16.8 seconds 11.7-14.7 INR (BEAKER) (test agod=312) 1.4 <=5.9 RECOMMENDED COUMADIN/WARFARIN INR THERAPY RANGESSTANDARD DOSE: 2.0 - 3.0 Inclu cassie: PROPHYLAXIS for venous thrombosis, systemic embolization; TREATMENT for selene ous thrombosis and/or pulmonary embolus.HIGH RISK: Target INR is 2.5-3.5 for pat ients with mechanical heart valves.BASIC METABOLIC [id number] 20:30:00* Test Item Value Reference Range Comments SODIUM (BEAKER) (test ftto=937) 130 meq/L 136-145 POTASSIUM (BEAKER) (test ryxv=617) 5.5 meq/L 3.5-5.1 CHLORIDE (BEAKER) (test pefr=743) 98 meq/L 98-107 CO2 (BEAKER) (test azqg=540) 19 meq/L 22-29 BLOOD UREA NITROGEN (BEAKER) (test nfhq=108) 29 mg/dL 7-21 CREATININE (BEAKER) (test lysn=373) 5.58 mg/dL 0.57-1.25 GLUCOSE RANDOM (BEAKER) (test hydh=403) 184 mg/dL 70-105 CALCIUM (BEAKER) (test kool=650) 9.4 mg/dL 8.4-10.2 EGFR (BEAKER) (test zrlq=4191) 8 mL/min/1.73 sq m ESTIMATED GFR IS NOT ACCURATE CREATININE CLEARANCE IN PREDICTING GLOMERULAR FILTRATION RATE. ESTIMATED GFR IS NOT APPLICABLE FOR DIALYSIS PATIENTS. HEPATIC FUNCTION [id number] 20:24:00* Test Item Value Reference Range Comments TOTAL PROTEIN (BEAKER) (test ymif=655) 7.9 gm/dL 6.0-8.3 ALBUMIN (BEAKER) (test dnvl=6923) 4.1 g/dL 3.5-5.0 BILIRUBIN TOTAL (BEAKER) (test ujrc=822) 0.4 mg/dL 0.2-1.2 BILIRUBIN DIRECT (BEAKER) (test mbxs=216) 0.1 mg/dL 0.1-0.5 ALKALINE PHOSPHATASE (BEAKER) (test cxmw=029) 87 U/L 40-150 AST (SGOT) (BEAKER) (test wbes=974) 11 U/L 5-34 ALT (SGPT) (BEAKER) (test iptb=180) 11 U/L 6-55 BLOOD GAS, [id number] 19:58:00* Test Item Value Reference Range Comments PH ARTERIAL (BEAKER) (test cfng=991) 7.29 7.35-7.45 PCO2 ARTERIAL (BEAKER) (test rbpk=157) 50 mmHg 35-45 PO2 ARTERIAL (BEAKER) (test smiz=887) 99 mmHg 80-90 O2 SATURATION ARTERIAL (BEAKER) (test xzcu=965) 96.6 % 96.0-97.0 HCO3 ARTERIAL (BEAKER) (test aihf=400) 24 mmol/L 21-29 BASE EXCESS ARTERIAL (BEAKER) (test iood=467) -3.1 mmol/L -2.0-3.0 PATIENT TEMPERATURE (BEAKER) (test icnb=8936) 37.5 C FIO2 (BEAKER) (test xdig=1988) 50.0 % POCT-GLUCOSE [id number] 18:41:00* Test Item Value Reference Range Comments POC-GLUCOSE METER (BEAKER) (test qesi=0435) 190 mg/dL 70-[address] [facility] [address] [facility] [address] CBC WITH AUTO [id number] 12:35:00* Test Item Value Reference Range Comments [...] on ############### was changed to 89 by [id number] on 01/09/2017 12:35 Lymphocytes (test code=LYMPH) 8 % 13-42 The value no value originally released by on ############### was changed to 8 by [id number] on 01/09/2017 12:35 Monocytes (test code=MONOS) 2 % 4-14 The value no value originally released by on ############### was changed to 2 by [id number] on 01/09/2017 12:35 Eosinophils (test code=EOS) 1 % 1-3 The value no value originally released by on ############### was changed to 1 by [id number] on 01/09/2017 12:35 er [id number] 12:11:00* Test Item Value Reference Range Comments [...] of chronic kidney failure. er t-3AFB CULTURE, [id number] 07:42:00* Test Item Value Reference Range Comments AFB SPECIMEN PROCESSING (test vzhh=516316) Concentration ACID FAST SMEAR (test xoqt=583557) Negative ACID FAST CULTURE (test cezh=797693) Negative No acid fast bacilli isolated after 6 weeks. LEFT LUNG WASHINGCULTURE, [id number] 13:55:00 ONLY ORDER THIS CULTURE IF THIS IS A SURGICA L SPECIMEN Specimen: AbscessCollected: 12/08/2016 20:10 Status: Final Last Updated: 12/16/2016 13:55 (1) ONLY ORDER THIS CULTURE IF THIS IS A SURGICA L SPECIMEN Culture Result (Final) (Final) No Anaerobes Isolated [id number] 08:44:00 * Test Item Value Reference Range [...] chronic kidney failure. with dialysisCBC WITH AUTO [id number] 08:41:00* Test Item Value Reference Range Comments [...] NRBC, Auto (test code=NRBC_AUTO) 0 with dialysisCULTURE, [id number] 07:07:00Specimen: BloodCollected: 12/08/2016 14:50 Status: Final Last Updated: 12/14/2016 07:06 Culture Result (Final) (Final) No Growth After 5 Days CULTURE, BLOOD 2016-12-14 07:07:00To start 15mins after 1st cultureSpecimen: BloodCollected: 12/08/2016 14:35 Status: Final Last Updated: 12/14/2016 07:06 (1) To start 15mins after 1st culture Culture Result (Final) (Final) No Growth After 5 Days [id number] 05:35:00* Test Item Value Reference Range Comments [...] of chronic kidney failure. CBC WITH AUTO [id number] 05:31:00* Test Item Value Reference Range Comments [...] % 1.0-3.0 NRBC, Auto (test code=NRBC_AUTO) 0 [id number] 05:32:00* Test Item Value Reference Range Comments [...] of chronic kidney failure. CBC WITH AUTO [id number] 05:02:00* Test Item Value Reference Range Comments [...] Auto (test code=NRBC_AUTO) 0 CBC WITH AUTO [id number] 07:05:00* Test Item Value Reference Range Comments [...] on ############### was changed to 88 by [id number] on 12/12/2016 07:05 Lymphocytes (test code=LYMPH) 10 % 13-42 The value no value originally released by on ############### was changed to 10 by [id number] on 12/12/2016 07:05 Monocytes (test code=MONOS) 2 % 4-14 The value no value originally released by on ############### was changed to 2 by [id number] on 12/12/2016 07:05 CBC AUTO diffCULTURE, [id number] 06:22:00right buttockSpecimen: AbscessCollected: 12/08/2016 20:10 Status: Final [...] Positive + D Test (+/-) Negative - [id number] 06:08:00* Test Item Value Reference Range Comments [...] assessment and management of chronic kidney failure. [id number] 06:39:00* Test Item Value Reference Range Comments [...] of chronic kidney failure. CBC WITH AUTO [id number] 06:35:00* Test Item Value Reference Range Comments [...] (test code=BA) 0.3 % 1.0-3.0 CBC AUTO [id number] 06:36:00* Test Item Value Reference Range Comments [...] kidney failure. [facility] by [id number] on 12/10/2016 06:36 AM. Re sults were read back [facility]. CBC WITH AUTO [id number] 06:22:00* Test Item Value Reference Range Comments [...] (test code=BA) 0.2 % 1.0-3.0 CBC AUTO [id number] 17:54:00* Test Item Value Reference Range Comments Potassium (test code=K) 5.9 mmol/l 3.5-5.0 collect at 4 pm [id number] 12:56:00* Test Item Value Reference Range Comments [...] (test code=BGCTHB) 8.6 gm/dl 11.5-17.4 O2Hb (test code=NHGX0KF) 88.7 % 95.0-99.0 COHb (test code=BGFCOHB) <2.8 [...] Notified (test code=BGTMNOTIFIED) 12:54 O2 Device (test code=MGF1HCN4) Nasal Cannula L/M (test code=BGL/M) 1.0 Instrument ID (test code=BGINSTRID) [id number] Comments (test code=BGCOMMENTS) PLACED BACK ON BIPAP, NO DISTRESS @ THIS TIME Reported By (test code=BGREPORTEDBY) RAJ MIGUEL CBC WITH AUTO [id number] 06:51:00* Test Item Value Reference Range Comments [...] 1.0-3.0 BA% (test code=BA) 1.1 % 1.0-3.0 [id number] 06:31:00* Test Item Value Reference Range Comments [...] (test code=BGCTHB) 8.2 gm/dl 11.5-17.4 O2Hb (test code=JZON7FY) >95.0 % 95.0-99.0 COHb (test code=BGFCOHB) <2.8 [...] Notified (test code=BGTMNOTIFIED) 06:30 O2 Device (test code=TJY0MPD8) BIPAP Set Rate (test code=BGSETRATE) 10 Instrument ID (test code=BGINSTRID) [id number] Reported By (test code=BGREPORTEDBY) JAMAL PIMENTEL [id number] 06:21:00* Test Item Value Reference Range Comments [...] assessment and management of chronic kidney failure. [id number] 17:17:00* Test Item Value Reference Range Comments [...] (test code=BGCTHB) 8.2 gm/dl 11.5-17.4 O2Hb (test code=TBJM4ET) >95.0 % 95.0-99.0 COHb (test code=BGFCOHB) <2.8 % 0.5-2.5 MetHB (test code=BGMETHB) <1.3 % 0.4-1.5 Gluc (test code=BGCGLU) 90.0 mg/dl 60.0-110.0 Lac (test code=BGCLAC) <1.6 mmol/l 1.0-1.7 Barometric Pressure (test code=BGBARO) 761.3 mm Hg 450.0-1000.0 BE(act) (test code=BGBEACT) 0 mmol/l HCO3 (test code=BGHCO3) 24 meq/L 22-26 ctCO2(B) (test code=BGCTCO2(B)) 25 mmol/l FIO2 (fO2(I) (test code=BGFIO2) 0.36 % Drawn By (test code=BGDRAWNBNighat) Marizol Yee Collection Date (test code=BGDTCOL) 12/08/2016 Collection Time (test code=BGCTM) 17:14 Sample Site (test code=BGSAMPLESITE) L Radial Sample Type (test code=BGSAMPLETYPE) Arterial Allens Test (test code=BGALLEN) Acceptable Notified By (test code=BGNOTIFIEDBY) Marizol Yee Date Notified (test code=BGDTNOTIFIED) 12/08/2016 Time Notified (test code=BGTMNOTIFIED) 17:16 O2 Device (test code=[id number]) Nasal Cannula L/M (test code=BGL/M) 4.0 Instrument ID (test code=BGINSTRID) [id number] Reported By (test code=BGREPORTEDBY) Marizol Yee URINALYSIS WITH [id number] 16:34:00* Test Item Value Reference Range Comments Color (test code=UCOLR) YELLOW Clarity (test code=UCLAR) CLEAR Glucose (test code=UGLUC) NEGATIVE NEGATIVE Bilirubin (test code=UBILI) NEGATIVE NEGATIVE Ketones (test code=UKET) NEGATIVE NEGATIVE Specific [place] (test code=USPGR) 1.015 1.005-1.030 Blood (test code=UBLD) [...] MISC) None Seen None Seen ED RAPID [id number] 13:47:00* Test Item Value Reference Range Comments CKMB (BIOSITE) (test code=BIOCKMB) 3.0 ng/ml 0.0-2.5 TROPONIN-I (BIOSITE) (test code=BIOTROP) <0.050 ng/ml 0.000-0.050 MYOGLOBIN (BIOSITE) (test code=BIOMYO) 221.0 ng/ml 0.0-170.0 SERIAL INSTRUMENT NUMBER (test code=SERIAL) [id number] 12:49:00* Test Item Value Reference Range Comments [...] assessment and management of chronic kidney failure. [id number] 12:47:00* Test Item Value Reference Range Comments CPK (test code=CPK) 28 U/L 30-135 ED RAPID [id number] 12:36:00* Test Item Value Reference Range Comments B-PEPTIDE (BIOSITE) (test code=BIOBNP) 732.0 pg/ml 0.0-100.0 SERIAL INSTRUMENT NUMBER (test code=SERIAL) [id number] ED RAPID [id number] 12:34:00* Test Item Value Reference Range Comments CKMB (BIOSITE) (test code=BIOCKMB) 2.6 ng/ml 0.0-2.5 TROPONIN-I (BIOSITE) (test code=BIOTROP) <0.050 ng/ml 0.000-0.050 MYOGLOBIN (BIOSITE) (test code=BIOMYO) 186.0 ng/ml 0.0-170.0 SERIAL INSTRUMENT NUMBER (test code=SERIAL) [id number] PT AND [id number] 12:34:00* Test Item Value Reference Range Comments [...] 7.4-10.4 THIS IS A HEMOGRAM ONLYFUNGAL CULTURE, [id number] 07:45:00* Test Item Value Reference Range Comments FUNGUS (MYCOLOGY) CULTURE (test gprh=296376) Final report RESULT 1 (test xcxy=597930) Comment No yeast or mold isolated after 4 weeks. LEFT LUNG WASHING PERFORMED AT: [facility] [id number] [employer]INTENA[employer]CE AND [employer]ILITIES SUPERVISOR: Lg Hatfield MD PHONE: [phone] DIFF MOLECULAR IN [id number] 14:41:00* Test Item Value Reference Range Comments [...] 130-400 MPV (test code=MPV) 9.5 fL 7.4-10.4 [id number] 07:42:00* Test Item Value Reference Range Comments [...] assessment and management of chronic kidney failure. [id number] 08:43:00* Test Item Value Reference Range Comments [...] of chronic kidney failure. CBC WITH AUTO [id number] 08:36:00* Test Item Value Reference Range Comments [...] (test code=NRBC_AUTO) 0 with dialysisCBC WITH AUTO [id number] 10:20:00* Test Item Value Reference Range Comments [...] Comments TSH (test code=TSH) 38.80 mIU/L 0.47-4.68 [id number] 08:40:00* Test Item Value Reference Range Comments [...] of chronic kidney failure. CBC WITH AUTO [id number] 08:04:00* Test Item Value Reference Range Comments [...] 1.0-3.0 NRBC, Auto (test code=NRBC_AUTO) 0 CULTURE, [id number] 07:13:00Specimen: BloodCollected: 10/27/2016 13:14 Status: Final Last Updated: 11/02/2016 07:12 Culture Result (Final) (Final) No Growth After 5 Days CULTURE, [id number] 07:13:00To start 15mins after 1st cultureSpecimen: BloodCollected: 10/27/2016 13:14 Status: Final Last Updated: 11/02/2016 07:12 (1) To start 15mins after 1st culture Culture Result (Final) (Final) No Growth After 5 Days CKMB 2016-11-02 00:00:00* Test Item Value Reference Range Comments CKMB (test code=CKMB) 1.14 ng/ml 0.00-2.37 TROPONIN-I [id number] 00:00:00* Test Item Value Reference Range Comments Troponin-I (test code=TROP) <0.012 ng/ml 0.000-0.034 The 99th Percentile URL is 0.034 ng/mL. The Joint Society of Cardiology/[place] [employer] (ESC/ACC) and the National [...] 24 hours after the clinical event. MYOGLOBIN, [id number] 00:00:00* Test Item Value Reference Range Comments Myoglobin (test code=JEAN CLAUDE) 153.9 ng/ml 0.0-61.5 Critical values were called to Marizol lafleur by [id number] on 11/01/2016 23:59 PM. Result s were read back by Marizol lafleur. [id number] 19:10:00* Test Item Value Reference Range Comments [...] and management of chronic kidney failure. TROPONIN-I [id number] 18:01:00* Test Item Value Reference Range Comments Troponin-I (test code=TROP) <0.012 ng/ml 0.000-0.034 The 99th Percentile URL is 0.034 ng/mL. The Joint Society of Cardiology/[place] [employer] (ESC/ACC) and the National [...] first 24 hours after the clinical event. [id number] 18:01:00* Test Item Value Reference Range Comments CKMB (test code=CKMB) 1.11 ng/ml 0.00-2.37 MYOGLOBIN, [id number] 18:01:00* Test Item Value Reference Range Comments Myoglobin (test code=JEAN CLAUDE) 157.3 ng/ml 0.0-61.5 Critical values were called to LORI. Lafleur by [id number] on 11/01/2016 18:00 PM. Result s were read back by LORI. Lafleur. [id number] 17:38:00* Test Item Value Reference Range Comments CPK (test code=CPK) 26 U/L 30-135 [id number] 18:09:00* Test Item Value Reference Range Comments [...] (test code=BGCTHB) 9.3 gm/dl 11.5-17.4 O2Hb (test code=WXJX1FR) 92.8 % 95.0-99.0 COHb (test code=BGFCOHB) <2.8 [...] Time (test code=BGCTM) 18:06 Sample Site (test code[facility]AMP[facility]) R Radial Sample Type (test code=BGSAMPLETYPE) Arterial Allens Test (test code=BGALLEN) Acceptable Notified By (test code=BGNOTIFIEDBY) DAVID SOFIA Notified Whom (test code=BGNOTIFIEDWHOM) DR GRANT Date Notified (test code=BGDTNOTIFIED) 10/30/2016 Time Notified (test code=BGTMNOTIFIED) 18:07 O2 Device (test code=FNW6XTK7) Aerosol Mask Instrument ID (test code=BGINSTRID) [id number] Reported By (test code=BGREPORTEDBY) DAVID SOFIA [id number] 15:19:00* Test Item Value Reference Range Comments [...] (test code=BGCTHB) 9.6 gm/dl 11.5-17.4 O2Hb (test code=QSPU0BW) 86.7 % 95.0-99.0 COHb (test code=BGFCOHB) <2.8 [...] Notified (test code=BGTMNOTIFIED) 15:17 O2 Device (test code=QNW7BGL2) Ventilator VentMode (test code=BGVENT) CPAP PEEP (test code=BGPEEP/CPAP) 5.0 PS (Pressure Support) (test code=BGPS) 5.0 Instrument ID (test code=BGINSTRID) [id number] Reported By (test code=BGREPORTEDBY) DAVID SOFIA [id number] 13:59:00* Test Item Value Reference Range Comments [...] (test code=BGCTHB) 9.6 gm/dl 11.5-17.4 O2Hb (test code=ZZPU9VP) 87.7 % 95.0-99.0 COHb (test code=BGFCOHB) <2.8 [...] Notified (test code=BGTMNOTIFIED) 13:58 O2 Device (test code=DNP0CDM8) Ventilator VentMode (test code=BGVENT) CPAP PEEP (test code=BGPEEP/CPAP) 5.0 PS (Pressure Support) (test code=BGPS) 10.0 Instrument ID (test code=BGINSTRID) [id number] Reported By (test code=BGREPORTEDBY) DAVID SOFIA CULTURE, [id number] 07:51:00LEFT LUNG WASHINGSpecimen: Bronchial WashingCollected: 10/28/2016 14:14 [...] Morphology (test code=PLTMORPH) Giant platelets CBC MANUAL [id number] 05:26:00* Test Item Value Reference Range Comments [...] assessment and management of chronic kidney failure. [id number] 05:26:00* Test Item Value Reference Range Comments Magnesium (test code=MG) 2.6 mg/dl 1.6-2.3 GRAM [id number] 10:35:00LEFT LUNG WASHINGSpecimen: Bronchial WashingCollected: 10/28/2016 14:14 Status: Final Last Updated: 10/29/2016 10:35 (1) LEFT LUNG WASHING Gram Stain (Final) (Final) Many Polymorphonucleated leucocytes Very Few Mixed Bacterial González CBC WITH MANUAL [id number] 07:47:00* Test Item Value Reference Range Comments [...] Anisocytosis WBC Morphology (test code=WBCMOR) Hypersegmented Neutrophils [id number] 06:13:00* Test Item Value Reference Range Comments [...] (test code=BGCTHB) 9.1 gm/dl 11.5-17.4 O2Hb (test code=VGMR1YS) 92.6 % 95.0-99.0 COHb (test code=BGFCOHB) <2.8 % 0.5-2.5 MetHB (test code=BGMETHB) <1.3 % 0.4-1.5 Gluc (test code=BGCGLU) 143.0 mg/dl 60.0-110.0 Lac (test code=BGCLAC) <1.6 mmol/l 1.0-1.7 Barometric Pressure (test code=BGBARO) 764.0 mm Hg 450.0-1000.0 BE(act) (test code=BGBEACT) 2 mmol/l HCO3 (test code=BGHCO3) 26 meq/L 22-26 ctCO2(B) (test code=BGCTCO2(B)) 25 mmol/l FIO2 (fO2(I) (test code=BGFIO2) 0.45 % Drawn By (test code=BGFAREED PIZARRO Collection Date (test code=BGDTCOL) 10/29/2016 Collection Time (test code=BGCTM) 06:10 Sample Site (test code=BGSAMPLESITE) R Radial Sample Type (test code=BGSAMPLETYPE) Arterial Allens Test (test code=BGALLEN) Acceptable Notified By (test code=BGNOTIFIEDBY) FAREED VERMA Notified Whom (test code=BGNOTIFIEDWHOM) RN Date Notified (test code=BGDTNOTIFIED) 10/29/2016 Time Notified (test code=BGTMNOTIFIED) 06:11 O2 Device (test code=XBD9OMH4) Ventilator VentMode (test code=BGVENT) CMV/AC Vt (ABG) (test code=BGVT) 550 Set Rate (test code=BGSETRATE) 14 PEEP (test code=BGPEEP/CPAP) 5.0 Instrument ID (test code=BGINSTRID) [id number] Reported By (test code=BGREPORTEDBY) FAREED VERMA [id number] 04:42:00* Test Item Value Reference Range Comments [...] assessment and management of chronic kidney failure. [id number] 04:42:00* Test Item Value Reference Range Comments Magnesium (test code=MG) 2.4 mg/dl 1.6-2.3 [id number] 11:53:00* Test Item Value Reference Range Comments [...] 130-400 MPV (test code=MPV) 8.8 fL 7.4-10.4 [id number] 11:24:00* Test Item Value Reference Range Comments [...] (test code=BGCTHB) 6.8 gm/dl 11.5-17.4 O2Hb (test code=MURB6TL) >95.0 % 95.0-99.0 COHb (test code=BGFCOHB) <2.8 [...] (test code=BGNOTIFIEDBY) VANI KUMAR O2 Device (test code=BGU9KMN2) Ventilator Vt (ABG) (test code=BGVT) 550 Respiratory Rate (test code=BGRR) 16 Set Rate (test code=BGSETRATE) 16 PEEP (test code=BGPEEP/CPAP) 5.0 Instrument ID (test code=BGINSTRID) [id number] Reported By (test code=BGREPORTEDBY) VANI KUMAR [id number] 12:20:00* Test Item Value Reference Range Comments [...] Time (test code=BGCTM) 12:13 Sample Site (test code=[facility]AMP[facility]ITE) R Radial Sample Type (test code=BGSAMPLETYPE) Arterial Allens Test (test code=BGALLEN) Acceptable Notified By (test code=BGNOTIFIEDBY) SEJAL OSMAN Time Notified (test code=BGTMNOTIFIED) 12:13 O2 Device (test code=LJV5OPX3) BIPAP Vt (ABG) (test code=BGVT) 556 Respiratory Rate (test code=BGRR) 19 Set Rate (test code=BGSETRATE) 16 Instrument ID (test code=BGINSTRID) [id number] Comments (test code=BGCOMMENTS) Bipap 17/,16,60% Reported By (test code=BGREPORTEDBY) SEJAL OSMAN CBC WITH MANUAL [id number] 08:38:00* Test Item Value Reference Range Comments [...] % 1-3 RBC Morphology (test code=RBCMOR) Anisocytosis [id number] 06:48:00* Test Item Value Reference Range Comments Magnesium (test code=MG) 2.6 mg/dl 1.6-2.3 [id number] 06:48:00* Test Item Value Reference Range Comments [...] of chronic kidney failure. HEP B SURFACE [id number] 14:32:00* Test Item Value Reference Range Comments [...] FT (test code=HBSAG) Negative (qualifier value) Negative [id number] 13:44:00* Test Item Value Reference Range Comments Magnesium (test code=MG) 3.1 mg/dl 1.6-2.3 [id number] 13:44:00* Test Item Value Reference Range Comments [...] of chronic kidney failure. CBC WITH MANUAL [id number] 13:17:00* Test Item Value Reference Range Comments [...] Hypersegmented Neutrophils CBC MANUAL DiffCBC WITH MANUAL [id number] 07:15:00* Test Item Value Reference Range Comments [...] (test code=EOS) 3 % 1-3 CBC MANUAL [id number] 05:20:00* Test Item Value Reference Range Comments [...] assessment and management of chronic kidney failure. [id number] 05:20:00* Test Item Value Reference Range Comments Magnesium (test code=MG) 2.7 mg/dl 1.6-2.3 [id number] 08:42:00* Test Item Value Reference Range Comments [...] (test code=BGCTHB) 10.4 gm/dl 11.5-17.4 O2Hb (test code=XYAJ8VE) 87.5 % 95.0-99.0 COHb (test code=BGFCOHB) <2.8 [...] Notified (test code=BGTMNOTIFIED) 08:41 O2 Device (test code=[id number]) Nasal Cannula L/M (test code=BGL/M) 5.0 Instrument ID (test code=BGINSTRID) [id number] Reported By (test code=BGREPORTEDTANIA) MATTHEW MARIN CBC WITH MANUAL [id number] 06:28:00* Test Item Value Reference Range Comments [...] code=RBCMOR) Anisocytosis Basophilic stipling Stomatocytes CBC MANUAL [id number] 06:12:00* Test Item Value Reference Range Comments [...] assessment and management of chronic kidney failure. [id number] 06:12:00* Test Item Value Reference Range Comments Magnesium (test code=MG) 2.5 mg/dl 1.6-2.3 [id number] 11:23:00* Test Item Value Reference Range Comments [...] and management of chronic kidney failure. at [facility] WITH AUTO [id number] 11:00:00* Test Item Value Reference Range Comments [...] 1.0-3.0 NRBC, Auto (test code=NRBC_AUTO) 0 at [id number] 08:51:00* Test Item Value Reference Range Comments [...] (test code=BGCTHB) 10.7 gm/dl 11.5-17.4 O2Hb (test code=QZXO5LR) 91.1 % 95.0-99.0 COHb (test code=BGFCOHB) <2.8 [...] Notified (test code=BGTMNOTIFIED) 08:50 O2 Device (test code=AMD3JTJ3) Nasal Cannula Instrument ID (test code=BGINSTRID) [id number] Reported By (test code=BGREPORTEDBY) FAREED MELVIN CBC WITH MANUAL [id number] 07:03:00* Test Item Value Reference Range Comments [...] Morphology (test code=WBCMOR) Hypersegmented Neutrophils CBC MANUAL [id number] 06:16:00* Test Item Value Reference Range Comments [...] assessment and management of chronic kidney failure. [id number] 06:16:00* Test Item Value Reference Range Comments Magnesium (test code=MG) 2.9 mg/dl 1.6-2.3 [id number] 13:30:00* Test Item Value Reference Range Comments [...] (test code=BGCTHB) 11.2 gm/dl 11.5-17.4 O2Hb (test code=LQIE9JU) 88.1 % 95.0-99.0 COHb (test code=BGFCOHB) <2.8 [...] Notified (test code=BGTMNOTIFIED) 13:29 O2 Device (test code=OTH8AUR2) Nasal Cannula L/M (test code=BGL/M) 5.0 Instrument ID (test code=BGINSTRID) [id number] Reported By (test code=BGREPORTEDBY) SEJAL OSMAN [id number] 07:50:00* Test Item Value Reference Range Comments [...] (test code=BGCTHB) 11.4 gm/dl 11.5-17.4 O2Hb (test code=MRDX7LM) 94.1 % 95.0-99.0 COHb (test code=BGFCOHB) <2.8 [...] Notified (test code=BGTMNOTIFIED) 07:49 O2 Device (test code=UYP6ZXZ2) Nasal Cannula L/M (test code=BGL/M) 5.0 Instrument ID (test code=BGINSTRID) [id number] Reported By (test code=BGREPORTEDBY) SEJAL OSMAN CBC WITH MANUAL [id number] 07:35:00* Test Item Value Reference Range Comments [...] Morphology (test code=RBCMOR) Anisocytosis Macrocytic CBC MANUAL [id number] 06:40:00* Test Item Value Reference Range Comments [...] assessment and management of chronic kidney failure. [id number] 06:40:00* Test Item Value Reference Range Comments [...] 130-400 MPV (test code=MPV) 9.0 fL 7.4-10.4 [id number] 08:32:00* Test Item Value Reference Range Comments Magnesium (test code=MG) 2.7 mg/dl 1.6-2.3 [id number] 08:32:00* Test Item Value Reference Range Comments [...] of chronic kidney failure. CBC WITH AUTO [id number] 08:29:00* Test Item Value Reference Range Comments [...] 0 at dialysis hook upCBC WITH MANUAL [id number] 07:44:00* Test Item Value Reference Range Comments [...] Morphology (test code=RBCMOR) Anisocytosis Macrocytic CBC MANUAL [id number] 06:52:00* Test Item Value Reference Range Comments Magnesium (test code=MG) 2.4 mg/dl 1.6-2.3 [id number] 06:52:00* Test Item Value Reference Range Comments [...] and management of chronic kidney failure. CULTURE, [id number] 20:15:00To start 15mins after 1st cultureSpecimen: BloodCollected: 10/14/2016 08:55 Status: Final Last Updated: 10/19/2016 20:15 (1) To start 15mins after 1st culture Culture Result (Final) (Final) No Growth After 5 Days CULTURE, [id number] 20:15:00Specimen: BloodCollected: 10/14/2016 08:45 Status: Final Last Updated: 10/19/2016 20:15 Culture Result (Final) (Final) No Growth After 5 Days CBC WITH MANUAL [id number] 07:22:00* Test Item Value Reference Range Comments [...] code=RBCMOR) Anisocytosis Stomatocytes 1+Basophilic stipling CBC MANUAL [id number] 06:32:00* Test Item Value Reference Range Comments Magnesium (test code=MG) 2.4 mg/dl 1.6-2.3 [id number] 06:32:00* Test Item Value Reference Range Comments [...] of chronic kidney failure. CBC WITH MANUAL [id number] 07:18:00* Test Item Value Reference Range Comments [...] (test code=EOS) 1 % 1-3 CBC MANUAL [id number] 07:11:00* Test Item Value Reference Range Comments Magnesium (test code=MG) 2.2 mg/dl 1.6-2.3 [id number] 07:11:00* Test Item Value Reference Range Comments [...] mIU/L 0.47-4.68 please add onCBC WITH MANUAL [id number] 07:45:00* Test Item Value Reference Range Comments [...] (test code=MONOS) 3 % 4-14 CBC MANUAL [id number] 06:42:00* Test Item Value Reference Range Comments [...] assessment and management of chronic kidney failure. [id number] 06:42:00* Test Item Value Reference Range Comments Magnesium (test code=MG) 2.2 mg/dl 1.6-2.3 [id number] 14:16:00* Test Item Value Reference Range Comments [...] (test code=BGCTHB) 11.0 gm/dl 11.5-17.4 O2Hb (test code=QESD5ZN) 87.0 % 95.0-99.0 COHb (test code=BGFCOHB) <2.8 [...] code=BGNOTIFIEDBY) EUGENIE HOFF Notified Whom (test code=BGNOTIFIEDWHOM) [facility] Date Notified (test code=BGDTNOTIFIED) 10/16/2016 Time Notified (test code=BGTMNOTIFIED) 14:14 O2 Device (test code=MJL2OBZ1) Ventilator VentMode (test code=BGVENT) CPAP Vt (ABG) (test code=BGVT) 780 Respiratory Rate (test code=BGRR) 20 PEEP (test code=BGPEEP/CPAP) 5.0 PIP (test code=BGPIP) 18.0 PS (Pressure Support) (test code=BGPS) 10.0 I/E Ratio (test code=BGIERATIO) 1:3.0 Instrument ID (test code=BGINSTRID) [id number] Comments (test code=BGCOMMENTS) Sat 90% on monitor Reported By (test code=BGREPORTEDBY) EUGENIE HOFF CBC WITH MANUAL [id number] 09:03:00* Test Item Value Reference Range Comments [...] Morphology (test code=PLTMORPH) Giant platelets CBC MANUAL [id number] 08:53:00* Test Item Value Reference Range Comments [...] assessment and management of chronic kidney failure. [id number] 08:53:00* Test Item Value Reference Range Comments Magnesium (test code=MG) 2.2 mg/dl 1.6-2.3 CULTURE, [id number] 07:23:00Specimen: Bronchial Alveolar Lavage- CATHCollected: 10/13/2016 22:08 Status: Final Last Updated: 10/16/2016 07:23 Culture Result (Final) (Final) Moderate Mixed Normal Oral Goznález Isolated No Pathogens Isolated [id number] 10:07:00* Test Item Value Reference Range Comments [...] (test code=BGCTHB) 10.7 gm/dl 11.5-17.4 O2Hb (test code=MYFQ8CB) 83.3 % 95.0-99.0 COHb (test code=BGFCOHB) <2.8 [...] Notified (test code=BGTMNOTIFIED) 10:05 O2 Device (test code=WMW7IMG5) Ventilator VentMode (test code=BGVENT) CPAP PEEP (test code=BGPEEP/CPAP) 5.0 PS (Pressure Support) (test code=BGPS) 10.0 Instrument ID (test code=BGINSTRID) [id number] Reported By (test code=BGREPORTEDBY) Marizol Yee CBC WITH MANUAL [id number] 08:41:00* Test Item Value Reference Range Comments [...] Morphology (test code=RBCMOR) Anisocytosis Polychromic CBC MANUAL [id number] 06:45:00* Test Item Value Reference Range Comments Magnesium (test code=MG) 2.1 mg/dl 1.6-2.3 [id number] 06:45:00* Test Item Value Reference Range Comments [...] assessment and management of chronic kidney failure. [id number] 06:19:00* Test Item Value Reference Range Comments [...] (test code=BGCTHB) 10.9 gm/dl 11.5-17.4 O2Hb (test code=BHIU7EO) 90.0 % 95.0-99.0 COHb (test code=BGFCOHB) <2.8 [...] Notified (test code=BGTMNOTIFIED) 06:17 O2 Device (test code=SDE2KZB7) Ventilator VentMode (test code=BGVENT) CMV/AC Vt (ABG) (test code=BGVT) 550 Respiratory Rate (test code=BGRR) 20 Set Rate (test code=BGSETRATE) 20 PEEP (test code=BGPEEP/CPAP) 5.0 Instrument ID (test code=BGINSTRID) [id number] Reported By (test code=BGREPORTEDBY) FAREED MELVIN [id number] 16:48:00* Test Item Value Reference Range Comments [...] TSH (test code=TSH) 202.00 mIU/L 0.47-4.68 GLYCOSALATED [id number] 08:32:00* Test Item Value Reference Range Comments Hemoglobin A1C (test code=GLYCO) 5.45 % 4.3-6.0 Mean Plasma Glucose (test code=MPG) 117 mg/dl 90-180 WHEN TEST RESULTS FOR A1C EXCEED 14.0, THE LINEAR LIMIT OF THE INSTRUMENT, THE CALCULATED RESULT FOR THE MEAN GLUCOSE IS NOT RELIABLE. PATH COMMENT (CBC)2016-10-14 07:40:00Macrocytosis with polychromasia, fine basophilic stippling and manyNRBCs. Dr. ALVA 10/14/[id number] 07:32:00* Test Item Value Reference Range Comments Magnesium (test code=MG) 2.5 mg/dl 1.6-2.3 [id number] 07:32:00* Test Item Value Reference Range Comments [...] values were called to CRISTINO Taylor by KAYE on 10/14/2016 07:32 AM. Resul ts were read back by CRISTINO Taylor. CBC WITH AUTO [id number] 07:27:00* Test Item Value Reference Range Comments [...] % 1.0-3.0 NRBC, Auto (test code=NRBC_AUTO) 2 [id number] 06:55:00* Test Item Value Reference Range Comments [...] (test code=BGCTHB) 11.2 gm/dl 11.5-17.4 O2Hb (test code=HVOH3IW) >95.0 % 95.0-99.0 COHb (test code=BGFCOHB) <2.8 [...] Notified (test code=BGTMNOTIFIED) 06:52 O2 Device (test code=BKO8WPS2) Ventilator VentMode (test code=BGVENT) CMV/AC Vt (ABG) (test code=BGVT) 500 Respiratory Rate (test code=BGRR) 20 PEEP (test code=BGPEEP/CPAP) 5.0 Instrument ID (test code=BGINSTRID) [id number] Reported By (test code=BGREPORTEDBY) Geneva Jensen [id number] 21:26:00* Test Item Value Reference Range Comments [...] (test code=BGCTHB) 12.7 gm/dl 11.5-17.4 O2Hb (test code=BHXA9YQ) 92.9 % 95.0-99.0 COHb (test code=BGFCOHB) 3.7 [...] Notified (test code=BGTMNOTIFIED) 21:24 O2 Device (test code=EDX9JJN6) Ventilator Vt (ABG) (test code=BGVT) 500 Set Rate (test code=BGSETRATE) 18 PEEP (test code=BGPEEP/CPAP) 5.0 Instrument ID (test code=BGINSTRID) [id number] Reported By (test code=BGREPORTEDBY) PETRA CHEEK [id number] 19:55:00* Test Item Value Reference Range Comments [...] (test code=BGCTHB) 12.7 gm/dl 11.5-17.4 O2Hb (test code=BFXY4KF) 85.5 % 95.0-99.0 COHb (test code=BGFCOHB) 4.7 [...] Notified (test code=BGTMNOTIFIED) 19:53 O2 Device (test code=YHD9BCD0) BIPAP Instrument ID (test code=BGINSTRID) [id number] Comments (test code=BGCOMMENTS) 20/6,18,50% Reported By (test code=BGREPORTEDBY) PETRA CHEEK [id number] 19:46:00* Test Item Value Reference Range Comments Magnesium (test code=MG) 2.8 mg/dl 1.6-2.3 er [id number] 19:46:00* Test Item Value Reference Range Comments [...] were called to Ramon in ER by [id number] on 10/13/2016 19:4 6 PM. Results were read back by Ramon in ER. TROPONIN-I [id number] 19:25:00* Test Item Value Reference Range Comments Troponin-I (test code=TROP) 0.015 ng/ml 0.000-0.034 The 99th Percentile URL is 0.034 ng/mL. The Joint Society of Cardiology/[place] [employer] (ESC/ACC) and the National [...] the clinical event. er t-2CBC WITH AUTO [id number] 19:23:00* Test Item Value Reference Range Comments [...] 5 by EC280 on 10/13/2016 19:23 er [id number] 18:28:00* Test Item Value Reference Range Comments [...] (test code=BGCTHB) 12.8 gm/dl 11.5-17.4 O2Hb (test code=FJIR4ZE) 76.8 % 95.0-99.0 COHb (test code=BGFCOHB) 5.1 [...] Notified (test code=BGTMNOTIFIED) 18:26 O2 Device (test code=NKN1VWK7) Nasal Cannula Set Rate (test code=BGSETRATE) 4 Instrument ID (test code=BGINSTRID) [id number] Reported By (test code=BGREPORTEDBY) PETRA CHEEK
[2019-12-04] MEDS ORDERED: SODIUM BICARBONATE 8.4% INJ 50 ML SYR IV STA (20:17)
[2019-12-04] MEDS ORDERED: CALCIUM CHLORIDE 10% 1.36 MEQ/ML 10ML SYR IV STA (20:17)
[2019-12-04] MEDS ORDERED: DEXTROSE 50% SYRINGE 50 ML IV STA (20:17)
[2019-12-04 20:18] LABS: ALBUMIN 3.4 g/dL (3.5-5.0); ALBUMIN/GLOBULIN RATIO 0.8 (0.8-2.0); ANION GAP 27.8 mmol/L (8-16); CALCIUM 8.7 mg/dL (8.4-10.2); CREATININE, SERUM 4.87 mg/dL (0.57-1.11)
[2019-12-04 20:19] LABS: POTASSIUM 6.8 mmol/L (3.5-5.1)
--- NOTE | 2019-12-04 20:23 | NUR ---
VENT SETTINGS PRBC 16 TV 500 100% FIO2 +12 PEEP
[2019-12-04 20:24] LABS: CREATINE KINASE MB 2.5 ng/mL (0-5.0)
[2019-12-04 20:29] LABS: B-TYPE NATRIURETIC PEPTIDE2 905.1 pg/mL (0-100)
[2019-12-04] MEDS ORDERED: INSULIN REGULAR, HUMAN 100 UNIT/1 ML 3ML VIAL IV ONE (20:30)
[2019-12-04] MEDS ORDERED: SOD POLYSTYRENE SULFONATE SUSP 15 GM/60 ML BTL NG ONE (20:30)
[2019-12-04] MEDS ORDERED: CEFEPIME 2 GM/NS 0.9% 100 ML 100 ML IV STA (20:39)
[2019-12-04] MEDS ORDERED: CALCIUM CHLORIDE 13.6 MEQ in SODIUM CHLORIDE 0.9% 100 ML IV ONE (20:45)
[2019-12-04] MEDS ORDERED: LORAZEPAM INJ 2 MG/ML VIAL IV ONE (20:45)
[2019-12-04] MEDS ORDERED: ACETAMINOPHEN 650 MG SUPP PR ONE (20:45)
[2019-12-04] MEDS ORDERED: NOREPINEPHRINE 8 MG/D5W 250 ML 250 ML ONE (21:22)
--- NOTE | 2019-12-04 21:26 | Diagnostic Imaging Report ---
EXAMINATION: CHEST SINGLE (PORTABLE) INDICATION: Cardiac arrest, found down, post-CPR COMPARISON: None FINDINGS: TUBES and LINES: Tracheostomy tube tip within the mid intrathoracic trachea. Partially visualized left axillary vascular stent. LUNGS: Haziness in the right mid lung with consolidation in the lateral aspect of the right midlung. Hyperinflated lungs. Mild prominence of central pulmonary vasculature. PLEURA: No pleural effusion or pneumothorax. HEART AND MEDIASTINUM: The cardiomediastinal silhouette is borderline enlarged. There are atherosclerotic calcifications within the aorta. BONES AND SOFT TISSUES: No acute osseous lesion. Soft tissues are unremarkable. UPPER ABDOMEN: No free air under the diaphragm. IMPRESSION: Findings in the right midlung compatible with pneumonia, and/or pulmonary contusion in light of recent chest compressions. Hyperinflated lungs can be seen with obstructive pulmonary disease. Borderline cardiomegaly and pulmonary vascular congestion. Signed by: Navdeep Man DO on 12/04/2019 9:23 PM
[2019-12-04] MEDS ORDERED: MIDAZOLAM HCL 2 MG/2 ML VIAL IV STA (21:46)
[2019-12-04] MEDS ORDERED: AZITHROMYCIN 500MG/NS 250 ML 250 ML IV STA (21:48)
[2019-12-04] MEDS ORDERED: PROPOFOL IV EMULSION 10MG/ML 100 ML ONE (21:59)
[2019-12-04] MEDS: NOREPINEPHRINE 8 MG/D5W 250 ML 8 MG in DEXTROSE 5% 250ML 0 ML IV SCH (22:00)
[2019-12-04] MEDS ORDERED: SODIUM CHLORIDE 0.9% 1000ML 1,000 ML IV ONE ×2 (22:00)
[2019-12-04] MEDS: PROPOFOL IV EMULSION 10MG/ML 100 ML IV SCH (22:00)
[2019-12-04 22:03] LABS: BASOPHILS # (AUTO) 0.1 (0.0-0.1); BASOPHILS % 0.4 % (0.0-1.0); EOSINOPHILS % 0.1 % (0.0-6.0); HEMATOCRIT 24.8 % (34.2-44.1); HEMOGLOBIN 7.2 g/dL (12.0-16.0); LYMPHOCYTES # (AUTO) 0.9 (1.0-3.2); LYMPHOCYTES % 7.3 % (18.0-39.1); MEAN CORPUSCULAR HEMOGLOBIN 28.5 pg (28-32); MONOCYTES % 7.8 % (4.4-11.3); NEUTROPHILS # (AUTO) 9.6 (2.1-6.9); PLATELET COUNT 115 x10e3/uL (140-360); RED BLOOD COUNT 2.53 x10e6/uL (3.6-5.1); RED CELL DISTRIBUTION WIDTH 17.6 % (11.7-14.4)
[2019-12-04 22:10] LABS: INR 1.15; PROTHROMBIN TIME 15.5 seconds (11.9-14.5)
[2019-12-04 22:11] LABS: PARTIAL THROMBOPLASTIN TIME 46.7 seconds (23.8-35.5)
[2019-12-04] MEDS ORDERED: VANCOMYCIN 1GM/NS 250 ML 250 ML IV STA (22:16)
[2019-12-04 22:19] LABS: ALBUMIN 3.7 g/dL (3.5-5.0); ANION GAP 26.8 mmol/L (8-16); CALCIUM 9.8 mg/dL (8.4-10.2); CREATININE, SERUM 5.53 mg/dL (0.57-1.11); POTASSIUM 4.8 mmol/L (3.5-5.1)
[2019-12-04 22:20] LABS: ALBUMIN/GLOBULIN RATIO 0.8 (0.8-2.0)
[2019-12-04 22:30] LABS: PLATELET ESTIMATE ADEQUATE; PLATELET MORPHOLOGY COMMENT NORMAL; RBC MORPHOLOGY COMMENT NORMAL
[2019-12-04] MEDS ORDERED: ACETAMINOPHEN 325 MG TAB NG ONE (22:45)
[2019-12-04] MEDS ORDERED: ALBUTEROL/IPRATROPIUM 3 ML NEB NEB PRN (23:00)
[2019-12-04] MEDS ORDERED: DEXTROSE 50% SYRINGE 50 ML IV PRN (23:00)
[2019-12-04] MEDS ORDERED: LACTULOSE SYRUP 20 GM/30 ML UDC PO PRN (23:00)
--- NOTE | 2019-12-04 23:28 | Consultation ---
DATE OF CONSULTATION: Pulmonary Critical Care Consultation CHIEF COMPLAINT: Leukocytosis, hypotension, and cardiopulmonary arrest. ADDITIONAL ATTENDING PHYSICIAN: Dr. Rickey Verma. HISTORY OF PRESENT ILLNESS: The patient is a 59-year-old woman. She has a history of severe polyneuropathy, chronic persistent asthma, and chronic respiratory failure. She also has a history of end-stage renal disease and is on dialysis. She has a tracheostomy and was at [facility]. She was found unresponsive in the bathroom. She was brought to the emergency department. She was found to have elevated white blood cell count and hypotension. Upon trying to ventilate her, they had resistance and we were able to suction out some mucus plugs. She was subsequently placed on the mechanical ventilator. She received intravenous fluids and antibiotics, and her blood pressure is improved. PAST SURGICAL HISTORY: Status post tracheostomy. PAST MEDICAL HISTORY: 1. Chronic respiratory failure with tracheostomy. 2. Polyneuropathy. 3. End-stage renal disease. 4. Chronic persistent asthma. ALLERGIES: THE PATIENT IS ALLERGIC TO FENTANYL, GABAPENTIN, AND LEVAQUIN. FAMILY HISTORY: Family history is noncontributory. REVIEW OF SYSTEMS: There is no history of fevers reported. There is no history of headache or neck pain. She does have a tracheostomy in place. She did not have any reported chest pain prior to the incident. She did not have any reported dyspnea. There was no reported abdominal pain, nausea, or vomiting. She does have end-stage renal disease. She has some weakness in the legs and polyneuropathy by history. PHYSICAL EXAMINATION: VITAL SIGNS: The blood pressure is 121/79 and pulse is 92. Saturation is 96%. The temperature is 101.3. HEENT: Shows no facial swelling or erythema. The oropharynx is normal. There is a tracheostomy in place. The site looks clean. There is no drainage. CARDIAC: Reveals regular rate and rhythm with normal S1 and S2. LUNGS: Auscultation of lungs reveals decreased breath sounds at the bases. There is no wheezing. ABDOMEN: Soft and nontender. There is no rebound or guarding. EXTREMITIES: Shows mild leg edema. There is an intraosseous line in the right leg. LABORATORY DATA: White blood cell count was initially 35 and now is 12.25. Hemoglobin is 7.2 and platelet count is 115. The BUN to creatinine ratio is 25 to 5.53 and the electrolytes are now within normal limits. The lactic acid has decreased from 11.2 to 7.3. The AST is 161 and the ALT is 116. The BNP is 905. RADIOGRAPHIC DATA: Chest x-ray shows infiltrate in the right middle lobe suggesting possible pneumonia. IMPRESSION: 1. Uawzo-rk-opnbtwl respiratory failure. 2. Right middle lobe pneumonia with possible healthcare-associated organisms. 3. Chronic persistent asthma. 4. End-stage renal disease. 5. Hyperkalemia. 6. Polyneuropathy. PLAN: 1. The patient received broad-spectrum antibiotics to cover for healthcare-acquired organisms. 2. The patient will receive intravenous fluids in accordance with the sepsis protocol. 3. Continue mechanical ventilation and await blood gas. The patient is currently on a PRVC mode of ventilation at a rate of 12 with a tidal volume of 450 and FiO2 of 80%. The PEEP is set at 8. 4. Nephrology consult with dialysis as needed. 5. Enteral feedings. 6. DVT prophylaxis. 7. Monitor neurological status for any evidence of anoxic brain injury. Jean Alcaraz MD [facility] /[id number]
[2019-12-04] MEDS: AZITHROMYCIN 500MG/NS 250 ML 250 ML IV SCH (23:34)
[2019-12-05] VITALS (26 sets, daily range): BP systolic 85–153; BP diastolic 6–81
--- NOTE | 2019-12-05 00:34 | Diagnostic Imaging Report ---
EXAMINATION: Head and cervical spine CT without contrast. HISTORY: Status post fall and cardiac arrest COMPARISON: None. TECHNIQUE: Multidetector axial images were obtained without contrast from the foramen magnum to the vertex and through the cervical spine. The images were reconstructed using brain and bone algorithms. Thin section brain images were reformatted into coronal and sagittal planes. Dose modulation, iterative reconstruction, and/or weight based adjustment of the mA/kV was utilized to reduce the radiation dose to as low as reasonably achievable. HEAD CT FINDINGS: Skull/scalp: No lytic or blastic lesions. No fractures. Parenchyma: Orbital for great white matter differentiation, which may be technique related or secondary to diffuse brain swelling/edema/ischemia even clinical history of cardiac arrest. No mass, hemorrhage or CT evidence of acute vascular insult. Brain volume: Normal for age. Ventricles: No hydrocephalus or displacement. Arteries: No density suggestive of thrombus. Dural sinuses: No abnormal density. Extra-axial spaces: No abnormal density. Foramen magnum: No mass, Chiari malformation, or basilar invagination. Sella: No obvious mass. Paranasal/mastoid sinuses: Hypopneumatization and sclerosis of the principal clerk typist cells as well as partial opacification on the left, likely from chronic inflammatory process. CERVICAL SPINE CT FINDINGS: Alignment:Normal alignment and lordosis. Soft tissues: Normal. Vertebrae: Diffuse heterogeneous bone marrow density and osteopenia, limited evaluation of the lower cervical spine due to extra venous dilatation due to patient's body habitus, grossly no acute fractures.. Degenerative changes: C5-C6: Disc osteophyte complex formation, bilateral uncovertebral arthrosis, mild right and moderate left foraminal stenoses. Minimal canal narrowing. Otherwise no significant degenerative changes. Incidental findings: Orogastric tube and tracheostomy tube are seen in place. Limited evaluation of the layering stones with adduction of the vocal cords. IMPRESSION: Head CT: 1. Poor palomino-white matter differentiation which may be technique related or secondary to brain edema/ischemia given history of cardiac arrest. 2. No acute hemorrhage or cortical infarcts. Cervical spine CT: 1. No acute fractures or dislocations. 2. Chronic degenerative changes as described. Note: Acute post traumatic spinal cord, vascular or ligamentous injury cannot adequately be assessed with CT. Signed by: Dr. Harper Parham M.D. on 12/05/2019 12:31 AM
[2019-12-05] MEDS ORDERED: SODIUM CHLORIDE 0.9% 1000ML 1,000 ML ONE (01:05)
--- NOTE | 2019-12-05 01:16 | Diagnostic Imaging Report ---
EXAM: CT Chest, Abdomen and Pelvis WITHOUT contrast INDICATION: Cardiac arrest, abdominal distention COMPARISON: Chest x-ray 12/04/2019 TECHNIQUE: Chest, abdomen and pelvis were scanned utilizing a multidetector helical scanner from the lung apex to the pubic symphysis without administration of IV contrast. Absence of intravenous contrast decreases sensitivity for detection of focal lesions and vascular pathology. Coronal and sagittal reformations were obtained. Routine protocol was performed. IV CONTRAST: None ORAL CONTRAST: None COMPLICATIONS: None RADIATION DOSE: Total DLP: 822 mGy*cm Estimated effective dose: (DLP x 0.015 x size factor) mSv CTDIvol has been reviewed. It is below the limits set by the Radiation Protocol Committee (RPC). Dose modulation, iterative reconstruction, and/or weight based adjustment of the mA/kV was utilized to reduce the radiation dose to as low as reasonably achievable. FINDINGS: LINES and TUBES: Left brachial, axillary, and subclavian vascular stents. Tracheostomy tube tip within the upper intrathoracic trachea. Enteric tube tip within the gastric body lumen. Left iliofemoral central venous catheter with tip in the proximal external iliac vein. LUNGS AND AIRWAYS: Consolidation of the lateral aspect of the right upper lobe. Groundglass and consolidative nodular opacities and hazy ground glass opacities in the right upper lobe. Hazy groundglass opacities in the left upper lobe. Central consolidative opacity in the right lower lobe. Subtle groundglass opacities in the right middle lobe. PLEURA: The pleural spaces are clear. HEART AND MEDIASTINUM: The thyroid gland is normal. Some calcified thoracic lymph nodes. The heart is mildly enlarged. There is no pericardial effusion. Aortic and mitral valve calcifications. Triple vessel coronary artery calcifications. HEPATOBILIARY: Hepatomegaly and nodular hepatic surface contour. No focal hepatic lesions. No biliary ductal dilation. GALLBLADDER: There are cholecystectomy clips. SPLEEN: No splenomegaly. PANCREAS: No focal masses or ductal dilatation. ADRENALS: Bilateral adrenal nodular thickening. KIDNEYS/URETERS: No hydronephrosis. No cystic or solid mass lesions. No stones. Atrophic kidneys. GI TRACT: No abnormal distention, wall thickening, or evidence of bowel obstruction. Appendix is not clearly identified. There is however no fat stranding or adenopathy in the right lower quadrant to suggest appendicitis. PELVIC ORGANS/BLADDER: Hysterectomy. No adnexal masses. Urinary bladder unremarkable. LYMPH NODES: No lymphadenopathy. VESSELS: Vascular calcifications. PERITONEUM / RETROPERITONEUM: No free air or fluid. BONES: Nondisplaced fractures of right ribs 4-9. Degenerative changes. SOFT TISSUES: Calcified subcutaneous gluteal granulomatous changes . Subcutaneous edema in the lower anterior abdomen. IMPRESSION: Findings compatible with multifocal pneumonia. A component of pulmonary contusion in the right lung is possible. Nondisplaced fractures of right ribs 4-9. Mild cardiomegaly, with triple vessel coronary artery calcific atherosclerosis, and aortic and mitral valve calcific disease Mild bilateral adrenal nodular thickening can be due to adrenal hemorrhage or neoplasm. Recommend follow-up adrenal CT can further characterize these findings. Hepatomegaly. Nodular hepatic surface contour suggestive of cirrhosis. Signed by: Navdeep Man DO on 12/05/2019 1:12 AM
[2019-12-05 03:20] LABS: CLARITY,URINE CLOUDY (CLEAR); COLOR,URINE AMBER (YELLOW); KETONES,URINE NEGATIVE (NEGATIVE); LEUKOCYTE ESTERASE ,URINE 2+ (NEGATIVE); PROTEIN,URINE DIPSTICK >=300 (NEGATIVE)
[2019-12-05 03:21] LABS: BILIRUBIN,URINE NEGATIVE (NEGATIVE); NITRITE,URINE NEGATIVE (NEGATIVE); URINE UROBILINOGEN 0.2 mg/dL (0.2 - 1)
[2019-12-05 04:04] LABS: BACTERIA,URINE MANY /HPF; EPITHELIAL CELLS,URINE FEW /LPF; RBC,URINE 21-50 /HPF (0-5); TRANSITIONAL EPI CELLS,URINE MANY; WBC,URINE (MAN) >50 /HPF (0-5)
[2019-12-05 04:05] LABS: RENAL EPITHELIAL CELLS,URINE FEW
[2019-12-05 06:19] LABS: BASOPHILS % 0.1 % (0.0-1.0); EOSINOPHILS % 0.1 % (0.0-6.0); LYMPHOCYTES # (AUTO) 0.6 (1.0-3.2); LYMPHOCYTES % 6.6 % (18.0-39.1); MEAN CORPUSCULAR HEMOGLOBIN 28.9 pg (28-32); MEAN CORPUSCULAR HGB CONC 30.3 g/dL (31-35); MEAN CORPUSCULAR VOLUME 95.4 fL (81-99); MONOCYTES # (AUTO) 0.7 (0.2-0.8); MONOCYTES % 7.6 % (4.4-11.3); NEUTROPHILS % 80.2 % (38.7-80.0); PLATELET COUNT 97 x10e3/uL (140-360); RED BLOOD COUNT 2.18 x10e6/uL (3.6-5.1); RED CELL DISTRIBUTION WIDTH 17.4 % (11.7-14.4)
[2019-12-05 06:25] LABS: HEMATOCRIT 20.8 % (34.2-44.1); HEMOGLOBIN 6.3 g/dL (12.0-16.0)
[2019-12-05] MEDS: LEVOTHYROXINE SODIUM 100 MCG TAB PO SCH (06:36)
--- NOTE | 2019-12-05 06:48 | NUR ---
@[address] PRECIADO OF HGB 6.3. ORDERED I UNIT OF PRBC, AND ABG. NOTIFIED THE CONSULT DR ARIAS, SHE SAID TO CALL [facility] TO FIND OUT WHO THE PT'S PRIMARY KIDNEY DOCTOR IS. REPORT GIVEN TO THE ONCOMING RN
[2019-12-05 06:50] LABS: ALBUMIN 3.1 g/dL (3.5-5.0); ALBUMIN/GLOBULIN RATIO 0.8 (0.8-2.0); ANION GAP 20.5 mmol/L (8-16); CALCIUM 8.4 mg/dL (8.4-10.2); CREATININE, SERUM 5.79 mg/dL (0.57-1.11); POTASSIUM 4.5 mmol/L (3.5-5.1)
[2019-12-05] MEDS ORDERED: SODIUM CHLORIDE 0.9% 250ML 250 ML IV ONE ×2 (07:10→10:20)
[2019-12-05] MEDS ORDERED: INSULIN REGULAR, HUMAN 100 UNIT/1 ML 3ML VIAL SQ SCH (07:30)
[2019-12-05] MEDS ORDERED: SEVELAMER CARBONATE 800 MG TAB PO SCH (08:00)
[2019-12-05] MEDS ORDERED: PANCRELIPASE 6000 ER CAPSULE PO SCH (08:00)
--- NOTE | 2019-12-05 09:19 | Diagnostic Imaging Report ---
ADDENDUM #1 Addendum: Specific finding requested: Enteric catheter tip projects over the stomach. Signed by: Tyler Dahl MD on 12/05/2019 1:01 PM ORIGINAL REPORT TECHNIQUE: Frontal view of the chest. INDICATION: Respiratory failure COMPARISON: Chest CT 12/03/2020. IMPRESSION: Lines and hardware: Stable. Heart and mediastinum: Stable. Lungs and pleura: Patchy right-sided airspace opacities, corresponding to those seen on the prior CT. Additional areas of scattered atelectasis. No pleural effusion. No pneumothorax. Soft tissues and bones: Right-sided rib fractures, better seen on the prior CT. Signed by: Tyler Dahl MD on 12/05/2019 9:16 AM
[2019-12-05] MEDS: AZITHROMYCIN 500MG/NS 250 ML 250 ML IV SCH (09:24)
--- NOTE | 2019-12-05 09:25 | Progress Note ---
DATE: Pulmonary Critical Care Progress Note SUBJECTIVE: The patient has remained on the mechanical ventilator overnight. She is still on a PRVC at a rate of 16 with 8 of PEEP and a tidal volume of 450. Her FiO2 is set at 0.6. Her blood count is low this morning, but there are no active signs of bleeding. She is scheduled to receive packed red blood cells with dialysis. The patient is sedated, but does have some movements when the sedation is stopped. PHYSICAL EXAMINATION: VITAL SIGNS: Blood pressure is 117/62, saturation is 98%, pulse is 67. The PRVC is set at a rate of 16 with a tidal volume of 450, FiO2 of 0.6, PEEP is set at 8. HEENT: Shows no facial swelling or erythema. She has oral endotracheal tube in place. CARDIAC: Reveals regular rate and rhythm with normal S1 and S2. LUNGS: Auscultation of lungs shows decreased breath sounds at the bases. There is no wheezing. EXTREMITIES: There is a right femoral line in place. There is minimal leg edema. The patient has some movements and wakefulness when the sedation is stopped. RADIOGRAPHIC DATA: CT scan of the chest shows nondisplaced rib fractures at the levels 4 through 8. There are infiltrates in the right upper lobe, right lower lobe, and left upper lobe, suggestive of possible multifocal pneumonia. The patient has nodular adrenal thickening bilaterally of unclear etiology. There are some calcium and calcification of the coronary arteries and valves of the heart. There is also a nodular hepatic surface suggestive of fibrosis. CT scan of the brain shows poor white palomino matter differentiation of unclear cause. LABORATORY DATA: White blood cell count is improved to 8.6, hemoglobin is 6.3, and platelet count is 97. BUN to creatinine ratio is 30 and 5.79. Other electrolytes are within normal limits. Lactic acid is improved to 2.1 and the AST is 197 and the ALT is 117. IMPRESSION: 1. Agtby-nk-dozuije respiratory failure. 2. End-stage renal disease. 3. Anemia secondary to chronic blood loss. 4. Multifocal pneumonia with sepsis, present on admission. 5. Possible anoxic encephalopathy. 6. Thrombocytopenia. PLAN: 1. Repeat ABG now and wean ventilator as tolerated. 2. Continue broad-spectrum antibiotics to cover for healthcare-associated organisms and await culture results. 3. The patient to receive packed red blood cells during dialysis. 4. Dialysis is scheduled. 5. Continue to monitor neurological status. 6. Prognosis remains poor. 7. Case discussed with Nephrology, emergency department, operations processor nursing, day shift nursing, and Respiratory. Greater than 35 minutes in direct critical care time. MD BEENA Mayes/YECENIA /[id number]
[2019-12-05] MEDS ORDERED: SODIUM CHLORIDE 0.9% 1000ML 2,000 ML ONE (09:59)
[2019-12-05] MEDS: PROPOFOL IV EMULSION 10MG/ML 100 ML IV SCH ×4 (10:16→21:12)
[2019-12-05] MEDS ORDERED: ALBUMIN 25% 12.5GM 0.25 GM/ML BTL IV PRN (10:30)
[2019-12-05] MEDS ORDERED: SODIUM CHLORIDE 0.9% 1000ML 2,000 ML IV PRN (10:30)
[2019-12-05] MEDS: MEROPENEM 1GRAM 1 GM in SODIUM CHLORIDE 0.9% 100 ML 100 ML IV SCH (11:21)
[2019-12-05] MEDS ORDERED: EPINEPHRINE HCL SYRINGE IV ONE (11:56)
[2019-12-05] MEDS: INSULIN REGULAR, HUMAN 100 UNIT/1 ML 3ML VIAL SQ SCH ×2 (12:00→17:35)
--- NOTE | 2019-12-05 14:00 | NUR ---
Dr. Barillas ordered stat dialysis and transfuse 2 units of blood. Type and screen done, hep B and lactic acid. [facility] called and informed of dialysis orders. box estimator at bedside and completed transfusing 2 units. 2.5 L removed. RN called Dr. Alcaraz informed that certain Meds are unable to be given thru md MICHAELA gave orders to hold at this time. Dr. Roopa Alcaraz gave orders to wean FIO2 to 50%, RT informed. Report given to Mary JAFFE at 1200.
[2019-12-05] MEDS ORDERED: TYLENOL # 31 EA PO (14:09)
[2019-12-05] MEDS ORDERED: NORVASC5 MG PO (14:17)
[2019-12-05] MEDS ORDERED: ATIVAN1 MG PO (14:18)
[2019-12-05] MEDS ORDERED: ZOCOR40 MG PO (14:19)
[2019-12-05] MEDS ORDERED: AZITHROMYCIN250 MG PO ×2 (14:21→14:22)
[2019-12-05] MEDS ORDERED: CLARITIN-D 241 EACH PO (14:23)
[2019-12-05] MEDS ORDERED: CREON DR 3,0001 EACH PO (14:25)
[2019-12-05] MEDS ORDERED: LACTULOSE20 GM/30 M PO (14:26)
[2019-12-05] MEDS ORDERED: HYDRALAZINE HCL25 MG PO (14:28)
[2019-12-05] MEDS ORDERED: LANTUS 3ML100 UNITS/ SQ (14:31)
[2019-12-05] MEDS ORDERED: IPRATROPIU0.2 MG/1 M NEB (15:04)
[2019-12-05] MEDS ORDERED: COMBIVENT RESPIM4 GM IH (15:07)
[2019-12-05] MEDS ORDERED: KLONOPIN0.5 MG PO ×2 (15:09→15:15)
[2019-12-05] MEDS ORDERED: LEVOTHYROXINE88 MCG PO (15:16)
[2019-12-05] MEDS ORDERED: LYRICA75 MG PO (15:18)
[2019-12-05] MEDS ORDERED: MECLIZINE HCL12.5 MG PO (15:19)
[2019-12-05] MEDS ORDERED: MIDODRINE HCL2.5 MG PO ×2 (15:21→15:25)
[2019-12-05] MEDS ORDERED: NOVOLIN R100 UNIT/1 SQ (15:29)
[2019-12-05] MEDS ORDERED: RENAGEL800 MG PO (15:30)
[2019-12-05] MEDS ORDERED: QUESTRAN PACKET4 GM PO (15:30)
--- NOTE | 2019-12-05 15:31 | NUR ---
Nutrition Intervention Note RD Recommendation(s) for Physician: - When hemodynamically stable, advance TF of Vital AF to goal rate of 55 ml/hr (to provide 1584 kcal and 99 gm protein). - Recommend not advancing TF over 45 ml/hr until Propofol weaned to 10 ml/hr. - Propofol providing 652 lipid kcal/day. Plan of Care: RD following, monitoring for tolerance and adequacy, TF rec's Nutrition reason for involvement: nutrition risk trigger, new TF RD Assessment 12/04: 59 YOF admitted for cardiac arrest, pneumonia, and respiratory failure. Pt evaluated today per MST screen and new TF. Unable to obtain hx at this time, pt remains intubated. Pt admitted from [facility] with chronic trach. Pt currently sedated with Propofol and varying pressor dosage. Trickle TF initiated today. Chart reviewed. Elevated BG noted, no hx of DM per chart. TF rec's provided, RN notified. Will continue to monitor. Principal Problems/Diagnoses: cardiac arrest, pneumonia, respiratory failure PMH: chronic respiratory failure with trach, ESRD, polyneuropathy, chronic asthma GI: WDL Skin: intact Labs: 12/04: Na 140, K 4.5, BUN 30, Cr 5.79, Gluc 335 Meds: abx, synthroid, azithromycin, IV albumin, insulin, lactulose IV/Drips: Proprofol at 24.7 ml/hr (provides 652 lipid kcal/day) Levophed- dosage varies Ht: 66 in Wt: 303 lb BMI: 48.9 kg/m2 IBW: 130 lb Malnutrition Evaluation 12/05/19 Unable to complete assessment at this time. Nutrition Prescription (Diet Order): TF-Vital AF at 10 ml/hr Estimated Nutritional Needs: Calories: 9956-7696 (11-14kcal/kg/d) Weight used: CBW Protein: 87-118 (1.5-2g/kg/d) Weight used: IBW Diet Adequacy: Not meeting calorie needs, Not meeting protein needs Tolerance: tolerance pending Diet Education Needs Assessment: Diet education not indicated. Nutrition Care Level: Moderate Nutrition Diagnosis: Inadequate energy and protein intake related to chronic trach on vent currently as evidence by requiring EN on admit. Goal: Patient will meet 75-100% of estimated needs by follow up Progress: N/A Interventions: Tube feeding - Composition, Rate, Route Monitoring/Evaluation: Total energy intake, Total protein intake, Formula/Solution, Weight change Signed: Adrianne Ulrich RD, LD, CNSC
[2019-12-05] MEDS ORDERED: TRAZODONE HCL50 MG PO (15:32)
[2019-12-05] MEDS ORDERED: TUMS DUAL ACTI1 EACH (15:34)
[2019-12-05] MEDS ORDERED: VANCOMYCIN1 GM/250 M IV (15:36)
[2019-12-05] MEDS ORDERED: ZOLOFT50 MG PO (15:37)
[2019-12-05] MEDS ORDERED: MEROPENEM 500MG 500 MG in SODIUM CHLORIDE 0.9% 50ML 50 ML IV SCH (16:00)
[2019-12-05 18:12] LABS: HEMATOCRIT 24.8 % (34.2-44.1); HEMOGLOBIN 7.8 g/dL (12.0-16.0)
--- NOTE | 2019-12-05 18:41 | Consultation ---
DATE OF CONSULTATION: REASON FOR CONSULTATION: Pneumonia, leukocytosis, sepsis. HISTORY OF PRESENT ILLNESS: This is a 59-year-old white female with history of polyneuropathy, chronic asthma, chronic respiratory failure, end-stage renal disease, on hemodialysis, tracheostomy, who [facility]. She was unresponsive in the bathroom. She was brought to the emergency room. She was given IV fluid, IV antibiotic, ventilated. The patient had a suction, which showed mucus plug, placed on a mechanical ventilator, started antibiotic. Discussed with the ER physician. The patient is currently in the intensive care unit. Her blood cultures still pending. When she first came, her white count was 35,000, hemoglobin 7.5. Today, her white count 8.6 with hemoglobin 6.3. Sodium 140, potassium 4.5 with a creatinine of 5.7. The patient was given meropenem and azithromycin. PHYSICAL EXAMINATION: GENERAL: She is currently more alert. VITAL SIGNS: Stable. HEENT: She is not icteric. NECK: Supple. CHEST: Few crackles. COR: S1, S2. ABDOMEN: Soft. Bowel sounds present. No tenderness. EXTREMITIES: No edema. The patient received cefepime, azithromycin, vancomycin when she first came here. IMPRESSION: 1. Sepsis on admission secondary to pneumonia. 2. Mucus plug skilled care facility. We will put her on meropenem 500 daily. Discontinue other antibiotic. 3. She received vancomycin. We will await her sputum culture sensitivity. Clinically, she is improving significantly after deep suctioning. 4. Recheck CBC. Recheck Chem panel. 5. Anemia. 6. Respiratory failure. 7. We will follow. MD MARCELA Thorne/MODRoopa /[id number]
[2019-12-05] MEDS: NOREPINEPHRINE 8 MG/D5W 250 ML 8 MG in DEXTROSE 5% 250ML 0 ML IV SCH (18:47)
--- NOTE | 2019-12-05 19:21 | Consultation ---
DATE OF CONSULTATION: REASON FOR CONSULTATION: ESRD, volume overload. HISTORY OF PRESENT ILLNESS: The patient is currently intubated. History is reviewed by the doctor's note. The patient is a 59-year-old female with past medical history of ESRD on hemodialysis Wednesday, Wednesday, and Wednesday. Has history of compliance, chronic respiratory failure with tracheostomy, polyneuropathy, who was admitted after she was found unresponsive in the bathroom. The patient eventually got intubated. The patient was found to have leukocytosis with CT showing bilateral lung infiltrates. She was started on IV antibiotics. Admitted to ICU. COVID is pending. The patient is currently intubated and sedated. She was found to have severe anemia. Does not have any overt GI bleed. Got ultrafiltration this morning with 2 units of PRBC. PAST SURGICAL HISTORY: Tracheostomy. PAST MEDICAL HISTORY: As above. ALLERGIES: FENTANYL, GABAPENTIN, AND LEVAQUIN. FAMILY HISTORY: No history of any kidney disease. REVIEW OF SYSTEMS: Unable to obtain. MEDICATIONS: Currently, the patient is on insulin, meropenem, azithromycin, levothyroxine. PHYSICAL EXAMINATION: VITAL SIGNS: Blood pressure 125/70, pulse of 63, respirations 17, 98% on 60% FiO2, temperature 98.9. GENERAL: Sedated, not in distress. HEENT: Atraumatic. NECK: Positive trach on the vent. LUNGS: Coarse breath sounds bilaterally with decreased breath sounds at the bases. HEART: S1, S2. ABDOMEN: Soft. Bowel sounds positive. EXTREMITIES: Positive edema. NEUROLOGICAL: Currently sedated. LABORATORY DATA: White count 8.6, hemoglobin 6.3, platelet count is 97. Sodium 140, potassium 4.5, chloride 97, CO2 of 27, BUN 30, creatinine 5.79, glucose 335, AST 197, ALT 117, BNP 905. INR 1.15. COVID pending. Blood culture and urine culture pending. CT of the abdomen, pelvis and chest with multifocal pneumonia. Mild cardiomegaly. Mild bilateral nodular thickening, hepatomegaly suggests nodular hepatic surface suggestive of cirrhosis. Chest x-ray done this morning, patchy opacities bilaterally. No pneumothorax. CT of the head; no acute process. ASSESSMENT AND PLAN: 1. End-stage renal disease with volume overload. The patient had ultrafiltration today with 2.5 L UF. Continue with Wednesday, Wednesday and Wednesday dialysis tomorrow. 2. Anemia. No active GI bleed. Start the patient on Epogen. Status post 2 units of PRBC today. 3. Acute on chronic respiratory failure, currently intubated. Follow up on the COVID test. Continue with IV antibiotic. 4. Pneumonia. Antibiotic per Critical Care. Follow up on the COVID test. 5. Morbid obesity. Thank you, Dr. Verma, for the consult. We will follow the patient with you. MD ET Thao/YECENIA /[id number]
[2019-12-06] VITALS (24 sets, daily range): BP systolic 84–149; BP diastolic 48–102
[2019-12-06] MEDS: PROPOFOL IV EMULSION 10MG/ML 100 ML IV SCH ×4 (00:10→06:40)
[2019-12-06] MEDS: INSULIN REGULAR, HUMAN 100 UNIT/1 ML 3ML VIAL SQ SCH ×4 (01:08→18:45)
[2019-12-06] MEDS ORDERED: LORAZEPAM INJ 2 MG/ML VIAL IV ONE (02:00)
[2019-12-06] MEDS: LEVOTHYROXINE SODIUM 100 MCG TAB PO SCH (05:47)
[2019-12-06 06:40] LABS: BASOPHILS % 0.4 % (0.0-1.0); EOSINOPHILS % 0.1 % (0.0-6.0); HEMATOCRIT 23.2 % (34.2-44.1); HEMOGLOBIN 7.3 g/dL (12.0-16.0); LYMPHOCYTES # (AUTO) 0.7 (1.0-3.2); LYMPHOCYTES % 9.5 % (18.0-39.1); MEAN CORPUSCULAR HEMOGLOBIN 29.4 pg (28-32); MEAN CORPUSCULAR HGB CONC 31.5 g/dL (31-35); MEAN CORPUSCULAR VOLUME 93.5 fL (81-99); MONOCYTES # (AUTO) 0.3 (0.2-0.8); MONOCYTES % 4.5 % (4.4-11.3); NEUTROPHILS # (AUTO) 5.7 (2.1-6.9); NEUTROPHILS % 80.8 % (38.7-80.0); PLATELET COUNT 127 x10e3/uL (140-360); RED BLOOD COUNT 2.48 x10e6/uL (3.6-5.1); RED CELL DISTRIBUTION WIDTH 17.7 % (11.7-14.4)
[2019-12-06 07:09] LABS: ANION GAP 16.5 mmol/L (8-16); CALCIUM 8.3 mg/dL (8.4-10.2); CREATININE, SERUM 5.77 mg/dL (0.57-1.11); PHOSPHORUS 4.5 MG/DL (2.3-4.7); POTASSIUM 3.5 mmol/L (3.5-5.1)
--- NOTE | 2019-12-06 09:08 | Progress Note ---
DATE: Pulmonary Critical Care Progress Note SUBJECTIVE: The patient received extra Ativan for agitation last night. She is now more somnolent and difficult to arouse. She received dialysis yesterday. She is still on a pressure regulated volume control at a rate of 16 with a tidal volume of 450 and FiO2 of 50%. Her PEEP is set at 8. PHYSICAL EXAMINATION: VITAL SIGNS: The blood pressure is 107/57. The patient is now off Levophed. Saturation is 95%. She is on the above settings. She has a tracheostomy site. The site looks clean. There is no drainage. CARDIAC: Reveals a regular rate and rhythm with normal S1, S2. LUNGS: Auscultation of lungs shows clear breath sounds bilaterally. There is no wheezing. ABDOMEN: Soft and nontender. There is no rebound or guarding. EXTREMITIES: Show no leg edema or calf tenderness. There is no cyanosis or clubbing. SKIN: Shows no rashes. NEUROLOGICAL: Shows the patient not to be responding. She does breathe over the ventilator. LABORATORY DATA: White blood cell count is 7.06, and hemoglobin is 7.3. The platelet count is 127. The BUN to creatinine ratio is 34 to 5.77. The other electrolytes are within normal limits. Urinalysis shows greater than 50 white blood cells per high-power field. MICROBIOLOGICAL DATA: Urine cultures growing out alpha hemolytic strep. RADIOGRAPHIC DATA: Chest x-ray shows patchy right-sided airspace opacities. IMPRESSION: 1. Acute on chronic respiratory failure. 2. Urinary tract infection and pneumonia with associated sepsis and exposure to healthcare acquired organisms present on admission. 3. Possible anoxic encephalopathy. 4. Thrombocytopenia. 5. Anemia secondary to chronic blood loss. 6. End-stage renal disease. PLAN: 1. Repeat ABG. 2. Continue broad-spectrum antibiotics and taper once culture results are available. 3. Continue dialysis. 4. Neurology consultation and possible EEG. 5. Monitor blood counts and give packed red cells as needed. 6. Case discussed with the cook night, nursing, dayshift nursing, Internal Medicine, and Respiratory. Greater than 35 minutes in direct critical care time. Jean Alcaraz MD LM/YECENIA /[id number]
[2019-12-06 09:48] LABS: LYMPHOCYTES % (MANUAL) 1 % (19-48); MONOCYTES % (MANUAL) 3 % (3.4-9.0); MYELOCYTES % (MANUAL) 1 % (0-0); NEUTROPHILS % (MANUAL) 95 % (40-74); NUCLEATED RED BLOOD CELLS 2
[2019-12-06 09:49] LABS: ANISOCYTOSIS SLIGHT; PLATELET ESTIMATE SLIGHTLY DECREASED; PLATELET MORPHOLOGY COMMENT MOD EDTA CLUMPING; RBC MORPHOLOGY COMMENT NORMAL; TEAR DROP CELLS FEW
[2019-12-06] MEDS ORDERED: PROPOFOL IV EMULSION 10MG/ML 200 ML ONE (11:02)
[2019-12-06] MEDS ORDERED: PROPOFOL IV EMULSION 10 MG/ML 50 ML VIAL IV SCH ×2 (12:30→12:45)
--- NOTE | 2019-12-06 13:00 | Progress Note ---
DATE: SUBJECTIVE: Ms. Clarke remains in intensive care unit. She is getting hemodialysis. LABORATORY DATA: Her urine showed alpha strep. Blood cultures negative. White count 7.06, hemoglobin of 7.3. Her COVID-19 is still pending. PHYSICAL EXAMINATION: GENERAL: Noncommunicative, intubated. CHEST: Few rhonchi. COR: S1 and S2. No S3, S4, or murmur. ABDOMEN: Soft. MEDICATIONS: The patient is currently on vasopressors and meropenem. IMPRESSION: 1. Sepsis on admission. 2. Urinary tract infection. 3. Encephalopathy. 4. Anemia. 5. End-stage disease. Continue with meropenem as ordered. Recheck CBC. 6. Thrombocytopenia, resolved. 7. We will follow. MD MARCELA Thorne/MODL /[id number]
--- NOTE | 2019-12-06 13:26 | NUR ---
WOUND CARE CONSULT FOR 59 YO FEMALE HX OF PNEU,CARDIAC ARREST,RESP FAIL GERMAIN 12 ON STRICT PUP STATUS AND INTERVENTIONS AND ALTERNATING PRESSURE MATTRESS LABS: WBC-7.06 HGB_7.3 GLUCOSE-126 SKIN ASSESSMENT COMPLETE PATIENT PRESENTS WITH LEFT FOOT 5TH MET HEAD ULCERATION MEASURES 0 .8CM X 0.8CM X 0 .1CM RECOMMENDATIONS: NURSING TO CONTINUE TO MAINTAIN STRICT PUP STATUS AND INTERVENTIONS AND ALTERNATING PRESSURE MATTRESS NURSING TO CONTINUE TO ASSIST PATIENT OUT OF BED FOR MEALS AND MUCH TOLERATED NURSING TO CONTINUE TO ASSIST PATIENT NEEDED WITH MEALS AND NUTRITIONAL SUPPLEMENTS TO ENSURE PROPER REQUIREMENTS FOR HEALING NURSING TO CONTINUE TO OFFLOAD FEET AND HEELS NEEDED WITH PILLOW SUSPENSION WHEN IN BED NURSING TO CLEAN LEFT FOOT 5TH MET HEAD ULCERATION WITH NORMAL SALINE DAILY AND APPLY VENELEX OINTMENT AND LEAVE OPEN TO AIR Addendum: 12/06/19 at 1329 by Juan Garcia RN Amended: Links added.
[2019-12-06] MEDS: MEROPENEM 500MG/ NS 50ML 50 ML IV SCH (13:40)
[2019-12-06] MEDS: PROPOFOL IV EMULSION 10 MG/ML 50 ML VIAL IV SCH ×2 (13:40→20:28)
[2019-12-06] MEDS: EPOETIN ALFA-EPBX 10,000 UNIT/ML VIAL SC SCH (13:44)
--- NOTE | 2019-12-06 17:48 | NUR ---
Anne Marie discussed patient's code status with , he will be speaking with the patient's son and follow up later.
[2019-12-06] MEDS: BALSAM PERU/CASTOR OIL 60 GM OINT...G. TP SCH (17:54)
--- NOTE | 2019-12-06 22:00 | NUR ---
New Bag Precedex hung
[2019-12-07] VITALS (24 sets, daily range): BP systolic 72–169; BP diastolic 38–77
[2019-12-07] MEDS: INSULIN REGULAR, HUMAN 100 UNIT/1 ML 3ML VIAL SQ SCH ×4 (00:32→19:01)
[2019-12-07] MEDS: PROPOFOL IV EMULSION 10 MG/ML 50 ML VIAL IV SCH ×7 (00:36→23:15)
--- NOTE | 2019-12-07 00:38 | NUR ---
New Bag Precedex hung
--- NOTE | 2019-12-07 02:38 | NUR ---
New Bag Precedex hung
[2019-12-07 05:55] LABS: BASOPHILS % 0.4 % (0.0-1.0); EOSINOPHILS % 0.3 % (0.0-6.0); HEMATOCRIT 23.4 % (34.2-44.1); HEMOGLOBIN 7.3 g/dL (12.0-16.0); LYMPHOCYTES # (AUTO) 0.8 (1.0-3.2); LYMPHOCYTES % 10.5 % (18.0-39.1); MEAN CORPUSCULAR HEMOGLOBIN 29.6 pg (28-32); MEAN CORPUSCULAR HGB CONC 31.2 g/dL (31-35); MEAN CORPUSCULAR VOLUME 94.7 fL (81-99); MONOCYTES # (AUTO) 0.3 (0.2-0.8); MONOCYTES % 3.8 % (4.4-11.3); NEUTROPHILS # (AUTO) 5.8 (2.1-6.9); NEUTROPHILS % 78.4 % (38.7-80.0); RED BLOOD COUNT 2.47 x10e6/uL (3.6-5.1); RED CELL DISTRIBUTION WIDTH 17.5 % (11.7-14.4)
[2019-12-07] MEDS: LEVOTHYROXINE SODIUM 100 MCG TAB PO SCH (05:59)
[2019-12-07 06:05] LABS: ALBUMIN/GLOBULIN RATIO 0.7 (0.8-2.0); ANION GAP 16.8 mmol/L (8-16); CREATININE, SERUM 5.47 mg/dL (0.57-1.11); POTASSIUM 3.8 mmol/L (3.5-5.1)
[2019-12-07] MEDS: DEXMEDETOMIDINE 200MCG/NS 50ML 50 ML IV PRN ×4 (06:09→23:20)
[2019-12-07 06:41] LABS: ABG HCO3 26 mmol/L (21-29); ABG OXYGEN SATURATION 90.5 % (96-97); ABG PCO2 43 mmHg (35-45)
[2019-12-07 07:06] LABS: PLATELET COUNT 141 x10e3/uL (140-360)
--- NOTE | 2019-12-07 08:53 | Progress Note ---
DATE: SUBJECTIVE: The patient is more awake today, is moving spontaneously. She is still sedated on Diprivan at 20 and Precedex. Her blood pressure was low and she is receiving additional albumin. She is placed on a spontaneous breathing trial with a CPAP of 5 and a pressure support of 8. She is breathing about 30 times a minute with tidal volumes of 400 to 450 mL. PHYSICAL EXAMINATION: VITAL SIGNS: The blood pressure is now is 79/50. She is receiving albumin. HEENT: Shows no facial swelling or erythema. She has a tracheostomy in place. The site looks clean. CARDIAC: Reveals regular rate and rhythm with normal S1 and S2. LUNGS: Auscultation of lungs shows decreased breath sounds at the bases. There is no wheezing. ABDOMEN: Soft, nontender. There is no rebound or guarding. EXTREMITIES: Show no leg edema or calf tenderness. There is no cyanosis or clubbing. SKIN: Shows no rashes. NEUROLOGICAL: Shows no focal abnormalities. The patient is moving spontaneously, but does not follow commands. LABORATORY DATA: White blood cell count is 7.4, hemoglobin is 7.3, and platelet count is 141. BUN to creatinine ratio is 32 and 5.47. The other electrolytes are within normal limits. AST is 612 and ALT is 455. The albumin is 3.0. Urinalysis shows greater than 50 white blood cells per high-power field. IMPRESSION: 1. Lwovi-bz-khyhwpq respiratory failure. 2. Coronavirus disease 2019 infection. 3. Tracheal stenosis. 4. Thrombocytopenia. 5. Anemia secondary to chronic blood loss. 6. End-stage renal disease. 7. Urinary tract infection with sepsis, present on admission. PLAN: 1. Continue spontaneous breathing trial and repeat ABG. 2. Continue albumin infusion and use low-dose Levophed if needed. 3. Repeat chest x-ray. 4. Continue to evaluate neurological status. I will figure out an MRI of the brain to assess for any anoxic injury if possible given her COVID-19 positive status. 5. Continue to use dialysis as needed. 6. Continue to monitor liver enzymes. 7. Case discussed with , she has had a DNR status in the past. He will consider DNR status again after discussing with her son and her sister. 8. Case discussed with nursing staff, Infectious Disease, Nephrology, and administration. Greater than 35 minutes in direct critical care time. MD BEENA Mayes/YECENIA /[id number]
--- NOTE | 2019-12-07 10:00 | Diagnostic Imaging Report ---
EXAM: CHEST SINGLE (PORTABLE) DATE: 12/07/2019 6:30 AM INDICATION: Respiratory failure COMPARISON: 12/05/2019 FINDINGS/IMPRESSION: Tracheostomy cannula identified in stable position. Enteric tube noted coursing below the diaphragm. There are patchy interstitial and airspace opacities present within the right mid and lower lung zones, which appears slightly more prominent than the prior examination. There is no evidence for pneumothorax or significant pleural effusion. The cardiomediastinal silhouette is stable in appearance. No acute osseous abnormality is identified. Signed by: Dr. Oniel Duque MD on 12/07/2019 9:57 AM
[2019-12-07 10:25] LABS: ANISOCYTOSIS MODERATE; BAND NEUTROPHILS % (MANUAL) 3 %; LYMPHOCYTES % (MANUAL) 5 % (19-48); MONOCYTES % (MANUAL) 1 % (3.4-9.0); NEUTROPHILS % (MANUAL) 84 % (40-74); NUCLEATED RED BLOOD CELLS 4; POLYCHROMASIA FEW
[2019-12-07 10:26] LABS: TEAR DROP CELLS FEW
[2019-12-07 10:27] LABS: POIKILOCYTOSIS SLIGHT; RBC MORPHOLOGY COMMENT ABNORMAL
[2019-12-07 10:28] LABS: PLATELET ESTIMATE ADEQUATE; PLATELET MORPHOLOGY COMMENT FEW EDTA CLUMPING
[2019-12-07 10:35] LABS: METAMYELOCYTES % (MANUAL) 7 % (0-0)
[2019-12-07 10:52] LABS: ABG HCO3 28 mmol/L (21-29); ABG PCO2 52 mmHg (35-45); ABG PH 7.35 (7.35-7.45)
[2019-12-07 10:53] LABS: ABG OXYGEN SATURATION 93.8 % (96-97)
[2019-12-07] MEDS: MEROPENEM 500MG/ NS 50ML 50 ML IV SCH (11:14)
[2019-12-07] MEDS: BALSAM PERU/CASTOR OIL 60 GM OINT...G. TP SCH (11:14)
--- NOTE | 2019-12-07 12:43 | Progress Note ---
DATE: SUBJECTIVE: Ms. Clarke COVID-19 came back positive. She remains on ventilator. Discussed with her sister, who has power of consumer attorney. Patient remains intubated, sedated. OBJECTIVE: HEENT: Normocephalic. CHEST: Few crackles. COR: S1, S2. ABDOMEN: Soft. LABORATORY DATA: Reviewed. Chart reviewed. MEDICATIONS: Reviewed. IMPRESSION: 1. Acute respiratory failure. 2. COVID-19 infection, status post tracheostomy, status post tracheal stenosis. 3. Anemia of chronic disease. 4. End-stage renal disease on hemodialysis. The family would like her to be DNR, notified attending and continue with supportive care. Prognosis is extremely poor. Leilani Moran MD ZS/MODL /[id number]
[2019-12-07] MEDS: NOREPINEPHRINE 8 MG/D5W 250 ML 8 MG in DEXTROSE 5% 250ML 0 ML IV SCH ×3 (22:31)
[2019-12-08] VITALS (26 sets, daily range): BP systolic 56–125; BP diastolic 47–108
[2019-12-08] MEDS: INSULIN REGULAR, HUMAN 100 UNIT/1 ML 3ML VIAL SQ SCH ×5 (00:05→23:43)
[2019-12-08] MEDS: PROPOFOL IV EMULSION 10 MG/ML 50 ML VIAL IV SCH ×9 (00:50→22:59)
[2019-12-08] MEDS: DEXMEDETOMIDINE 200MCG/NS 50ML 50 ML IV PRN ×7 (00:50→23:01)
[2019-12-08 04:52] LABS: BASOPHILS # (AUTO) 0.1 (0.0-0.1); BASOPHILS % 0.5 % (0.0-1.0); EOSINOPHILS % 0.2 % (0.0-6.0); HEMATOCRIT 24.7 % (34.2-44.1); HEMOGLOBIN 7.5 g/dL (12.0-16.0); LYMPHOCYTES # (AUTO) 0.7 (1.0-3.2); LYMPHOCYTES % 7.2 % (18.0-39.1); MEAN CORPUSCULAR HEMOGLOBIN 29.1 pg (28-32); MEAN CORPUSCULAR HGB CONC 30.4 g/dL (31-35); MEAN CORPUSCULAR VOLUME 95.7 fL (81-99); MONOCYTES # (AUTO) 0.5 (0.2-0.8); MONOCYTES % 5.2 % (4.4-11.3); NEUTROPHILS # (AUTO) 7.4 (2.1-6.9); NEUTROPHILS % 78.5 % (38.7-80.0); PLATELET COUNT 115 x10e3/uL (140-360); RED BLOOD COUNT 2.58 x10e6/uL (3.6-5.1); RED CELL DISTRIBUTION WIDTH 17.4 % (11.7-14.4)
[2019-12-08 05:11] LABS: ANION GAP 23.1 mmol/L (8-16); CALCIUM 8.5 mg/dL (8.4-10.2); CREATININE, SERUM 7.26 mg/dL (0.57-1.11); POTASSIUM 4.1 mmol/L (3.5-5.1)
[2019-12-08] MEDS: LEVOTHYROXINE SODIUM 100 MCG TAB PO SCH (05:40)
[2019-12-08 07:25] LABS: ANISOCYTOSIS MODERATE; BAND NEUTROPHILS % (MANUAL) 4 %; LYMPHOCYTES % (MANUAL) 2 % (19-48); METAMYELOCYTES % (MANUAL) 1 % (0-0); MONOCYTES % (MANUAL) 1 % (3.4-9.0); MYELOCYTES % (MANUAL) 4 % (0-0); NEUTROPHILS % (MANUAL) 87 % (40-74); NUCLEATED RED BLOOD CELLS 2
[2019-12-08 07:26] LABS: TEAR DROP CELLS MODERATE
[2019-12-08] MEDS: BALSAM PERU/CASTOR OIL 60 GM OINT...G. TP SCH (07:26)
[2019-12-08 07:27] LABS: POLYCHROMASIA FEW
[2019-12-08 07:28] LABS: PLATELET ESTIMATE ADEQUATE; PLATELET MORPHOLOGY COMMENT FEW EDTA CLUMPING; RBC MORPHOLOGY COMMENT ABNORMAL
[2019-12-08] MEDS ORDERED: LIDOCAINE HCL 1% 2 ML AMP INJ ONE (08:45)
--- NOTE | 2019-12-08 09:14 | NUR ---
PROGRESS [id number]
--- NOTE | 2019-12-08 09:36 | Progress Note ---
DATE: SUBJECTIVE: The patient requires sedation. Without the sedation, she becomes agitated and moves all extremities. She does not have purposeful interaction. She remains on a PRVC mode of ventilation. She had a temperature of 99.1. PHYSICAL EXAMINATION: VITAL SIGNS: Blood pressure is 90/50 and the saturation is 100%. She is on a PRVC mode of ventilation at a rate of 16 with a tidal volume of 450. The FiO2 is set at 40% and the PEEP is set at 5. HEENT: No facial swelling or erythema. There is a tracheostomy tube in good position. The site looks clean. There is no drainage. CARDIAC: Reveals regular rate and rhythm with normal S1 and S2. LUNGS: Auscultation of lungs reveals rhonchorous breath sounds bilaterally. There is no wheezing. ABDOMEN: Soft, nontender. There is no rebound or guarding. EXTREMITIES: 1+ leg edema. LABORATORY DATA: Hemoglobin is 7.5 and the white blood cell count is 9.4. The platelet count is 115. The BUN to creatinine ratio is normal. The other electrolytes are significant for carbon dioxide of 20. IMPRESSION: 1. Ggpya-pb-iazvouk respiratory failure. 2. COVID-19 infection. 3. Tracheal stenosis. 4. Thrombocytopenia. 5. Anemia secondary to chronic blood loss. 6. End-stage renal disease. PLAN: 1. Continue current antibiotics. 2. The patient is scheduled for dialysis today. 3. MRI of the brain is on hold because of COVID positive testing. 4. Continue to monitor blood counts and transfuse as needed. 5. Continue current sedation. 6. Case discussed with weft straightener nursing, dayshift nursing, Nephrology, Infectious Disease, Internal Medicine, and family. Greater than 35 minutes in direct critical care time apart from any procedures performed. MD BEENA Mayes/YECENIA /[id number]
[2019-12-08] MEDS: MEROPENEM 500MG/ NS 50ML 50 ML IV SCH (10:28)
[2019-12-08] MEDS: HEPARIN SOD (PORCINE) 5,000 UNIT/ML VIAL SC SCH ×2 (11:56→21:31)
[2019-12-08 12:08] LABS: ABG PCO2 44 mmHg (35-45); ABG PH 7.34 (7.35-7.45)
[2019-12-08 12:09] LABS: ABG HCO3 24 mmol/L (22-26)
[2019-12-08] MEDS: EPOETIN ALFA-EPBX 10,000 UNIT/ML VIAL SC SCH (13:45)
[2019-12-08] MEDS ORDERED: MIDAZOLAM HCL 2 MG/2 ML VIAL IV STA (14:48)
[2019-12-08] MEDS ORDERED: SODIUM CHLORIDE 0.9% 1000ML 1,000 ML ONE (15:24)
--- NOTE | 2019-12-08 16:55 | NUR ---
Nutrition Intervention Note RD Recommendation(s) for Physician: - When hemodynamically stable, advance TF of Vital AF to goal rate of 55 ml/hr (to provide 1584 kcal and 99 gm protein). - Recommend not advancing TF over 45 ml/hr until Propofol weaned to 10 ml/hr. - Propofol providing 924 lipid kcal/day. Plan of Care: RD following, monitoring for tolerance and adequacy, TF rec's Nutrition reason for involvement: follow up RD Assessment 12/07: Follow up. Pt remains intubated and sedated with propofol. Spoke to RN, who stated pt is receiving 35 mL/hr of propofol (provides 924 kcal). Pt has been tolerating tube feeding and it was advanced to 20 mL/hr per RN.Will continue to monitor. 12/04: 59 YOF admitted for cardiac arrest, pneumonia, and respiratory failure. Pt evaluated today per MST screen and new TF. Unable to obtain hx at this time, pt remains intubated. Pt admitted from [facility] with chronic trach. Pt currently sedated with Propofol and varying pressor dosage. Trickle TF initiated today. Chart reviewed. Elevated BG noted, no hx of DM per chart. TF rec's provided, RN notified. Will continue to monitor. Principal Problems/Diagnoses: cardiac arrest, pneumonia, respiratory failure PMH: chronic respiratory failure with trach, ESRD, polyneuropathy, chronic asthma GI: last recorded BM 12/07 Skin: intact Labs: 12/07: BUN 50, Creat 7.26, Glu 219 12/04: Na 140, K 4.5, BUN 30, Cr 5.79, Gluc 335 Meds: heparin, insulin, propofol, meropenem, levothyroxine, norepinephrine, lactulose Ht: 66 in Wt: 299 lbs (12/06) 303 lb (12/04) BMI: 48.3 kg/m2 IBW: 130 lb Malnutrition Evaluation 12/05/19 Unable to complete assessment at this time. Nutrition Prescription (Diet Order): TF-Vital AF at 10 ml/hr Estimated Nutritional Needs: Calories: 9077-3194 (11-14kcal/kg/d) Weight used: CBW Protein: 87-118 (1.5-2g/kg/d) Weight used: IBW Diet Adequacy: Not meeting calorie needs, Not meeting protein needs Tolerance: tolerance pending Diet Education Needs Assessment: Diet education not indicated. Nutrition Care Level: Moderate Nutrition Diagnosis: Inadequate energy and protein intake related to chronic trach on vent currently as evidence by requiring EN on admit. Goal: Patient will meet 75-100% of estimated needs by follow up Progress: N/A Interventions: Tube feeding - Composition, Rate, Route Monitoring/Evaluation: Total energy intake, Total protein intake, Formula/Solution, Weight change Signed: Lorraine Cronin RD, ZACH
--- NOTE | 2019-12-08 17:10 | Diagnostic Imaging Report ---
EXAMINATION: CHEST XRAY LINE PLACEMENT INDICATION: Line placement COMPARISON: Chest radiograph of 10/18/2019 FINDINGS: LINES/TUBES:Left IJ central venous catheter terminates at the superior cavoatrial junction. Tracheostomy tube in place. Enteric tube projects below the diaphragm with tip not visualized. EKG leads overlie the chest. LUNGS:The lungs are moderately inflated. Bilateral multifocal patchy airspace opacities. PLEURA:No pleural effusion or pneumothorax. MEDIASTINUM:The cardiomediastinal silhouette appears enlarged in size and shape. Atherosclerotic calcifications of the thoracic aorta. BONES/SOFT TISSUES:No acute osseous injury. ABDOMEN:No free air under the diaphragm. IMPRESSION: Left IJ central venous catheter terminates at the superior cavoatrial junction. Line is ready for use. Bilateral multifocal airspace opacities, consistent with known multifocal pneumonia. Signed by: Felicitas Salcedo MD on 12/08/2019 5:06 PM
--- NOTE | 2019-12-08 21:09 | Operative Report ---
DATE OF PROCEDURE: SURGEON: Jean Alcaraz MD PROCEDURE: Central line placement under ultrasound guidance. PREOPERATIVE DIAGNOSIS: End-stage renal failure. POSTOPERATIVE DIAGNOSIS: End-stage renal failure. CONSENT: Consent was obtained from the power of personal injury attorney, the patient's sister. ANESTHESIA: 1% lidocaine was used for local anesthesia. PROCEDURE IN DETAIL: The patient was placed in a supine position. The left IJ was localized with the ultrasound. The patient's left neck was prepped sterilely. A full-length sterile gown, sterile gloves, and sterile drapes were used. The ultrasound was used to locate the left internal jugular vein. 1% lidocaine was used to anesthetize the skin. The vein was cannulated on the first attempt under direct visualization with a 16-gauge needle. A wire was passed through the needle. Dilator was used to dilate the skin. A triple-lumen catheter was placed over the wire by the Seldinger technique. The patient had some oozing around the site. All the ports flushed. CVP fluctuated between 10 and 13. COMPLICATIONS: None. ESTIMATED BLOOD LOSS: 20 mL. Jean Alcaraz MD [facility]/MODL /[id number]
[2019-12-08] MEDS: NOREPINEPHRINE 8 MG/D5W 250 ML 8 MG in DEXTROSE 5% 250ML 0 ML IV SCH (23:42)
[2019-12-09] VITALS (26 sets, daily range): BP systolic 81–146; BP diastolic 33–80
[2019-12-09] MEDS: DEXMEDETOMIDINE 200MCG/NS 50ML 50 ML IV PRN ×5 (01:19→21:36)
[2019-12-09] MEDS: PROPOFOL IV EMULSION 10 MG/ML 50 ML VIAL IV SCH ×6 (01:38→22:35)
[2019-12-09 04:43] LABS: BASOPHILS % 0.4 % (0.0-1.0); EOSINOPHILS % 0.3 % (0.0-6.0); HEMATOCRIT 23.3 % (34.2-44.1); HEMOGLOBIN 7.5 g/dL (12.0-16.0); LYMPHOCYTES # (AUTO) 0.6 (1.0-3.2); LYMPHOCYTES % 7.1 % (18.0-39.1); MEAN CORPUSCULAR HEMOGLOBIN 30.4 pg (28-32); MEAN CORPUSCULAR HGB CONC 32.2 g/dL (31-35); MEAN CORPUSCULAR VOLUME 94.3 fL (81-99); MONOCYTES # (AUTO) 0.2 (0.2-0.8); MONOCYTES % 2.7 % (4.4-11.3); NEUTROPHILS # (AUTO) 6.3 (2.1-6.9); NEUTROPHILS % 80.6 % (38.7-80.0); PLATELET COUNT 196 x10e3/uL (140-360); RED BLOOD COUNT 2.47 x10e6/uL (3.6-5.1); RED CELL DISTRIBUTION WIDTH 17.6 % (11.7-14.4)
[2019-12-09 05:13] LABS: ALBUMIN 2.9 g/dL (3.5-5.0); ALBUMIN/GLOBULIN RATIO 0.6 (0.8-2.0); ANION GAP 26.1 mmol/L (8-16); CALCIUM 8.8 mg/dL (8.4-10.2); CREATININE, SERUM 6.11 mg/dL (0.57-1.11); POTASSIUM 4.1 mmol/L (3.5-5.1)
[2019-12-09] MEDS: LEVOTHYROXINE SODIUM 100 MCG TAB PO SCH (06:10)
[2019-12-09] MEDS: INSULIN REGULAR, HUMAN 100 UNIT/1 ML 3ML VIAL SQ SCH ×4 (06:10→23:52)
[2019-12-09 07:44] LABS: PLATELET ESTIMATE ADEQUATE
[2019-12-09 07:45] LABS: NUCLEATED RED BLOOD CELLS 2
[2019-12-09] MEDS ORDERED: MIDAZOLAM HCL 50 MG in SODIUM CHLORIDE 0.9% 100 ML 90 ML IV PRN ×4 (07:45)
[2019-12-09 07:46] LABS: ANISOCYTOSIS MODERATE; BAND NEUTROPHILS % (MANUAL) 3 %; LYMPHOCYTES % (MANUAL) 2 % (19-48); METAMYELOCYTES % (MANUAL) 1 % (0-0); MONOCYTES % (MANUAL) 1 % (3.4-9.0); MYELOCYTES % (MANUAL) 3 % (0-0); NEUTROPHILS % (MANUAL) 89 % (40-74); RBC MORPHOLOGY COMMENT ABNORMAL
--- NOTE | 2019-12-09 08:20 | Progress Note ---
DATE: SUBJECTIVE: The patient received dialysis yesterday. Her oxygenation is worse. She was on 100% previously and is now on 85% with 12 of PEEP. She has additional fevers. Her temperature was 100.6, this morning. PHYSICAL EXAMINATION: VITAL SIGNS: The blood pressure is 144/80, saturation is 93%. HEENT: Shows no facial swelling or erythema. There is no oral endotracheal tube in place. There is a left IJ line. The site looks clean. There is no drainage. CARDIAC: Reveals regular rate and rhythm with normal S1, S2. LUNGS: Auscultation of lungs reveals rhonchorous breath sounds bilaterally. There is no wheezing. ABDOMEN: Soft, nontender. There is no rebound or guarding. EXTREMITIES: Shows no leg edema or calf tenderness. There is no cyanosis or clubbing. SKIN: Shows no rashes. LABORATORY DATA: White blood cell count is 7.8 and hemoglobin is 7.5. The platelet count is 196. The KVG-gw-scphsbrnzz ratio is 37 to 6.11. The other electrolytes within normal limits. RADIOGRAPHIC DATA: Chest x-ray shows bilateral infiltrates. IMPRESSION: 1. Knrsk-qt-bdhqopy respiratory failure. 2. COVID-19 infection. 3. End-stage renal disease with chronic hemodialysis. 4. Anemia secondary to chronic blood loss. PLAN: 1. Increase PEEP and adjust FiO2 as required. The patient will require a lung protective strategy because of her COVID-19 status and impending ARDS. 2. Continue trach care and frequent suctioning. 3. Continue dialysis. 4. Continue current antibiotics. 5. Repeat blood cultures. 6. Continue dialysis. 7. Enteral feedings. 8. Continue to monitor and control blood sugars. 9. DVT prophylaxis. 10. Case discussed with sister next of kin. She is aware of the poor prognosis. 11. Case discussed with the security shift manager nursing, dayshift nursing, Respiratory, Infectious Disease, and Internal Medicine. Greater than 35 minutes in direct critical care time. Jean Alcaraz MD [facility]/MODL /[id number]
[2019-12-09] MEDS ORDERED: NOREPINEPHRINE 8 MG/D5W 250 ML 250 ML ONE (09:03)
--- NOTE | 2019-12-09 09:11 | Diagnostic Imaging Report ---
EXAMINATION: CHEST SINGLE (PORTABLE) INDICATION: Respiratory failure. COMPARISON: Chest radiograph 12/08/19. FINDINGS: LINES/TUBES:Left IJ central venous catheter terminates atin the SVC. Tracheostomy tube in place. Enteric tube projects below the diaphragm with tip not visualized. EKG leads overlie the chest. LUNGS:The lungs are moderately inflated. Bilateral multifocal patchy airspace opacities. PLEURA:No pleural effusion or pneumothorax. MEDIASTINUM:The cardiomediastinal silhouette appears enlarged. Atherosclerotic calcifications of the thoracic aorta. BONES/SOFT TISSUES:No acute osseous abnormality. ABDOMEN:No free air under the diaphragm. IMPRESSION: Bilateral multifocal airspace opacities, consistent with multifocal pneumonia, possibly with superimposed pulmonary edema. Persistent cardiomegaly. Signed by: Dr. Fina Rose MD on 12/09/2019 9:07 AM
[2019-12-09] MEDS: MEROPENEM 500MG/ NS 50ML 50 ML IV SCH (09:27)
[2019-12-09] MEDS: BALSAM PERU/CASTOR OIL 60 GM OINT...G. TP SCH (09:27)
[2019-12-09] MEDS: HEPARIN SOD (PORCINE) 5,000 UNIT/ML VIAL SC SCH ×2 (09:30→21:35)
--- NOTE | 2019-12-09 10:30 | Progress Note ---
DATE: 12/09/2019 CHIEF COMPLAINT/HISTORY OF PRESENT ILLNESS: This is a 59-year-old white woman, whose primary treating diagnosis is sepsis and acute respiratory failure secondary to bilateral COVID-19 pneumonia. The patient also has end-stage renal disease and congestive heart failure. The patient's clinical condition is deteriorated over the last couple of days. In fact, she has a do not resuscitate code status. The attending, as well as the pulmonary fashion consultant selling has spoken to family members about proceeding with palliative treatment from hospice care. The patient had chest film today on 12/09/2019, which revealed bilateral multifocal airspace opacities with persistent cardiomegaly. Today's blood work revealed a white blood cell count of 7800 with 80% segmented neutrophils. Hemoglobin 7.5 g/dL. The patient's potassium is 4.1. BUN and creatinine are 37 and 6.11 respectively. AST and ALT are 139 and 192 respectively. REVIEW OF SYSTEMS: As per HPI. PHYSICAL EXAMINATION: GENERAL: She is sedated on the ventilator via tracheostomy tube. VITAL SIGNS: BMI is 48. Her height 5 feet 6 inches, weight is 300 pounds, blood pressure is 140/56, respiratory rate is 22, oxygen saturation 92% on FiO2 75%, pulse 68. The highest temperature in the last 24 hours is 100.8 at 11 o'clock yesterday morning, but currently is 100.6. INTEGUMENT: Skin is warm and dry. She has pallor. No jaundice or diaphoresis. HEENT: Anicteric sclerae. The patient has a nasogastric tube in place. NECK: Supple. She has a tracheostomy tube in place connected to the ventilator. CARDIOVASCULAR: Regular rate and rhythm. No S3 gallop. LUNGS: The patient has crackles and rhonchi in the bilateral lung [place]. ABDOMEN: Obese. EXTREMITIES: No edema or deformity. NEUROLOGIC: She is on a ventilator and sedated as previously stated. DIAGNOSES: 1. Acute on chronic respiratory failure secondary to bilateral COVID-19 pneumonia. 2. Bilateral COVID-19 pneumonia. 3. Sepsis secondary to bilateral COVID-19 pneumonia. 4. End-stage renal disease. 5. Acute on chronic diastolic congestive heart failure. 6. Anemia secondary to chronic kidney disease. 7. Extreme obesity, BMI 48. 8. Do not resuscitate code status. PLAN: 1. Continue supportive care. 2. Agree with the attending and pulmonary fashion consultant selling about pursuing palliative treatment for hospice care. 3. Extreme poor prognosis. I spent 30 minutes in the care of this intensive care unit patient. MD VIDHYA Hernandez/YECENIA /[id number] ANDRES
[2019-12-09] MEDS: ACETAMINOPHEN 325 MG/10 ML UDC NG PRN (20:17)
[2019-12-09] MEDS: NOREPINEPHRINE 8 MG/D5W 250 ML 8 MG in DEXTROSE 5% 250ML 0 ML IV SCH (23:51)
[2019-12-10] VITALS (26 sets, daily range): BP systolic 94–123; BP diastolic 43–57
[2019-12-10] MEDS: DEXMEDETOMIDINE 200MCG/NS 50ML 50 ML IV PRN ×3 (00:55→08:33)
[2019-12-10] MEDS: PROPOFOL IV EMULSION 10 MG/ML 50 ML VIAL IV SCH ×4 (01:15→08:33)
[2019-12-10 05:01] LABS: BASOPHILS % 0.4 % (0.0-1.0); EOSINOPHILS % 0.3 % (0.0-6.0); HEMOGLOBIN 7.2 g/dL (12.0-16.0); LYMPHOCYTES # (AUTO) 0.6 (1.0-3.2); LYMPHOCYTES % 9.2 % (18.0-39.1); MEAN CORPUSCULAR HEMOGLOBIN 30.4 pg (28-32); MEAN CORPUSCULAR VOLUME 94.9 fL (81-99); MONOCYTES # (AUTO) 0.2 (0.2-0.8); MONOCYTES % 2.9 % (4.4-11.3); NEUTROPHILS # (AUTO) 5.4 (2.1-6.9); NEUTROPHILS % 77.7 % (38.7-80.0); PLATELET COUNT 130 x10e3/uL (140-360); RED BLOOD COUNT 2.37 x10e6/uL (3.6-5.1)
[2019-12-10 05:13] LABS: HEMATOCRIT 22.5 % (34.2-44.1)
[2019-12-10 05:16] LABS: ALBUMIN 2.4 g/dL (3.5-5.0); ALBUMIN/GLOBULIN RATIO 0.5 (0.8-2.0); ANION GAP 27.4 mmol/L (8-16); CALCIUM 8.3 mg/dL (8.4-10.2); CREATININE, SERUM 7.61 mg/dL (0.57-1.11); POTASSIUM 4.4 mmol/L (3.5-5.1)
[2019-12-10] MEDS: LEVOTHYROXINE SODIUM 100 MCG TAB PO SCH (05:32)
[2019-12-10] MEDS: INSULIN REGULAR, HUMAN 100 UNIT/1 ML 3ML VIAL SQ SCH ×4 (06:11→23:19)
[2019-12-10 06:17] LABS: ABG HCO3 25 mmol/L (22-26); ABG PCO2 46 mmHg (35-45); ABG PH 7.33 (7.35-7.45)
[2019-12-10] MEDS: MIDAZOLAM HCL 25 MG in SODIUM CHLORIDE 0.9% 50ML 45 ML IV PRN ×4 (06:23→21:46)
[2019-12-10] MEDS: BALSAM PERU/CASTOR OIL 60 GM OINT...G. TP SCH (08:04)
[2019-12-10] MEDS: HEPARIN SOD (PORCINE) 5,000 UNIT/ML VIAL SC SCH ×2 (08:07→21:04)
[2019-12-10] MEDS: ACETAMINOPHEN 325 MG/10 ML UDC NG PRN (08:33)
--- NOTE | 2019-12-10 09:04 | Diagnostic Imaging Report ---
EXAMINATION: CHEST SINGLE (PORTABLE) INDICATION: Cardiac arrest Respiratory failure. COMPARISON: Chest radiograph 12/09/19. FINDINGS: LINES/TUBES:Left IJ central venous catheter terminates at the cavoatrial junction. Tracheostomy tube in place with distal tip at the thoracic inlet. Enteric tube projects below the diaphragm with tip not included, out of the [id number]. LUNGS:The lungs are moderately inflated. Bilateral extensive multifocal patchy airspace opacities. PLEURA:Bilateral small pleural effusions. No pneumothorax. MEDIASTINUM:The cardiomediastinal silhouette appears enlarged, albeit obscured. Atherosclerotic calcifications of the thoracic aorta. BONES/SOFT TISSUES:No acute osseous abnormality. ABDOMEN:No free air under the diaphragm. IMPRESSION: Stable examination with bilateral extensive multifocal airspace disease which may reflect a combination of pulmonary edema and superimposed infection in the proper setting. Stable supporting tubes and lines. Signed by: Dr. Parul Verdin M.D. on 12/10/2019 9:01 AM
[2019-12-10] MEDS: MEROPENEM 500MG/ NS 50ML 50 ML IV SCH (09:25)
--- NOTE | 2019-12-10 09:39 | Progress Note ---
DATE: 12/10/2019 CHIEF COMPLAINT/HISTORY OF PRESENT ILLNESS: This is a 59-year-old white female, whose primary treating diagnosis is acute hypoxic respiratory failure secondary to bilateral COVID-19 pneumonia. The patient also has end-stage renal disease and congestive heart failure. Moreover, she has extreme obesity, The patient has only worsened clinically over the last 24 hours. In fact, her oxygen saturation 87% on FiO2 100%. The patient is on norepinephrine. The family decided to proceed with a do not resuscitate code status. The patient underwent chest film yesterday on December 09, 2019, which revealed multifocal airspace opacities as well as persistent cardiomegaly. Today's BUN and creatinine are 52 and 7.61 respectively. The patient's AST and ALT are 108 and 110 respectively. The patient's white blood cell count today is 6900 with 77% segmented neutrophils. Hemoglobin 7.2 g/dL. REVIEW OF SYSTEMS: As per HPI. PHYSICAL EXAMINATION: GENERAL: She is sedated on the ventilator via tracheostomy tube. VITAL SIGNS: BMI is 48. Blood pressure currently is 113/55, but it was 98/45 at 7 o'clock in the morning, heart rate 70, temperature 101.9, oxygen saturation once again was 87% on FiO2 of 100%. INTEGUMENT: Skin is warm and dry. She has obvious pallor. No jaundice or diaphoresis though. HEENT: Anicteric sclerae. NECK: Supple. She has a tracheostomy tube connected to the ventilator. CARDIOVASCULAR: Regular rate and rhythm with S3 gallop. LUNGS: The patient has crackles in bilateral lung middleton. ABDOMEN: Soft, and is obese. EXTREMITIES: No edema or deformity. NEUROLOGIC: She is on a ventilator and sedated as previously stated. DIAGNOSES: 1. Acute on chronic respiratory failure secondary to bilateral COVID-19 pneumonia. 2. Bilateral COVID-19 pneumonia. 3. Sepsis secondary to bilateral COVID-19 pneumonia. 4. End-stage renal disease. 5. Acute on chronic diastolic congestive heart failure. 6. Anemia secondary to chronic kidney disease. 7. Extreme obesity, BMI 48. 8. Do not resuscitate code status. PLAN: 1. Continue supportive care at this time. 2. We will stop intravenous vasopressors, namely norepinephrine since the patient is a do not resuscitate code status and at this time this likely constitutes the futility of care. 3. I agree with the pulmonary recruiting operations consultant about pursuing palliative treatment in the form of hospice care. 4. Extremely poor prognosis. 5. Imminent . 6. We will initiate comfort measures. I spent 30 minutes in the care of this intensive care unit patient. MD VIDHYA Hernandez/ESTEPHANIAL /[id number]
--- NOTE | 2019-12-10 10:09 | Progress Note ---
DATE: SUBJECTIVE: The patient has required an increase in her FiO2 to 100%. Her PEEP has been increased to 18. Her tidal volume is decreased to 380, and her respiratory rate is increased to 22. She has a fever of 101.9. PHYSICAL EXAMINATION: VITAL SIGNS: Blood pressure is 113/55 and saturation is 88%. HEENT: Shows no facial swelling or erythema. There is a tracheostomy site in good position. There is a left IJ line. CARDIAC: Reveals regular rate and rhythm with normal S1, S2. LUNGS: Auscultation of lungs reveals rhonchorous breath sounds bilaterally. There is no wheezing. ABDOMEN: Soft, nontender. There is no rebound or guarding. EXTREMITIES: Show no leg edema or calf tenderness. There is no cyanosis or clubbing. LABORATORY DATA: White blood cell count is 6.9 and hemoglobin is 7.2. The platelet count is 130. The [id number]-[id number] ratio is 52 to 7.61. The carbon dioxide is 16, and blood sugars are 300. IMPRESSION: 1. Acute respiratory failure. 2. Acute respiratory distress syndrome. 3. COVID-19 infection. 4. End-stage renal disease. 5. Obesity. 6. Anemia secondary to chronic blood loss. 7. Tracheal stenosis. 8. Thrombocytopenia. PLAN: 1. Continue lung protective strategy. The patient is on 18 of PEEP and a tidal volume of 380. FiO2 is set at 100%. 2. Continue antipyretics. 3. Dialysis as needed. 4. Prognosis remains very poor. 5. Contacted the family and they are aware of the poor prognosis. 6. Case discussed with nursing, Respiratory, Internal Medicine, administration, and family. Greater than 35 minutes in direct critical care time. Jean Alcaraz MD LM/ESTEPHANIAL /[id number]
[2019-12-11] VITALS (24 sets, daily range): BP systolic 79–116; BP diastolic 42–65
[2019-12-11] MEDS: MIDAZOLAM HCL 25 MG in SODIUM CHLORIDE 0.9% 50ML 45 ML IV PRN (04:45)
[2019-12-11 04:48] LABS: BASOPHILS % 0.3 % (0.0-1.0); EOSINOPHILS % 0.4 % (0.0-6.0); LYMPHOCYTES # (AUTO) 0.4 (1.0-3.2); MEAN CORPUSCULAR HGB CONC 30.7 g/dL (31-35); MEAN CORPUSCULAR VOLUME 94.6 fL (81-99); MONOCYTES # (AUTO) 0.2 (0.2-0.8); MONOCYTES % 3.4 % (4.4-11.3); NEUTROPHILS # (AUTO) 5.6 (2.1-6.9); NEUTROPHILS % 82.1 % (38.7-80.0); RED BLOOD COUNT 2.41 x10e6/uL (3.6-5.1); RED CELL DISTRIBUTION WIDTH 17.9 % (11.7-14.4)
[2019-12-11 04:50] LABS: HEMATOCRIT 22.8 % (34.2-44.1); PLATELET COUNT 142 x10e3/uL (140-360)
[2019-12-11 05:06] LABS: ALBUMIN 2.4 g/dL (3.5-5.0); ALBUMIN/GLOBULIN RATIO 0.5 (0.8-2.0); ANION GAP 28.1 mmol/L (8-16); CREATININE, SERUM 9.18 mg/dL (0.57-1.11); POTASSIUM 5.1 mmol/L (3.5-5.1)
[2019-12-11] MEDS: LEVOTHYROXINE SODIUM 100 MCG TAB PO SCH (05:56)
[2019-12-11] MEDS: INSULIN REGULAR, HUMAN 100 UNIT/1 ML 3ML VIAL SQ SCH ×3 (05:59→19:02)
[2019-12-11 08:15] LABS: ABG HCO3 23 mmol/L (22-26); ABG PCO2 56 mmHg (35-45); ABG PH 7.22 (7.35-7.45)
[2019-12-11 08:36] LABS: BAND NEUTROPHILS % (MANUAL) 2 %; LYMPHOCYTES % (MANUAL) 4 % (19-48); NUCLEATED RED BLOOD CELLS 1
[2019-12-11 08:37] LABS: ANISOCYTOSIS MODERATE; PLATELET ESTIMATE ADEQUATE
[2019-12-11 08:38] LABS: PLATELET MORPHOLOGY COMMENT MOD EDTA CLUMPING
[2019-12-11 08:39] LABS: TEAR DROP CELLS MODERATE
[2019-12-11 08:40] LABS: RBC MORPHOLOGY COMMENT ABNORMAL
[2019-12-11 08:41] LABS: MONOCYTES % (MANUAL) 2 % (3.4-9.0); NEUTROPHILS % (MANUAL) 92 % (40-74)
[2019-12-11] MEDS: BALSAM PERU/CASTOR OIL 60 GM OINT...G. TP SCH (09:00)
--- NOTE | 2019-12-11 09:39 | NUR ---
ASSESSMENT: Spiritual distress Telephonic visit. Pt's sister, Sandra, anxious concerning pt's illness. Pt's sister states pt "has been on and off a vent several times over the past 4 years" and "we've seen her come back from 's door" many times. Pt's sister expressed emotions thru words and tears. Pt's sister states as long as she is on the vent "there's still hope there." Pt's sister states pt has "a strong will to live." Pt's sister states pt was told she would never walk again but graduated and "walked across the stage." Pt's sister states the pt "is a believer." Intervention: Provided supportive, empathic listening and prayer. Provided information on how to reach freight shipping agent, if needed. Outcome: Pt's sister expressed appreciation for support. Will follow as able. SHRUTHI DAVENPORT Residential Team Leader Spiritual Care Department O: [phone]
[2019-12-11] MEDS: HEPARIN SOD (PORCINE) 5,000 UNIT/ML VIAL SC SCH ×2 (11:00→21:01)
[2019-12-11] MEDS: MEROPENEM 500MG/ NS 50ML 50 ML IV SCH (11:00)
--- NOTE | 2019-12-11 12:48 | Progress Note ---
DATE: SUBJECTIVE: remains in intensive care unit intubated. Her COVID-19 came back positive. The patient is noncommunicative without any sedation, was a bit agitated. OBJECTIVE: HEENT: Normocephalic. CHEST: Few rhonchi. COR: S1-S2. No murmurs. ABDOMEN: Soft. IMPRESSION: 1. Acute respiratory failure. 2. COVID-19 infection. 3. Tracheal stenosis. 4. Concern aspiration pneumonia. 5. Thrombocytopenia. 6. Anemia. 7. End-stage renal disease. 8. Concern about anoxic brain encephalopathy. PLAN: The patient is DNR. She is currently on meropenem for aspiration pneumonia. Her blood cultures showed coagulase negative staph, probably contamination. Prognosis is extremely poor. We will follow. MD MARCELA Thorne/MODL /[id number]
[2019-12-11] MEDS ORDERED: VECURONIUM BROMIDE FOR INJ 20 MG VIAL IV STA (14:11)
[2019-12-11] MEDS: EPOETIN ALFA-EPBX 10,000 UNIT/ML VIAL SC SCH (15:00)
[2019-12-11 17:15] LABS: ABG HCO3 22 mmol/L (22-26); ABG PCO2 64 mmHg (35-45); ABG PH 7.15 (7.35-7.45)
--- NOTE | 2019-12-11 18:08 | Progress Note ---
DATE: SUBJECTIVE: The patient had dialysis today. She remains on 90% FiO2 with a PEEP of 18. Her respiratory rate is set at 24 and tidal volume is set at 380. She continues to have elevated blood sugars. She is receiving enteral feedings. PHYSICAL EXAMINATION: VITAL SIGNS: The blood pressure is 95/50 and the saturation is 97%. She is on a PRVC at a rate of 24 with a tidal volume of 380. Her FiO2 is set at 0.9 and her PEEP is set at 18. She has no facial swelling. She has a tracheostomy tube in place. She has a left IJ line. The site is clean. There is no drainage. CARDIAC EXAM: Reveals a regular rate and rhythm with normal S1 and S2. LUNGS: Auscultation of lungs reveals rhonchorous breath sounds bilaterally. There is no wheezing. ABDOMEN: Soft, nontender. There is no rebound or guarding. EXAMINATION OF EXTREMITIES: Shows no leg edema or calf tenderness. There is no cyanosis or clubbing. SKIN EXAMINATION: Shows no rashes. NEUROLOGICAL EXAM: Shows the patient to be sedated. RADIOGRAPHIC DATA: Chest x-ray shows extensive bilateral infiltrates. There is a tracheostomy and a left IJ line in good position. LABORATORY DATA: BUN to creatinine ratio is 63 to 9.18. Her blood sugar is 206. Albumin is 2.4. White blood cell count is 6.8 and hemoglobin is 7. The platelet count is 142. IMPRESSION: 1. Acute respiratory failure. 2. Tracheal stenosis. 3. Chronic respiratory failure. 4. COVID-19 infection. 5. Thrombocytopenia. 6. End-stage renal disease. 7. Atrial fibrillation. 8. Possible anoxic brain injury. PLAN: 1. Continue current ventilator settings and repeat ABG. 2. Continue current antibiotics. 3. Enteral feedings. 4. DVT prophylaxis. 5. Continue Versed for sedation. 6. Case discussed with nursing staff, Respiratory, administration, Internal Medicine and Infectious Disease. Case also discussed with sister. Greater than 35 minutes in direct critical care time. Jean Alcaraz MD LM/YECENIA /[id number]
--- NOTE | 2019-12-11 18:14 | NUR ---
Plan is for son and daughter in law to come to the hospital tomorrow to say goodbye. Poly Dang [place], [place] [phone]
--- NOTE | 2019-12-11 18:45 | NUR ---
Report received. Assumed care. Assessment done. See interventions. Trach to vent. Vent settings: TV400, FIO2 95%, PRVC 24, PEEP 18. Versed for sedation.
--- NOTE | 2019-12-11 18:48 | Progress Note ---
DATE: SUBJECTIVE: The patient remains in intensive care unit. She is extremely ill. The patient is DNR. LABORATORY DATA: Blood cultures, coagulase-negative Staph. White count 6.7 with hemoglobin of 7. PHYSICAL EXAMINATION: GENERAL: She is intubated and sedated. HEENT: Normocephalic. CHEST: Few crackles. COR: S1, S2. No S3, S4, or murmur. ABDOMEN: Soft. IMPRESSION: 1. Sepsis on admission. 2. Acute respiratory failure. 3. COVID-19. 4. Aspiration pneumonia. 5. End-stage renal disease. 6. Obesity. 7. Anemia of chronic disease. 8. Tracheal stenosis. 9. Thrombocytopenia. PLAN: Prognosis is extremely poor. Family aware. We will follow up. MD MARCELA Thorne/YECENIA /[id number]
--- NOTE | 2019-12-11 22:42 | NUR ---
Cleaned for large amt liquid brown stool.
[2019-12-12] VITALS (16 sets, daily range): BP systolic 0–123; BP diastolic 25–65
[2019-12-12] MEDS: INSULIN REGULAR, HUMAN 100 UNIT/1 ML 3ML VIAL SQ SCH ×2 (00:47→06:00)
--- NOTE | 2019-12-12 00:51 | NUR ---
Cleaned for mod loose brown stool.
[2019-12-12] MEDS: MIDAZOLAM HCL 25 MG in SODIUM CHLORIDE 0.9% 50ML 45 ML IV PRN ×2 (01:43→04:15)
[2019-12-12 04:48] LABS: BASOPHILS % 0.3 % (0.0-1.0); EOSINOPHILS % 0.2 % (0.0-6.0); HEMATOCRIT 23.5 % (34.2-44.1); HEMOGLOBIN 7.1 g/dL (12.0-16.0); LYMPHOCYTES # (AUTO) 0.4 (1.0-3.2); MEAN CORPUSCULAR HEMOGLOBIN 28.5 pg (28-32); MEAN CORPUSCULAR HGB CONC 30.2 g/dL (31-35); MEAN CORPUSCULAR VOLUME 94.4 fL (81-99); MONOCYTES # (AUTO) 0.3 (0.2-0.8); MONOCYTES % 2.9 % (4.4-11.3); NEUTROPHILS # (AUTO) 7.7 (2.1-6.9); NEUTROPHILS % 86.7 % (38.7-80.0); PLATELET COUNT 160 x10e3/uL (140-360); RED BLOOD COUNT 2.49 x10e6/uL (3.6-5.1); RED CELL DISTRIBUTION WIDTH 17.9 % (11.7-14.4)
[2019-12-12 05:11] LABS: ALBUMIN 2.3 g/dL (3.5-5.0); ALBUMIN/GLOBULIN RATIO 0.5 (0.8-2.0); ANION GAP 26.2 mmol/L (8-16); CALCIUM 9.1 mg/dL (8.4-10.2); CREATININE, SERUM 8.73 mg/dL (0.57-1.11); POTASSIUM 5.2 mmol/L (3.5-5.1)
[2019-12-12] MEDS: LEVOTHYROXINE SODIUM 100 MCG TAB PO SCH (06:00)
--- NOTE | 2019-12-12 06:07 | NUR ---
Cleaned for large loose brown stool.
[2019-12-12] MEDS: BALSAM PERU/CASTOR OIL 60 GM OINT...G. TP SCH (08:04)
[2019-12-12] MEDS: HEPARIN SOD (PORCINE) 5,000 UNIT/ML VIAL SC SCH (08:04)
[2019-12-12 09:15] LABS: LYMPHOCYTES % (MANUAL) 7 % (19-48); MONOCYTES % (MANUAL) 2 % (3.4-9.0); NEUTROPHILS % (MANUAL) 91 % (40-74); NUCLEATED RED BLOOD CELLS 1
[2019-12-12 09:16] LABS: ANISOCYTOSIS MODERATE; TEAR DROP CELLS FEW
[2019-12-12 09:18] LABS: PLATELET ESTIMATE ADEQUATE; PLATELET MORPHOLOGY COMMENT FEW EDTA CLUMPING; RBC MORPHOLOGY COMMENT ABNORMAL
[2019-12-12] MEDS: MEROPENEM 500MG/ NS 50ML 50 ML IV SCH (10:00)
--- NOTE | 2019-12-12 11:10 | NUR ---
Pt's son and [id number] quietly standing outside pt's room. Provided hospitality and information about availability of Staff Respiratory Therapist. SHRUTHI DAVENPORT Staff Respiratory Therapist Spiritual Care Department O: [phone]
--- NOTE | 2019-12-12 12:14 | NUR ---
Patient's son and daughter in law to bedside. Questions and concerns addressed. Patient's POA called and spoke with Dr Lisy Verma. She wishes that we remove all care measures and make the patient hospice care.
--- NOTE | 2019-12-12 13:15 | NUR ---
ORDER FOR HOSPICE EVAL COOK CHILI CALLED PTS SISTER AND MPOA KEO KRAMER SHE CHOSE [facility] CHOICE LETTER ON CHART PT EXTUBATED BY DR PRECIADO AND
--- NOTE | 2019-12-12 13:20 | NUR ---
Patient ceased vital signs at 1320. DrHamer to bedside, pronounced.
--- NOTE | 2019-12-12 14:00 | NUR ---
Per patient's POA, sister Sandra Duval, the patient's has made arrangements with [facility]. [phone] Spoke with Chris, faxed [facility], and he is en route from [facility].
--- NOTE | 2019-12-12 16:46 | Progress Note ---
DATE: SUBJECTIVE: The patient is still on a pressure regulated volume control with a FiO2 of 90% and a PEEP of 18. She was unable to tolerate dialysis yesterday. She became hypotensive and tachycardiac. The son came in around noon today to visit the patient. The sister who, was a power of [place] attorney, has opted for withdrawal of life support. PHYSICAL EXAMINATION: VITAL SIGNS: The patient is afebrile. HEENT: Shows no facial swelling or erythema. The oropharynx is normal. Tracheostomy site is clean. CARDIAC: Reveals regular rate and rhythm with normal S1 and S2. LUNGS: Auscultation of lungs shows decreased breath sounds at the bases. ABDOMEN: Soft and nontender. There is no rebound or guarding. EXTREMITIES: Shows no leg edema or calf tenderness. There is no cyanosis or clubbing. IMPRESSION: 1. Acute respiratory failure. 2. Tracheal stenosis. 3. Chronic respiratory failure requiring mechanical ventilation at night for the past 3 years. 4. Thrombocytopenia. 5. End-stage renal disease. 6. COVID-19 infection. 7. Atrial fibrillation. PLAN: 1. Family has opted for withdrawal of life support. The patient will be removed from the ventilator and placed on trach collar with maximum oxygen. 2. Continue Versed at 3 mg an hour. 3. Narcotics for pain relief as needed. Jean Alcaraz MD [facility]/ESTEPHANIAL /[id number]
--- NOTE | 2019-12-12 19:57 | Progress Note ---
DATE: SUBJECTIVE: Ms. Clarke remains in Intensive Care Unit. She remains very ill. REVIEW OF SYSTEMS: Noncommunicative. OBJECTIVE: HEENT: Not icteric. CHEST: Few rhonchi, coarse. ABDOMEN: Soft. IMPRESSION: This patient, who is extremely ill and is . The patient was pronounced. MD MARCELA Thorne/MODL /[id number]
[2019-12-15 10:44] LABS: ABG PO2 59 mmHg (80-90)
[2019-12-15 10:45] LABS: ABG PO2 73 mmHg (80-90)
[2019-12-15 10:50] LABS: ABG PO2 62 mmHg (80-105)
[2019-12-15 10:59] LABS: ABG PO2 89 mmHg (80-105)
[2019-12-15 11:04] LABS: ABG PO2 59 mmHg (80-105)
== END 2019-12-12 20:52 | disposition expired | DRG 870 ==
LOC: ER 19:30 → EDBD 19:35 → ER 19:35 → ERHOLD 22:58 → MERGE 22:58 → ICU 12-05 01:00
PROC: 5A1955Z Respiratory Ventilation, Greater than 96 Consecutive Hours (ICD-10-PCS; principal; 2019-12-04)
PROC: 02HV33Z Insertion of Infusion Device into Superior Vena Cava, Percutaneous Approach (ICD-10-PCS; 2019-12-04)
PROC: B548ZZA Ultrasonography of Superior Vena Cava, Guidance (ICD-10-PCS; 2019-12-04)
PROC: 5A12012 Performance of Cardiac Output, Single, Manual (ICD-10-PCS; 2019-12-04)
PROC: 30233N1 Transfusion of Nonautologous Red Blood Cells into Peripheral Vein, Percutaneous Approach (ICD-10-PCS; 2019-12-05)
PROC: 5A1D70Z Performance of Urinary Filtration, Intermittent, Less than 6 Hours Per Day (ICD-10-PCS; 2019-12-05)
PROC: 5A1D70Z Performance of Urinary Filtration, Intermittent, Less than 6 Hours Per Day (ICD-10-PCS; 2019-12-06)
PROC: 5A1D70Z Performance of Urinary Filtration, Intermittent, Less than 6 Hours Per Day (ICD-10-PCS; 2019-12-08)
PROC: 5A1D70Z Performance of Urinary Filtration, Intermittent, Less than 6 Hours Per Day (ICD-10-PCS; 2019-12-11)
DX: A41.9 Sepsis, unspecified organism (principal); N18.6 End stage renal disease; J96.20 Acute and chronic respiratory failure, unspecified whether with hypoxia or hypercapnia; U07.1 COVID-19; I50.33 Acute on chronic diastolic (congestive) heart failure; J12.89 Other viral pneumonia; N17.9 Acute kidney failure, unspecified; Z68.42 Body mass index [BMI] 45.0-49.9, adult; N39.0 Urinary tract infection, site not specified; I13.2 Hypertensive heart and chronic kidney disease with heart failure and with stage 5 chronic kidney disease, or end stage renal disease; G93.1 Anoxic brain damage, not elsewhere classified; E87.5 Hyperkalemia; D50.0 Iron deficiency anemia secondary to blood loss (chronic); Z99.2 Dependence on renal dialysis; D64.9 Anemia, unspecified; E66.01 Morbid (severe) obesity due to excess calories; J45.30 Mild persistent asthma, uncomplicated; D63.1 Anemia in chronic kidney disease; E03.9 Hypothyroidism, unspecified; Z93.0 Tracheostomy status; E11.22 Type 2 diabetes mellitus with diabetic chronic kidney disease; E11.42 Type 2 diabetes mellitus with diabetic polyneuropathy; D69.6 Thrombocytopenia, unspecified; J39.8 Other specified diseases of upper respiratory tract; Z66 Do not resuscitate
CPT/HCPCS: 36415; 36600; 70450; 71045; 71250; 72125; 74176; 80048; 80053; 81001; 82550; 82553; 82805; 82948; 83605; 83735; 83880; 84100; 84484; 85014; 85018; 85025; 85610; 85730; 86704; 86705; 86706; 86850; 86900; 86920; 87040; 87071; 87086; 87205; 87340; 87400; 87635; 90962; 93005; 94002; 94003; 96372; 99251; 99284; J0171; J0456; J1644; J1817; J2001; J2060; J2185; J2250; J3370; J7030; J7050; J7799; P9016